=== PATIENT | male | born 1975 | race Caucasian/White ===

== ENCOUNTER 2020-08-31 02:57 | Emergency (ER) | payer MEDICARE, MEDICAID, SELFPAY ==
[2020-08-31 03:04] VITALS: BP 152/69; PULSE 91; RESP 20; TEMP 37.4; O2SAT 99; BMI 83.2
--- NOTE | 2020-08-31 03:20 | PC.NURSE ---
IV established, labs obtained. MD at bedside for primary eval. Plan to possibly transfer pt to [facility] or [facility] for a bariatric CT.
--- NOTE | 2020-08-31 03:31 | ED_ITS ---
HPI - Abdominal Pain General Chief Complaint: Abdominal Pain Stated Complaint: Abdominal Pain Time Seen by Provider: 08/31/20 03:09 Source: patient Mode of arrival: EMS Limitations: no limitations History of Present Illness HPI narrative: Patient comes to emergency room complaining of left lower quadrant pain. Started approximately 2 hours prior to arrival while watching TV. Patient states since then, the pain has gradually been becoming worse. In September of 2018, patient had a similar episode of left lower quadrant pain, patient was on Lovenox, he developed a hematoma in the left lower quadrant abdominal wall. Patient became anemic and needed 8 units of blood transfusion. Patient states the pain is complaining of acute pain in the same side as last time. Related Data Home Medications Medication Instructions Recorded Confirmed ibuprofen 800 mg tablet 800 mg PO Q8H 07/24/20 07/25/20 Previous Rx's Medication Instructions Recorded tramadol 50 mg tablet 50 mg PO DAILY #30 tab 07/25/20 miscellaneous medical supply #1 ea 08/22/20 Allergies Allergy/AdvReac Type Severity Reaction Status Date / Time No Known Allergies Allergy Verified 07/24/20 16:18 Review of Systems Review of Systems Constitutional : No Weight loss, No Fever, No Chills, No Night Sweats, No Fatigue, No Malaise ENT/Mouth : No Hearing loss, No Ear Pain, No Nasal Congestion, No Sinus Pain, No Hoarseness, No sore throat, No Rhinorrhea, No Swallowing Difficulty Eyes: No Eye Pain, No Swelling, No Redness, No Foreign Body, No Discharge, No Vision Changes Cardiovascular : No Chest Pain, No SOB, No Dyspnea on Exertion, No Orthopnea, No Edema, No Palpitations Respiratory : No Cough, No Sputum, No Wheezing, No Smoke Exposure, No Dyspnea Gastrointestinal : No Nausea, No Vomiting, No Diarrhea, No Constipation, complaining of left lower quadrant pannus pain, No Hematochezia, No Melena Genitourinary : no irregular bleeding, No Dysuria, No Urinary Frequency, No Hematuria, No Urinary Incontinence, No Urgency, No Flank Pain, No Urinary Flow Changes, No Hesitancy Musculoskeletal : No joint pain, No Myalgias, No Joint Swelling Skin : No Skin Lesions, No rash Neuro : No Weakness, No Numbness, No Paresthesias, No Loss of Consciousness, No Dizziness, No Headache Psych : No Anxiety/Panic, No Depression, No SI/HI/AH/VH, No Social Issues, Heme/Lymph: No Bruising, No Bleeding,No Lymphadenopathy Endocrine : No Polyuria, No Polydipsia, No Temperature Intolerance Physical Exam Vital Signs: Vital Signs: Last Vital Signs Temp 99.3 F 08/31/20 03:04 Pulse 79 08/31/20 04:11 Resp 24 H 08/31/20 04:11 BP 154/69 H 08/31/20 04:11 Pulse Ox 99 08/31/20 03:04 Body Mass Index 83.2 Appearance: Alert. Oriented X3. [id number] acute distress. Eyes: Pupils equal, round and reactive to light. ENT: Pharynx normal. Neck: Normal inspection. Neck supple. No lymph nodes noted. No crepitus CVS: Normal heart rate and rhythm. Pulses normal. Normal S1 and S2 Respiratory: No respiratory distress. Breath sounds normal. No Wheezing. No rales Abdomen: Soft , tender to palpation over the pannus in the left lower quadrant, has a moderate induration, no ecchymosis other discoloration. Skin: Skin warm and dry. Normal skin color. Normal skin turgor. Extremities: No lower extremity edema. No lower extremity edema. No Lacerations. No Rash Neuro: Oriented X 3. No motor deficit. No sensory deficit. Moving all extermities. No slurred speech. Course Course Course Narrative: Patient continues having left lower quadrant pain. Patient screaming in pain occasionally. Patient given morphine. At this time, patient's labs are stable, hemoglobin is 11.9, hematocrit 39.7. Due to patient's previous history of abdominal wall hematoma with rapid decompensation requiring blood transfusion (8 units). We discussed the patient with the transfer center and they state, however due to the patient's body habitus, and weight, their CT scanners cannot be used. Patient is being transferred to [place]. Pt was accepted ED to ED by Dr. Ford. Patient's current blood pressure 154/69, pulse 79 MDM - Abdominal Pain Lab Data Result diagrams: 08/31/20 03:28 08/31/20 03:28 Labs: Lab Results 08/31/20 08/31/20 08/31/20 Range/Units 03:28 03:28 03:28 WBC 14.1 H (4.8-10.8) X10*3/uL RBC 4.65 (4.60-5.80) X10*6/uL Hgb 11.9 L (14.0-18.0) g/dl Hct 39.7 L (42-52) % MCV 85.4 (80-98) fL MCH 25.6 L (27.0-33.0) pg MCHC 30.0 L (31.0-36.0) g/dl RDW 14.6 (11.0-16.0) % Plt Count 226 (160-400) X10*3/uL MPV 11.7 (9.4-12.4) fL Immature Gran % (Auto) 0.6 H (0.0-0.4) % Neut % (Auto) 82.5 H (45-73) % Lymph % (Auto) 8.7 L (20-40) % [place] % (Auto) 5.4 (2-11) % Eos % (Auto) 2.6 (0-4) % Baso % (Auto) 0.2 (0-2) % Lymph # (Auto) 1.2 (1.2-4.9) X10*3/uL [place] # (Auto) 0.8 (0.1-1.2) X10*3/uL Eos # (Auto) 0.4 (0.0-0.4) X10*3/uL Baso # (Auto) 0.0 (0.0-0.2) X10*3/uL Abs Immat Gran (auto) 0.09 H (0.00-0.03) X10*3/uL Absolute Neuts (auto) 11.7 H (2.0-8.3) X10*3/uL Absolute Nucleated RBC 0.000 (0.0-0.012) X10*3/uL Nucleated RBC % (auto) 0.0 (0.0-0.2) /100WBC PT 14.2 H (10.8-13.0) SEC INR 1.2 H (0.9-1.1) Sodium 140 (135-145) mmol/L Potassium 4.8 (3.3-5.1) mmol/l Chloride 101 (96-108) mmol/L Carbon Dioxide 28 (22-29) mmol/L Anion Gap 16 (12-20) BUN 14 (9-16) mg/dL Creatinine 0.84 (0.5-1.4) mg/dL Estim Creat Clear Calc 234.0 Estimated GFR > 60 Random Glucose 108 (60-115) mg/dL Calcium 8.6 (8.4-10.2) mg/dL Total Bilirubin 0.2 (0.0-1.0) mg/dL Direct Bilirubin < 0.2 (0.0-0.5) mg/dL AST 11 (5-37) U/L ALT 12 (0-40) U/L Alkaline Phosphatase 64 (39-117) U/L Total Protein 7.1 (6.5-8.0) g/dL Albumin 3.7 (3.5-5.0) g/dL Urine Color Urine Appearance Urine pH (5.0-8.0) Ur Specific [place] (1.005-1.025) Urine Protein (NEG-TRACE) MG/DL Urine Glucose (UA) (NEG) MG/DL Urine Ketones (NEG) MG/DL Urine Blood (NEG) Urine Nitrite (NEG) Ur Leukocyte Esterase (NEG) 08/31/20 Range/Units 03:28 WBC (4.8-10.8) X10*3/uL RBC (4.60-5.80) X10*6/uL Hgb (14.0-18.0) g/dl Hct (42-52) % MCV (80-98) fL MCH (27.0-33.0) pg MCHC (31.0-36.0) g/dl RDW (11.0-16.0) % Plt Count (160-400) X10*3/uL MPV (9.4-12.4) fL Immature Gran % (Auto) (0.0-0.4) % Neut % (Auto) (45-73) % Lymph % (Auto) (20-40) % [place] % (Auto) (2-11) % Eos % (Auto) (0-4) % Baso % (Auto) (0-2) % Lymph # (Auto) (1.2-4.9) X10*3/uL [place] # (Auto) (0.1-1.2) X10*3/uL Eos # (Auto) (0.0-0.4) X10*3/uL Baso # (Auto) (0.0-0.2) X10*3/uL Abs Immat Gran (auto) (0.00-0.03) X10*3/uL Absolute Neuts (auto) (2.0-8.3) X10*3/uL Absolute Nucleated RBC (0.0-0.012) X10*3/uL Nucleated RBC % (auto) (0.0-0.2) /100WBC PT (10.8-13.0) SEC INR (0.9-1.1) Sodium (135-145) mmol/L Potassium (3.3-5.1) mmol/l Chloride (96-108) mmol/L Carbon Dioxide (22-29) mmol/L Anion Gap (12-20) BUN (9-16) mg/dL Creatinine (0.5-1.4) mg/dL Estim Creat Clear Calc Estimated GFR Random Glucose (60-115) mg/dL Calcium (8.4-10.2) mg/dL Total Bilirubin (0.0-1.0) mg/dL Direct Bilirubin (0.0-0.5) mg/dL AST (5-37) U/L ALT (0-40) U/L Alkaline Phosphatase (39-117) U/L Total Protein (6.5-8.0) g/dL Albumin (3.5-5.0) g/dL Urine Color YELLOW Urine Appearance CLEAR Urine pH 7.5 (5.0-8.0) Ur Specific [place] 1.015 (1.005-1.025) Urine Protein NEG (NEG-TRACE) MG/DL Urine Glucose (UA) NEG (NEG) MG/DL Urine Ketones NEG (NEG) MG/DL Urine Blood NEG (NEG) Urine Nitrite NEG (NEG) Ur Leukocyte Esterase NEG (NEG) Discharge Plan Discharge Clinical Impression: Abdominal pain Qualifiers: Abdominal location: left lower quadrant Qualified Code(s): R10.32 - Left lower quadrant pain [facility]: No Action (DME) miscellaneous medical supply Misc See Rx Instructions .ROUTE .MEDSUPPLY Qty: 1 RF: 0 ibuprofen 800 mg tablet 800 mg PO Q8H RF: 0 tramadol 50 mg tablet 50 mg PO DAILY Qty: 30 RF: 1 PMFSH Past Medical History Medical History (Updated 08/31/20 @ 04:33 by Cathryn Bennett MD) Asthma Chronic back pain Obesity Obstructive sleep apnea Pericardial effusion Respiratory failure Surgical History History of tonsillectomy Family History Family History (Updated 07/18/20 @ 13:53 by Shweta Flores [facility]) Father Medical history unknown Mother Medical history unknown Social History Social History (Updated 07/24/20 @ 16:19 by Bill Biswas) Alcohol intake: never Smoking Status: Never smoker Advance Directives: No
[2020-08-31 03:34] LABS: MANUAL DIFF FLAG NO
--- NOTE | 2020-08-31 03:34 | PC.NURSE ---
Pt reports a relevant medical history involving a ruptured vessel within the left side of his abdomen on 09/2018 while he trying to tie his shoes. Pt was transfused with 8 units of blood. Pt explains that this pain is in the same area but states it feels different. Pt denies any heavy lifting or moving this evening prior to the pain beginning. Pt states he is not able to move much due to his weight and that his mother primary cares of him, assisting him with ADLs and frantz care. Discoloration noted to the left side of abdomen from previous hematoma. Pt assisted into POC, requesting pain medication. Awaiting lab results.
[2020-08-31 03:35] LABS: Basophils Percent Auto 0.2 % (0-2); Eosinophils Absolute Auto 0.4 X10*3/uL (0.0-0.4); Eosinophils Percent Auto 2.6 % (0-4); Hematocrit 39.7 % (42-52); Hemoglobin 11.9 g/dl (14.0-18.0); Imm Gran Abs Auto 0.09 X10*3/uL (0.00-0.03); Imm Gran Pct Auto 0.6 % (0.0-0.4); Lymphocytes Absolute Auto 1.2 X10*3/uL (1.2-4.9); Lymphocytes Percent Auto 8.7 % (20-40); Mean Corpuscular Hemoglobin 25.6 pg (27.0-33.0); Mean Corpuscular Volume 85.4 fL (80-98); Mean Platelet Volume 11.7 fL (9.4-12.4); Monocytes Absolute Auto 0.8 X10*3/uL (0.1-1.2); Monocytes Percent Auto 5.4 % (2-11); Neutrophils Absolute Auto 11.7 X10*3/uL (2.0-8.3); Neutrophils Percent Auto 82.5 % (45-73); Platelet Count 226 X10*3/uL (160-400); Red Blood Count 4.65 X10*6/uL (4.60-5.80); Red Cell Distribution Width 14.6 % (11.0-16.0); White Blood Count 14.1 X10*3/uL (4.8-10.8)
[2020-08-31 03:36] LABS: Glucose Urine UA NEG (NEG); Leukocyte Esterase Urine NEG (NEG); Nitrite Urine NEG (NEG); PH 7.5 (5.0-8.0); Specific Gravity - Urine 1.015 (1.005-1.025); Urine Blood NEG (NEG); Urine Ketones NEG (NEG); Urine Protein NEG (NEG-TRACE)
[2020-08-31 03:38] LABS: Appearance Urine CLEAR; Color Urine YELLOW; UACC Culture Trigger NO
[2020-08-31 03:40] LABS: INTERNATIONAL NORM RATIO 1.2 (0.9-1.1); Prothrombin Time 14.2 SEC (10.8-13.0)
[2020-08-31] MEDS: Morphine Sulfate 4 MG/ML CARTRIDGE IVPUSH (03:41)
--- NOTE | 2020-08-31 03:43 | PC.NURSE ---
Pt medicated with Morphine for 10/10 pain to left flank. Continue to monitor.
[2020-08-31 04:11] VITALS: BP 154/69; PULSE 79; RESP 24
--- NOTE | 2020-08-31 04:13 | PC.NURSE ---
[facility] unable to accept pt. [facility] pending acceptance due to pt measuring @ 83 inches around abdomen.
[2020-08-31 04:16] LABS: Alanine Aminotransferase 12 U/L (0-40); Albumin Level 3.7 g/dL (3.5-5.0); Alkaline Phosphatase 64 U/L (39-117); Anion Gap 16 (12-20); Aspartate Amino Transferase 11 U/L (5-37); Bilirubin Direct < 0.2 mg/dL (0.0-0.5); Bilirubin Total 0.2 mg/dL (0.0-1.0); Blood Urea Nitrogen 14 mg/dL (9-16); Calcium 8.6 mg/dL (8.4-10.2); Carbon Dioxide 28 mmol/L (22-29); Chloride 101 mmol/L (96-108); Estimated Glomerular Filt Rate > 60; Glucose Random 108 mg/dL (60-115); Potassium 4.8 mmol/l (3.3-5.1); Sodium 140 mmol/L (135-145); Total Protein 7.1 g/dL (6.5-8.0)
--- NOTE | 2020-08-31 04:52 | PC.NURSE ---
Report given to RN at [facility]. Awaiting EMS transport. Pt aware of plan to transfer via ambulance.
--- NOTE | 2020-08-31 06:04 | PC.NURSE ---
Per EMS, 30 minute ETA.
[2020-08-31 06:42] VITALS: BP 142/57; PULSE 77; RESP 16
--- NOTE | 2020-08-31 06:49 | PC.NURSE ---
EMS at bedside for transfer. Per EMS, dispatch only sending one crew. Per EMS, help required to transport pt into ambulance.
== END 2020-08-31 07:11 | disposition short-term general hospital (02) ==
PROVIDERS: Emergency Provider Emergency Medicine
DX: R10.32 Left lower quadrant pain (principal); Z79.899 Other long term (current) drug therapy
CPT/HCPCS: 36415; 80048; 80076; 81003; 85025; 85610; 96374; 99285; J2270

== ENCOUNTER → 2020-10-03 15:55 | Outpatient (BNVA) | payer MEDICARE, MEDICAID, SELFPAY | PROVIDERS: PCP Internal Medicine; Visit Provider Internal Medicine Pulmonary Disease | DX: G47.33 Obstructive sleep apnea (adult) (pediatric) (principal); G47.34 Idiopathic sleep related nonobstructive alveolar hypoventilation; Z99.89 Dependence on other enabling machines and devices | CPT/HCPCS: 99202 ==

== ENCOUNTER → 2020-10-25 11:22 | Outpatient (REF) | payer MEDICARE, MEDICAID, SELFPAY | LOC: HO.SL 11:22 | PROVIDERS: PCP Internal Medicine; Visit Provider Internal Medicine Pulmonary Disease | DX: G47.33 Obstructive sleep apnea (adult) (pediatric) (principal) | CPT/HCPCS: 95806 ==

== ENCOUNTER → 2020-12-27 15:25 | Outpatient (BNVA) | payer MEDICARE, MEDICAID, SELFPAY | PROVIDERS: PCP Internal Medicine; Visit Provider Internal Medicine Pulmonary Disease | DX: G47.33 Obstructive sleep apnea (adult) (pediatric) (principal); G47.34 Idiopathic sleep related nonobstructive alveolar hypoventilation | CPT/HCPCS: Q3014 ==

== ENCOUNTER 2021-07-20 19:13 | Emergency (ER) | payer MEDICARE, MEDICAID, SELFPAY ==
--- NOTE | ~2021-07-20 | XR_ITS ---
EXAMINATION: XR CHEST CLINICAL INFORMATION: Shortness of breath COMPARISON: Most recent chest radiograph is dated 09/15/2018 TECHNIQUE: Frontal view of the chest was obtained. Limited examination due to patient body habitus. FINDINGS: The cardiomediastinal silhouette appears unchanged. No significant cardiomegaly. The lungs are adequately expanded. There appears to be central interstitial prominence. No dense focal airspace consolidation. No definite pleural effusions are seen. The right costophrenic angle is incompletely imaged. No pneumothorax is visualized. Osseous detail is limited. Previously seen central line is no longer visualized. XR/XR chest 1V IMPRESSION: There is central interstitial prominence. Pulmonary vascular congestion is possible, versus airways changes. The lung parenchyma appears grossly clear.
[2021-07-20 19:43] VITALS: BP 160/70; PULSE 86; RESP 24; TEMP 37; O2SAT 100; BMI 71.7
[2021-07-20 20:57] LABS: MANUAL DIFF FLAG NO
[2021-07-20 21:00] LABS: Basophils Percent Auto 0.2 % (0-2); Eosinophils Absolute Auto 0.4 X10*3/uL (0.0-0.4); Hematocrit 37.1 % (42.0-52.0); Hemoglobin 11.3 g/dl (14.0-18.0); Imm Gran Abs Auto 0.05 X10*3/uL (0.00-0.03); Imm Gran Pct Auto 0.6 % (0.0-0.4); Lymphocytes Absolute Auto 0.5 X10*3/uL (1.2-4.9); Lymphocytes Percent Auto 5.9 % (20-40); Mean Corpuscular HGB Conc 30.5 g/dl (31.0-36.0); Mean Corpuscular Hemoglobin 25.7 pg (27.0-33.0); Mean Corpuscular Volume 84.5 fL (80.0-98.0); Mean Platelet Volume 11.5 fL (9.4-12.4); Monocytes Absolute Auto 0.6 X10*3/uL (0.1-1.2); Monocytes Percent Auto 7.2 % (2-11); Neutrophils Absolute Auto 7.2 x10*3/uL (2.0-8.3); Neutrophils Percent Auto 81.1 % (45-73); Platelet Count 201 X10*3/uL (160-400); Red Blood Count 4.39 X10*6/uL (4.60-5.80); Red Cell Distribution Width 15.1 % (11.0-16.0); White Blood Count 8.8 X10*3/uL (4.8-10.8)
[2021-07-20 21:16] LABS: Anion Gap 13 (12-20); Blood Urea Nitrogen 9 mg/dL (9-16); Calcium 8.1 mg/dL (8.4-10.2); Carbon Dioxide 26 mmol/L (22-29); Chloride 104 mmol/L (96-108); Creatinine Clr Calc Pharmacy 213.8; Estimated Glomerular Filt Rate > 60; Glucose Random 107 mg/dL (60-115); Potassium 4.1 mmol/L (3.3-5.1); Sodium 139 mmol/L (135-145)
[2021-07-20 21:17] VITALS: BP 181/88; PULSE 88; RESP 22; O2SAT 99
[2021-07-20 21:23] LABS: B Type Natriuretic Peptide 25 pg/mL (<100); Troponin-I High Sensitivity < 3.5 ng/L (<3.5-35.0)
[2021-07-20 21:39] LABS: Influenza A PCR NEGATIVE (Negative); Influenza B PCR NEGATIVE (Negative); Resp Syncy Virus RNA Qual PCR NEGATIVE (Negative); SARS COV2 PCR INHOUSE NEGATIVE (Negative)
[2021-07-20] MEDS: Albuterol Sulfate 90 MCG 8 GM INHALER 4 PUFF INHALE (21:51)
--- NOTE | 2021-07-20 22:03 | ED.SOB ---
HPI - SOB/Dyspnea General Chief Complaint: Dyspnea Stated Complaint: Difficulty breathing Time Seen by Provider: 07/20/21 21:40 Source: patient Mode of arrival: ambulatory History of Present Illness HPI Narrative: This is a 45-year-old male who presents with progressive shortness of breath since yesterday in endorses that he has a history of asthma but does not have any inhaler prescribed. He denies any fever, chills but has had a cough and states he has not been COVID-19 vaccinated and is otherwise eating and drinking well without GI or symptoms. Patient states he also has obstructive sleep apnea and uses a CPAP machine. Although triage note documents right lower abdominal pain patient has denied abdominal discomfort at this time. Related Data Previous Rx's Medication Instructions Recorded miscellaneous medical supply #1 ea 08/22/20 miscellaneous medical supply 1 ea MISCELLANEOUS ONCE 99 Days #1 10/09/20 ea miscellaneous medical supply 1 ea MISCELLANEOUS ONCE #1 ea 12/04/20 cyclobenzaprine 10 mg tablet 10 mg PO BEDTIME 30 Days #30 tab 12/31/20 ibuprofen 800 mg tablet 800 mg PO Q8H #90 tab 12/31/20 tramadol 50 mg tablet 50 mg PO DAILY 10 Days #10 tab 12/31/20 miscellaneous medical supply 1 ea MISCELLANEOUS ONCE #1 ea 03/29/21 Allergies Allergy/AdvReac Type Severity Reaction Status Date / Time No Known Allergies Allergy Verified 12/28/20 16:01 Review of Systems Review of Systems: Pertinent positives and negatives as stated in HPI 10 point review of systems is otherwise negative. [facility] Past Medical History Source: nursing notes reviewed Medical History Asthma Chronic back pain Obesity Obstructive sleep apnea Pericardial effusion Respiratory failure Surgical History History of tonsillectomy Family History Family History Father Medical history unknown Mother Medical history unknown Family/Other Asthma Brother No problems noted. Brother No problems noted. Sister No problems noted. Social History Social History Alcohol intake: never Advance Directives: No Physical Exam Vital Signs: Vital Signs: Last Vital Signs Temp 98.6 F 07/20/21 19:43 Pulse 113 H 07/20/21 23:28 Resp 20 07/20/21 23:28 BP 140/60 H 07/20/21 23:12 Pulse Ox 100 07/20/21 23:12 BMI result Body Mass Index 71.7 VITAL SIGNS: Reviewed. GENERAL: Morbidly obese,well nourished, in no acute distress. HEAD: Normocephalic/atraumatic EYES: PERRLA, EOMI OROPHARYNX: no oral lesions noted, posterior pharynx clear NECK: Supple, no adenopathy LUNGS: Good inspiratory effort with expiratory wheezing noted bilaterally, mild tachypnea with increased work of breathing. CARDIOVASCULAR: Regular rate and rhythm without noted murmurs, no JVD or lower extremity edema. ABDOMEN: Morbidly obese, exam limited by body habitus, soft, non-tender, non-distended with bowel sounds. MUSCULOSKELETAL: No tenderness, deformities, or effusions noted on gross inspection. EXTREMITIES: Bilateral lower extremities with chronic skin changes of lymphedema as well as skin thickening no noted erythema or induration. SKIN: Inspection of the skin reveals no rashes, NEUROLOGIC: Alert and oriented x 4. Strength and sensation to light touch were grossly intact x 4. Course Course Course Narrative: 45-year-old male with history and clinical presentation suggestive of asthma exacerbation and in the absence of fever, chills or GI symptoms limited concern for pneumonia or intra-abdominal pathologies. Review of investigations negative for evidence to support fluid overload, infectious etiology, and COVID-19 testing is negative. Patient presumptively treated for asthma with albuterol treatments, steroids and will be re-evaluated. Review of all investigations negative for acute findings and patient treated for acute asthma exacerbation with 2 hour long albuterol treatments as well as Ventolin and administration of steroids. On re-evaluation the patient he reports significant improvement of breathing and on clinical exam no wheezing noted. MDM - SOB/Dyspnea Lab Data Result diagrams: 07/20/21 20:52 07/20/21 20:52 Labs: Lab Results 07/20/21 07/20/21 07/20/21 Range/Units 20:52 20:52 20:52 WBC 8.8 (4.8-10.8) X10*3/uL RBC 4.39 L (4.60-5.80) X10*6/uL Hgb 11.3 L (14.0-18.0) g/dl Hct 37.1 L (42.0-52.0) % MCV 84.5 (80.0-98.0) fL MCH 25.7 L (27.0-33.0) pg MCHC 30.5 L (31.0-36.0) g/dl RDW 15.1 (11.0-16.0) % Plt Count 201 (160-400) X10*3/uL MPV 11.5 (9.4-12.4) fL Immature Gran % (Auto) 0.6 H (0.0-0.4) % Neut % (Auto) 81.1 H (45-73) % Lymph % (Auto) 5.9 L (20-40) % [place] % (Auto) 7.2 (2-11) % Eos % (Auto) 5.0 H (0-4) % Baso % (Auto) 0.2 (0-2) % Lymph # (Auto) 0.5 L (1.2-4.9) X10*3/uL [place] # (Auto) 0.6 (0.1-1.2) X10*3/uL Eos # (Auto) 0.4 (0.0-0.4) X10*3/uL Baso # (Auto) 0.0 (0.0-0.2) X10*3/uL Abs Immat Gran (auto) 0.05 H (0.00-0.03) X10*3/uL Absolute Neuts (auto) 7.2 (2.0-8.3) x10*3/uL Absolute Nucleated RBC 0.000 (0.0-0.012) X10*3/uL Nucleated RBC % (auto) 0.0 (0.0-0.2) /100WBC Sodium 139 (135-145) mmol/L Potassium 4.1 (3.3-5.1) mmol/L Chloride 104 (96-108) mmol/L Carbon Dioxide 26 (22-29) mmol/L Anion Gap 13 (12-20) BUN 9 (9-16) mg/dL Creatinine 0.83 (0.5-1.4) mg/dL Estim Creat Clear Calc 213.8 Estimated GFR > 60 Random Glucose 107 (60-115) mg/dL Calcium 8.1 L (8.4-10.2) mg/dL Troponin I High Sens < 3.5 (<3.5-35.0) ng/L B-Natriuretic Peptide 25 (<100) pg/mL Influenza Type A (PCR) (Negative) Influenza Type B (PCR) (Negative) RSV RNA Qual (PCR) (Negative) SARS-CoV-2 RNA (RT-PCR) (Negative) 07/20/21 Range/Units 20:52 WBC (4.8-10.8) X10*3/uL RBC (4.60-5.80) X10*6/uL Hgb (14.0-18.0) g/dl Hct (42.0-52.0) % MCV (80.0-98.0) fL MCH (27.0-33.0) pg MCHC (31.0-36.0) g/dl RDW (11.0-16.0) % Plt Count (160-400) X10*3/uL MPV (9.4-12.4) fL Immature Gran % (Auto) (0.0-0.4) % Neut % (Auto) (45-73) % Lymph % (Auto) (20-40) % [place] % (Auto) (2-11) % Eos % (Auto) (0-4) % Baso % (Auto) (0-2) % Lymph # (Auto) (1.2-4.9) X10*3/uL [place] # (Auto) (0.1-1.2) X10*3/uL Eos # (Auto) (0.0-0.4) X10*3/uL Baso # (Auto) (0.0-0.2) X10*3/uL Abs Immat Gran (auto) (0.00-0.03) X10*3/uL Absolute Neuts (auto) (2.0-8.3) x10*3/uL Absolute Nucleated RBC (0.0-0.012) X10*3/uL Nucleated RBC % (auto) (0.0-0.2) /100WBC Sodium (135-145) mmol/L Potassium (3.3-5.1) mmol/L Chloride (96-108) mmol/L Carbon Dioxide (22-29) mmol/L Anion Gap (12-20) BUN (9-16) mg/dL Creatinine (0.5-1.4) mg/dL Estim Creat Clear Calc Estimated GFR Random Glucose (60-115) mg/dL Calcium (8.4-10.2) mg/dL Troponin I High Sens (<3.5-35.0) ng/L B-Natriuretic Peptide (<100) pg/mL Influenza Type A (PCR) NEGATIVE (Negative) Influenza Type B (PCR) NEGATIVE (Negative) RSV RNA Qual (PCR) NEGATIVE (Negative) SARS-CoV-2 RNA (RT-PCR) NEGATIVE (Negative) Procedures EJ/Peripheral Line Arm R: Time Out Performed: No Skin Cleansed in Sterile Fashion: Yes Size (gauge): 18 IV Secured and Dressing Applied: Yes Patient Tolerated Procedure: well Additional Comments: Ultrasound-guided Discharge Plan Discharge Clinical Impression: Morbid obesity, Lab test negative for COVID-19 virus, Acute asthma exacerbation Patient Disposition: Home, Self-Care Instructions: Asthma (ED), Albuterol (By mouth) Additional Instructions: 1. Resume all home medications as prescribed. 2. Albuterol inhaler, 2 puffs, every 4-6 hours, as needed for shortness of breath. 3. Follow-up with your primary care provider on Friday morning to set up an appointment for re-evaluation further outpatient management. Return to the ER for acute worsening of symptoms. Prescriptions: No Action (DME) miscellaneous medical supply Misc See Rx Instructions .ROUTE .MEDSUPPLY Qty: 1 RF: 0 miscellaneous medical supply Misc 1 ea miscellaneous ONCE Qty: 1 RF: 0 cyclobenzaprine 10 mg tablet 10 mg PO BEDTIME 30 Days Qty: 30 RF: 1 tramadol 50 mg tablet 50 mg PO DAILY 10 Days Qty: 10 RF: 0 ibuprofen 800 mg tablet 800 mg PO Q8H Qty: 90 RF: 1 miscellaneous medical supply Misc 1 ea miscellaneous ONCE Qty: 1 RF: 0 miscellaneous medical supply Misc 1 ea miscellaneous ONCE 99 Days Qty: 1 RF: 0 Referrals: Pamela Tong MD [Primary Care Provider] - 2 days (Asthma exacerbation)
[2021-07-20] MEDS: Albuterol Sulfate (0.083%) 2.5 MG/3 ML VIAL.NEB 10 MG INHALE ×2 (22:27→23:27)
[2021-07-20 22:28] VITALS: PULSE 89; RESP 18; O2SAT 99
--- NOTE | 2021-07-20 22:41 | PC.NURSE ---
This RN made three attempts to obtain IV access with no success. Jahaira RN attempted to obtain access twice with no success. Provider notified.
[2021-07-20 23:12] VITALS: BP 140/60; PULSE 102; RESP 16; O2SAT 100
--- NOTE | 2021-07-20 23:12 | PC.NURSE ---
IV access obtain by provider with ultrasound.
[2021-07-20] MEDS: methylPREDNISolone Sod Succ 125 MG/2 ML VIAL IVPUSH (23:22)
[2021-07-20 23:28] VITALS: PULSE 113; RESP 20; O2SAT 98
== END 2021-07-21 00:26 | disposition home or self-care (01) ==
PROVIDERS: Emergency Provider Student in an Organized Health Care Education/Training Program; PCP Internal Medicine
DX: J45.901 Unspecified asthma with (acute) exacerbation (principal); R06.02 Shortness of breath; E66.01 Morbid (severe) obesity due to excess calories; R05.9 Cough, unspecified; R79.89 Other specified abnormal findings of blood chemistry; Z20.822 Contact with and (suspected) exposure to COVID-19; Z79.899 Other long term (current) drug therapy; Z71.3 Dietary counseling and surveillance
CPT/HCPCS: 0241U; 36415; 71045; 80048; 83880; 84484; 85025; 94640; 94644; 94645; 96374; 99284; 99285; J2930

== ENCOUNTER 2021-09-12 21:53 | Inpatient (IN) | payer MEDICARE, MEDICAID, SELFPAY ==
--- NOTE | ~2021-09-12 | US_ITS ---
EXAMINATION: US VENOUS ULTRASOUND WITH DOPPLER LOWER EXTREMITY, BILATERAL CLINICAL INFORMATION: Shortness of breath. Rule out DVT. COMPARISON: 09/17/2018 and 09/12/2016. TECHNIQUE: Ultrasound of the deep veins is performed from the hip to the calf with compression sonography and color and pulse Doppler assessment. Spectral analysis with color-flow imaging is performed. FINDINGS: The examination is very limited due to large body habitus. Bilaterally, the common femoral veins, greater saphenous vein, proximal superficial femoral veins, profunda femoral veins, and peroneal veins are not identified. RIGHT: The visualized veins demonstrate normal venous compression and respiratory variation and augmented flow. The visualized mid and distal superficial femoral veins, popliteal veins, and posterior tibial veins show no evidence of deep venous thrombosis. There is no significant popliteal fossa cyst. No popliteal artery aneurysm. LEFT: There is normal venous compression and respiratory variation and augmented flow within the visualized veins. The visualized mid and distal superficial femoral veins, popliteal veins, and posterior tibial veins show no evidence of deep venous thrombosis. There is no significant popliteal fossa cyst. No popliteal artery aneurysm. US/US venous duplex LE BI IMPRESSION: Limited evaluation with no acute DVT demonstrated in the bilateral lower extremities.
--- NOTE | ~2021-09-12 | XR_ITS ---
EXAMINATION: XR CHEST CLINICAL INFORMATION: Post Covid, weakness COMPARISON: Chest radiograph 07/20/2021 TECHNIQUE: Frontal view of the chest was obtained. FINDINGS: Commonly reported imaging features of Covid 19 or viral pneumonia are present. With multifocal ill-defined infiltrates with some relative sparing of the left upper lobe. Other processes such as influenza pneumonia or organizing pneumonia, as can be seen with drug toxicity and connective tissue disease, can cause a similar imaging pattern. The heart is probably upper limits of normal in size allowing for technique. No pleural effusion XR/XR chest 1V IMPRESSION: Multifocal new ill-defined new infiltrates.
--- NOTE | 2021-09-12 21:56 | ECG_ITS ---
Test Reason : ABDOMINAL PAIN Blood Pressure : / mmHG Vent. Rate : 076 BPM Atrial Rate : 076 BPM P-R Int : 168 ms QRS Dur : 090 ms QT Int : 406 ms P-R-T Axes : 003 -04 026 degrees QTc Int : 456 ms Normal sinus rhythm Normal ECG When compared with ECG of 03-JUL-2018 14:39, No significant change was found Referred By: Leonela Hood Electronically Signed By:CRYSTAL MORELOS
[2021-09-12 22:03] VITALS: BP 165/75; PULSE 77; RESP 18; TEMP 37.2; O2SAT 96; BMI 84.3
--- NOTE | 2021-09-12 22:34 | ED_ITS ---
HPI - URI/Sore Throat General Chief Complaint: Upper Respiratory Symptoms Stated Complaint: sob Time Seen by Provider: 09/12/21 21:55 Source: patient and EMS Mode of arrival: EMS History of Present Illness HPI Narrative: 46-year-old male with past medical history of asthma, chronic back pain, morbid obesity, JESSE on CPAP, COVID-19 positive on 08/30 per home test, presenting to the ED via EMS for worsening SOB, cough, increased generalized fatigue/weakness, anorexia, headache, and dry mouth x a few days. Also reports acute on chronic L E edema and nausea. Denies fever, chest pain, abdominal pain, vomiting, diarrhea Onset (ago): day(s) Related Data Previous Rx's Medication Instructions Recorded miscellaneous medical supply #1 ea 08/22/20 miscellaneous medical supply 1 ea MISCELLANEOUS ONCE 99 Days #1 10/09/20 ea miscellaneous medical supply 1 ea MISCELLANEOUS ONCE #1 ea 12/04/20 cyclobenzaprine 10 mg tablet 10 mg PO BEDTIME 30 Days #30 tab 12/31/20 ibuprofen 800 mg tablet 800 mg PO Q8H #90 tab 12/31/20 tramadol 50 mg tablet 50 mg PO DAILY 10 Days #10 tab 12/31/20 miscellaneous medical supply 1 ea MISCELLANEOUS ONCE #1 ea 03/29/21 nebulizers #1 ea 07/25/21 Allergies Allergy/AdvReac Type Severity Reaction Status Date / Time No Known Allergies Allergy Verified 12/28/20 16:01 Review of Systems Verdana 4l Review of Systems: Verdana 4d Verdana 4d Constitutional: No Fever, No Chills, + Fatigue, + Malaise ENT/Mouth: No Ear Pain, No Nasal Congestion, No sore throat, No Rhinorrhea, No Swallowing Difficulty Eyes: No Eye Pain, No Swelling, No Redness, No Foreign Body, No Discharge CardiovascularCardiovascular: No Chest Pain, + SOB, No Dyspnea on Exertion, No Orthopnea, + Edema, No Palpitations Respiratory: + Cough, No Sputum, No Wheezing, +Dyspnea Gastrointestinal: +Nausea, No Vomiting, No Diarrhea, No Constipation, No Abdominal pain Genitourinary: No Dysuria, No Urinary Frequency, No Hematuria, No Flank Pain Musculoskeletal: No joint pain, + Myalgias, No Joint Swelling Skin: No Skin Lesions, No rash Neuro: No Weakness, No Numbness, No Paresthesias, No Loss of Consciousness, No Dizziness, + Headache Yes all other systems are reviewed and are negative [facility] Past Medical History Attestation statement: The following information was validated with the patient. Medical History Asthma Chronic back pain Obesity Obstructive sleep apnea Pericardial effusion Respiratory failure Surgical History History of tonsillectomy Family History Family History Father Medical history unknown Mother Medical history unknown Family/Other Asthma Brother No problems noted. Brother No problems noted. Sister No problems noted. Social History Social History Alcohol intake: never Advance Directives: No Advance Directives Information Provided: No Physical Exam Verdana 4l Vital Signs: Verdana 4d Verdana 4d Vital Signs: Verdana 4d Verdana 4Bd Last Vital Signs Verdana 4d Apprentice Embalmer New 4d Apprentice Embalmer New 4d Temp 98.9 F 09/12/21 22:03 Apprentice Embalmer New 4d Pulse 77 09/12/21 22:03 Apprentice Embalmer New 4d Resp 18 09/12/21 22:03 BP 165/75 H 09/12/21 22:03 Pulse Ox 96 09/12/21 22:03 BMI result Body Mass Index 84.3 Const: General: cooperative Nutritional Appearance: obese morbidly obese Orientation/consciousness: patient oriented x3 Limitations: no limitations HENMT: Head: Yes normal to inspection and Yes atraumatic Ears: hearing grossly normal bilaterally General nose exam: Normal external nose present Face and sinus: Yes normal facial exam Eyes: General: appearance normal, both eyes and all related structures EOM: EOMs intact bilaterally Neck: Neck: Yes normal visual inspection and Yes no meningeal signs Resp: Effort & Inspection: tachypneic Auscultation: wheezes expiratory wheezes (end expiratory) and diminished lung sounds bilateral in the lower lung todd Cardio: Rate: regular rate Heart sounds: S1 normal heart sound present and S2 normal heart sound present GI: Inspection: Yes normal to inspection Palpation (GI): Soft to palpation, nontender, no guarding and not rigid : General: Yes no CVA tenderness Back/Spine/Pelvis: Back: no CVA tenderness Skin: Rashes: no rashes Wounds: no wounds Neuro: General: patient oriented x3 and no meningeal signs Gait exam (Neuro): Normal gait present Extrem: Other: Chronic nonpitting bilateral LE edema Course Course Course Narrative: -COVID-19 positive -0014--no leukocytosis. H&H at patient's baseline. Lactic acid negative. Troponin negative. BNP WNL -D-dimer 493 & CRP/ferritin elevated consistent with COVID-19 > still lower suspicion for PE -AST/ALT mildly elevated XR chest 1V IMPRESSION: Multifocal new ill-defined new infiltrates. -0115--patient is nonambulatory, O2 96% on RA at rest however patient still tachypneic/SOB. Patient is very high risk, CXR concerning, and cannot rule out PE secondary to patient's weight being over the scanned limit. Will talk to hospitalist about admission. -0158-- empirically covered with 150mg of Lovenox. Patient admitted to hospitalist service for further management MDM - URI/Sore Throat MDM Narrative Medical decision making narrative: 46-year-old male with past medical history of asthma, chronic back pain, morbid obesity, JESSE on CPAP, COVID-19 positive on 08/30 per home test, presenting to the ED via EMS for worsening SOB, cough, increased generalized fatigue/weakness, anorexia, headache, and dry mouth x a few days. On exam vital signs stable, NAD, end expiratory wheeze and decreased breath sounds bibasilarly, chronic LE edema. Concern for symptoms of COVID-19 vs viral pna vs superimposed asthma. Lower concern for ACS/CHF. Unlikely PE or DVT without tachycardia or hypoxia. Low concern for severe sepsis as known viral etiology Plan: EKG, labs, CXR, COVID-19 testing, IV Decadron, re-evaluate Differential Diagnosis Differential diagnosis: Likely upper respiratory infection, viral infection, bronchitis and influenza Medical Records Attestation: I reviewed the patient's medical records. Lab Data Attestation: I reviewed the patient's lab results. Result diagrams: 09/12/21 23:46 09/12/21 23:46 Labs: Lab Results 09/12/21 09/12/21 09/12/21 Range/Units 22:23 23:46 23:46 WBC 6.5 (4.8-10.8) X10*3/uL RBC 4.34 L (4.60-5.80) X10*6/uL Hgb 10.9 L (14.0-18.0) g/dl Hct 36.3 L (42.0-52.0) % MCV 83.6 (80.0-98.0) fL MCH 25.1 L (27.0-33.0) pg MCHC 30.0 L (31.0-36.0) g/dl RDW 14.8 (11.0-16.0) % Plt Count 195 (160-400) X10*3/uL MPV 11.1 (9.4-12.4) fL Immature Gran % (Auto) 0.3 (0.0-0.4) % Neut % (Auto) 78.7 H (45-73) % Lymph % (Auto) 11.1 L (20-40) % [place] % (Auto) 8.3 (2-11) % Eos % (Auto) 1.4 (0-4) % Baso % (Auto) 0.2 (0-2) % Lymph # (Auto) 0.7 L (1.2-4.9) X10*3/uL [place] # (Auto) 0.5 (0.1-1.2) X10*3/uL Eos # (Auto) 0.1 (0.0-0.4) X10*3/uL Baso # (Auto) 0.0 (0.0-0.2) X10*3/uL Abs Immat Gran (auto) 0.02 (0.00-0.03) X10*3/uL Absolute Neuts (auto) 5.1 (2.0-8.3) x10*3/uL Absolute Nucleated RBC 0.000 (0.0-0.012) X10*3/uL Nucleated RBC % (auto) 0.0 (0.0-0.2) /100WBC D-Dimer High Sensitivty NG/ML Sodium 141 (135-145) mmol/L Potassium 4.0 (3.3-5.1) mmol/L Chloride 106 (96-108) mmol/L Carbon Dioxide 28 (22-29) mmol/L Anion Gap 11 L (12-20) BUN 10 (9-16) mg/dL Creatinine 0.80 (0.5-1.4) mg/dL Estim Creat Clear Calc 463.1 Estimated GFR > 60 Random Glucose 99 (60-115) mg/dL Lactic Acid (0.5-2.0) mmol/L Calcium 8.2 L (8.4-10.2) mg/dL Magnesium 2.2 (1.6-2.6) mg/dL Ferritin 552 H (20-250) ng/mL Total Bilirubin 0.4 (0.0-1.0) mg/dL Direct Bilirubin 0.2 (0.0-0.5) mg/dL AST 57 H (5-37) U/L ALT 69 H (0-40) U/L Alkaline Phosphatase 62 (39-117) U/L Lactate Dehydrogenase 232 (118-273) U/L Troponin I High Sens (<3.5-35.0) ng/L C-Reactive Protein 7.88 H (< or = 0.50) mg/dL B-Natriuretic Peptide (<100) pg/mL Total Protein 6.5 (6.5-8.0) g/dL Albumin 3.4 L (3.5-5.0) g/dL Procalcitonin ng/mL COVID-19 ([facility]) Positive A (Negative) COVID-19 Clin Com See Note 09/12/21 09/12/21 09/12/21 Range/Units 23:46 23:46 23:46 WBC (4.8-10.8) X10*3/uL RBC (4.60-5.80) X10*6/uL Hgb (14.0-18.0) g/dl Hct (42.0-52.0) % MCV (80.0-98.0) fL MCH (27.0-33.0) pg MCHC (31.0-36.0) g/dl RDW (11.0-16.0) % Plt Count (160-400) X10*3/uL MPV (9.4-12.4) fL Immature Gran % (Auto) (0.0-0.4) % Neut % (Auto) (45-73) % Lymph % (Auto) (20-40) % [place] % (Auto) (2-11) % Eos % (Auto) (0-4) % Baso % (Auto) (0-2) % Lymph # (Auto) (1.2-4.9) X10*3/uL [place] # (Auto) (0.1-1.2) X10*3/uL Eos # (Auto) (0.0-0.4) X10*3/uL Baso # (Auto) (0.0-0.2) X10*3/uL Abs Immat Gran (auto) (0.00-0.03) X10*3/uL Absolute Neuts (auto) (2.0-8.3) x10*3/uL Absolute Nucleated RBC (0.0-0.012) X10*3/uL Nucleated RBC % (auto) (0.0-0.2) /100WBC D-Dimer High Sensitivty NG/ML Sodium (135-145) mmol/L Potassium (3.3-5.1) mmol/L Chloride (96-108) mmol/L Carbon Dioxide (22-29) mmol/L Anion Gap (12-20) BUN (9-16) mg/dL Creatinine (0.5-1.4) mg/dL Estim Creat Clear Calc Estimated GFR Random Glucose (60-115) mg/dL Lactic Acid 0.8 (0.5-2.0) mmol/L Calcium (8.4-10.2) mg/dL Magnesium (1.6-2.6) mg/dL Ferritin Cancelled (20-250) ng/mL Total Bilirubin (0.0-1.0) mg/dL Direct Bilirubin (0.0-0.5) mg/dL AST (5-37) U/L ALT (0-40) U/L Alkaline Phosphatase (39-117) U/L Lactate Dehydrogenase (118-273) U/L Troponin I High Sens < 3.5 (<3.5-35.0) ng/L C-Reactive Protein (< or = 0.50) mg/dL B-Natriuretic Peptide 16 (<100) pg/mL Total Protein (6.5-8.0) g/dL Albumin (3.5-5.0) g/dL Procalcitonin ng/mL COVID-19 ([facility]) (Negative) COVID-19 Clin Com 09/12/21 09/12/21 Range/Units 23:46 23:46 WBC (4.8-10.8) X10*3/uL RBC (4.60-5.80) X10*6/uL Hgb (14.0-18.0) g/dl Hct (42.0-52.0) % MCV (80.0-98.0) fL MCH (27.0-33.0) pg MCHC (31.0-36.0) g/dl RDW (11.0-16.0) % Plt Count (160-400) X10*3/uL MPV (9.4-12.4) fL Immature Gran % (Auto) (0.0-0.4) % Neut % (Auto) (45-73) % Lymph % (Auto) (20-40) % [place] % (Auto) (2-11) % Eos % (Auto) (0-4) % Baso % (Auto) (0-2) % Lymph # (Auto) (1.2-4.9) X10*3/uL [place] # (Auto) (0.1-1.2) X10*3/uL Eos # (Auto) (0.0-0.4) X10*3/uL Baso # (Auto) (0.0-0.2) X10*3/uL Abs Immat Gran (auto) (0.00-0.03) X10*3/uL Absolute Neuts (auto) (2.0-8.3) x10*3/uL Absolute Nucleated RBC (0.0-0.012) X10*3/uL Nucleated RBC % (auto) (0.0-0.2) /100WBC D-Dimer High Sensitivty 493 NG/ML Sodium (135-145) mmol/L Potassium (3.3-5.1) mmol/L Chloride (96-108) mmol/L Carbon Dioxide (22-29) mmol/L Anion Gap (12-20) BUN (9-16) mg/dL Creatinine (0.5-1.4) mg/dL Estim Creat Clear Calc Estimated GFR Random Glucose (60-115) mg/dL Lactic Acid (0.5-2.0) mmol/L Calcium (8.4-10.2) mg/dL Magnesium (1.6-2.6) mg/dL Ferritin (20-250) ng/mL Total Bilirubin (0.0-1.0) mg/dL Direct Bilirubin (0.0-0.5) mg/dL AST (5-37) U/L ALT (0-40) U/L Alkaline Phosphatase (39-117) U/L Lactate Dehydrogenase (118-273) U/L Troponin I High Sens (<3.5-35.0) ng/L C-Reactive Protein (< or = 0.50) mg/dL B-Natriuretic Peptide (<100) pg/mL Total Protein (6.5-8.0) g/dL Albumin (3.5-5.0) g/dL Procalcitonin 0.08 ng/mL COVID-19 ([facility]) (Negative) COVID-19 Clin Com ECG Data Attestation: I personally reviewed and interpreted this ECG as follows: ECG interpretation date: 09/12/21 ECG interpretation time: 22:16 Interpretation: EKG normal sinus rhythm at a rate of 76. QRS 90. QTC 456. no STEMI/nonischemic Critical Care Time Critical Care Time Critical Care Time: Yes Total Critical Care Time: 45 Attestation: I have personally provided critical care time exclusive of time spent on separately billable procedures. Time includes review of lab data, radiology results, discussion with consultants, and monitoring for potential decompensation. Intervention performed as documented. Discharge Plan Discharge Clinical Impression: COVID-19, Pneumonia due to COVID-19 virus Patient Disposition: Admitted As Inpatient Instructions: COVID-19 (Coronavirus Disease 2019) (ED) Prescriptions: No Action (DME) miscellaneous medical supply Misc See Rx Instructions .ROUTE .MEDSUPPLY Qty: 1 0RF Rx Instructions: As directed miscellaneous medical supply Misc 1 ea miscellaneous ONCE Qty: 1 0RF cyclobenzaprine 10 mg tablet 10 mg PO BEDTIME 30 Days Qty: 30 1RF tramadol 50 mg tablet 50 mg PO DAILY 10 Days Qty: 10 0RF ibuprofen 800 mg tablet 800 mg PO Q8H Qty: 90 1RF miscellaneous medical supply Misc 1 ea miscellaneous ONCE Qty: 1 0RF (DME) nebulizers Misc See Rx Instructions .Route Qty: 1 0RF Rx Instructions: Nebulizer Machine and accessories miscellaneous medical supply Misc 1 ea miscellaneous ONCE 99 Days Qty: 1 0RF Referrals: Eric Fernandez MD [Primary Care Provider] - 2 days Print Language: Bengali
[2021-09-12 22:46] LABS: COVID-19 Test Positive (Negative)
[2021-09-12] MEDS: dexAMETHasone sod phosphate 4 MG/ML VIAL 6 MG IVPUSH (23:20)
[2021-09-12] MEDS: 0.9 % Sodium Chloride 500 ML 999 ML IV (23:21)
[2021-09-12 23:52] LABS: MANUAL DIFF FLAG NO
[2021-09-12 23:54] LABS: Basophils Percent Auto 0.2 % (0-2); Eosinophils Absolute Auto 0.1 X10*3/uL (0.0-0.4); Eosinophils Percent Auto 1.4 % (0-4); Hematocrit 36.3 % (42.0-52.0); Hemoglobin 10.9 g/dl (14.0-18.0); Imm Gran Abs Auto 0.02 X10*3/uL (0.00-0.03); Imm Gran Pct Auto 0.3 % (0.0-0.4); Lymphocytes Absolute Auto 0.7 X10*3/uL (1.2-4.9); Lymphocytes Percent Auto 11.1 % (20-40); Mean Corpuscular Hemoglobin 25.1 pg (27.0-33.0); Mean Corpuscular Volume 83.6 fL (80.0-98.0); Mean Platelet Volume 11.1 fL (9.4-12.4); Monocytes Absolute Auto 0.5 X10*3/uL (0.1-1.2); Monocytes Percent Auto 8.3 % (2-11); Neutrophils Absolute Auto 5.1 x10*3/uL (2.0-8.3); Neutrophils Percent Auto 78.7 % (45-73); Platelet Count 195 X10*3/uL (160-400); Red Blood Count 4.34 X10*6/uL (4.60-5.80); Red Cell Distribution Width 14.8 % (11.0-16.0); White Blood Count 6.5 X10*3/uL (4.8-10.8)
[2021-09-13 00:02] LABS: D Dimer High Sensitivity 493 NG/ML
[2021-09-13 00:04] LABS: Lactic Acid 0.8 mmol/L (0.5-2.0)
[2021-09-13 00:14] LABS: B Type Natriuretic Peptide 16 pg/mL (<100); Troponin-I High Sensitivity < 3.5 ng/L (<3.5-35.0)
[2021-09-13 00:22] LABS: Alanine Aminotransferase 69 U/L (0-40); Albumin Level 3.4 g/dL (3.5-5.0); Alkaline Phosphatase 62 U/L (39-117); Anion Gap 11 (12-20); Aspartate Amino Transferase 57 U/L (5-37); Bilirubin Direct 0.2 mg/dL (0.0-0.5); Bilirubin Total 0.4 mg/dL (0.0-1.0); Blood Urea Nitrogen 10 mg/dL (9-16); C Reactive Protein 7.88 mg/dL (< or = 0.50); Calcium 8.2 mg/dL (8.4-10.2); Carbon Dioxide 28 mmol/L (22-29); Chloride 106 mmol/L (96-108); Creatinine Clr Calc Pharmacy 463.1; Estimated Glomerular Filt Rate > 60; Glucose Random 99 mg/dL (60-115); Magnesium 2.2 mg/dL (1.6-2.6); Sodium 141 mmol/L (135-145); Total Protein 6.5 g/dL (6.5-8.0)
[2021-09-13 00:31] LABS: Procalcitonin 0.08 ng/mL
[2021-09-13 00:32] LABS: Ferritin 552 ng/mL (20-250)
[2021-09-13 00:50] LABS: Lactate Dehydrogenase 232 U/L (118-273)
[2021-09-13] MEDS: Albuterol Sulfate 90 MCG 8 GM INHALER 4 PUFF INHALE (00:57)
--- NOTE | 2021-09-13 00:59 | PC.NURSE ---
pt medicated with inhaler, pt unable to ambulate. pt awaiting for dispo. pt denies any complaints. pt remains alert, respirations easy, n/l. skin w/d.
[2021-09-13 01:00] VITALS: BP 153/74; PULSE 80; RESP 18; O2SAT 95
[2021-09-13] MEDS: Albuterol/Iprat 2.5/0.5MG 3 ML AMPUL.NEB INHALE (01:34)
[2021-09-13 02:05] LABS: INTERNATIONAL NORM RATIO 1.2 (0.9-1.1); Prothrombin Time 14.2 SEC (9.9-13.0)
--- NOTE | 2021-09-13 02:06 | P.HPHOSP_ITS ---
History of Present Illness Date of Service: 09/13/21 Chief Complaint: SOB 46-year-old male with a past medical history of asthma, chronic back pain, morbid obesity, JESSE on CPAP, tested positive for COVID-19 on 08/30/2021; presented to the hospital today with a chief complaint of generalized weakness, cough, shortness of breath. Patient reported that initially when he was tested positive use having fevers. But gradually he became generally weak, nausea, for intake, and over the past couple is had shortness of breath and dyspnea on exertion. Also reported dry cough. Denies any chest pain or palpitations. reports nausea/vomiting /abdominal discomfort. Denies any numbness tingling or focal weakness. Review of all other systems is negative except mentioned above ER course: Per ER team patient had a chest x-ray which showed possible COVID-19 pneumonia. Patient was given Decadron, antibiotics. Patient was saturating 96% on room air. Given high risk patient wanted to admit to the hospital for further management[facility] Medical History Asthma Chronic back pain Obesity Obstructive sleep apnea Pericardial effusion Respiratory failure Family History Father Medical history unknown Mother Medical history unknown Family/Other Asthma Brother No problems noted. Brother No problems noted. Sister No problems noted. Pertinent family history: as above Surgical History History of tonsillectomy Social History Alcohol intake: never Advance Directives: No Advance Directives Information Provided: No Meds Allergies Allergy/AdvReac Type Severity Reaction Status Date / Time No Known Allergies Allergy Verified 12/28/20 16:01 Active Medications: Current Medications Acetaminophen (Acetaminophen 325 Mg Tablet) 650 mg PO Q6H PRN PRN Reason: Pain, Mild (Pain Scale 1-3) Azithromycin (Azithromycin 500 Mg Tablet) 500 mg PO DAILY [facility] Dexamethasone Sodium Phosphate (Dexamethasone Sod Phosphate 4 Mg/Ml Vial) 6 mg IVPUSH DAILY [facility] Enoxaparin Sodium (Enoxaparin Sodium 150 Mg/Ml Syringe) 150 mg SUBCUT Q12H YUVAL Doxycycline Hyclate 100 mg/ (Sodium Chloride) 250 mls @ 166.67 mls/hr IV ONCE ONE Stop: 09/13/21 03:08 Ceftriaxone Sodium 1 gm/ (Sodium Chloride) 50 mls @ 100 mls/hr IV Q24H YUVAL Melatonin (Melatonin 3 Mg Tablet) 6 mg PO BEDTIME PRN PRN Reason: Insomnia Pharmacy Consult (Consult Rx Perform Med Rec) 1 each MISCELLANE ONCE PRN PRN Reason: Consult order Senna (Sennosides 8.6 Mg Tablet) 17.2 mg PO BEDTIME PRN PRN Reason: Constipation Sodium Chloride (0.9 % Sodium Chloride Flush 3 Ml Syringe) 3 ml IVFLUSH QSHIFT YUVAL Physical Exam Verdana 4l Vital Signs and Narrative: Verdana 4d Verdana 4d Vital Signs: Verdana 4d Verdana 4Bd Last Vital Signs Verdana 4d Principal Mechanical Engineer New 4d Principal Mechanical Engineer New 4d Temp 98.9 F 09/12/21 22:03 Principal Mechanical Engineer New 4d Pulse 77 09/12/21 22:03 Principal Mechanical Engineer New 4d Resp 18 09/12/21 22:03 BP 165/75 H 09/12/21 22:03 Pulse Ox 96 09/12/21 22:03 BMI result Body Mass Index 84.3 Gen: Appears be in no acute distress . Morbidly obese. Breathing comfortably on room air. HEENT: NCAT, Moist mucosa. Pulmonary: Coarse breath sounds CVS: Normal S1-S2 Abdomen: BS+, Soft, Nontender Extremities: Warm well perfused Neuro: Alert and awake. Results Labs CBC and Chem 7: 09/12/21 23:46 09/12/21 23:46 Labs: Laboratory Results - last 24 hr 09/12/21 09/12/21 09/12/21 22:23 23:46 23:46 MCV 83.6 MCH 25.1 L MCHC 30.0 L RDW 14.8 Plt Count 195 MPV 11.1 Immature Gran % (Auto) 0.3 Neut % (Auto) 78.7 H Lymph % (Auto) 11.[address] [place] % (Auto) 8.3 Eos % (Auto) 1.4 Baso % (Auto) 0.2 Lymph # (Auto) 0.[address] [place] # (Auto) 0.5 Eos # (Auto) 0.1 Baso # (Auto) 0.0 Abs Immat Gran (auto) 0.02 Absolute Neuts (auto) 5.1 Absolute Nucleated RBC 0.000 Nucleated RBC % (auto) 0.0 D-Dimer High Sensitivty Anion Gap 11 L Estim Creat Clear Calc 463.1 Estimated GFR > 60 Random Glucose 99 Lactic Acid Calcium 8.2 L Magnesium 2.2 Ferritin 552 H Total Bilirubin 0.4 Direct Bilirubin 0.2 AST 57 H ALT 69 H Alkaline Phosphatase 62 Lactate Dehydrogenase 232 Troponin I High Sens C-Reactive Protein 7.88 H B-Natriuretic Peptide Total Protein 6.5 Albumin 3.4 L Procalcitonin COVID-19 ([facility]) Positive A COVID-19 Clin Com See Note 09/12/21 09/12/21 09/12/21 23:46 23:46 23:46 MCV MCH MCHC RDW Plt Count MPV Immature Gran % (Auto) Neut % (Auto) Lymph % (Auto) [place] % (Auto) Eos % (Auto) Baso % (Auto) Lymph # (Auto) [place] # (Auto) Eos # (Auto) Baso # (Auto) Abs Immat Gran (auto) Absolute Neuts (auto) Absolute Nucleated RBC Nucleated RBC % (auto) D-Dimer High Sensitivty Anion Gap Estim Creat Clear Calc Estimated GFR Random Glucose Lactic Acid 0.8 Calcium Magnesium Ferritin Cancelled Total Bilirubin Direct Bilirubin AST ALT Alkaline Phosphatase Lactate Dehydrogenase Troponin I High Sens < 3.5 C-Reactive Protein B-Natriuretic Peptide 16 Total Protein Albumin Procalcitonin COVID-19 ([facility]) COVID-19 Interact Public Safety Com 09/12/21 09/12/21 23:46 23:46 MCV MCH MCHC RDW Plt Count MPV Immature Gran % (Auto) Neut % (Auto) Lymph % (Auto) [place] % (Auto) Eos % (Auto) Baso % (Auto) Lymph # (Auto) [place] # (Auto) Eos # (Auto) Baso # (Auto) Abs Immat Gran (auto) Absolute Neuts (auto) Absolute Nucleated RBC Nucleated RBC % (auto) D-Dimer High Sensitivty 493 Anion Gap Estim Creat Clear Calc Estimated GFR Random Glucose Lactic Acid Calcium Magnesium Ferritin Total Bilirubin Direct Bilirubin AST ALT Alkaline Phosphatase Lactate Dehydrogenase Troponin I High Sens C-Reactive Protein B-Natriuretic Peptide Total Protein Albumin Procalcitonin 0.08 COVID-19 ([facility]MA) COVID-19 Clin Com Imaging Radiologist's Impressions: Impressions Chest X-Ray 09/13/21 00:45 IMPRESSION: Multifocal new ill-defined new infiltrates. Assessment and Plan (1) Pneumonia due to COVID-19 virus: Status: Acute (2) Obese: Qualifiers: Obesity classification: unspecified obesity classification Obesity type: due to excess calories Serious obesity comorbidity presence: with serious comorbidity Qualified Code(s): E66.09 - Other obesity due to excess calories Status: Acute (3) Obstructive sleep apnea: Status: Acute (4) Nocturnal hypoxemia: Status: Acute Plan 46-year-old male with a past medical history of asthma, chronic back pain, morbid obesity, JESSE on CPAP, tested positive for COVID-19 on 08/30/2021; presented to the hospital today with a chief complaint of generalized weakness, cough, shortness of breath. COVID PNA: pt Unvaccinated. pt Saturating 94-96% on RA. Not in resp distress currently. c/w Ceftriaxone/Azithromycin c/w Decadron. ID and Pulm consult for further recs. Elevated DDIMER: Unable to CT chest or v/Q scan given weight limit on scan table. Started on Lovenox Empirically at 150mgSQ BID. Consulted Heme/onc for Anticoagulation Guidance given morbid Obesity. Hx Asthma: Albuterol inhaler. pt on Decadron. Hx JESSE: pt on CPAP. pt unsure of his CPAP settings. To be confirmed in AM with pts' Gang Leader. DVT ppx: pt on Lovenox Code Status: Full code. Quality Stroke Does the patient have a stroke diagnosis?: No VTE Prior VTE?: No VTE Risk Level:: Medical - moderate - high VTE Device Contraindication: Treatment Not Indicated VTE Drug Contraindication: N/A - Med Ordered
[2021-09-13 02:07] LABS: Partial Thromboplastin Time 33.3 SEC (24.1-38.0)
[2021-09-13 02:21] VITALS: BP 155/79; PULSE 82; RESP 18; O2SAT 94
[2021-09-13] MEDS: cefTRIAXone sodium 1 GM in 0.9 % Sodium Chloride 50 ML IV (02:59)
[2021-09-13] MEDS: Azithromycin 500 MG TABLET PO (03:00)
[2021-09-13] MEDS: Enoxaparin Sodium 150 MG/ML SYRINGE SUBCUT (03:32)
--- NOTE | 2021-09-13 03:40 | PC.NURSE ---
updated family on phone. Pt medicated as per emar. pt sitting up and speaking on the phone to Mother. Pt alert, respirations n/l. pt remains on monitor, +cough w/o congestion. pt denies n/v/d. will continue to monitor pt.
[2021-09-13 07:47] VITALS: BP 137/65; PULSE 72; RESP 15; TEMP 37.1; O2SAT 94
--- NOTE | 2021-09-13 07:56 | PHA.MEDREC ---
Pharmacy Consult ? Medication Reconciliation Pharmacy has completed the medication reconciliation. There are no remarkable issues for provider's attention. Cyndi Simmons, [employer]
[2021-09-13 08:15] LABS: MANUAL DIFF FLAG NO
[2021-09-13 08:18] LABS: Basophils Percent Auto 0.2 % (0-2); Hematocrit 37.7 % (42.0-52.0); Hemoglobin 11.6 g/dl (14.0-18.0); Imm Gran Abs Auto 0.03 X10*3/uL (0.00-0.03); Imm Gran Pct Auto 0.6 % (0.0-0.4); Lymphocytes Absolute Auto 0.4 X10*3/uL (1.2-4.9); Lymphocytes Percent Auto 6.8 % (20-40); Mean Corpuscular HGB Conc 30.8 g/dl (31.0-36.0); Mean Corpuscular Hemoglobin 25.4 pg (27.0-33.0); Mean Corpuscular Volume 82.7 fL (80.0-98.0); Mean Platelet Volume 11.6 fL (9.4-12.4); Monocytes Absolute Auto 0.1 X10*3/uL (0.1-1.2); Monocytes Percent Auto 2.6 % (2-11); Neutrophils Absolute Auto 4.8 x10*3/uL (2.0-8.3); Neutrophils Percent Auto 89.8 % (45-73); Platelet Count 219 X10*3/uL (160-400); Red Blood Count 4.56 X10*6/uL (4.60-5.80); Red Cell Distribution Width 14.7 % (11.0-16.0); White Blood Count 5.3 X10*3/uL (4.8-10.8)
[2021-09-13 08:33] LABS: Anion Gap 14 (12-20); Blood Urea Nitrogen 10 mg/dL (9-16); Calcium 8.5 mg/dL (8.4-10.2); Carbon Dioxide 24 mmol/L (22-29); Chloride 106 mmol/L (96-108); Creatinine Clr Calc Pharmacy 261.8; Estimated Glomerular Filt Rate > 60; Glucose Random 141 mg/dL (60-115); Potassium 4.2 mmol/L (3.3-5.1); Sodium 140 mmol/L (135-145)
[2021-09-13] MEDS: dexAMETHasone sod phosphate 4 MG/ML VIAL 6 MG IVPUSH (09:14)
--- NOTE | 2021-09-13 10:13 | PM.HEMONCCN ---
Subjective - Subjective Chief complaint: Consult for possible PE. Patient: new to practice Consult date: 09/13/21 Requesting Physician: Katerine. Primary Care Provider: MD Dyana Arzola Medical Summary: Consult for: POSSIBLE PULMONARY EMBOLISM. HPI - Consult Narrative Reason for consult: Consult for: Possible PE. Narrative: Evens Castillo is a pleasant 46 year old gentleman, tested positive for COVID-19 on 08/30/2021; presented to the hospital yesterday, with a chief complaint of generalized weakness, cough, shortness of breath. Patient reported that initially when he was tested positive he was having fevers. But gradually he became generally weak, nausea, for intake, and over the past couple is had shortness of breath and dyspnea on exertion. He also had a dry cough. Denies any chest pain or palpitations. He has had some nausea/vomiting and abdominal discomfort. Denies any numbness tingling or focal weakness. Review of all other systems is negative except mentioned above. ER course: His chest x-ray which showed possible COVID-19 pneumonia. He was given Decadron, antibiotics. His O2 sat was 96% on room air. Given that he was deemed high risk he was admitted to the hospital for further management. Past medical history of: 1. Asthma, 2. Chronic back pain, 3. Morbid obesity, 4. JESSE on CPAP Review of Systems - Constitutional Reports system reviewed and no additional complaints, except as documented, Reports anorexia, Reports fever(s), Reports lack of energy, Reports malaise, Reports weight gain - Eyes Reports system reviewed and no additional complaints, except as documented - ENT Reports system reviewed and no additional complaints, except as documented - Cardiovascular Reports system reviewed and no additional complaints, except as documented, Reports shortness of breath - Respiratory Reports no additional respiratory complaints - Gastrointestinal Reports system reviewed and no additional complaints, except as documented, Reports abdominal pain, Reports bloating, Reports nausea - Genitourinary Genitourinary: Reports no additional male genitourinary complaints - Musculoskeletal Reports system reviewed and no additional complaints, except as documented - Integumentary/Breasts Skin/Breast: Reports no additional skin complaints - Neurologic Reports system reviewed and no additional complaints, except as documented - Psychiatric Reports system reviewed and no additional complaints, except as documented - Endocrine Reports no additional endocrine complaints - Hematologic/Lymphatic Reports system reviewed and no additional complaints, except as documented - Allergic/Immunologic Reports system reviewed and no additional complaints, except as documented Oncology Screenings - ECOG Performance Status ECOG Performance Status: [facility] Medical History: Medical History (Last Updated 09/13/21 @ 12:53 by Jeovany Maria MD) Asthma Chronic back pain Obesity Obstructive sleep apnea Pericardial effusion Respiratory failure Functional capacity: uses cane/walker Patient : No Family History: Family History (Last Reviewed 09/12/21 @ 22:39 by IQRA Go) Father Medical history unknown Mother Medical history unknown Family/Other Asthma Brother No problems noted. Brother No problems noted. Sister No problems noted. 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 Tobacco History: Patient Tobacco Use Status: Never used Tobacco Advance Directives: Advance Directives Date on File: 09/16/21 Occupation Assessmet: service: No Current occupational status: disabled Home Medications and Allergies Current Medications: Current Medications Acetaminophen (Acetaminophen 325 Mg Tablet) 650 mg PO Q6H PRN PRN Reason: Pain, Mild (Pain Scale 1-3) Dexamethasone Sodium Phosphate (Dexamethasone Sod Phosphate 4 Mg/Ml Vial) 6 mg IVPUSH DAILY [facility] Last Admin: 09/13/21 09:14 Dose: 6 mg Documented by: Enoxaparin Sodium (Enoxaparin Sodium 150 Mg/Ml Syringe) 150 mg SUBCUT Q12H YUVAL Melatonin (Melatonin 3 Mg Tablet) 6 mg PO BEDTIME PRN PRN Reason: Insomnia Pharmacy Consult (Consult Rx Perform Med Rec) 1 each MISCELLANE ONCE PRN PRN Reason: Consult order Senna (Sennosides 8.6 Mg Tablet) 17.2 mg PO BEDTIME PRN PRN Reason: Constipation Sodium Chloride (0.9 % Sodium Chloride Flush 3 Ml Syringe) 3 ml IVFLUSH QSHIFT [facility] Last Admin: 09/13/21 08:36 Dose: Not Given Documented by: Allergies Allergy/AdvReac Type Severity Reaction Status Date / Time No Known Allergies Allergy Verified 12/28/20 16:01 Physical Exam Vital signs: Vital Signs Temp 98.7 F 09/13/21 07:47 Pulse 72 09/13/21 07:47 Resp 15 09/13/21 07:47 BP 137/65 09/13/21 07:47 Pulse Ox 94 09/13/21 07:47 Intake & Output 09/12/21 09/13/21 09/13/21 18:59 06:59 18:59 Intake Total 550 / 550 Balance 550 / 550 Intake: Intake, IV Amount 550 / 550 0.9 % Sodium Chloride 500 ml @ 500 / 500 999 mls/hr IV .Q31M YUVAL Rx#: [id number] cefTRIAXone sodium 1 gm In 0.9 50 / 50 % Sodium Chloride 50 ml @ 100 mls/hr IV Q24H [facility] Rx#: [id number] Other: Weight 266.6 kg Weight 266.6 kg - Constitutional Present: moderate distress - Routine HEENT Exam Head: Present: normal inspection ENT: Present: mucous membranes moist - Routine Neck Exam Present: supple. Absent: lymphadenopathy - Routine Respiratory Exam Present: decreased breath sounds, CTAB - Routine Cardiovascular Exam Cardiovascular: Present: RRR, S1, S2 - Routine Abdominal Exam Present: tenderness - Routine Extremities Exam Present: nontender - Routine Skin Exam Present: intact - Routine Neurological Exam Present: alert, oriented X3 Hem/Onc Consult Result - Labs CBC & Chem 7: 09/15/21 06:45 09/15/21 06:45 Labs: Short CBC 09/12/21 09/13/21 Range/Units 23:46 07:58 WBC 6.5 5.3 (4.8-10.8) X10*3/uL Hgb 10.9 L 11.6 L (14.0-18.0) g/dl Hct 36.3 L 37.7 L (42.0-52.0) % Plt Count 195 219 (160-400) X10*3/uL BMP 09/12/21 09/13/21 23:46 07:58 Sodium 141 140 Potassium 4.0 4.2 Chloride 106 106 Carbon Dioxide 28 24 BUN 10 10 Creatinine 0.80 0.75 Calcium 8.2 L 8.5 Liver Function 09/12/21 Range/Units 23:46 Total Bilirubin 0.4 (0.0-1.0) mg/dL Direct Bilirubin 0.2 (0.0-0.5) mg/dL AST 57 H (5-37) U/L ALT 69 H (0-40) U/L Alkaline Phosphatase 62 (39-117) U/L Albumin 3.4 L (3.5-5.0) g/dL Assessment and Plan Patient Active problem list reviewed?: Yes (1) Pulmonary embolism Status: Deleted Assessment and plan: This is a 46-year-old gentleman who is rather obese. He has been admitted with COVID pneumonia. His D-dimer is noted to be elevated. Concern is for a pulmonary embolism. Doing a V/Q scan/CTA not feasible on account of his weight. He has been started on therapeutic Lovenox. PLAN: I would recommend proceeding with bilateral lower extremity ultrasounds, to indirectly check if he has thromboembolism. This revealed: Limited evaluation with no acute DVT demonstrated in the bilateral lower extremities. In the meantime, would continue him on the Lovenox since patients with COVID are hypercoagulable. Will continue to monitor labs including D-dimer. Thank you for this consult, I will follow along with you, Cc: Dr. Fiore. Dr. Turpin. Addendum: Discharge summary: patient was admitted for dyspnea in a high risk covid patient, complicated by acute exacerbation of mild intermitted asthma. there was initially concern for PE, however, negative lower extremity duplex and lack of hypoxia made this less likely and anticoagulation was disconitnued. There was no evidence of bactereial pneumonia so antibiotics were disconitnued. Patient was treated with iv decadron, remained on room air. CRP decreased from 4 to 1. He is feeling better and will be discharged home on prednisone taper. - Time Spent With Patient Time Spent with Patient (in minutes): 30
--- NOTE | 2021-09-13 11:05 | PC.NURSE ---
Pt received from film processing shift supervisor: Pt AOX4 and offers no complaints. NSR noted and lungs diminished. Pt abd rounded, soft and non-tender. Pt denies any SOB and remains on RA. MD Sr at bedside earlier this morning. relays pt to received U/S vasc of B/L LE and pending possible D/C as pt remains off necessary supplemental oxygen. RN will continue to monitor.
--- NOTE | 2021-09-13 12:49 | P.CONPL_ITS ---
History of Present Illness History of Present Illness Consult date: 09/13/21 Chief complaint: COVID PNA Narrative: This is an inpatient pulmonary consultation. The patient is a 46-year-old male with a past medical history of severe obesity, asthma, chronic back pain, morbid obesity, JESSE on CPAP,? tested positive for COVID-19 on 08/30/2021; presented to the hospital today with a chief complaint of generalized weakness, cough, shortness of breath.?Patient reported that initially when he was tested positive use having? fevers.? But gradually he became generally weak, nausea, for intake, and over the past couple is had shortness of breath and dyspnea on exertion.? Also reported dry cough.?In the ER team patient had a chest x-ray which showed possible COVID-19 pneumonia.? Patient was given Decadron, antibiotics.? Patient was saturating 96% on room air.? Given high risk patient wanted to admit to the hospital for further management. The patient had elevated D-dimer. Concerns f or thrombolic disease therefore he was started on empiric anti thrombotic therapy. The patient size keeps him from being able to get proper imaging studies to further evaluate for thromboembolic disease at this time. I did personally review the checks x-ray demonstrating reticulonodular opacities at the bases but also appears to have increased cardiac size with some perihilar congestion being up the possibility of volume overload status as well. Review of Systems Verdana 4l Review of Systems: Verdana 4d Verdana 4d Constitutional: No Fever, No Chills, + Fatigue, + Malaise ENT/Mouth: No Ear Pain, No Nasal Congestion, No sore throat, No Rhinorrhea, No Swallowing Difficulty Eyes: No Eye Pain, No Swelling, No Redness, No Foreign Body, No Discharge CardiovascularCardiovascular: No Chest Pain, + SOB, No Dyspnea on Exertion, No Orthopnea, + Edema, No Palpitations Respiratory: + Cough, No Sputum, No Wheezing, +Dyspnea Gastrointestinal: +Nausea, No Vomiting, No Diarrhea, No Constipation, No Abdominal pain Genitourinary: No Dysuria, No Urinary Frequency, No Hematuria, No Flank Pain Musculoskeletal: No joint pain, + Myalgias, No Joint Swelling Skin: No Skin Lesions, No rash Neuro: No Weakness, No Numbness, No Paresthesias, No Loss of Consciousness, No Dizziness, + Headache Yes all other systems are reviewed and are negative [facility] Past Medical History Medical History (Updated 09/13/21 @ 12:53 by Jeovany Maria MD) Asthma Chronic back pain Obesity Obstructive sleep apnea Pericardial effusion Respiratory failure Functional capacity: uses cane/walker Family History Family History Father Medical history unknown Mother Medical history unknown Family/Other Asthma Brother No problems noted. Brother No problems noted. Sister No problems noted. Surgical History Surgical History (Updated 09/13/21 @ 10:21 by Radha Michael MD) History of tonsillectomy Social History Social History Alcohol intake: never Advance Directives: No Advance Directives Information Provided: No Meds Allergies Allergy/AdvReac Type Severity Reaction Status Date / Time No Known Allergies Allergy Verified 12/28/20 16:01 Active Medications: Current Medications Acetaminophen (Acetaminophen 325 Mg Tablet) 650 mg PO Q6H PRN PRN Reason: Pain, Mild (Pain Scale 1-3) Dexamethasone Sodium Phosphate (Dexamethasone Sod Phosphate 4 Mg/Ml Vial) 6 mg IVPUSH DAILY [facility] Last Admin: 09/13/21 09:14 Dose: 6 mg Documented by: Enoxaparin Sodium (Enoxaparin Sodium 40 Mg/0.4 Ml Syringe) 40 mg SUBCUT DAILY [facility] Melatonin (Melatonin 3 Mg Tablet) 6 mg PO BEDTIME PRN PRN Reason: Insomnia Pharmacy Consult (Consult Rx Perform Med Rec) 1 each MISCELLANE ONCE PRN PRN Reason: Consult order Senna (Sennosides 8.6 Mg Tablet) 17.2 mg PO BEDTIME PRN PRN Reason: Constipation Sodium Chloride (0.9 % Sodium Chloride Flush 3 Ml Syringe) 3 ml IVFLUSH QSHIFT [facility] Last Admin: 09/13/21 08:36 Dose: Not Given Documented by: Physical Exam Verdana 4l Vital Signs: Verdana 4d Verdana 4d Vital Signs: Verdana 4d Verdana 4Bd Last Vital Signs Verdana 4d Bicycle Repairer New 4d Bicycle Repairer New 4d Temp 98.7 F 09/13/21 07:47 Bicycle Repairer New 4d Pulse 72 09/13/21 07:47 Bicycle Repairer New 4d Resp 15 09/13/21 07:47 BP 137/65 09/13/21 07:47 Pulse Ox 94 09/13/21 07:47 BMI result Body Mass Index 84.3 Const: General: alert Neck: Neck: Yes normal visual inspection, Yes full ROM and Yes no lymphadenopathy Chest: Chest palpation & inspection: normal inspection of the chest Resp: Auscultation: diminished lung sounds Cardio: Rate: regular rate Rhythm: regular rhythm Heart sounds: S1 normal heart sound present and S2 normal heart sound present GI: Palpation (GI): Soft to palpation and nontender Auscultation: normal bowel sounds Skin: General skin exam: rashes and/or lesions noted Results Laboratory Findings CBC and BMP: 09/13/21 07:58 09/13/21 07:58 ABG, PT/INR, D-dimer: PT/INR, D-dimer PT 14.2 SEC (9.9-13.0) H 09/12/21 23:46 INR 1.2 (0.9-1.1) H 09/12/21 23:46 Abnormal lab findings: Abnormal Labs 09/12/21 09/12/21 09/12/21 22:23 23:46 23:46 RBC 4.34 L Hgb 10.9 L Hct 36.3 L MCH 25.1 L MCHC 30.0 L Immature Gran % (Auto) Neut % (Auto) 78.7 H Lymph % (Auto) 11.1 L Lymph # (Auto) 0.7 L PT INR Anion Gap 11 L Random Glucose Calcium 8.2 L Ferritin 552 H AST 57 H ALT 69 H C-Reactive Protein 7.88 H Albumin 3.4 L COVID-19 (G[facility]) Positive A 09/12/21 09/13/21 09/13/21 23:46 07:58 07:58 RBC 4.56 L Hgb 11.6 L Hct 37.7 L MCH 25.4 L MCHC 30.8 L Immature Gran % (Auto) 0.6 H Neut % (Auto) 89.8 H Lymph % (Auto) 6.8 L Lymph # (Auto) 0.4 L PT 14.2 H INR 1.2 H Anion Gap Random Glucose 141 H D Calcium Ferritin AST ALT C-Reactive Protein Albumin COVID-19 ([facility]) Assessment and Plan (1) D-dimer, elevated: Status: Acute (2) Pneumonia due to COVID-19 virus: Status: Acute (3) Asthma: Status: Acute (4) Dyspnea: Status: Acute Plan The patient is presenting with worsening respiratory symptoms almost 2 weeks from his initial infection with COVID-19. Chest x-ray consistent with lower respiratory infection. D-dimer was elevated. Vital signs demonstrating a trend decrease in her pulse ox. Indeed thromboembolic disease is new differential, but, it is likely more related to a lower respiratory infection causing worsening V/Q mismatch. Volume overload status is also in differential. Recommendations: Continue prophylactic Lovenox Lower extremity Dopplers Echocardiogram Continue doxycycline Continue Decadron Needs to use CPAP at night Procedures Date of Service Date of Service: 09/13/21
[2021-09-13 14:30] VITALS: BP 145/71; PULSE 79; RESP 25; TEMP 36.8; O2SAT 94
[2021-09-13 20:31] VITALS: BP 140/64; PULSE 79; RESP 16; TEMP 36.6; O2SAT 95
[2021-09-14] MEDS: 0.9 % Sodium Chloride Flush 3 ML SYRINGE IVFLUSH ×3 (01:07→15:36)
--- NOTE | 2021-09-14 06:12 | PC.NURSE ---
This nurse took over patient's care at 1900, Patient alert and oriented x3, patient complaining of back pain due to still being in hospital stretcher and not in a hospital bed. This nurse called environmental to obtain a bed, patient able to stand pivot from stretcher into hospital bed. L/s diminished, dry cough noted, patient on room air with vss. Call medel within reach.
[2021-09-14 06:54] LABS: Hematocrit 39.6 % (42.0-52.0); Hemoglobin 12.1 g/dl (14.0-18.0); Mean Corpuscular HGB Conc 30.6 g/dl (31.0-36.0); Mean Corpuscular Hemoglobin 25.4 pg (27.0-33.0); Platelet Count 280 X10*3/uL (160-400); Red Blood Count 4.77 X10*6/uL (4.60-5.80); Red Cell Distribution Width 14.8 % (11.0-16.0); White Blood Count 7.8 X10*3/uL (4.8-10.8)
[2021-09-14 07:11] VITALS: BP 155/65; PULSE 65; RESP 21; TEMP 36.7; O2SAT 96
[2021-09-14] MEDS: dexAMETHasone sod phosphate 4 MG/ML VIAL 6 MG IVPUSH (07:51)
[2021-09-14] MEDS: Enoxaparin Sodium 40 MG/0.4 ML SYRINGE SUBCUT (07:53)
[2021-09-14 07:55] VITALS: PULSE 63; RESP 24; O2SAT 96
[2021-09-14 08:33] LABS: Anion Gap 14 (12-20); Blood Urea Nitrogen 16 mg/dL (9-16); Calcium 8.9 mg/dL (8.4-10.2); Carbon Dioxide 25 mmol/L (22-29); Chloride 108 mmol/L (96-108); Creatinine Clr Calc Pharmacy 228.3; Estimated Glomerular Filt Rate > 60; Glucose Fasting 126 mg/dL (60-99); Potassium 4.4 mmol/L (3.3-5.1); Sodium 143 mmol/L (135-145)
--- NOTE | 2021-09-14 08:33 | PC.NURSE ---
Pt is alert/oriented x 3. Denies pain or discomfort. Breathing is unlabored, but noted to be tachypenic at times up to 24, sat 96% on room air Per resp therapy, pt reports low pressure with cpap machine, RT to inquire about different machine. Medicated as charted, IV to left fa reinforced. NSR on tele. Using bed side urinal
--- NOTE | 2021-09-14 09:27 | MHC.CM.PN ---
Patient is Covid (+) and was not initially available at his cell # [phone]; CM phoned second cell # listed- [phone] and reached Patient's Mother. Patient lives in an apartment with his Mother and he uses a cane to assist with mobility. Home/no services is the goal for dc and CM has initiated and will follow for dc planning. PCP is Dr. Fernandez and Patient has been Covid vaccinated.
[2021-09-14 11:43] VITALS: BP 152/73; PULSE 52; RESP 20; O2SAT 97
--- NOTE | 2021-09-14 12:14 | P.PNIM_ITS ---
Subjective Subjective Date of Service: 09/14/21 Interval History: cc: sob interval history: improved, still sob Cardiovascular Cardiovascular: Reports no additional cardiovascular complaints Gastrointestinal Gastrointestinal: Reports no additional gastrointestinal complaints Physical Exam Verdana 4l Vital Signs: Verdana 4d Verdana 4d Vital Signs: Verdana 4d Verdana 4Bd Last Vital Signs Verdana 4d Motor Coach Tour Operator New 4d Motor Coach Tour Operator New 4d Temp 98.0 F 09/14/21 07:11 Motor Coach Tour Operator New 4d Pulse 52 09/14/21 11:43 Motor Coach Tour Operator New 4d Resp 20 09/14/21 11:43 BP 152/73 H 09/14/21 11:43 Pulse Ox 97 09/14/21 11:43 BMI result Body Mass Index 84.3 General: AO X 3, no acute distress Resp: diminished bilateral, mild accessory muscles used CVS: S1,S2,RRR GI: soft, non tender, non distended Neuro: motor grossly intact, alert Psych: appropriate affect, appropriate insight Objective Data Active Medications Acetaminophen (Acetaminophen 325 Mg Tablet) 650 mg PO Q6H PRN PRN Reason: Pain, Mild (Pain Scale 1-3) Dexamethasone Sodium Phosphate (Dexamethasone Sod Phosphate 4 Mg/Ml Vial) 6 mg IVPUSH DAILY [facility] Last Admin: 09/14/21 07:51 Dose: 6 mg Documented by: TRACY Enoxaparin Sodium (Enoxaparin Sodium 40 Mg/0.4 Ml Syringe) 40 mg SUBCUT DAILY [facility] Last Admin: 09/14/21 07:53 Dose: 40 mg Documented by: TRACY Melatonin (Melatonin 3 Mg Tablet) 6 mg PO BEDTIME PRN PRN Reason: Insomnia Pharmacy Consult (Consult Rx Perform Med Rec) 1 each MISCELLANE ONCE PRN PRN Reason: Consult order Senna (Sennosides 8.6 Mg Tablet) 17.2 mg PO BEDTIME PRN PRN Reason: Constipation Sodium Chloride (0.9 % Sodium Chloride Flush 3 Ml Syringe) 3 ml IVFLUSH QSHIFT [facility] Last Admin: 09/14/21 07:52 Dose: 3 ml Documented by: TRACY Labs CBC & Chem 7: 09/14/21 06:30 09/14/21 06:30 Labs: Laboratory Results - last 24 hr 09/14/21 09/14/21 06:30 06:30 MCV 83.0 MCH 25.4 L MCHC 30.6 L RDW 14.8 Plt Count 280 D MPV 11.0 Absolute Nucleated RBC 0.000 Nucleated RBC % (auto) 0.0 Anion Gap 14 Estim Creat Clear Calc 228.3 Estimated GFR > 60 Fasting Glucose 126 H Calcium 8.9 C-Reactive Protein 4.20 H Microbiology Microbiology Results: Microbiology 09/12/21 23:46 Blood Culture - Preliminary Blood - Venous No growth after 24 hours. 09/12/21 22:58 Blood Culture - Preliminary Blood - Venous No growth after 24 hours. Assessment and Plan (1) Asthma: Status: Acute Plan 46M presented with sob dyspnea due to covid and mild intermittent asthma with acute exacerbation decadron monitor inflammatory markers JESSE, morbid obesity weight loss doubt bacterial pna abx dced LE duplex negative doubt VTE lovenox decreased to prophylactic dose Quality Stroke Does the patient have a stroke diagnosis?: No VTE Prior VTE?: No VTE Risk Level:: Medical - moderate - high VTE Device Contraindication: Treatment Not Indicated VTE Drug Contraindication: N/A - Med Ordered
[2021-09-14 20:07] VITALS: BP 137/82; PULSE 72; RESP 16; TEMP 36.3; O2SAT 95
[2021-09-14 20:45] VITALS: BP 158/77; PULSE 66; RESP 18; TEMP 36.7; O2SAT 94
[2021-09-14 23:07] VITALS: BP 154/70; PULSE 56; RESP 20; TEMP 36.6; O2SAT 97
[2021-09-15] VITALS (10 sets, daily range): BP systolic 139–161; BP diastolic 60–88; PULSE 56–95; RESP 17–24; TEMP 36.2–36.7; O2SAT 82–99
[2021-09-15] MEDS: 0.9 % Sodium Chloride Flush 3 ML SYRINGE IVFLUSH ×3 (01:11→16:29)
[2021-09-15 07:17] LABS: Hematocrit 40.2 % (42.0-52.0); Mean Corpuscular HGB Conc 29.9 g/dl (31.0-36.0); Mean Corpuscular Hemoglobin 25.3 pg (27.0-33.0); Mean Corpuscular Volume 84.8 fL (80.0-98.0); Mean Platelet Volume 11.2 fL (9.4-12.4); Platelet Count 311 X10*3/uL (160-400); Red Blood Count 4.74 X10*6/uL (4.60-5.80); Red Cell Distribution Width 14.9 % (11.0-16.0); White Blood Count 10.4 X10*3/uL (4.8-10.8)
[2021-09-15 07:27] LABS: Anion Gap 11 (12-20); Blood Urea Nitrogen 21 mg/dL (9-16); C Reactive Protein 1.84 mg/dL (< or = 0.50); Calcium 8.7 mg/dL (8.4-10.2); Carbon Dioxide 29 mmol/L (22-29); Chloride 107 mmol/L (96-108); Creatinine Clr Calc Pharmacy 233.8; Estimated Glomerular Filt Rate > 60; Glucose Fasting 117 mg/dL (60-99); Potassium 4.3 mmol/L (3.3-5.1); Sodium 143 mmol/L (135-145)
--- NOTE | 2021-09-15 10:52 | P.PNIM_ITS ---
Subjective Subjective Date of Service: 09/15/21 Interval History: cc: sob interval history: about the same as yesterday, overall much improved from admission Cardiovascular Cardiovascular: Reports no additional cardiovascular complaints Gastrointestinal Gastrointestinal: Reports no additional gastrointestinal complaints Physical Exam Verdana 4l Vital Signs: Verdana 4d Verdana 4d Vital Signs: Verdana 4d Verdana 4Bd Last Vital Signs Verdana 4d Testing Director New 4d Testing Director New 4d Temp 97.2 F 09/15/21 07:42 Testing Director New 4d Pulse 56 09/15/21 07:42 Testing Director New 4d Resp 18 09/15/21 08:06 BP 139/70 09/15/21 07:42 Pulse Ox 99 09/15/21 07:42 BMI result Body Mass Index 84.3 General: AO X 3, no acute distress Resp:? diminished bilateral, no accessory muscles used CVS: S1,S2,RRR GI: soft, non tender, non distended Neuro:? motor grossly intact, alert Psych: appropriate affect, appropriate insight? Objective Data Active Medications Acetaminophen (Acetaminophen 325 Mg Tablet) 650 mg PO Q6H PRN PRN Reason: Pain, Mild (Pain Scale 1-3) Dexamethasone Sodium Phosphate (Dexamethasone Sod Phosphate 4 Mg/Ml Vial) 6 mg IVPUSH DAILY [facility] Last Admin: 09/14/21 07:51 Dose: 6 mg Documented by: TRACY Enoxaparin Sodium (Enoxaparin Sodium 40 Mg/0.4 Ml Syringe) 40 mg SUBCUT DAILY [facility] Last Admin: 09/14/21 07:53 Dose: 40 mg Documented by: TRACY Melatonin (Melatonin 3 Mg Tablet) 6 mg PO BEDTIME PRN PRN Reason: Insomnia Pharmacy Consult (Consult Rx Perform Med Rec) 1 each MISCELLANE ONCE PRN PRN Reason: Consult order Senna (Sennosides 8.6 Mg Tablet) 17.2 mg PO BEDTIME PRN PRN Reason: Constipation Sodium Chloride (0.9 % Sodium Chloride Flush 3 Ml Syringe) 3 ml IVFLUSH QSHIFT [facility] Last Admin: 09/15/21 01:11 Dose: 3 ml Documented by: DEIDRE Labs CBC & Chem 7: 09/15/21 06:45 09/15/21 06:45 Labs: Laboratory Results - last 24 hr 09/15/21 09/15/21 06:45 06:45 MCV 84.8 MCH 25.3 L MCHC 29.9 L RDW 14.9 Plt Count 311 MPV 11.2 Absolute Nucleated RBC 0.000 Nucleated RBC % (auto) 0.0 Anion Gap 11 L Estim Creat Clear Calc 233.8 Estimated GFR > 60 Fasting Glucose 117 H Calcium 8.7 C-Reactive Protein 1.84 H Microbiology Microbiology Results: Microbiology 09/12/21 23:46 Blood Culture - Preliminary Blood - Venous No growth after 48 hours. 09/12/21 22:58 Blood Culture - Preliminary Blood - Venous No growth after 48 hours. Assessment and Plan (1) Asthma: Status: Acute Plan 46M presented with sob dyspnea due to covid and mild intermittent asthma with acute exacerbation continue decadron improving inflammatory markers JESSE, morbid obesity weight loss doubt bacterial pna abx dced LE duplex negative doubt VTE lovenox decreased to prophylactic dose Quality Stroke Does the patient have a stroke diagnosis?: No VTE Prior VTE?: No VTE Risk Level:: Medical - moderate - high VTE Device Contraindication: Treatment Not Indicated VTE Drug Contraindication: N/A - Med Ordered
[2021-09-15] MEDS: Enoxaparin Sodium 40 MG/0.4 ML SYRINGE SUBCUT (11:11)
[2021-09-15] MEDS: dexAMETHasone sod phosphate 4 MG/ML VIAL 6 MG IVPUSH (11:11)
--- NOTE | 2021-09-15 12:55 | P.PNHO_ITS ---
Medical Summary - Medical Summary Date of Service: 09/15/21 Interval History Interval history: I am covering Dr. Michael today and tomorrow. The ultrasound of his legs shows no DVT. He seems comfortable. Review of Systems - Constitutional Reports lack of energy - Neurologic Reports system reviewed and no additional complaints, except as documented [facility] Medical History: Medical History (Last Updated 09/13/21 @ 12:53 by Jeovany Maria MD) Asthma Chronic back pain Obesity Obstructive sleep apnea Pericardial effusion Respiratory failure Functional capacity: uses cane/walker Family History: Family History (Last Reviewed 09/12/21 @ 22:39 by IQRA Go) Father Medical history unknown Mother Medical history unknown Family/Other Asthma Brother No problems noted. Brother No problems noted. Sister No problems noted. Surgical History: Surgical History (Last Reviewed 09/12/21 @ 22:39 by IQRA Go) History of tonsillectomy Social History: Social History (Last Reviewed 09/12/21 @ 22:39 by IQRA Go) Living Situation History: Household Members: Family Housing: Apartment Do you presently have visiting nurse or other home services: Yes Do you presently have visiting nurse or other home services comment: sister, mother [employer] Tobacco History: Patient Tobacco Use Status: Never used Tobacco Occupation Assessmet: service: No Current occupational status: disabled Home Medications and Allergies Current Medications: Current Medications Acetaminophen (Acetaminophen 325 Mg Tablet) 650 mg PO Q6H PRN PRN Reason: Pain, Mild (Pain Scale 1-3) Dexamethasone Sodium Phosphate (Dexamethasone Sod Phosphate 4 Mg/Ml Vial) 6 mg IVPUSH DAILY [facility] Last Admin: 09/15/21 11:11 Dose: 6 mg Documented by: Enoxaparin Sodium (Enoxaparin Sodium 40 Mg/0.4 Ml Syringe) 40 mg SUBCUT DAILY [facility] Last Admin: 09/15/21 11:11 Dose: 40 mg Documented by: Melatonin (Melatonin 3 Mg Tablet) 6 mg PO BEDTIME PRN PRN Reason: Insomnia Pharmacy Consult (Consult Rx Perform Med Rec) 1 each MISCELLANE ONCE PRN PRN Reason: Consult order Senna (Sennosides 8.6 Mg Tablet) 17.2 mg PO BEDTIME PRN PRN Reason: Constipation Sodium Chloride (0.9 % Sodium Chloride Flush 3 Ml Syringe) 3 ml IVFLUSH QSHIFT [facility] Last Admin: 09/15/21 11:11 Dose: 3 ml Documented by: Allergies Allergy/AdvReac Type Severity Reaction Status Date / Time No Known Allergies Allergy Verified 12/28/20 16:01 Exam Vital signs: Vital Signs Temp 98.1 F 09/15/21 11:26 Pulse 62 09/15/21 11:26 Resp 18 09/15/21 11:50 BP 148/72 H 09/15/21 11:26 Pulse Ox 97 09/15/21 11:26 Intake & Output 09/14/21 09/15/21 09/15/21 18:59 06:59 18:59 Intake Total 1500 / 3280 1780 / 3280 Output Total 700 / 700 Balance 1500 / 2580 1080 / 2580 Urine Output (Average ml/kg/hr) 0.22 Intake: Intake, Oral Amount 1500 / 3280 1780 / 3280 Output: Output, Urine Amount 700 / 700 Other: Breakfast % Eaten 100% Lunch % Eaten 100% Dinner % Eaten 100% Urine Urinal Urine Color Yellow Weight 266.6 kg BMI result Verdana 4d Body Mass Index 84.3 - Constitutional Present: moderate distress - Routine HEENT Exam Head: Present: normal inspection - Routine Respiratory Exam Present: decreased breath sounds, CTAB - Routine Cardiovascular Exam Cardiovascular: Present: RRR, S1, S2 - Routine Abdominal Exam Present: tenderness - Routine Extremities Exam Present: nontender - Routine Skin Exam Present: intact - Routine Neurological Exam Present: alert, oriented X3 Data - Labs CBC & Chem 7: 09/15/21 06:45 09/15/21 06:45 Labs: 09/12/21 21:56 ECG 12 lead EKG Stat EKG Documentation DIRECTED 09/12/21 22:19 dexAMETHasone sod phosphate [Decadron] 6 mg IVPUSH ONCE ONE 09/12/21 22:23 COVID-19 ID NOW ([place]) Stat 09/12/21 22:30 0.9 % Sodium Chloride [Ns] 500 ml IV 999 mls/hr 09/12/21 23:46 B Type Natriuretic Peptide Stat Basic Metabolic Panel Stat C Reactive Protein Stat Complete Blood Count Auto Diff Stat D Dimer High Sensitivity Stat Ferritin Stat Lactate Dehydrogenase Stat Lactic Acid Stat Liver Panel Stat Magnesium Stat Partial Thromboplastin Time Stat Procalcitonin Stat Prothrombin Time INR Stat Troponin-I High Sensitivity Stat 09/13/21 US venous duplex LE BI Urgent 09/13/21 00:30 XR chest 1V Stat 09/13/21 00:34 Albuterol Sulfate [Ventolin] 4 puff INHALE ONCE ONE 09/13/21 01:16 Doxycycline Hyclate [Vibramycin] 100 mg PO ONCE ONE 09/13/21 01:18 Albuterol/Iprat 2.5/0.5MG 3 ML [Duoneb] 3 ml INHALE ONCE ONE 09/13/21 01:39 Doxycycline Hyclate [Vibramycin] 100 mg 0.9 % Sodium Chloride [Ns] 250 ml IV ONCE 09/13/21 01:47 Enoxaparin Sodium [Lovenox] 150 mg SUBCUT ONCE ONE 09/13/21 01:50 Doxycycline Hyclate [Vibramycin] 100 mg IV .STK-MED ONE 09/13/21 02:00 Azithromycin [Zithromax] 500 mg PO BEDTIME cefTRIAXone sodium [Rocephin] 1 gm 0.9 % Sodium Chloride [Ns] 50 ml IV Q24H cefTRIAXone sodium [Rocephin] 1 gm 0.9 % Sodium Chloride [Ns] 50 ml IV Q24H 09/13/21 02:52 cefTRIAXone sodium [Rocephin] 1 gm .ROUTE .STK-MED ONE 09/13/21 03:18 Enoxaparin Sodium [Lovenox] 120 mg SUBCUT .STK-MED ONE Enoxaparin Sodium [Lovenox] 30 mg .ROUTE .STK-MED ONE 09/13/21 03:53 BiPAP Ventilatory Support Assessment Q4HR 09/13/21 07:58 Basic Metabolic Panel AM Complete Blood Count Auto Diff AM 09/13/21 14:00 Enoxaparin Sodium [Lovenox] 150 mg SUBCUT Q12H 09/14/21 06:30 BMP [Basic Metabolic Panel Fasting] Routine C Reactive Protein Routine Complete Blood Count no Diff AM 09/14/21 09:00 Azithromycin [Zithromax] 500 mg PO DAILY 09/15/21 06:45 BMP [Basic Metabolic Panel Fasting] Routine C Reactive Protein Routine Complete Blood Count no Diff AM Laboratory Last Values WBC 10.4 X10*3/uL (4.8-10.8) 09/15/21 06:45 RBC 4.74 X10*6/uL (4.60-5.80) 09/15/21 06:45 Hgb 12.0 g/dl (14.0-18.0) L 09/15/21 06:45 Hct 40.2 % (42.0-52.0) L 09/15/21 06:45 MCV 84.8 fL (80.0-98.0) 09/15/21 06:45 MCH 25.3 pg (27.0-33.0) L 09/15/21 06:45 MCHC 29.9 g/dl (31.0-36.0) L 09/15/21 06:45 RDW 14.9 % (11.0-16.0) 09/15/21 06:45 Plt Count 311 X10*3/uL (160-400) 09/15/21 06:45 MPV 11.2 fL (9.4-12.4) 09/15/21 06:45 Immature Gran % (Auto) 0.6 % (0.0-0.4) H 09/13/21 07:58 Neut % (Auto) 89.8 % (45-73) H 09/13/21 07:58 Lymph % (Auto) 6.8 % (20-40) L 09/13/21 07:58 Lucas % (Auto) 2.6 % (2-11) 09/13/21 07:58 Eos % (Auto) 0.0 % (0-4) 09/13/21 07:58 Baso % (Auto) 0.2 % (0-2) 09/13/21 07:58 Lymph # (Auto) 0.4 X10*3/uL (1.2-4.9) L 09/13/21 07:58 Lucas # (Auto) 0.1 X10*3/uL (0.1-1.2) 09/13/21 07:58 Eos # (Auto) 0.0 X10*3/uL (0.0-0.4) 09/13/21 07:58 Baso # (Auto) 0.0 X10*3/uL (0.0-0.2) 09/13/21 07:58 Abs Immat Gran (auto) 0.03 X10*3/uL (0.00-0.03) 09/13/21 07:58 Absolute Neuts (auto) 4.8 x10*3/uL (2.0-8.3) 09/13/21 07:58 Absolute Nucleated RBC 0.000 X10*3/uL (0.0-0.012) 09/15/21 06:45 Nucleated RBC % (auto) 0.0 /100WBC (0.0-0.2) 09/15/21 06:45 PT 14.2 SEC (9.9-13.0) H 09/12/21 23:46 INR 1.2 (0.9-1.1) H 09/12/21 23:46 APTT 33.3 SEC (24.1-38.0) 09/12/21 23:46 D-Dimer High Sensitivty 493 NG/ML 09/12/21 23:46 Sodium 143 mmol/L (135-145) 09/15/21 06:45 Potassium 4.3 mmol/L (3.3-5.1) 09/15/21 06:45 Chloride 107 mmol/L (96-108) 09/15/21 06:45 Carbon Dioxide 29 mmol/L (22-29) 09/15/21 06:45 Anion Gap 11 (12-20) L 09/15/21 06:45 BUN 21 mg/dL (9-16) H 09/15/21 06:45 Creatinine 0.84 mg/dL (0.5-1.4) 09/15/21 06:45 Estim Creat Clear Calc 233.8 09/15/21 06:45 Estimated GFR > 60 09/15/21 06:45 Random Glucose 141 mg/dL (60-115) H D 09/13/21 07:58 Fasting Glucose 117 mg/dL (60-99) H 09/15/21 06:45 Lactic Acid 0.8 mmol/L (0.5-2.0) 09/12/21 23:46 Calcium 8.7 mg/dL (8.4-10.2) 09/15/21 06:45 Magnesium 2.2 mg/dL (1.6-2.6) 09/12/21 23:46 Ferritin 552 ng/mL (20-250) H 09/12/21 23:46 Ferritin Cancelled 09/12/21 23:46 Total Bilirubin 0.4 mg/dL (0.0-1.0) 09/12/21 23:46 Direct Bilirubin 0.2 mg/dL (0.0-0.5) 09/12/21 23:46 AST 57 U/L (5-37) H 09/12/21 23:46 ALT 69 U/L (0-40) H 09/12/21 23:46 Alkaline Phosphatase 62 U/L (39-117) 09/12/21 23:46 Lactate Dehydrogenase 232 U/L (118-273) 09/12/21 23:46 Troponin I High Sens < 3.5 ng/L (<3.5-35.0) 09/12/21 23:46 C-Reactive Protein 1.84 mg/dL (< or = 0.50) H 09/15/21 06:45 B-Natriuretic Peptide 16 pg/mL (<100) 09/12/21 23:46 Total Protein 6.5 g/dL (6.5-8.0) 09/12/21 23:46 Albumin 3.4 g/dL (3.5-5.0) L 09/12/21 23:46 Procalcitonin 0.08 ng/mL 09/12/21 23:46 COVID-19 (GEMMA) Positive (Negative) A 09/12/21 22:23 COVID-19 Clin Com See Note 09/12/21 22:23 - Imaging Radiologist's impression: ITS Impressions Chest X-Ray 09/13/21 00:45 IMPRESSION: Multifocal new ill-defined new infiltrates. Venous Duplex 09/13/21 09:42 IMPRESSION: Limited evaluation with no acute DVT demonstrated in the bilateral lower extremities. Assessment and Plan Patient Active problem list reviewed?: Yes (1) D-dimer, elevated Status: Acute Assessment and plan: A DVT or PE has not been found. The cause of the elevated d-dime still is unclear. A low grade consumptive coagulopathy is possible. Recommend daily fibrinogen, D-dimer PT and PTT with BUN and creaginine. Will follow., - Time Spent With Patient Time Spent with Patient (in minutes): 10
[2021-09-16] VITALS (7 sets, daily range): BP systolic 145–162; BP diastolic 80–85; PULSE 50–78; RESP 18–26; TEMP 35.8–36.7; O2SAT 95–99
[2021-09-16 07:15] LABS: Fibrinogen 467 MG/DL (259-690)
[2021-09-16 07:18] LABS: D Dimer High Sensitivity 384 NG/ML
[2021-09-16] MEDS: dexAMETHasone sod phosphate 4 MG/ML VIAL 6 MG IVPUSH (07:48)
[2021-09-16] MEDS: Enoxaparin Sodium 40 MG/0.4 ML SYRINGE SUBCUT (07:48)
[2021-09-16] MEDS: 0.9 % Sodium Chloride Flush 3 ML SYRINGE IVFLUSH (07:49)
--- NOTE | 2021-09-16 09:48 | P.DS_ITS ---
DS: Providers Provider Date of Service: 09/16/21 Date of admission: 09/13/21 01:56 Primary care physician: Eric Fernandez MD Consults: 09/13/21 01:53 Consult to Hematology / Oncology Routine Consulting Provider: Radha Michael Reason for consultation: positive ddimer; morbid obesity; AC Rx guidance Consult to Infectious Diseases Routine Consulting Provider: Dior Whalen Reason for consultation: covid pna 09/13/21 03:53 Consult to Pulmonology Routine Consulting Provider: Sohail Arthur Reason for consultation: COVID PNA; DS: Diagnosis Discharge Diagnosis (1) D-dimer, elevated: Status: Acute DS: Summary Hospital Course Hospital Course: patient was admitted for dyspnea in a high risk covid patient, complicated by acute exacerbation of mild intermitted asthma. there was initially concern for PE, however, negative lower extremity duplex and lack of hypoxia made this less likely and anticoagulation was disconitnued. there was no evidence of bactereial pneumonia so antibiotics were disconitnued. patient was treated with iv decadron, remained on room air. CRP decreased from 4 to 1. he is feeling better and will be discharged home on prednisone taper. Time Spent with Patient Time attestation: Total time spent providing and/or coordinating discharge services: Discharge coordination time: Greater than 30 minutes Quality: Stroke Does the patient have a stroke diagnosis?: No Physical Exam Verdana 4l Vital Signs: Verdana 4d Verdana 4d Vital Signs: Verdana 4d Verdana 4Bd Last Vital Signs Verdana 4d Supervisor Varnish New 4d Supervisor Varnish New 4d Temp 96.5 F L 09/16/21 07:50 Supervisor Varnish New 4d Pulse 59 09/16/21 07:50 Supervisor Varnish New 4d Resp 18 09/16/21 08:34 BP 145/85 H 09/16/21 07:50 Pulse Ox 99 09/16/21 07:50 BMI result Body Mass Index 84.3 General: AO X 3, no acute distress Resp:? diminished bilateral, no accessory muscles used CVS: S1,S2,RRR GI: soft, non tender, non distended Neuro:? motor grossly intact, alert Psych: appropriate affect, appropriate insight? DS: Data Data Completed and Pending Labs on day of discharge: Laboratory Results - last 24 hr 09/16/21 06:46 Fibrinogen 467 D-Dimer High Sensitivty 384 Preliminary micro results at discharge 09/12/21 23:46 Blood Culture - Preliminary Blood - Venous No growth after 48 hours. 09/12/21 22:58 Blood Culture - Preliminary Blood - Venous No growth after 48 hours. Discharge Plan Discharge Patient Disposition: Home, Self-Care Discharge Diagnosis: asthma, covid pneumonia Referrals: Eric Fernandez MD [Primary Care Provider] - 2 days Discharge Medications: New prednisone 20 mg tablet 40 mg PO DAILY Qty: 15 0RF Rx Instructions: 40mg daily for 5 days, then 20mg daily for 5 days Continued (DME) miscellaneous medical supply Misc See Rx Instructions .ROUTE .MEDSUPPLY Qty: 1 0RF Rx Instructions: As directed ibuprofen 800 mg tablet 800 mg PO Q8H Qty: 90 1RF (DME) nebulizers Misc See Rx Instructions .Route Qty: 1 0RF Rx Instructions: Nebulizer Machine and accessories Discharge Orders: Discharge Order (Routine); Ordered 09/16/21 Ordered By: Jimmy Sr Diet: advance to usual diet Activity on Discharge: As tolerated Stand Alone Forms: Patient Portal Discharge page Print Language: Somali Care Plan Goals: recovery Health Concerns: covid Plan of Treatment: prednisone taper Assessment: see above Patient Instructions: COVID-19 (Coronavirus Disease 2019) (ED)
--- NOTE | 2021-09-16 10:35 | MHC.CM.PN ---
order home self care, CM acknowledge.
== END 2021-09-16 15:20 | disposition home or self-care (01) | DRG 177 ==
LOC: HO.ED 09-13 02:09 → HO.EDOVER 09-13 02:09 → HO.IMC 09-14 17:02
PROVIDERS: Internal Medicine Medical Oncology; Physician Assistant; Admitting Provider Hospitalist; Emergency Provider Emergency Medicine; PCP Internal Medicine; Visit Provider Internal Medicine
DX: U07.1 COVID-19 (principal); J12.82 Pneumonia due to coronavirus disease 2019; Z68.45 Body mass index [BMI] 70 or greater, adult; J45.21 Mild intermittent asthma with (acute) exacerbation; E66.01 Morbid (severe) obesity due to excess calories; G47.33 Obstructive sleep apnea (adult) (pediatric); Z79.1 Long term (current) use of non-steroidal anti-inflammatories (NSAID); Z79.52 Long term (current) use of systemic steroids; Z79.899 Other long term (current) drug therapy
CPT/HCPCS: 36415; 71045; 80048; 80076; 82728; 83605; 83615; 83735; 83880; 84145; 84484; 85025; 85027; 85379; 85384; 85610; 85730; 86140; 87040; 87635; 93005; 93970; 94660; 96365; 96372; 96375; 99285; 99291; J0696; J1100; J1650

== ENCOUNTER 2021-12-24 19:42 | Emergency (ER) | payer MEDICARE, MEDICAID, SELFPAY ==
--- NOTE | ~2021-12-24 | XR_ITS ---
EXAMINATION: XR CHEST CLINICAL INFORMATION: Dyspnea. COMPARISON: None TECHNIQUE: Frontal view of the chest was obtained. FINDINGS: There is mild cardiomegaly with prominent pulmonary vascularity. The lungs are expanded and clear. There is no pleural effusion. No gross bony abnormality seen. XR/XR chest 1V IMPRESSION: Cardiomegaly with increased pulmonary vascularity suggestive of mild CHF.
[2021-12-24 20:27] VITALS: BP 138/72; BP 143/68; PULSE 80; PULSE 82; RESP 20; TEMP 35.9; O2SAT 96; O2SAT 98; BMI 68.8
== END 2021-12-25 02:19 | disposition left against medical advice (07) ==
LOC: HO.ED 12-25 02:07
PROVIDERS: Emergency Provider Emergency Medicine
DX: R06.00 Dyspnea, unspecified (principal); R06.02 Shortness of breath; R13.10 Dysphagia, unspecified
CPT/HCPCS: 71045; 99283

== ENCOUNTER 2022-12-04 06:21 | Emergency (ER) | payer MEDICARE, MEDICAID, SELFPAY ==
--- NOTE | ~2022-12-04 | XR_ITS ---
EXAMINATION: XR CHEST CLINICAL INFORMATION: Shortness of breath COMPARISON: Previous chest x-ray December 2021 TECHNIQUE: Frontal view of the chest was obtained. FINDINGS: The cardiac and mediastinal contours are stable. The lungs are clear. No pleural effusion or pneumothorax. Degenerative changes of the spine. XR/XR chest 1V IMPRESSION: No evidence for acute disease in the chest.
--- NOTE | 2022-12-04 06:31 | ECG_ITS ---
Test Reason : CHEST PAIN Blood Pressure : / mmHG Vent. Rate : 081 BPM Atrial Rate : 081 BPM P-R Int : 164 ms QRS Dur : 090 ms QT Int : 398 ms P-R-T Axes : 065 001 078 degrees QTc Int : 462 ms Normal sinus rhythm Nonspecific T wave abnormality Prolonged QT Abnormal ECG When compared with ECG of 12-SEP-2021 22:16, Nonspecific T wave changes Referred By: Arabella Avalos Electronically Signed By:Joshua Ryder
[2022-12-04 06:34] VITALS: BP 150/79; PULSE 80; RESP 24; TEMP 37; O2SAT 98; BMI 55.7
--- NOTE | 2022-12-04 06:46 | ED_ITS ---
HPI - Chest Pain General Chief Complaint: Chest Pain Stated Complaint: cp & sob Time Seen by Provider: 12/04/22 06:30 Source: patient, EMS and old records reviewed Mode of arrival: EMS Limitations: no limitations History of Present Illness HPI narrative: 47 y/o male with history of morbid obesity (BMI 55), JESSE on CPAP, asthma, history of pericardial effusion s/p pericardial window, chronic back pain, hx respiratory failure due to COVID-19 in Oct 02 requiring hospitalization who presents to the ER from home via EMS for evaluation of nonradiating substernal chest pain that started last evening while watching TV. He states yesterday the pain was mild and improved on its own. Last night when he was trying to sleep the pain got worse and he was unable to sleep. He states the pain is described as a heaviness and tightness, sometimes worse when he takes a deep breath. He has some associated SOB but it is intermittent. He denies any diaphoresis or nausea, no vomiting or abdominal pain. He states the pain is 10/10 at this time. MD complaint: chest pain Pertinent past history: asthma and other (pericardial effusion) Onset (ago): hour(s) (12+) Timing of current episode: constant Prior episodes: No Onset: during rest Pain location: substernal Pain radiation: none Severity: severe Pain scale (0-10): 10 Quality: heaviness Relieving factors: nothing Exacerbating factors: inspiration, palpation and movement Associated symptoms: dyspnea Treatment prior to arrival: none Risk Factors Thoracic aortic dissection risk factors: none Pulmonary embolism risk factors: morbid obesity Related Data Previous Rx's Medication Instructions Recorded nebulizers #1 ea 07/25/21 clonazepam 0.5 mg tablet 0.5 mg PO BEDTIME #7 tabs 09/21/21 cyclobenzaprine 10 mg tablet 10 mg PO BEDTIME muscle spasm 60 10/22/21 days #60 tabs amoxicillin 500 mg capsule 500 mg PO TID 5 days #15 caps 12/22/21 tramadol 50 mg tablet 50 mg PO BID 4 days #8 tabs 12/22/21 furosemide 20 mg tablet 20 mg PO DAILY 7 days #7 tabs 01/09/22 miscellaneous medical supply #1 ea 01/23/22 ibuprofen 800 mg tablet 800 mg PO Q8H #90 tabs 04/16/22 cyclobenzaprine 10 mg tablet 10 mg PO TID PRN muscle spasm #10 12/04/22 tabs naproxen 500 mg tablet,delayed 500 mg PO BID PRN pain #10 tabs 12/04/22 release tramadol 50 mg tablet 50 mg PO BID PRN severe pain 12/04/22 (scale score 7-10) #6 tabs Allergies Allergy/AdvReac Type Severity Reaction Status Date / Time prednisolone AdvReac Mild decrease Verified 12/24/21 20:27 blood pressure. Review of Systems Review of Systems: Yes all other systems are reviewed and are negative [facility] Past Medical History Medical History (Updated 12/04/22 @ 11:04 by IQRA Camarena) Asthma Chronic back pain Obesity Obstructive sleep apnea Pericardial effusion Respiratory failure Surgical History History of tonsillectomy Family History Family History Father Medical history unknown Mother Medical history unknown Family/Other Asthma Brother No problems noted. Brother No problems noted. Sister No problems noted. Social History Social History Household Members: Family Housing: Apartment Do you presently have visiting nurse or other home services: Yes (sister, mother [employer]) Alcohol intake: never Patient Tobacco Use Status: Never used Tobacco Advance Directives: Yes Advance Directives on File: Yes Advance Directives Date on File: 09/16/21 service: No Current occupational status: disabled Physical Exam Vital Signs: Vital Signs: Last Vital Signs Temp 98.6 F 12/04/22 06:34 Pulse 77 12/04/22 10:28 Resp 16 12/04/22 10:28 BP 134/62 12/04/22 10:28 Pulse Ox 98 12/04/22 10:28 O2 Del Method Room Air 12/04/22 10:28 BMI result Body Mass Index 55.7 Appearance: Alert. Oriented X3. No acute distress. Head: normocephalic, atraumatic. Eyes: Pupils equal, round and reactive to light. ENT: Pharynx normal. No tonsillar swelling or exudate. Neck: Normal inspection. Neck supple. CVS: Normal heart rate and rhythm. Pulses normal. Chest wall with tenderness of the sternal area Respiratory: No respiratory distress. Breath sounds diminished throughout Abdomen: Morbidly obese, Soft and nontender. +BS x4 Skin: Skin warm and dry. Normal skin color. Normal skin turgor. No rashes. Extremities: 3+ lower extremity edema with chronic venous stasis changes. well healed surgical scars c/w vascular surgery. Neuro/psych: Oriented X 3. No motor deficit. No sensory deficit. Limited mobility due to body habitus. CN II-XII intact. Normal speech and cognition. Medications Administered Discontinued Medications Generic Name Dose Route Start Last Admin Trade Name Mj PRN Reason Stop Dose Admin Ketorolac Tromethamine 30 mg 12/04/22 08:57 12/04/22 09:41 Ketorolac Tromethamine 30 Mg/Ml Vial IVPUSH 12/04/22 08:58 30 mg ONCE ONE Administration Morphine Sulfate 4 mg 12/04/22 06:42 12/04/22 07:36 Morphine Sulfate 4 Mg/Ml Cartridge IVPUSH 12/04/22 06:43 4 mg ONCE ONE Administration Protocol Medical Decision Making Medical Decision Making MDM Narrative: 47 y/o male with history of morbid obesity (BMI 55), JESSE on CPAP, asthma, history of pericardial effusion s/p pericardial window, chronic back pain, hx respiratory failure due to COVID-19 in Oct 02 requiring hospitalization who presents to the ER from home via EMS for evaluation of non-radiating substernal chest pain that started last evening while watching TV. On arrival to the ER patient is hemodynamically stable. On exam chest pain is reproducible with tenderness of the parasternal area. Low clincial suspicion for ACS but will need to rule out. EKG without STEMI - has some new t-wave inversions in anterior leads compared to last year but no ST depressions. Patient was given morphine. He was sleeping comfortably but when woke up he said he still had severe pain. No objective signs of pain. He was then given toradol. He continued to have chest pain with movement and palpation. Both of his troponin levels are <5. At this time pain is most likely acute chest wall pain. No life threatening cardiac or pulmonary cause identified today. He remains stable and can be safely discharged home on NSAIDs and muscle relaxers. He was encouraged to f/u with his PCP. Differential Diagnosis Differential Diagnoses: The differential diagnosis associated with the presentation includes costochondritis, ACS, myocarditis, pericarditis, pericardial effusion, PNA, bronchitis, doubt PE Lab Data MDM Lab Attestation statement: I reviewed the patient's lab results. 12/04/22 06:51 12/04/22 06:51 Labs: Lab Results 12/04/22 12/04/22 12/04/22 Range/Units 06:51 06:51 06:51 WBC 12.9 H (4.8-10.8) X10*3/uL RBC 4.23 L (4.60-5.80) X10*6/uL Hgb 11.2 L (14.0-18.0) g/dl Hct 36.5 L (42.0-52.0) % MCV 86.3 (80.0-98.0) fL MCH 26.5 L (27.0-33.0) pg MCHC 30.7 L (31.0-36.0) g/dl RDW 14.5 (11.0-16.0) % Plt Count 219 D (160-400) X10*3/uL MPV 11.0 (9.4-12.4) fL Immature Gran % (Auto) 0.7 H (0.0-0.4) % Neut % (Auto) 80.8 H (45-73) % Lymph % (Auto) 10.9 L (20-40) % [place] % (Auto) 5.5 (2-11) % Eos % (Auto) 1.9 (0-4) % Baso % (Auto) 0.2 (0-2) % Lymph # (Auto) 1.4 (1.2-4.9) X10*3/uL [place] # (Auto) 0.7 (0.1-1.2) X10*3/uL Eos # (Auto) 0.2 (0.0-0.4) X10*3/uL Baso # (Auto) 0.0 (0.0-0.2) X10*3/uL Abs Immat Gran (auto) 0.09 H (0.00-0.03) X10*3/uL Absolute Neuts (auto) 10.4 H (2.0-8.3) x10*3/uL Absolute Nucleated RBC 0.000 (0.0-0.012) X10*3/uL Nucleated RBC % (auto) 0.0 (0.0-0.2) /100WBC PT 13.5 H (10.0-13.1) SEC INR 1.2 H (0.9-1.1) APTT 32.3 (26.0-36.4) SEC Sodium 143 (135-145) mmol/L Potassium 3.9 (3.3-5.1) mmol/L Chloride 103 (96-108) mmol/L Carbon Dioxide 29 (22-29) mmol/L Anion Gap 15 (12-20) BUN 9 (9-16) mg/dL Creatinine 0.85 (0.5-1.4) mg/dL Estim Creat Clear Calc 178.9 Estimated GFR > 60 Random Glucose 120 H (60-115) mg/dL Calcium 8.8 (8.4-10.2) mg/dL Magnesium 1.9 (1.6-2.6) mg/dL Total Bilirubin 0.6 (0.0-1.0) mg/dL Direct Bilirubin 0.2 (0.0-0.5) mg/dL AST 9 (5-37) U/L ALT 9 (0-40) U/L Alkaline Phosphatase 67 (39-117) U/L Troponin I High Sens (<3.5-35.0) ng/L B-Natriuretic Peptide (<100) pg/mL Total Protein 6.6 (6.5-8.0) g/dL Albumin 3.6 (3.5-5.0) g/dL Urine Color Urine Appearance Urine pH (5.0-9.0) Ur Specific [place] (1.005-1.025) Urine Protein (Neg-Trace) mg/dL Urine Glucose (UA) (Negative) mg/dL Urine Ketones (Negative) mg/dL Urine Blood (Negative) Urine Nitrite (Negative) Ur Leukocyte Esterase (Negative) COVID-19 (GEMMA) (Negative) COVID-19 Clin Com 12/04/22 12/04/22 12/04/22 Range/Units 06:51 06:51 06:58 WBC (4.8-10.8) X10*3/uL RBC (4.60-5.80) X10*6/uL Hgb (14.0-18.0) g/dl Hct (42.0-52.0) % MCV (80.0-98.0) fL MCH (27.0-33.0) pg MCHC (31.0-36.0) g/dl RDW (11.0-16.0) % Plt Count (160-400) X10*3/uL MPV (9.4-12.4) fL Immature Gran % (Auto) (0.0-0.4) % Neut % (Auto) (45-73) % Lymph % (Auto) (20-40) % [place] % (Auto) (2-11) % Eos % (Auto) (0-4) % Baso % (Auto) (0-2) % Lymph # (Auto) (1.2-4.9) X10*3/uL [place] # (Auto) (0.1-1.2) X10*3/uL Eos # (Auto) (0.0-0.4) X10*3/uL Baso # (Auto) (0.0-0.2) X10*3/uL Abs Immat Gran (auto) (0.00-0.03) X10*3/uL Absolute Neuts (auto) (2.0-8.3) x10*3/uL Absolute Nucleated RBC (0.0-0.012) X10*3/uL Nucleated RBC % (auto) (0.0-0.2) /100WBC PT (10.0-13.1) SEC INR (0.9-1.1) APTT (26.0-36.4) SEC Sodium (135-145) mmol/L Potassium (3.3-5.1) mmol/L Chloride (96-108) mmol/L Carbon Dioxide (22-29) mmol/L Anion Gap (12-20) BUN (9-16) mg/dL Creatinine (0.5-1.4) mg/dL Estim Creat Clear Calc Estimated GFR Random Glucose (60-115) mg/dL Calcium (8.4-10.2) mg/dL Magnesium (1.6-2.6) mg/dL Total Bilirubin (0.0-1.0) mg/dL Direct Bilirubin (0.0-0.5) mg/dL AST (5-37) U/L ALT (0-40) U/L Alkaline Phosphatase (39-117) U/L Troponin I High Sens < 2.7 (<3.5-35.0) ng/L B-Natriuretic Peptide 42 (<100) pg/mL Total Protein (6.5-8.0) g/dL Albumin (3.5-5.0) g/dL Urine Color Urine Appearance Urine pH (5.0-9.0) Ur Specific [place] (1.005-1.025) Urine Protein (Neg-Trace) mg/dL Urine Glucose (UA) (Negative) mg/dL Urine Ketones (Negative) mg/dL Urine Blood (Negative) Urine Nitrite (Negative) Ur Leukocyte Esterase (Negative) COVID-19 (GEMMA) Negative (Negative) COVID-19 Clin Com See Note 12/04/22 12/04/22 Range/Units 09:38 10:54 WBC (4.8-10.8) X10*3/uL RBC (4.60-5.80) X10*6/uL Hgb (14.0-18.0) g/dl Hct (42.0-52.0) % MCV (80.0-98.0) fL MCH (27.0-33.0) pg MCHC (31.0-36.0) g/dl RDW (11.0-16.0) % Plt Count (160-400) X10*3/uL MPV (9.4-12.4) fL Immature Gran % (Auto) (0.0-0.4) % Neut % (Auto) (45-73) % Lymph % (Auto) (20-40) % [place] % (Auto) (2-11) % Eos % (Auto) (0-4) % Baso % (Auto) (0-2) % Lymph # (Auto) (1.2-4.9) X10*3/uL [place] # (Auto) (0.1-1.2) X10*3/uL Eos # (Auto) (0.0-0.4) X10*3/uL Baso # (Auto) (0.0-0.2) X10*3/uL Abs Immat Gran (auto) (0.00-0.03) X10*3/uL Absolute Neuts (auto) (2.0-8.3) x10*3/uL Absolute Nucleated RBC (0.0-0.012) X10*3/uL Nucleated RBC % (auto) (0.0-0.2) /100WBC PT (10.0-13.1) SEC INR (0.9-1.1) APTT (26.0-36.4) SEC Sodium (135-145) mmol/L Potassium (3.3-5.1) mmol/L Chloride (96-108) mmol/L Carbon Dioxide (22-29) mmol/L Anion Gap (12-20) BUN (9-16) mg/dL Creatinine (0.5-1.4) mg/dL Estim Creat Clear Calc Estimated GFR Random Glucose (60-115) mg/dL Calcium (8.4-10.2) mg/dL Magnesium (1.6-2.6) mg/dL Total Bilirubin (0.0-1.0) mg/dL Direct Bilirubin (0.0-0.5) mg/dL AST (5-37) U/L ALT (0-40) U/L Alkaline Phosphatase (39-117) U/L Troponin I High Sens 3.0 (<3.5-35.0) ng/L B-Natriuretic Peptide (<100) pg/mL Total Protein (6.5-8.0) g/dL Albumin (3.5-5.0) g/dL Urine Color Yellow Urine Appearance Clear Urine pH 6.0 (5.0-9.0) Ur Specific [place] 1.020 (1.005-1.025) Urine Protein Negative (Neg-Trace) mg/dL Urine Glucose (UA) Negative (Negative) mg/dL Urine Ketones Negative (Negative) mg/dL Urine Blood Negative (Negative) Urine Nitrite Negative (Negative) Ur Leukocyte Esterase Negative (Negative) COVID-19 (GEMMA) (Negative) COVID-19 Clin Com Independent Interpretation I performed an independent interpretation of an: EKG and Plain X-Ray Interpretation: EKG with normal sinus rhythm, HR 81 bpm, slight t-wave inversions in V1-V2. no ST segment elevations or depressions. CXR with increased vascular congestion, question pleural effusion on the left, no significant change from prior Radiology Impression Discussion of test interpretation with radiology: I have reviewed the radiologist's reading. Radiologist Impression: EXAMINATION: XR CHEST CLINICAL INFORMATION: Shortness of breath COMPARISON: Previous chest x-ray December 2021 TECHNIQUE: Frontal view of the chest was obtained. FINDINGS: The cardiac and mediastinal contours are stable. The lungs are clear. No pleural effusion or pneumothorax. Degenerative changes of the spine. XR/XR chest 1V IMPRESSION: No evidence for acute disease in the chest. ? Independent Historian Clinical information obtained from an independent historian. History obtained from or confirmed by: EMS External Record Review External record reviewed: Inpatient record, Office record, Outpatient record, Prior outpatient labs and Prior outpatient radiology Tests considered The following testing was considered but not selected: CTA considered but no tachycardia, hypoxia or trop leak to suggest PE Prescription Management I considered prescription management with: Pain Medication Chronic Conditions Patient?s care impacted by: Other (morbid obesity) Critical Care Time Critical Care Time Critical Care Time: No Discharge Plan Discharge Clinical Impression: Acute chest wall pain Patient Disposition: Home, Self-Care Instructions: Costochondritis (ED), Chest Wall Pain (ED) Additional Instructions: Your labs today were unremarkable and reassuring against any cardiac cause of your chest pain. Your EKG did not show a heart attack. Your x-ray was normal. Your pain is most likely muscular. Take the prescribed medications as directed. Follow up with your doctor in 1 week. If you develop new or worsening symptoms call 911 or come back to the ER for further evaluation. Prescriptions: New cyclobenzaprine 10 mg tablet 10 mg PO TID PRN (Reason: muscle spasm) Qty: 10 0RF tramadol 50 mg tablet 50 mg PO BID PRN (Reason: severe pain (scale score 7-10)) Qty: 6 0RF naproxen 500 mg tablet,delayed release (DR/EC) 500 mg PO BID PRN (Reason: pain) Qty: 10 0RF No Action (DME) nebulizers Mis See Rx Instructions .Route Qty: 1 0RF Rx Instructions: Nebulizer Machine and accessories clonazepam 0.5 mg tablet 0.5 mg PO BEDTIME Qty: 7 0RF Rx Instructions: administer 30 minutes before bedtime amoxicillin 500 mg capsule 500 mg PO TID 5 Days Qty: 15 0RF tramadol 50 mg tablet 50 mg PO BID 4 Days Qty: 8 0RF furosemide 20 mg tablet 20 mg PO DAILY 7 Days Qty: 7 0RF (DME) miscellaneous medical supply Misc See Rx Instructions .ROUTE .MEDSUPPLY Qty: 1 0RF Rx Instructions: As directed ibuprofen 800 mg tablet 800 mg PO Q8H Qty: 90 1RF cyclobenzaprine 10 mg tablet 10 mg PO BEDTIME 60 Days Qty: 60 1RF Referrals: Physician,Unknown J [Primary Care Provider] -
[2022-12-04 06:59] LABS: MANUAL DIFF FLAG NO
[2022-12-04 07:04] LABS: Basophils Percent Auto 0.2 % (0-2); Eosinophils Absolute Auto 0.2 X10*3/uL (0.0-0.4); Eosinophils Percent Auto 1.9 % (0-4); Hematocrit 36.5 % (42.0-52.0); Hemoglobin 11.2 g/dl (14.0-18.0); Imm Gran Abs Auto 0.09 X10*3/uL (0.00-0.03); Imm Gran Pct Auto 0.7 % (0.0-0.4); Lymphocytes Absolute Auto 1.4 X10*3/uL (1.2-4.9); Lymphocytes Percent Auto 10.9 % (20-40); Mean Corpuscular HGB Conc 30.7 g/dl (31.0-36.0); Mean Corpuscular Hemoglobin 26.5 pg (27.0-33.0); Mean Corpuscular Volume 86.3 fL (80.0-98.0); Monocytes Absolute Auto 0.7 X10*3/uL (0.1-1.2); Monocytes Percent Auto 5.5 % (2-11); Neutrophils Absolute Auto 10.4 x10*3/uL (2.0-8.3); Neutrophils Percent Auto 80.8 % (45-73); Platelet Count 219 X10*3/uL (160-400); Red Blood Count 4.23 X10*6/uL (4.60-5.80); Red Cell Distribution Width 14.5 % (11.0-16.0); White Blood Count 12.9 X10*3/uL (4.8-10.8)
[2022-12-04 07:11] LABS: INTERNATIONAL NORM RATIO 1.2 (0.9-1.1); Prothrombin Time 13.5 SEC (10.0-13.1)
[2022-12-04 07:14] LABS: Partial Thromboplastin Time 32.3 SEC (26.0-36.4)
[2022-12-04 07:16] LABS: COVID-19 Test Negative (Negative); IDNOW Serial# 6674DD1D
[2022-12-04 07:18] LABS: Alanine Aminotransferase 9 U/L (0-40); Albumin Level 3.6 g/dL (3.5-5.0); Alkaline Phosphatase 67 U/L (39-117); Anion Gap 15 (12-20); Aspartate Amino Transferase 9 U/L (5-37); Bilirubin Direct 0.2 mg/dL (0.0-0.5); Bilirubin Total 0.6 mg/dL (0.0-1.0); Blood Urea Nitrogen 9 mg/dL (9-16); Calcium 8.8 mg/dL (8.4-10.2); Carbon Dioxide 29 mmol/L (22-29); Chloride 103 mmol/L (96-108); Creatinine Clr Calc Pharmacy 178.9; Estimated Glomerular Filt Rate > 60; Glucose Random 120 mg/dL (60-115); Magnesium 1.9 mg/dL (1.6-2.6); Potassium 3.9 mmol/L (3.3-5.1); Sodium 143 mmol/L (135-145); Total Protein 6.6 g/dL (6.5-8.0)
[2022-12-04 07:27] LABS: Troponin-I High Sensitivity < 2.7 ng/L (<3.5-35.0)
[2022-12-04] MEDS: Morphine Sulfate 4 MG/ML CARTRIDGE IVPUSH (07:36)
[2022-12-04 08:11] VITALS: BP 127/52; PULSE 82; RESP 15; O2SAT 97
[2022-12-04] MEDS: Ketorolac Tromethamine 30 MG/ML VIAL IVPUSH (09:41)
--- NOTE | 2022-12-04 09:52 | PC.NURSE ---
Alert and oriented, resp even and unlabored. Continues to complain of 10/10 chest pain stating the pain is the same now as it was when he presented.
[2022-12-04 10:28] VITALS: BP 134/62; PULSE 77; RESP 16; O2SAT 98
[2022-12-04 10:39] LABS: B Type Natriuretic Peptide 42 pg/mL (<100)
[2022-12-04 11:01] LABS: Appearance Urine Clear; Color Urine Yellow; Glucose Urine UA Negative (Negative); Leukocyte Esterase Urine Negative (Negative); Nitrite Urine Negative (Negative); Urine Blood Negative (Negative); Urine Ketones Negative (Negative); Urine Protein Negative (Neg-Trace)
[2022-12-04] MEDS: Cyclobenzaprine HCl 10 MG TABLET PO (11:11)
[2022-12-04] MEDS: traMADoL HCL 50 MG TABLET PO (11:11)
== END 2022-12-04 12:13 | disposition home or self-care (01) ==
PROVIDERS: Physician Assistant; Emergency Provider Emergency Medicine
DX: R07.89 Other chest pain (principal); R06.02 Shortness of breath; Z20.822 Contact with and (suspected) exposure to COVID-19; Z20.828 Contact with and (suspected) exposure to other viral communicable diseases; Z79.899 Other long term (current) drug therapy
CPT/HCPCS: 36415; 71045; 80048; 80076; 81003; 83735; 83880; 84484; 85025; 85610; 85730; 87635; 93005; 96374; 96375; 99284; 99285; J1885; J2270

== ENCOUNTER 2023-01-17 00:33 | Inpatient (IN) | payer MEDICARE, MEDICAID, SELFPAY ==
[2023-01-17] VITALS (16 sets, daily range): BP systolic 144–175; BP diastolic 63–89; PULSE 77–92; RESP 13–22; TEMP 36.1–37.3; O2SAT 94–100; BMI 84.3
--- NOTE | ~2023-01-17 | XR_ITS ---
EXAMINATION: XR CHEST CLINICAL INFORMATION: Cough and fever COMPARISON: 12/04/2022 TECHNIQUE: Frontal view of the chest was obtained. FINDINGS: Cardiac leads overlie the chest. The lungs are well expanded. There is no focal consolidation, edema, or effusion. No pneumothorax. The cardiomediastinal silhouette is within normal limits. No acute osseous abnormality. XR/XR chest 1V IMPRESSION: No acute pulmonary disease.
--- NOTE | 2023-01-17 01:06 | PC.NURSE ---
Patient was brought into the ER patient is AAOX4 patient is calm and cooperative at this time patient is a difficult stick patient will needing to have a ultrasound IV to be administered patient was brought into the ER for SOB for 3/4 days patient develop chest tightness yesterday and decided nothing was getting better patient skin has eczema in several areas patient will continue to be monitored for safety
--- NOTE | 2023-01-17 01:17 | ECG_ITS ---
Test Reason : SOB Blood Pressure : / mmHG Vent. Rate : 084 BPM Atrial Rate : 084 BPM P-R Int : 152 ms QRS Dur : 090 ms QT Int : 404 ms P-R-T Axes : 000 195 126 degrees QTc Int : 477 ms Limb lead reversal Normal sinus rhythm Right superior axis deviation Abnormal ECG When compared with ECG of 04-DEC-2022 06:29, QRS axis Shifted left Referred By: Cathryn Bennett Electronically Signed By:Joshua Ryder
[2023-01-17] MEDS: Albuterol Sulfate (0.083%) 2.5 MG/3 ML VIAL.NEB 10 MG INHALE ×2 (01:32→04:44)
--- NOTE | 2023-01-17 01:49 | ED.GENADULT ---
HPI - General Adult General Chief complaint: Dyspnea Stated complaint: sob with fatigue Time Seen by Provider: 01/17/23 01:14 Source: patient Mode of arrival: EMS Limitations: no limitations History of Present Illness HPI narrative: Patient comes to the emergency room complaining of productive cough for 4 days. Patient states he feels tight, wheezy, no chest pain. Related Data Previous Rx's Medication Instructions Recorded clonazepam 0.5 mg tablet 0.5 mg PO BEDTIME #7 tabs 09/21/21 cyclobenzaprine 10 mg tablet 10 mg PO BEDTIME muscle spasm 60 10/22/21 days #60 tabs amoxicillin 500 mg capsule 500 mg PO TID 5 days #15 caps 12/22/21 tramadol 50 mg tablet 50 mg PO BID 4 days #8 tabs 12/22/21 furosemide 20 mg tablet 20 mg PO DAILY 7 days #7 tabs 01/09/22 miscellaneous medical supply #1 ea 01/23/22 ibuprofen 800 mg tablet 800 mg PO Q8H #90 tabs 04/16/22 cyclobenzaprine 10 mg tablet 10 mg PO TID PRN muscle spasm #10 12/04/22 tabs naproxen 500 mg tablet,delayed 500 mg PO BID PRN pain #10 tabs 12/04/22 release tramadol 50 mg tablet 50 mg PO BID PRN severe pain 12/04/22 (scale score 7-10) #6 tabs nebulizers #1 ea 01/16/23 Allergies Allergy/AdvReac Type Severity Reaction Status Date / Time prednisolone AdvReac Mild decrease Verified 12/24/21 20:27 blood pressure. Review of Systems Review of Systems: Constitutional : No Weight loss, No Fever, No Chills, No Night Sweats, No Fatigue, No Malaise ENT/Mouth : No Hearing loss, No Ear Pain, No Nasal Congestion, No Sinus Pain, No Hoarseness, No sore throat, No Rhinorrhea, No Swallowing Difficulty Eyes: No Eye Pain, No Swelling, No Redness, No Foreign Body, No Discharge, No Vision Changes Cardiovascular : No Chest Pain, No SOB, No Dyspnea on Exertion, No Orthopnea, No Edema, No Palpitations Respiratory : Complaining of productive cough, complaining of wheezing and chest tightness Gastrointestinal : No Nausea, No Vomiting, No Diarrhea, No Constipation, No abdominal Pain, No Hematochezia, No Melena Genitourinary : no irregular bleeding, No Dysuria, No Urinary Frequency, No Hematuria, No Urinary Incontinence, No Urgency, No Flank Pain, No Urinary Flow Changes, No Hesitancy Musculoskeletal : No joint pain, No Myalgias, No Joint Swelling Skin : No Skin Lesions, No rash Neuro : No Weakness, No Numbness, No Paresthesias, No Loss of Consciousness, No Dizziness, No Headache Psych : No Anxiety/Panic, No Depression, No SI/HI/AH/VH, No Social Issues, Heme/Lymph: No Bruising, No Bleeding,No Lymphadenopathy Endocrine : No Polyuria, No Polydipsia, No Temperature Intolerance [facility] Past Medical History Medical History Asthma Chronic back pain Obesity Obstructive sleep apnea Pericardial effusion Respiratory failure Surgical History History of tonsillectomy Family History Family History Father Medical history unknown Mother Medical history unknown Family/Other Asthma Brother No problems noted. Brother No problems noted. Sister No problems noted. 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) Alcohol intake: never Patient Tobacco Use Status: Never used Tobacco Smoked in Last 30 Days: No Use of substances other than those prescribed or required for medical reasons: No Any prior treatment program specific to substance use: No Advance Directives: Yes Advance Directives on File: Yes Advance Directives Date on File: 09/16/21 service: No Current occupational status: disabled Physical Exam ED Vital Signs: Vital Signs - 24 hr 01/17/23 00:46 01/17/23 00:45 01/17/23 01:33 Temperature 98.8 F 98.5 F Pulse Rate 77 84 81 Respiratory Rate 16 13 22 H Blood Pressure 164/89 H 164/89 H Pulse Oximetry 97 100 Oxygen Delivery Method Nasal Cannula Nasal Cannula Oxygen Flow Rate 3 01/17/23 04:44 01/17/23 05:26 Temperature 98.7 F Pulse Rate 92 80 Respiratory Rate 22 H 16 Blood Pressure 145/84 H Pulse Oximetry 96 Oxygen Delivery Method Nasal Cannula Oxygen Flow Rate BMI result Body Mass Index 84.3 Const Other: Appearance: Alert. Oriented X3. No acute distress. Eyes: Pupils equal, round and reactive to light. ENT: Pharynx normal. Neck: Normal inspection. Neck supple. No lymph nodes noted. No crepitus CVS: Normal heart rate and rhythm. Pulses normal. Normal S1 and S2 Respiratory: No respiratory distress. Occasional rales, no crackles, mild bilateral wheezing, mild tightness Abdomen: Soft and nontender. No rigidity. No distention. Skin: Skin warm and dry. Normal skin color. Normal skin turgor. Extremities: No lower extremity edema. No Lacerations. No Rash Neuro: Oriented X 3. No motor deficit. No sensory deficit. Moving all extremities. No slurred speech. CN 2 through 12 grossly intact Psych: calm, cooperative, normal affect Course Course Course Narrative: Patient's labs pending. Patient getting p.o. prednisone and a neb treatment. Chest x-ray is pending Medications Administered Generic Name Dose Route Start Last Admin Trade Name Freq PRN Reason Stop Dose Admin Enoxaparin Sodium 40 mg 01/17/23 06:00 01/17/23 06:15 Enoxaparin Sodium 40 Mg/0.4 Ml Syringe SUBCUT 40 mg Q12H YUVAL Administration Magnesium Sulfate 2 gm in 50 mls @ 25 mls/hr 01/17/23 04:27 01/17/23 04:53 Magnesium Sulfate/H2o IV 01/17/23 06:26 25 mls/hr ONCE ONE Infusion Methylprednisolone Sodium Succinate 40 mg 01/17/23 06:00 01/17/23 06:00 Methylprednisolone Sod Succ 40 Mg/Ml Vial IVPUSH Not Given Q12H YUVAL Discontinued Medications Generic Name Dose Route Start Last Admin Trade Name Freq PRN Reason Stop Dose Admin Albuterol Sulfate 10 mg 01/17/23 01:17 01/17/23 01:32 Albuterol Sulfate (0.083%) 2.5 Mg/3 Ml Vial.Neb INHALE 01/17/23 01:18 10 mg ONCE ONE Administration Albuterol Sulfate 10 mg 01/17/23 04:27 01/17/23 04:44 Albuterol Sulfate (0.083%) 2.5 Mg/3 Ml Vial.Neb INHALE 01/17/23 04:28 10 mg ONCE ONE Administration Benzonatate 200 mg 01/17/23 01:19 01/17/23 01:57 Benzonatate 100 Mg Capsule PO 01/17/23 01:20 200 mg ONCE ONE Administration Methylprednisolone Sodium Succinate 125 mg 01/17/23 04:27 01/17/23 04:53 Methylprednisolone Sod Succ 125 Mg/2 Ml Vial IVPUSH 01/17/23 04:28 Not Given ONCE ONE Medical Decision Making Medical Decision Making [facility] Narrative: - Despite 2 nebulization treatments, patient is still significantly short of breath and wheezing -patient was given magnesium, patient declined steroids -patient still too short of breath to be discharged. I discussed the patient with Dr. Stein, patient being admitted Admission/Observation Consideration of admission/observation: Escalation of care including admission/observation considered Consult Healthcare Provider Management of the patient was discussed with: Hospitalist Lab Data MDM Lab Attestation statement: I reviewed the patient's lab results. 01/17/23 02:03 01/17/23 02:03 Labs: Lab Results 01/17/23 01/17/23 Range/Units 02:03 02:03 WBC 11.0 H (4.8-10.8) X10*3/uL RBC 4.11 L (4.60-5.80) X10*6/uL Hgb 10.7 L (14.0-18.0) g/dl Hct 35.0 L (42.0-52.0) % MCV 85.2 (80.0-98.0) fL MCH 26.0 L (27.0-33.0) pg MCHC 30.6 L (31.0-36.0) g/dl RDW 14.3 (11.0-16.0) % Plt Count 224 (160-400) X10*3/uL MPV 11.0 (9.4-12.4) fL Immature Gran % (Auto) 0.3 (0.0-0.4) % Neut % (Auto) 77.7 H (45-73) % Lymph % (Auto) 12.3 L (20-40) % [place] % (Auto) 6.2 (2-11) % Eos % (Auto) 3.3 (0-4) % Baso % (Auto) 0.2 (0-2) % Lymph # (Auto) 1.4 (1.2-4.9) X10*3/uL [place] # (Auto) 0.7 (0.1-1.2) X10*3/uL Eos # (Auto) 0.4 (0.0-0.4) X10*3/uL Baso # (Auto) 0.0 (0.0-0.2) X10*3/uL Abs Immat Gran (auto) 0.03 (0.00-0.03) X10*3/uL Absolute Neuts (auto) 8.5 H (2.0-8.3) x10*3/uL Absolute Nucleated RBC 0.000 (0.0-0.012) X10*3/uL Nucleated RBC % (auto) 0.0 (0.0-0.2) /100WBC Sodium 142 (135-145) mmol/L Potassium 3.9 (3.3-5.1) mmol/L Chloride 103 (96-108) mmol/L Carbon Dioxide 31 H (22-29) mmol/L Anion Gap 12 (12-20) BUN 8 L (9-16) mg/dL Creatinine 0.80 (0.5-1.4) mg/dL Estim Creat Clear Calc 242.8 Estimated GFR > 60 Random Glucose 100 (60-115) mg/dL Calcium 8.5 (8.4-10.2) mg/dL Radiology Impression Discussion of test interpretation with radiology: I have reviewed the radiologist's reading. Radiologist Impression: INDINGS: Cardiac leads overlie the chest. The lungs are well expanded. There is no focal consolidation, edema, or effusion. No pneumothorax. The cardiomediastinal silhouette is within normal limits. No acute osseous abnormality. XR/XR chest 1V IMPRESSION: No acute pulmonary disease. ? Critical Care Time Critical Care Time Critical Care Time: Yes Total Critical Care Time: 60 Attestation: I have personally provided critical care time. Time includes review of lab data, radiology results, discussion with consultants, and monitoring for potential decompensation. Intervention performed as documented. Discharge Plan Discharge Clinical Impression: Asthma Patient Disposition: Admitted As Inpatient Prescriptions: No Action clonazepam 0.5 mg tablet 0.5 mg PO BEDTIME Qty: 7 0RF Rx Instructions: administer 30 minutes before bedtime amoxicillin 500 mg capsule 500 mg PO TID 5 Days Qty: 15 0RF tramadol 50 mg tablet 50 mg PO BID 4 Days Qty: 8 0RF furosemide 20 mg tablet 20 mg PO DAILY 7 Days Qty: 7 0RF (DME) [place]ellaneous medical [place] [facility] [place] .MEDSUPPLY Qty: 1 0RF Rx Instructions: As directed ibuprofen 800 mg tablet 800 mg PO Q8H Qty: 90 1RF (DME) [place]izers [facility] [place] .Route Qty: 1 0RF Rx Instructions: Nebulizer Machine and accessories cyclobenzaprine 10 mg tablet 10 mg PO TID PRN (Reason: muscle spasm) Qty: 10 0RF tramadol 50 mg tablet 50 mg PO BID PRN (Reason: severe pain (scale score 7-10)) Qty: 6 0RF naproxen 500 mg tablet,delayed release (DR/EC) 500 mg PO BID PRN (Reason: pain) Qty: 10 0RF cyclobenzaprine 10 mg tablet 10 mg PO BEDTIME 60 Days Qty: 60 1RF
[2023-01-17] MEDS: Benzonatate 100 MG CAPSULE 200 MG PO (01:57)
--- NOTE | 2023-01-17 02:05 | PC.NURSE ---
Patient labs and medication was given and labs were sent to the lab patient was educated about the importance of everything patient will continue to be monitored for safety
[2023-01-17 02:07] LABS: Basophils Percent Auto 0.2 % (0-2); Eosinophils Absolute Auto 0.4 X10*3/uL (0.0-0.4); Eosinophils Percent Auto 3.3 % (0-4); Hemoglobin 10.7 g/dl (14.0-18.0); Imm Gran Abs Auto 0.03 X10*3/uL (0.00-0.03); Imm Gran Pct Auto 0.3 % (0.0-0.4); Lymphocytes Absolute Auto 1.4 X10*3/uL (1.2-4.9); Lymphocytes Percent Auto 12.3 % (20-40); MANUAL DIFF FLAG NO; Mean Corpuscular HGB Conc 30.6 g/dl (31.0-36.0); Mean Corpuscular Volume 85.2 fL (80.0-98.0); Monocytes Absolute Auto 0.7 X10*3/uL (0.1-1.2); Monocytes Percent Auto 6.2 % (2-11); Neutrophils Absolute Auto 8.5 x10*3/uL (2.0-8.3); Neutrophils Percent Auto 77.7 % (45-73); Platelet Count 224 X10*3/uL (160-400); Red Blood Count 4.11 X10*6/uL (4.60-5.80); Red Cell Distribution Width 14.3 % (11.0-16.0)
[2023-01-17 02:28] LABS: Anion Gap 12 (12-20); Blood Urea Nitrogen 8 mg/dL (9-16); Calcium 8.5 mg/dL (8.4-10.2); Carbon Dioxide 31 mmol/L (22-29); Chloride 103 mmol/L (96-108); Creatinine Clr Calc Pharmacy 242.8; Estimated Glomerular Filt Rate > 60; Glucose Random 100 mg/dL (60-115); Potassium 3.9 mmol/L (3.3-5.1); Sodium 142 mmol/L (135-145)
--- NOTE | 2023-01-17 03:20 | PC.NURSE ---
patient is being transferred to a medical bed for comfort due to patient is very obese safety will continue to be monitored for safety.
[2023-01-17] MEDS: Magnesium Sulfate/H2O 2 GM/50 ML PIGGYBACK IV (04:52)
--- NOTE | 2023-01-17 05:59 | PM.IMHP ---
History of Present Illness Date of Service: 01/17/23 Chief Complaint: Dyspnea This is a 47-year-old male with pertinent history of morbid obesity, JESSE on CPAP, chronic back pain on tramadol, mood disorder, congestive heart failure unspecified ejection fraction who presents to the emergency department for evaluation of dyspnea. Patient states he has been having dyspnea that has been associated with wheezing for the last 3-4 days. It has been progressive and associated with nonproductive cough. Patient uses CPAP at bedtime but does not use oxygen in the day. Denies smoking tobacco. He denies fever, chills, chest discomfort, palpitations, abdominal pain, changes in urinary or bowel habits. In the emergency department, patient was found to be hypoxemic and placed on 2 L supplemental oxygen Review of Systems Cardiovascular: Cardiovascular: Reports dyspnea Respiratory: Respiratory: Reports cough, Reports dyspnea and Reports wheezing Gastrointestinal: Gastrointestinal: Reports no additional gastrointestinal complaints Genitourinary: Genitourinary: Reports no additional male genitourinary complaints Musculoskeletal: Musculoskeletal: Reports no additional musculoskeletal complaints Allergic/Immunologic: Allergic/Immunologic: Reports wheezing [facility] Medical History Asthma Chronic back pain Obesity Obstructive sleep apnea Pericardial effusion Respiratory failure Family History Father Medical history unknown Mother Medical history unknown Family/Other Asthma Brother No problems noted. Brother No problems noted. Sister No problems noted. 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 Active Medications: Current Medications Magnesium Sulfate (Magnesium Sulfate/H2o) 2 gm in 50 mls @ 25 mls/hr IV ONCE ONE Stop: 01/17/23 06:26 Last Infusion: 01/17/23 04:53 Dose: 25 mls/hr Physical Exam Vital Signs and Narrative: Vital Signs: Last Vital Signs Temp 98.7 F 01/17/23 05:26 Pulse 80 01/17/23 05:26 Resp 16 01/17/23 05:26 BP 145/84 H 01/17/23 05:26 Pulse Ox 96 01/17/23 05:26 O2 Del Method Nasal Cannula 01/17/23 05:26 O2 Flow Rate 3 01/17/23 00:45 Oxygen Flow Rate 2 01/17/23 00:46 BMI result Body Mass Index 84.3 Morbidly obese male lying in bed in mild distress on supplemental oxygen Neck supple, no JVD Regular rate and rhythm, S1-S2 heard Bilateral wheezing Abdomen soft nontender, no guarding, no rigidity Patient is awake, alert and oriented to self, place, time and person ; no focal motor deficit Psych: Normal mood No pedal edema Results Labs 01/17/23 02:03 01/17/23 02:03 Labs: Laboratory Results - last 24 hr 01/17/23 01/17/23 02:03 02:03 MCV 85.2 MCH 26.0 L MCHC 30.6 L RDW 14.3 Plt Count 224 MPV 11.0 Immature Gran % (Auto) 0.3 Neut % (Auto) 77.7 H Lymph % (Auto) 12.3 L [place] % (Auto) 6.2 Eos % (Auto) 3.3 Baso % (Auto) 0.2 Lymph # (Auto) 1.4 [place] # (Auto) 0.7 Eos # (Auto) 0.4 Baso # (Auto) 0.0 Abs Immat Gran (auto) 0.03 Absolute Neuts (auto) 8.5 H Absolute Nucleated RBC 0.000 Nucleated RBC % (auto) 0.0 Anion Gap 12 Estim Creat Clear Calc 242.8 Estimated GFR > 60 Random Glucose 100 Calcium 8.5 Imaging Radiologist's Impressions: Impressions Chest X-Ray 01/17/23 02:20 IMPRESSION: No acute pulmonary disease. Assessment and Plan (1) Asthma: Status: Acute Plan This is a 47-year-old male with pertinent history of morbid obesity, JESSE on CPAP, chronic back pain on tramadol, mood disorder, congestive heart failure unspecified ejection fraction who presents to the emergency department for evaluation of dyspnea. #. Acute hypoxemic respiratory failure due to acute exacerbation of asthma. Will admit patient and initiate systemic steroids. Scheduled and p.r.n. DuoNebs. Not on no home inhaler #. JESSE. Continue CPAP at bedtime #. Morbid obesity. Counseled extensively regarding diet #. Chronic back pain on tramadol #. Congestive heart failure, unspecified ejection fraction. On Lasix #. Normocytic anemia Med rec pending DVT prophylaxis: Lovenox Full code Cardiac diet Admit as inpatient and will require two night minimum hospital stay for supplemental oxygen Time Spent With Patient Time: Total time managing care of this patient today ____ minutes. Quality Stroke Does the patient have a stroke diagnosis?: No VTE Prior VTE?: No VTE Risk Level:: Medical - moderate - high VTE Device Contraindication: Treatment Not Indicated VTE Drug Contraindication: N/A - Med Ordered
[2023-01-17] MEDS: Enoxaparin Sodium 40 MG/0.4 ML SYRINGE SUBCUT ×2 (06:15→17:37)
[2023-01-17] MEDS: Albuterol/Iprat 2.5/0.5MG 3 ML AMPUL.NEB INHALE ×4 (07:54→19:49)
--- NOTE | 2023-01-17 08:16 | PHA.MEDREC ---
Pharmacy Consult ? Medication Reconciliation Pharmacy has completed the medication reconciliation.
[2023-01-17] MEDS: 0.9 % Sodium Chloride Flush 3 ML SYRINGE IVFLUSH ×2 (10:24→17:38)
--- NOTE | 2023-01-17 16:09 | P.PNIM_ITS ---
Subjective Subjective Date of Service: 01/17/23 Interval History: seen and examined this morning follow up for asthma exacerbation reporting sob and cough productive of clear phlegm no fever, chills Review of Systems Review of Systems: Yes all other systems are reviewed and are negative Constitutional Constitutional: Denies chills and Denies fever(s) Cardiovascular Cardiovascular: Denies chest pain, Denies palpitations and Reports dyspnea Respiratory Respiratory: Reports cough and Reports dyspnea Gastrointestinal Gastrointestinal: Denies abdominal pain, Denies nausea and Denies vomiting Endocrine Endocrine: Denies palpitations Physical Exam Vital Signs: Vital Signs: Last Vital Signs Temp 97.4 F 01/17/23 15:51 Pulse 79 01/17/23 15:51 Resp 20 01/17/23 15:51 BP 149/69 H 01/17/23 15:51 Pulse Ox 97 01/17/23 15:51 O2 Del Method Room Air 01/17/23 15:51 O2 Flow Rate 2.5 01/17/23 12:52 Oxygen Flow Rate 2 01/17/23 00:46 BMI result Body Mass Index 84.3 Const: General: comfortable, no acute distress, alert and awake Nutritional Appearance: obese Orientation/consciousness: patient oriented x3 Resp: Other: diminished breath sounds Effort & Inspection: normal respiratory effort, no respiratory distress and no use of accessory muscles Cardio: Rate: regular rate Heart sounds: S1 normal heart sound present and S2 normal heart sound present GI: Inspection: No distended, Yes Abdominal panniculus present and Yes obesity Palpation (GI): Soft to palpation and nontender Neuro: General: patient oriented x3, moves all extremities and CN's II-XI intact bilaterally Extrem: General: Yes no pedal edema Objective Data Active Medications Acetaminophen (Acetaminophen 325 Mg Tablet) 650 mg PO Q6H PRN PRN Reason: Pain, Mild (Pain Scale 1-3) Albuterol/Ipratropium (Albuterol/Iprat 2.5/0.5mg 3 Ml Ampul.Neb) 3 ml INHALE RQ4H WHILE AWAKE YUVAL Last Admin: 01/17/23 15:24 Dose: 3 ml Documented By: JOSE ALBERTO Albuterol/Ipratropium (Albuterol/Iprat 2.5/0.5mg 3 Ml Ampul.Neb) 3 ml INHALE Q4H PRN PRN Reason: Wheezing Benzonatate (Benzonatate 100 Mg Capsule) 200 mg PO TID PRN PRN Reason: Cough Enoxaparin Sodium (Enoxaparin Sodium 40 Mg/0.4 Ml Syringe) 40 mg SUBCUT Q12H [facility] Last Admin: 01/17/23 06:15 Dose: 40 mg Documented By: GINETTE Melatonin (Melatonin 3 Mg Tablet) 6 mg PO BEDTIME PRN PRN Reason: Insomnia Methylprednisolone Sodium Succinate (Methylprednisolone Sod Succ 40 Mg/Ml Vial) 40 mg IVPUSH Q12H [facility] Last Admin: 01/17/23 06:00 Dose: Not Given Documented By: GINETTE Non-Admin Reason: Patient Refused Ondansetron HCl (Ondansetron Hcl 4 Mg/2 Ml Vial) 4 mg IVPUSH Q8H PRN PRN Reason: Nausea and Vomiting Pharmacy Consult (Consult Rx Perform Med Rec) 1 each MISCELLANE ONCE PRN PRN Reason: Consult order Sodium Chloride (0.9 % Sodium Chloride Flush 3 Ml Syringe) 3 ml IVFLUSH QSHIFT [facility] Last Admin: 01/17/23 10:24 Dose: 3 ml Documented By: ANDREAS Labs 01/17/23 02:03 01/17/23 02:03 Labs: Laboratory Results - last 24 hr 01/17/23 01/17/23 02:03 02:03 MCV 85.2 MCH 26.0 L MCHC 30.6 L RDW 14.3 Plt Count 224 MPV 11.0 Immature Gran % (Auto) 0.3 Neut % (Auto) 77.7 H Lymph % (Auto) 12.3 L [place] % (Auto) 6.2 Eos % (Auto) 3.3 Baso % (Auto) 0.2 Lymph # (Auto) 1.4 [place] # (Auto) 0.7 Eos # (Auto) 0.4 Baso # (Auto) 0.0 Abs Immat Gran (auto) 0.03 Absolute Neuts (auto) 8.5 H Absolute Nucleated RBC 0.000 Nucleated RBC % (auto) 0.0 Anion Gap 12 Estim Creat Clear Calc 242.8 Estimated GFR > 60 Random Glucose 100 Calcium 8.5 Assessment and Plan (1) Asthma: Status: Acute Plan This is a 47-year-old male with pertinent history of morbid obesity, JESSE on CPAP, chronic back pain on tramadol, mood disorder, congestive heart failure unspecified ejection fraction who presents to the emergency department for evaluation of dyspnea. Acute hypoxemic respiratory failure due to acute exacerbation of asthma likely component of restrictive lung dz continue systemic steroids. Scheduled and p.r.nCholo Ledezma wean oxygen as tolerated JESSE. respiratory reports that he uses AVAPS and rec cardiac/continuous o2 monitor overnight Morbid obesity. BMI 84 weight loss encouraged likely contributing to respiratory symptoms Chronic back pain on tramadol ?Congestive heart failure, unspecified ejection fraction. does not appear to be on diuretics Normocytic anemia H/H stable DVT prophylaxis: Lovenox Full code Cardiac diet attending - dr. blake requires ongoing inpatient hospitalization for management of acute asthma exacerbation Time Spent With Patient Time: Total time managing care of this patient today ____ minutes. Quality Stroke Does the patient have a stroke diagnosis?: No VTE Prior VTE?: No VTE Risk Level:: Medical - moderate - high VTE Device Contraindication: Treatment Not Indicated VTE Drug Contraindication: N/A - Med Ordered
[2023-01-17] MEDS: dexAMETHasone 6 MG TABLET PO (17:55)
[2023-01-18] VITALS (9 sets, daily range): BP systolic 150–169; BP diastolic 64–74; PULSE 76–85; RESP 16–17; TEMP 36–36.3; O2SAT 92–97
[2023-01-18] MEDS: 0.9 % Sodium Chloride Flush 3 ML SYRINGE IVFLUSH ×4 (00:30→21:04)
[2023-01-18] MEDS: Benzonatate 100 MG CAPSULE 200 MG PO (01:14)
--- NOTE | 2023-01-18 05:27 | PC.RT ---
Pt refusing Bipap/AVAPS this shift; pt to call when ready
[2023-01-18] MEDS: Enoxaparin Sodium 40 MG/0.4 ML SYRINGE SUBCUT ×2 (06:06→17:00)
[2023-01-18 06:38] LABS: Basophils Percent Auto 0.1 % (0-2); Eosinophils Percent Auto 0.1 % (0-4); Hematocrit 35.5 % (42.0-52.0); Hemoglobin 10.8 g/dl (14.0-18.0); Lymphocytes Absolute Auto 0.5 X10*3/uL (1.2-4.9); Lymphocytes Percent Auto 4.7 % (20-40); MANUAL DIFF FLAG SCAN; Mean Corpuscular HGB Conc 30.4 g/dl (31.0-36.0); Mean Corpuscular Hemoglobin 25.8 pg (27.0-33.0); Mean Corpuscular Volume 84.7 fL (80.0-98.0); Mean Platelet Volume 11.4 fL (9.4-12.4); Monocytes Absolute Auto 0.2 X10*3/uL (0.1-1.2); Monocytes Percent Auto 1.8 % (2-11); Neutrophils Absolute Auto 9.7 x10*3/uL (2.0-8.3); Neutrophils Percent Auto 92.3 % (45-73); Platelet Count 258 X10*3/uL (160-400); Red Blood Count 4.19 X10*6/uL (4.60-5.80); Red Cell Distribution Width 14.1 % (11.0-16.0); SCAN SMEAR FLAG 1; White Blood Count 10.5 X10*3/uL (4.8-10.8)
[2023-01-18 07:09] LABS: SLIDE REVIEW VERIFIED
[2023-01-18 07:18] LABS: Anion Gap 14 (12-20); Blood Urea Nitrogen 7 mg/dL (9-16); Calcium 8.5 mg/dL (8.4-10.2); Carbon Dioxide 26 mmol/L (22-29); Chloride 105 mmol/L (96-108); Creatinine Clr Calc Pharmacy 262.5; Estimated Glomerular Filt Rate > 60; Glucose Random 128 mg/dL (60-115); Potassium 4.4 mmol/L (3.3-5.1); Sodium 141 mmol/L (135-145)
[2023-01-18] MEDS: dexAMETHasone 6 MG TABLET PO (07:28)
[2023-01-18] MEDS: Albuterol/Iprat 2.5/0.5MG 3 ML AMPUL.NEB INHALE ×5 (08:22→23:43)
--- NOTE | 2023-01-18 09:43 | HO.PM.IMPN ---
Subjective Subjective Date of Service: 01/18/23 Interval History: seen and examined this morning follow up for asthma exacerbation reporting sob and cough productive of clear phlegm no fever, chills Review of Systems Review of Systems: Yes all other systems are reviewed and are negative Constitutional Constitutional: Denies chills and Denies fever(s) Cardiovascular Cardiovascular: Denies chest pain, Denies palpitations and Reports dyspnea Respiratory Respiratory: Reports cough and Reports dyspnea Gastrointestinal Gastrointestinal: Denies abdominal pain, Denies nausea and Denies vomiting Endocrine Endocrine: Denies palpitations Physical Exam Vital Signs: Vital Signs: Last Vital Signs Temp 97.4 F 01/18/23 08:00 Pulse 79 01/18/23 08:22 Resp 16 01/18/23 08:22 BP 169/74 H 01/18/23 08:00 Pulse Ox 94 01/18/23 08:00 O2 Del Method Nasal Cannula 01/18/23 08:00 O2 Flow Rate 2 01/18/23 08:00 Oxygen Flow Rate 2 01/17/23 00:46 BMI result Body Mass Index 84.3 Objective Data Active Medications Acetaminophen (Acetaminophen 325 Mg Tablet) 650 mg PO Q6H PRN PRN Reason: Pain, Mild (Pain Scale 1-3) Albuterol/Ipratropium (Albuterol/Iprat 2.5/0.5mg 3 Ml Ampul.Neb) 3 ml INHALE RQ4H WHILE AWAKE [facility] Last Admin: 01/18/23 08:22 Dose: 3 ml Documented By: KAYLA Albuterol/Ipratropium (Albuterol/Iprat 2.5/0.5mg 3 Ml Ampul.Neb) 3 ml INHALE Q4H PRN PRN Reason: Wheezing Benzonatate (Benzonatate 100 Mg Capsule) 200 mg PO TID PRN PRN Reason: Cough Last Admin: 01/18/23 01:14 Dose: 200 mg Documented By: LANDON Dexamethasone (Dexamethasone 6 Mg Tablet) 6 mg PO DAILY [facility] Last Admin: 01/18/23 07:28 Dose: 6 mg Documented By: LY Enoxaparin Sodium (Enoxaparin Sodium 40 Mg/0.4 Ml Syringe) 40 mg SUBCUT Q12H [facility] Last Admin: 01/18/23 06:06 Dose: 40 mg Documented By: LANDON Melatonin (Melatonin 3 Mg Tablet) 6 mg PO BEDTIME PRN PRN Reason: Insomnia Ondansetron HCl (Ondansetron Hcl 4 Mg/2 Ml Vial) 4 mg IVPUSH Q8H PRN PRN Reason: Nausea and Vomiting Pharmacy Consult (Consult Rx Perform Med Rec) 1 each MISCELLANE ONCE PRN PRN Reason: Consult order Sodium Chloride (0.9 % Sodium Chloride Flush 3 Ml Syringe) 3 ml IVFLUSH QSHIFT YUVAL Last Admin: 01/18/23 07:30 Dose: 3 ml Documented By: LY Tramadol HCl (Tramadol Hcl 50 Mg Tablet) 50 mg PO BID PRN PRN Reason: severe pain Labs 01/18/23 05:45 01/18/23 05:45 Labs: Laboratory Results - last 24 hr 01/18/23 01/18/23 05:45 05:45 MCV 84.7 MCH 25.8 L MCHC 30.4 L RDW 14.1 Plt Count 258 MPV 11.4 Immature Gran % (Auto) 1.0 H Neut % (Auto) 92.3 H Lymph % (Auto) 4.7 L [place] % (Auto) 1.8 L Eos % (Auto) 0.1 Baso % (Auto) 0.1 Lymph # (Auto) 0.5 L [place] # (Auto) 0.2 Eos # (Auto) 0.0 Baso # (Auto) 0.0 Abs Immat Gran (auto) 0.10 H Absolute Neuts (auto) 9.7 H Absolute Nucleated RBC 0.000 Nucleated RBC % (auto) 0.0 Smear Tech's Comments VERIFIED Anion Gap 14 Estim Creat Clear Calc 262.5 Estimated GFR > 60 Random Glucose 128 H Calcium 8.5 Assessment and Plan (1) Asthma: Status: Acute Plan This is a 47-year-old male with pertinent history of morbid obesity, JESSE on CPAP, chronic back pain on tramadol, mood disorder, congestive heart failure unspecified ejection fraction who presents to the emergency department for evaluation of dyspnea. Acute hypoxemic respiratory failure due to acute exacerbation of asthma with also component of restrictive lung dz continue systemic steroids. Scheduled and p.r.n. DuoNebs wean oxygen as tolerated JESSE. respiratory reports that he uses AVAPS and rec cardiac/continuous o2 monitor overnight Chronic back pain on tramadol ?Congestive heart failure, unspecified ejection fraction. does not appear to be on diuretics no noted overload Normocytic anemia H/H stable Super morbid obesity BMI 84.3 Discussed importance of weight management as this may be contributing to worsening of other comorbidities DVT prophylaxis: Lovenox Full code Cardiac diet attending - dr. Wallace requires ongoing inpatient hospitalization for management of acute asthma/rest lung disease exacerbation Time Spent With Patient Time: Total time managing care of this patient today ____ minutes. Quality Stroke Does the patient have a stroke diagnosis?: No VTE Prior VTE?: No VTE Risk Level:: Medical - moderate - high VTE Device Contraindication: Treatment Not Indicated VTE Drug Contraindication: N/A - Med Ordered
--- NOTE | 2023-01-18 11:58 | MHC.CM.PN ---
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
--- NOTE | 2023-01-18 15:46 | PC.NURSE ---
Doing well, tolerating on room air. 95%
--- NOTE | 2023-01-19 00:14 | PC.RT ---
PT complains of nasal/oral dryness and refusing AVAPS/NIV at this time. Pt will call when ready to be placed on NIV.
[2023-01-19] MEDS: Benzonatate 100 MG CAPSULE 200 MG PO (01:28)
[2023-01-19 03:20] VITALS: BP 144/69; PULSE 75; RESP 17; TEMP 36.6; O2SAT 95
[2023-01-19] MEDS: Enoxaparin Sodium 40 MG/0.4 ML SYRINGE SUBCUT (05:24)
[2023-01-19] MEDS: 0.9 % Sodium Chloride Flush 3 ML SYRINGE IVFLUSH (07:23)
[2023-01-19] MEDS: dexAMETHasone 6 MG TABLET PO (07:23)
[2023-01-19 08:00] VITALS: BP 146/79; PULSE 62; RESP 18; TEMP 36.3; O2SAT 96
[2023-01-19] MEDS: Albuterol/Iprat 2.5/0.5MG 3 ML AMPUL.NEB INHALE ×2 (08:06→11:39)
[2023-01-19 08:08] VITALS: PULSE 75; RESP 17; O2SAT 95
--- NOTE | 2023-01-19 09:38 | P.DS_ITS ---
DS: Providers Provider Date of Service: 01/19/23 Date of admission: 01/17/23 05:57 Primary care physician: Diony Lino PA-C DS: Diagnosis Discharge Diagnosis (1) Asthma: Status: Acute DS: Summary Hospital Course Hospital Course: HP as per admitting provider This is a 47-year-old male with pertinent history of morbid obesity, JESSE on CPAP, chronic back pain on tramadol, mood disorder, congestive heart failure unspecified ejection fraction who presents to the em ergency department for evaluation of dyspnea.? Patient states he has been having dyspnea that has been associated with wheezing for the last 3-4 days.? It has been progressive and associated with nonproductive cough.? Patient uses CPAP at bedtime but does not use oxygen in the day.? Denies smoking tobacco.? He denies fever, chills, chest discomfort, palpitations, abdominal pain, changes in urinary or bowel habits . Acute hypoxemic respiratory failure due to acute exacerbation of asthma with also component of restrictive lung dz. Resolved treated with systemic steroids.? Scheduled and p.r.n. DuoNebs oxygen weaned 3 more days of steroid at home JESSE. respiratory reports that he uses AVAPS and rec cardiac/continuous o2 monitor overnight Chronic back pain on tramadol Normocytic anemia H/H stable Super morbid obesity BMI 84.3 Discussed importance of weight management as this may be contributing to worsening of other comorbidities Time Spent with Patient Time attestation: Total time managing care of this patient today ____ minutes. Discharge coordination time: Greater than 30 minutes Quality: Safe Use of Opioids Does Pt have an Active Cancer Diagnosis on the Problem List?: No Quality: Stroke Does the patient have a stroke diagnosis?: No Physical Exam Vital Signs: Vital Signs: Last Vital Signs Temp 97.3 F 01/19/23 08:00 Pulse 75 01/19/23 08:08 Resp 17 01/19/23 08:08 BP 146/79 H 01/19/23 08:00 Pulse Ox 96 01/19/23 08:00 O2 Del Method Room Air 01/19/23 08:00 O2 Flow Rate 2 01/18/23 19:47 Oxygen Flow Rate 2 01/17/23 00:46 BMI result Body Mass Index 84.3 Appearing in no acute distress head is normocephalic atraumatic eyes pupils are PERRLA sclera is anicteric mouth throat mucous membranes are intact and moist neck is supple no lymphadenopathy, no JVD noted lung sounds are clear to auscultation heart regular rate rhythm, clear S1, S2 positive bowel sounds, abdomen is soft, nontender. obese neuro patient is alert x3, no focal deficits Discharge Plan Discharge Anticipated Discharge Date/Time: 01/19/23 09:33 Patient Disposition: Home, Self-Care Discharge Diagnosis: Asthma exacerbation JESSE Referrals: Diony Lino PA-C [Primary Care Provider] - 1 Week Discharge Medications: New dexamethasone 6 mg Tablet 6 mg PO DAILY Qty: 3 0RF Continued cyclobenzaprine 10 mg tablet 10 mg PO TID PRN (Reason: muscle spasm) ibuprofen 800 mg tablet 800 mg PO Q8H PRN (Reason: Pain) tramadol 50 mg tablet 50 mg PO BID PRN (Reason: severe pain) naproxen [EC-Naproxen] 500 mg tablet,delayed release (DR/EC) 500 mg PO BID PRN (Reason: pain) Discharge Orders: Discharge Order (Routine); Ordered 01/19/23 Ordered By: Hoda Maria Diet: Advance to usual diet Activity on Discharge: As tolerated Stand Alone Forms: Patient Portal Discharge page Care Plan Goals: Complete resolution of symptoms Health Concerns: Asthma exacerbation Obstructive sleep apnea Plan of Treatment: Follow-up with primary care provider as needed Take all medications as prescribed Assessment: See discharge summary
--- NOTE | 2023-01-19 09:38 | MHC.CM.PN ---
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
--- NOTE | 2023-01-19 10:54 | MHC.CM.PN ---
bariatric amb set up for pt transport to home
[2023-01-19 11:42] VITALS: PULSE 75; RESP 19; O2SAT 95
--- NOTE | 2023-01-19 12:12 | PC.RT ---
Home nebulizers prescribed for ptTobias paperwork complete and faxed for nebulizer machine. [facility] [place] [email or web address] provided to call when home.
== END 2023-01-19 13:34 | disposition home or self-care (01) | DRG 202 ==
LOC: HO.ED 06:20 → HO.EDOVER 06:41 → HO.S3 11:58
PROVIDERS: Admitting Provider Student in an Organized Health Care Education/Training Program; Emergency Provider Emergency Medicine; PCP Physician Assistant; Visit Provider Nurse Practitioner Acute Care
DX: J45.901 Unspecified asthma with (acute) exacerbation (principal); J96.01 Acute respiratory failure with hypoxia; Z68.45 Body mass index [BMI] 70 or greater, adult; G47.33 Obstructive sleep apnea (adult) (pediatric); I50.9 Heart failure, unspecified; E66.01 Morbid (severe) obesity due to excess calories; Z71.3 Dietary counseling and surveillance; D64.9 Anemia, unspecified; G89.29 Other chronic pain; M54.9 Dorsalgia, unspecified; Z79.899 Other long term (current) drug therapy
CPT/HCPCS: 36415; 71045; 80048; 85025; 93005; 94640; 99285; J1650; J3475; J8540

== ENCOUNTER 2023-01-31 10:49 | Inpatient (IN) | payer MEDICARE, MEDICAID, SELFPAY ==
--- NOTE | 2023-01-31 10:58 | ED_ITS ---
HPI - General Adult General Chief complaint: Wound/Laceration Stated complaint: pain on RT buttock Time Seen by Provider: 01/31/23 10:52 Source: patient and EMS Mode of arrival: EMS Limitations: no limitations History of Present Illness HPI narrative: 47-year-old male presents with severe buttock pain. Symptoms started several days ago. It has been getting progressively worse. The pain is sharp, achy and burning. The pain does not radiate. Is worse with movement and palpation. There has been associated drainage of blood and purulent material. Apparently patient also has a chronic sacral ulceration as well. He has had no fevers or chills. Patient was brought in by EMS. Reports hemodynamically stable. A son apparently attempted to open up the possible abscess on the buttock area. Related Data Home Medications Medication Instructions Recorded Confirmed cyclobenzaprine 10 mg tablet 10 mg PO TID PRN muscle spasm 01/17/23 01/23/23 ibuprofen 800 mg tablet 800 mg PO Q8H PRN Pain 01/17/23 01/23/23 naproxen 500 mg tablet,delayed 500 mg PO BID PRN pain 01/17/23 01/23/23 release (EC-Naproxen) tramadol 50 mg tablet 50 mg PO BID PRN severe pain 01/17/23 01/23/23 Previous Rx's Medication Instructions Recorded albuterol sulfate 2.5 mg/3 mL 2.5 mg (3 mL) inhalation Q4H PRN 01/23/23 (0.083 %) solution for nebulization shortness of breath or wheezing 30 days #180 mL albuterol sulfate 90 mcg/actuation 1 inh inhalation QID PRN shortness 01/23/23 aerosol inhaler of breath or wheezing 30 days #8.5 grams dexamethasone 6 mg tablet 6 mg PO DAILY 4 days #4 tabs 01/23/23 Allergies Allergy/AdvReac Type Severity Reaction Status Date / Time prednisolone AdvReac Mild decrease Verified 01/23/23 10:05 blood pressure. Review of Systems Review of Systems: CONSTITUTIONAL: Denies weight loss, fever and chills. HEENT: Denies changes in vision and hearing. RESPIRATORY: Denies SOB and cough. CV: Denies palpitations no CP. GI: Denies abdominal pain, nausea, vomiting and diarrhea. : Denies dysuria and urinary frequency. MSK: Denies myalgia and joint pain. SKIN: Denies rash and pruritus. NEUROLOGICAL: Denies headache and syncope. PSYCHIATRIC: Denies recent changes in mood. Denies anxiety and depression. All other ROS are negative unless in HPI PMFSH Past Medical History Medical History Asthma Chronic back pain Obesity Obstructive sleep apnea Pericardial effusion Respiratory failure Surgical History History of tonsillectomy Family History Family History Father Medical history unknown Mother Medical history unknown Family/Other Asthma Brother No problems noted. Brother No problems noted. Sister No problems noted. 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) Alcohol intake: never Patient Tobacco Use Status: Never used Tobacco e-Cigarette/Vaping Use: Never Used Second Hand Smoke Exposure: No Advance Directives: Yes Advance Directives on File: Yes Advance Directives Date on File: 09/16/21 service: No Current occupational status: disabled Cognitive needs: No Hearing needs: No Vision needs: No Physical Exam ED Vital Signs: Vital Signs - 24 hr 01/31/23 11:13 Respiratory Rate 26 H BMI result Body Mass Index 98.8 GEN: Morbidly obese, acute distress, alert, oriented HEENT: Normocephalic, atraumatic, normal external ears, nose appears normal, no oropharyngeal edema or exudates Eyes: Normal to appearance Neck: Supple, no lymphadenopathy Respiratory: Talks in complete sentences, no respiratory distress, clear to auscultation bilaterally Cardiovascular: Regular rate and rhythm, no murmurs rubs or gallops Abdomen: Soft, nontender, nondistended, no guarding, no rebound Back: No CVA tenderness Extremities: No clubbing cyanosis or edema Neurologic: No focal neurologic deficits, cranial nerves 2-12 intact, strength is 5/5 bilaterally Skin: No rash, stage II/3 sacral decubitus ulcer bilaterally, left buttock 10- 12 cm large abscess tender to palpation with surrounding erythema Course Course Course Narrative: 47-year-old male morbidly obese presents with large buttock abscess to the left buttock. He is now status post incision and drainage. Packing was placed. Patient has been provided with intravenous antibiotics. Patient will be admitted to the hospital. Medications Administered Discontinued Medications Generic Name Dose Route Start Last Admin Trade Name Mj PRN Reason Stop Dose Admin Hydromorphone HCl 2 mg 01/31/23 11:07 01/31/23 11:13 Hydromorphone Hcl 2 Mg/Ml Vial IM 01/31/23 11:08 2 mg ONCE ONE Administration Protocol Piperacillin Sod/Tazobactam 50 mls @ 100 mls/hr 01/31/23 12:26 01/31/23 13:28 Sod 3.375 gm/ Sodium Chloride IV 01/31/23 12:55 100 mls/hr ONCE ONE Administration Lidocaine/Epinephrine 20 ml 01/31/23 12:00 01/31/23 12:22 Lidocaine Hcl 1%/Epi 1:100,000 10 Ml Vial INFILTRATI 01/31/23 12:01 20 ml ONCE ONE Administration Procedures Abscess I/D Site: other (Buttock left) Side (if applicable): left Local Anesthetic: lidocaine 1% and with epi Amount of anesthesia used (mL): 8 Technique: incised with blade Amount of fluid expressed (mL): 20 Sent for culture/gram staining?: No Irrigation: Yes Packing used?: [email or web address] Complications: pain Medical Decision Making Medical Decision Making [facility] Narrative: 47-year-old male presents with a large left buttock abscess. He does not appear to be septic. He is very uncomfortable. Patient will receive analgesia at this time, will perform an I&D. Patient is too large to go on [address] scans safely. We he is not a candidate for MRI. Possible diagnosis could include for knee Joseph gangrene, pelvic abscess. After I and D, make a decision about possible admission. Differential Diagnosis Differential Diagnoses: The differential diagnosis associated with the presentation includes (Abscess, cellulitis, Henry's gangrene, pelvic infection) Admission/Observation Consideration of admission/observation: Escalation of care including admission/observation considered Lab Data [facility] Lab Attestation statement: I reviewed the patient's lab results. 01/31/23 11:26 01/31/23 11:26 Labs: Lab Results 01/31/23 01/31/23 01/31/23 Range/Units 11:26 11:26 11:26 WBC 16.8 H (4.8-10.8) X10*3/uL RBC 4.49 L (4.60-5.80) X10*6/uL Hgb 11.5 L (14.0-18.0) g/dl Hct 39.0 L (42.0-52.0) % MCV 86.9 (80.0-98.0) fL MCH 25.6 L (27.0-33.0) pg MCHC 29.5 L (31.0-36.0) g/dl RDW 15.5 (11.0-16.0) % Plt Count 239 (160-400) X10*3/uL MPV 11.4 (9.4-12.4) fL Immature Gran % (Auto) 0.5 H (0.0-0.4) % Neut % (Auto) 84.0 H (45-73) % Lymph % (Auto) 7.3 L (20-40) % Cotton % (Auto) 5.4 (2-11) % Eos % (Auto) 2.6 (0-4) % Baso % (Auto) 0.2 (0-2) % Lymph # (Auto) 1.2 (1.2-4.9) X10*3/uL [place] # (Auto) 0.9 (0.1-1.2) X10*3/uL Eos # (Auto) 0.4 (0.0-0.4) X10*3/uL Baso # (Auto) 0.0 (0.0-0.2) X10*3/uL Abs Immat Gran (auto) 0.08 H (0.00-0.03) X10*3/uL Absolute Neuts (auto) 14.1 H (2.0-8.3) x10*3/uL Absolute Nucleated RBC 0.000 (0.0-0.012) X10*3/uL Nucleated RBC % (auto) 0.0 (0.0-0.2) /100WBC ESR 53 H (0-15) MM/HR Sodium 140 (135-145) mmol/L Potassium 3.5 D (3.3-5.1) mmol/L Chloride 101 (96-108) mmol/L Carbon Dioxide 32 H (22-29) mmol/L Anion Gap 11 L (12-20) BUN 10 (9-16) mg/dL Creatinine 0.71 (0.5-1.4) mg/dL Estim Creat Clear Calc 289.2 Estimated GFR > 60 Random Glucose 136 H (60-115) mg/dL Lactic Acid (0.5-2.0) mmol/L Calcium 9.1 D (8.4-10.2) mg/dL C-Reactive Protein 15.79 H (< or = 0.50) mg/dL 01/31/ Range/Units 11:26 WBC (4.8-10.8) X10*3/uL RBC (4.60-5.80) X10*6/uL Hgb (14.0-18.0) g/dl Hct (42.0-52.0) % MCV (80.0-98.0) fL MCH (27.0-33.0) pg MCHC (31.0-36.0) g/dl RDW (11.0-16.0) % Plt Count (160-400) X10*3/uL MPV (9.4-12.4) fL Immature Gran % (Auto) (0.0-0.4) % Neut % (Auto) (45-73) % Lymph % (Auto) (20-40) % Cotton % (Auto) (2-11) % Eos % (Auto) (0-4) % Baso % (Auto) (0-2) % Lymph # (Auto) (1.2-4.9) X10*3/uL [place] # (Auto) (0.1-1.2) X10*3/uL Eos # (Auto) (0.0-0.4) X10*3/uL Baso # (Auto) (0.0-0.2) X10*3/uL Abs Immat Gran (auto) (0.00-0.03) X10*3/uL Absolute Neuts (auto) (2.0-8.3) x10*3/uL Absolute Nucleated RBC (0.0-0.012) X10*3/uL Nucleated RBC % (auto) (0.0-0.2) /100WBC ESR (0-15) MM/HR Sodium (135-145) mmol/L Potassium (3.3-5.1) mmol/L Chloride (96-108) mmol/L Carbon Dioxide (22-29) mmol/L Anion Gap (12-20) BUN (9-16) mg/dL Creatinine (0.5-1.4) mg/dL Estim Creat Clear Calc Estimated GFR Random Glucose (60-115) mg/dL Lactic Acid 1.7 (0.5-2.0) mmol/L Calcium (8.4-10.2) mg/dL C-Reactive Protein (< or = 0.50) mg/dL Prescription Management I considered prescription management with: Pain Medication and Antibiotic Discharge Plan Discharge Clinical Impression: Abscess of buttock, Sacral decubitus ulcer, stage III Patient Disposition: Admitted As Inpatient Prescriptions: No Action cyclobenzaprine 10 mg tablet 10 mg PO TID PRN (Reason: muscle spasm) ibuprofen 800 mg tablet 800 mg PO Q8H PRN (Reason: Pain) tramadol 50 mg tablet 50 mg PO BID PRN (Reason: severe pain) naproxen [EC-Naproxen] 500 mg tablet,delayed release (DR/EC) 500 mg PO BID PRN (Reason: pain) albuterol sulfate 2.5 mg /3 mL (0.083 %) solution for nebulization 2.5 mg inhalation Q4H PRN (Reason: shortness of breath or wheezing) 30 Days Qty: 180 3RF albuterol sulfate 90 mcg/actuation HFA aerosol inhaler 1 inh inhalation QID PRN (Reason: shortness of breath or wheezing) 30 Days Qty: 8.5 3RF dexamethasone 6 mg tablet 6 mg PO DAILY 4 Days Qty: 4 0RF
[2023-01-31 11:00] VITALS: BP 136/82; PULSE 96; O2SAT 96; BMI 98.8
[2023-01-31 11:13] VITALS: RESP 26
[2023-01-31] MEDS: HYDROmorphone HCl 2 MG/ML VIAL IM (11:13)
[2023-01-31 11:32] LABS: MANUAL DIFF FLAG NO
[2023-01-31 11:39] LABS: Basophils Percent Auto 0.2 % (0-2); Eosinophils Absolute Auto 0.4 X10*3/uL (0.0-0.4); Eosinophils Percent Auto 2.6 % (0-4); Hemoglobin 11.5 g/dl (14.0-18.0); Imm Gran Abs Auto 0.08 X10*3/uL (0.00-0.03); Imm Gran Pct Auto 0.5 % (0.0-0.4); Lymphocytes Absolute Auto 1.2 X10*3/uL (1.2-4.9); Lymphocytes Percent Auto 7.3 % (20-40); Mean Corpuscular HGB Conc 29.5 g/dl (31.0-36.0); Mean Corpuscular Hemoglobin 25.6 pg (27.0-33.0); Mean Corpuscular Volume 86.9 fL (80.0-98.0); Mean Platelet Volume 11.4 fL (9.4-12.4); Monocytes Absolute Auto 0.9 X10*3/uL (0.1-1.2); Monocytes Percent Auto 5.4 % (2-11); Neutrophils Absolute Auto 14.1 x10*3/uL (2.0-8.3); Platelet Count 239 X10*3/uL (160-400); Red Blood Count 4.49 X10*6/uL (4.60-5.80); Red Cell Distribution Width 15.5 % (11.0-16.0); White Blood Count 16.8 X10*3/uL (4.8-10.8)
[2023-01-31 11:51] LABS: Lactic Acid 1.7 mmol/L (0.5-2.0)
[2023-01-31 11:53] LABS: Anion Gap 11 (12-20); Blood Urea Nitrogen 10 mg/dL (9-16); C Reactive Protein 15.79 mg/dL (< or = 0.50); Calcium 9.1 mg/dL (8.4-10.2); Carbon Dioxide 32 mmol/L (22-29); Chloride 101 mmol/L (96-108); Creatinine Clr Calc Pharmacy 289.2; Estimated Glomerular Filt Rate > 60; Glucose Random 136 mg/dL (60-115); Potassium 3.5 mmol/L (3.3-5.1); Sodium 140 mmol/L (135-145)
[2023-01-31 12:14] LABS: Erythrocyte Sedimentation Rate 53 MM/HR (0-15)
--- NOTE | 2023-01-31 12:19 | PC.NURSE ---
At bedside with provider, I&D of L gluteal abscess. Suction utilized, small amount of puss noted with blood. Pt very uncomfortable at this time, currently on his side, gauze applied to wound, and covered with ABD pad to allow continued draining. Awaiting further orders at this time
[2023-01-31] MEDS: Lidocaine HCl 1%/Epi 1:100,000 10 ML VIAL 20 ML INFILTRATI (12:22)
--- NOTE | 2023-01-31 12:42 | P.HPHOSP_ITS ---
patient seen and examined at bedside. I agree with the findings below. Patient will be admitted for evaluation of his decubitus ulcer by surgery. At this time will cover with broad-spectrum antibiotics pending evaluation by surgery. For full H&P please see below History of Present Illness Date of Service: 01/31/23 Attending physician on admission: Beckie Melchor Chief Complaint: Left buttock pain Pt is a 47-year-old male with a PMH significant for?obesity class 3, JESSE on CPAP, chronic back pain on tramadol, and moderate persistent asthma who presents to the ED with left buttock pain for the past two days. Pain described as burning and sharp. Pain was so severe late last night patient was unable to sleep. Patient says that the area has been draining a small amount of blood, no pus. Patient denies systemic symptoms: No fever, chills. Patient also has a history of chronic decubitus ulcers secondary to body habitus and relative immobility. Patient denies nausea, vomiting, diarrhea, abdominal pain. No chest pain/pressure, palpitations. Denies shortness of breath. In the ED patient was noted to have a 10-12 cm diameter abscess on the left buttock. Abscess was drained, mostly serous sanguinous fluid, no pus noted. Found to be around 3 cm deep. No evidence of surrounding cellulitis was found. Abscess was packed and clean bandage applied. In the ED patient tachypneic at 26 labs were significant for leukocytosis of 16.8, ESR 53, C-reactive protein 15.79. Electrolytes WNL. Renal function baseline Lactic acid negative at 1.7. Pt was treated with hydromorphone and Zosyn. Pt will be admitted to the hospital for treatment and further evaluation of sepsis secondary to left buttock abscess. Review of Systems Review of Systems: Left buttock pain x2 days Left buttock wound draining blood Chronic lower back pain Denies fever, chills No Nausea, vomiting, diarrhea, abdominal pain Denies chest pain/pressure, palpitations No shortness of breath Yes all other systems are reviewed and are negative [facility] Medical History Asthma Chronic back pain Obesity Obstructive sleep apnea Pericardial effusion Respiratory failure Family History Father Medical history unknown Mother Medical history unknown Family/Other Asthma Brother No problems noted. Brother No problems noted. Sister No problems noted. Surgical History History of tonsillectomy Social History Household Members: None Housing: Apartment Do you presently have visiting nurse or other home services: No ([employer] 80hrs a month) Alcohol intake: never Patient Tobacco Use Status: Never used Tobacco e-Cigarette/Vaping Use: Never Used Second Hand Smoke Exposure: No Advance Directives: Yes Advance Directives on File: Yes Advance Directives Date on File: 09/16/21 service: No Current occupational status: disabled Cognitive needs: No Hearing needs: No Vision needs: No Meds Allergies Allergy/AdvReac Type Severity Reaction Status Date / Time prednisolone AdvReac Mild decrease Verified 01/23/23 10:05 blood pressure. Active Medications: Current Medications Piperacillin Sod/Tazobactam (Sod 3.375 gm/ Sodium Chloride) 50 mls @ 100 mls/hr IV ONCE ONE Stop: 01/31/23 12:55 Home Medications Medication Instructions Recorded Confirmed Last Taken Type cyclobenzaprine 10 mg tablet 10 mg PO TID PRN muscle spasm 01/17/23 01/23/23 Unknown History ibuprofen 800 mg tablet 800 mg PO Q8H PRN Pain 01/17/23 01/23/23 Unknown History naproxen 500 mg tablet,delayed 500 mg PO BID PRN pain 01/17/23 01/23/23 Unknown History release (EC-Naproxen) tramadol 50 mg tablet 50 mg PO BID PRN severe pain 01/17/23 01/23/23 Unknown History Physical Exam Vital Signs and Narrative: Vital Signs: Last Vital Signs Resp 26 H 01/31/23 11:13 BMI result Body Mass Index 98.8 General: AOx3, no acute distress Resp: CTA bilaterally CVS: S1, S2, RRR GI: +BS, NT, no distention Neuro: Cranial nerves II-XII grossly intact bilaterally. Motor grossly intact bilaterally Skin: Buttock and sacral examination deferred for now d/t pt's body habitus and immobility Extremities: Chronic leg edema bilaterally Psych: Appropriate affect Results Labs 01/31/23 11:26 06/23/23 11:26 Labs: Laboratory Results - last 24 hr 01/31/23 01/31/23 01/31/23 11:26 11:26 11:26 MCV 86.9 MCH 25.6 L MCHC 29.5 L RDW 15.5 Plt Count 239 MPV 11.4 Immature Gran % (Auto) 0.5 H Neut % (Auto) 84.0 H Lymph % (Auto) 7.3 L [place] % (Auto) 5.4 Eos % (Auto) 2.6 Baso % (Auto) 0.2 Lymph # (Auto) 1.2 [place] # (Auto) 0.9 Eos # (Auto) 0.4 Baso # (Auto) 0.0 Abs Immat Gran (auto) 0.08 H Absolute Neuts (auto) 14.1 H Absolute Nucleated RBC 0.000 Nucleated RBC % (auto) 0.0 ESR 53 H Anion Gap 11 L Estim Creat Clear Calc 289.2 Estimated GFR > 60 Random Glucose 136 H Lactic Acid Calcium 9.1 D C-Reactive Protein 15.79 H 01/31/23 11:26 MCV MCH MCHC RDW Plt Count MPV Immature Gran % (Auto) Neut % (Auto) Lymph % (Auto) [place] % (Auto) Eos % (Auto) Baso % (Auto) Lymph # (Auto) [place] # (Auto) Eos # (Auto) Baso # (Auto) Abs Immat Gran (auto) Absolute Neuts (auto) Absolute Nucleated RBC Nucleated RBC % (auto) ESR Anion Gap Estim Creat Clear Calc Estimated GFR Random Glucose Lactic Acid 1.7 Calcium C-Reactive Protein Assessment and Plan (1) Abscess of buttock: Status: Acute (2) Nocturnal hypoxemia: Status: Acute Plan Pt is a 47-year-old male with a PMH significant for?obesity class 3, JESSE on CPAP, chronic back pain on tramadol, and moderate persistent asthma who presents to the ED with left buttock pain for the past two days. Patient had 10-12 cm diameter x 3 cm deep abscess drained in ED. Pt will be admitted to the hospital for treatment and further evaluation of sepsis secondary to left buttock abscess. Sepsis secondary to left buttock abscess 10-12 cm diameter x 3 cm deep abscess drained in ED of serosanguineous fluid Patient with morbid obesity and very limited mobility, concern for wound deterioration and worsening infection Pt meets sepsis criteria: WBC, tachypnea, no lactic acid Elevated ESR, CRP Patient being covered by broad-spectrum antibiotics: Given Zosyn in ED Will cover with vancomycin and cefepime General surgery consult for wound care and evaluation of possible surgical debridement Pt positioning q2hrs Follow cultures Follow CBC Moderate persistent asthma Not in acute exacerbation Continue home inhalers Chronic back pain Continue tramadol, Flexeril Obesity class III Weight loss encouraged Full Code Attending:? DVT Prophylaxis: Lovenox Pt will require a hospitalization of at least two nights for treatment with IV antibiotics of sepsis secondary to left buttock abscess. Time Spent With Patient Time: Total time managing care of this patient today ____ minutes. Quality Stroke Does the patient have a stroke diagnosis?: No VTE Prior VTE?: No VTE Risk Level:: Medical - moderate - high VTE Device Contraindication: Treatment Not Indicated VTE Drug Contraindication: N/A - Med Ordered
[2023-01-31] MEDS: Piperacillin Sodium/Tazobactam 3.375 GM in 0.9 % Sodium Chloride 50 ML IV (13:28)
[2023-01-31] MEDS: Enoxaparin Sodium 40 MG/0.4 ML SYRINGE SUBCUT (15:07)
[2023-01-31] MEDS: vancomycin/NS 2,000 MG/500 ML PLAST..BAG 250 MG IV (15:07)
[2023-01-31] MEDS: Morphine Sulfate 4 MG/ML CARTRIDGE IVPUSH ×2 (15:07→20:39)
--- NOTE | 2023-01-31 15:10 | PHA.MEDREC ---
Pharmacy Consult ? Medication Reconciliation Pharmacy has completed the medication reconciliation. Spoke to patient to confirm meds. Patient states that they still use cyclobenzaprine for MSK pain PRN, but doesn't have any at the moment. Patient also reports taking ibuprofen PRN
--- NOTE | 2023-01-31 15:15 | PHA.PROG ---
Admission Date/Time: Indication: Skin - ulcer Weight in k.835 kg Adjusted body weight in K kg [place] body weight in K.4 kg Obesity Dosing Indication % IBW: 429% Serum Creatinine - Last 168 Hours 01/31/23 11:26 Creatinine 0.71 Estimated CrCl and GFR - Last 168 Hours 01/31/23 11:26 Estim Creat Clear Calc 289.2 Estimated GFR > 60 Vancomycin Loading Dose: 2000 mg Current Vancomycin Dosing Regimen: 1250 mg Q24H Date and Time for next Vancomycin Level to be drawn: 02/01 @ 1300 Pharmacist Comments on Vancomycin Plan: patient is morbidly obese therefore needs careful monitoring required due to vancomycin high volume of distribution Patient receive vanco 2000 mg load dose in the ER 01/31 @ 1507 Maintenance dose is scheduled to start 02/01 @ 0300. Expected AUC is 555 with a trough of 15.5 Level will be drawn prior to 3rd dose to access for safety due to patient's risk factors for toxicity Pharmacy will monitor renal function daily. Cyndi Simmons, GenaroD Vancomycin dosing will take advantage of [employer] as a clinical decision support tool that uses Bayesian modeling to calculate individual patient's pharmacokinetic parameters and forecast the patient's drug concentration time course with the target goal AUC 24 range of 400 - 600 mg/L/hr.
[2023-01-31 18:25] VITALS: BP 135/67; PULSE 93; RESP 20; TEMP 36.5; O2SAT 95
[2023-01-31 19:13] VITALS: BP 146/65; PULSE 88; RESP 17; TEMP 36.6; O2SAT 96
[2023-01-31] MEDS: cefEPime HCl 2 GM in 0.9 % Sodium Chloride 50 ML IV (19:35)
[2023-01-31] MEDS: 0.9 % Sodium Chloride Flush 3 ML SYRINGE IVFLUSH (19:36)
[2023-01-31 21:09] VITALS: PULSE 98; RESP 22; O2SAT 94
[2023-01-31] MEDS: Albuterol Sulfate (0.083%) 2.5 MG/3 ML VIAL.NEB INHALE (21:09)
[2023-02-01] MEDS: Morphine Sulfate 4 MG/ML CARTRIDGE IVPUSH ×5 (01:16→18:04)
[2023-02-01] MEDS: Enoxaparin Sodium 40 MG/0.4 ML SYRINGE SUBCUT ×2 (01:17→13:53)
[2023-02-01 01:30] VITALS: PULSE 88; RESP 28; O2SAT 98
[2023-02-01] MEDS: vancomycin HCL 1,250 MG in 0.9 % Sodium Chloride 250 ML 166.67 MG IV (03:01)
--- NOTE | 2023-02-01 03:11 | PC.NURSE ---
Patient with multiple, extensive wounds to coccyx/ buttocks (stage IIs, unstageble with packing s/p I+D in ED). Wound photos taken with patient consent and placed in chart. Superficial dressings changed over unstageable packing site due to moderate drainage on previous. Patient placed on bariatric bed. Wound care consult placed. Patient frequently requesting and only agreeing to drink orange juice, refuses water or watered down fruit juice alternatives. RN discussed decreasing sugar intake or alternating juice with water for optimal healing of multiple wounds with patient. Patient requires reinforcement of education. Nutrition consult placed. Covering Dr. Stein notified, orders for a1c to be placed to ensure optimal diet/nutrition goals.
[2023-02-01 03:28] VITALS: BP 135/60; PULSE 71; RESP 20; TEMP 36.3; O2SAT 98
[2023-02-01 06:22] LABS: Hematocrit 34.7 % (42.0-52.0); Hemoglobin 10.5 g/dl (14.0-18.0); Mean Corpuscular HGB Conc 30.3 g/dl (31.0-36.0); Mean Corpuscular Hemoglobin 26.1 pg (27.0-33.0); Mean Corpuscular Volume 86.1 fL (80.0-98.0); Mean Platelet Volume 11.3 fL (9.4-12.4); Platelet Count 226 X10*3/uL (160-400); Red Blood Count 4.03 X10*6/uL (4.60-5.80); Red Cell Distribution Width 15.6 % (11.0-16.0); White Blood Count 14.2 X10*3/uL (4.8-10.8)
[2023-02-01 06:38] LABS: Anion Gap 13 (12-20); Blood Urea Nitrogen 10 mg/dL (9-16); Calcium 8.6 mg/dL (8.4-10.2); Carbon Dioxide 26 mmol/L (22-29); Chloride 103 mmol/L (96-108); Creatinine Clr Calc Pharmacy 315.9; Estimated Glomerular Filt Rate > 60; Glucose Random 102 mg/dL (60-115); Potassium 3.7 mmol/L (3.3-5.1); Sodium 138 mmol/L (135-145)
[2023-02-01 06:40] LABS: Estimated Average Glucose 103 mg/dL; Hemoglobin A1c % 5.2 %
[2023-02-01] MEDS: cefEPime HCl 2 GM in 0.9 % Sodium Chloride 50 ML IV ×2 (07:22→18:28)
[2023-02-01] MEDS: 0.9 % Sodium Chloride Flush 3 ML SYRINGE IVFLUSH ×3 (07:22→19:17)
[2023-02-01 07:27] VITALS: BP 133/65; PULSE 84; RESP 18; O2SAT 94
--- NOTE | 2023-02-01 09:52 | HO.PM.IMPN ---
Subjective Subjective Date of Service: 02/01/23 Interval History: pt seen and examined at bedside. no overnight events . complaining of persistent pain at site of ulcer. no fever, no chills, no abdominal pain. normal BMs Physical Exam Vital Signs: Vital Signs: Last Vital Signs Temp 97.4 F 02/01/23 03:28 Pulse 84 02/01/23 07:27 Resp 18 02/01/23 07:27 BP 133/65 02/01/23 07:27 Pulse Ox 94 02/01/23 07:27 O2 Del Method Room Air 02/01/23 07:27 BMI result Body Mass Index 98.8 Const: Other: morbidly obese awake, alert, oriented x3 Resp: Other: norml resp rate and effort Cardio: Other: normal rate and rhythm GI: Other: obese abdomen Extrem: Other: no edema Objective Data Active Medications Acetaminophen (Acetaminophen 325 Mg Tablet) 650 mg PO Q6H PRN PRN Reason: Pain, Mild (Pain Scale 1-3) Albuterol Sulfate (Albuterol Sulfate 90 Mcg 8 Gm Inhaler) 2 puff INHALE RQ6H PRN PRN Reason: Wheezing Albuterol Sulfate (Albuterol Sulfate (0.083%) 2.5 Mg/3 Ml Vial.Neb) 2.5 mg INHALE Q4H PRN PRN Reason: Wheezing Last Admin: 01/31/23 21:09 Dose: 2.5 mg Documented By: IVAN Docusate Sodium (Docusate Sodium 100 Mg Capsule) 100 mg PO DAILY PRN PRN Reason: Constipation Enoxaparin Sodium (Enoxaparin Sodium 40 Mg/0.4 Ml Syringe) 40 mg SUBCUT Q12H [facility] Last Admin: 02/01/23 01:17 Dose: 40 mg Documented By: LANDON Cefepime HCl 2 gm/ Sodium (Chloride) 50 mls @ 100 mls/hr IV Q12H [facility] Last Infusion: 02/01/23 07:53 Dose: 0 mls/hr Documented By: MATT Vancomycin HCl 1,250 mg/ (Sodium Chloride) 250 mls @ 166.667 mls/hr IV Q12H [facility] Last Infusion: 02/01/23 04:31 Dose: 0 mls/hr Documented By: HALI Morphine Sulfate (Morphine Sulfate 4 Mg/Ml Cartridge) 4 mg IVPUSH Q4H PRN; Protocol PRN Reason: Pain, Severe (Pain Scale 7-10) Last Admin: 02/01/23 05:21 Dose: 4 mg Documented By: HALI Ondansetron HCl (Ondansetron Hcl 4 Mg/2 Ml Vial) 4 mg IVPUSH Q8H PRN PRN Reason: Nausea and Vomiting Pharmacy Consult (Consult Rx Perform Med Rec) 1 each MISCELLANE ONCE PRN PRN Reason: Consult order Pharmacy Consult (Consult Rx Vancomycin Dosing) 1 each MISCELLANE DAILY PRN PRN Reason: Consult order Sodium Chloride (0.9 % Sodium Chloride Flush 3 Ml Syringe) 3 ml IVFLUSH QSHIFT [facility] Last Admin: 02/01/23 07:22 Dose: 3 ml Documented By: MATT Labs 02/01/23 05:52 02/01/23 05:52 Labs: Laboratory Results - last 24 hr 01/31/23 01/31/23 01/31/23 11:26 11:26 11:26 MCV 86.9 MCH 25.6 L MCHC 29.5 L RDW 15.5 Plt Count 239 MPV 11.4 Immature Gran % (Auto) 0.5 H Neut % (Auto) 84.0 H Lymph % (Auto) 7.3 L [place] % (Auto) 5.4 Eos % (Auto) 2.6 Baso % (Auto) 0.2 Lymph # (Auto) 1.2 [place] # (Auto) 0.9 Eos # (Auto) 0.4 Baso # (Auto) 0.0 Abs Immat Gran (auto) 0.08 H Absolute Neuts (auto) 14.1 H Absolute Nucleated RBC 0.000 Nucleated RBC % (auto) 0.0 ESR 53 H Anion Gap 11 L Estim Creat Clear Calc 289.2 Estimated GFR > 60 Random Glucose 136 H Estimat Average Glucose Hemoglobin A1c % Lactic Acid Calcium 9.1 D C-Reactive Protein 15.79 H 01/31/23 02/01/23 02/01/23 11:26 05:52 05:52 MCV 86.1 MCH 26.1 L MCHC 30.3 L RDW 15.6 Plt Count 226 MPV 11.3 Immature Gran % (Auto) Neut % (Auto) Lymph % (Auto) [place] % (Auto) Eos % (Auto) Baso % (Auto) Lymph # (Auto) [place] # (Auto) Eos # (Auto) Baso # (Auto) Abs Immat Gran (auto) Absolute Neuts (auto) Absolute Nucleated RBC 0.000 Nucleated RBC % (auto) 0.0 ESR Anion Gap 13 Estim Creat Clear Calc 315.9 Estimated GFR > 60 Random Glucose 102 Estimat Average Glucose Hemoglobin A1c % Lactic Acid 1.7 Calcium 8.6 C-Reactive Protein 02/01/23 05:52 MCV MCH MCHC RDW Plt Count MPV Immature Gran % (Auto) Neut % (Auto) Lymph % (Auto) [place] % (Auto) Eos % (Auto) Baso % (Auto) Lymph # (Auto) [place] # (Auto) Eos # (Auto) Baso # (Auto) Abs Immat Gran (auto) Absolute Neuts (auto) Absolute Nucleated RBC Nucleated RBC % (auto) ESR Anion Gap Estim Creat Clear Calc Estimated GFR Random Glucose Estimat Average Glucose 103 Hemoglobin A1c % 5.2 Lactic Acid Calcium C-Reactive Protein Assessment and Plan (1) Abscess of buttock: Status: Acute (2) Sacral decubitus ulcer, stage III: Status: Acute Plan Pt is a 47-year-old male with a PMH significant for?obesity class 3, JESSE on CPAP, chronic back pain on tramadol, and moderate persistent asthma who presents to the ED with left buttock pain for the past two days. Patient had 10-12 cm diameter x 3 cm deep abscess drained in ED. Pt will be admitted to the hospital for treatment and further evaluation of sepsis secondary to left buttock abscess. # Sepsis secondary to left buttock abscess - 10-12 cm diameter x 3 cm deep abscess drained in ED of serosanguineous fluid - Patient with morbid obesity and very limited mobility, concern for wound deterioration and worsening infection - today stable vitals, leukocytosis improved - Elevated ESR, CRP - Continue IV abx - General surgery consult for wound care and evaluation of possible surgical debridement - Pt positioning q2hrs - Follow cultures # Moderate persistent asthma Not in acute exacerbation Continue home inhalers # Chronic back pain Continue tramadol, Flexeril #Obesity class III Weight loss encouraged Full Code DVT Prophylaxis: Lovenox Pt will require a hospitalization of at least two nights for treatment with IV antibiotics of sepsis secondary to left buttock abscess. Time Spent With Patient Time: Total time managing care of this patient today ____ minutes. Quality Stroke Does the patient have a stroke diagnosis?: No VTE Prior VTE?: No VTE Risk Level:: Medical - moderate - high VTE Device Contraindication: Treatment Not Indicated VTE Drug Contraindication: N/A - Med Ordered
--- NOTE | 2023-02-01 11:08 | P.CONGS_ITS ---
History of Present Illness Consult details Consult date: 02/01/23 Narrative: Patient is a 47-year-old male who has significant morbid obesity who underwent incision and drainage of a buttock abscess in the emergency department yesterday. He is admitted for local wound care and IV antibiotics. Chart was reviewed and patient evaluated. Patient states that his symptoms are much improved status post incision and drainage procedure PMFSH Past Medical History Medical History Asthma Chronic back pain Obesity Obstructive sleep apnea Pericardial effusion Respiratory failure Family History Family History Father Medical history unknown Mother Medical history unknown Family/Other Asthma Brother No problems noted. Brother No problems noted. Sister No problems noted. Surgical History Surgical History History of tonsillectomy Social History Social History Household Members: None Housing: Apartment Do you presently have visiting nurse or other home services: Yes (nephew is [employer]OTIONS DIRECTOR) Alcohol intake: never Patient Tobacco Use Status: Never used Tobacco e-Cigarette/Vaping Use: Never Used Second Hand Smoke Exposure: No Use of substances other than those prescribed or required for medical reasons: No Currently Displaying Signs/Symptoms of Drug Intoxication Withdrawal: No Have you been hit, kicked, punched, or otherwise hurt by someone within the past year? If so, by whom?: No Do you feel safe in your current relationship?: No Current Relationship Is there a partner from a previous relationship who is making you feel unsafe now?: No Are you made to feel afraid or neglected: No Spiritual Healthcare Practices: Temple Advance Directives: Yes Advance Directives on File: Yes Advance Directives Date on File: 09/16/21 Do you have thoughts of harming others: None Do you have a plan to hurt others: No Plan Recently lost weight without trying: No Nutrition Risks: No Nutritional Risk service: No Current occupational status: disabled Cognitive needs: No Hearing needs: No Vision needs: No Meds Allergies Allergy/AdvReac Type Severity Reaction Status Date / Time prednisolone AdvReac Mild decrease Verified 01/23/23 10:05 blood pressure. Active Medications: Current Medications Acetaminophen (Acetaminophen 325 Mg Tablet) 650 mg PO Q6H PRN PRN Reason: Pain, Mild (Pain Scale 1-3) Albuterol Sulfate (Albuterol Sulfate 90 Mcg 8 Gm Inhaler) 2 puff INHALE RQ6H PRN PRN Reason: Wheezing Albuterol Sulfate (Albuterol Sulfate (0.083%) 2.5 Mg/3 Ml Vial.Neb) 2.5 mg INHALE Q4H PRN PRN Reason: Wheezing Last Admin: 01/31/23 21:09 Dose: 2.5 mg Docusate Sodium (Docusate Sodium 100 Mg Capsule) 100 mg PO DAILY PRN PRN Reason: Constipation Enoxaparin Sodium (Enoxaparin Sodium 40 Mg/0.4 Ml Syringe) 40 mg SUBCUT Q12H [facility] Last Admin: 02/01/23 01:17 Dose: 40 mg Cefepime HCl 2 gm/ Sodium (Chloride) 50 mls @ 100 mls/hr IV Q12H [facility] Last Infusion: 02/01/23 07:53 Dose: Infused Vancomycin HCl 1,250 mg/ (Sodium Chloride) 250 mls @ 166.667 mls/hr IV Q12H [facility] Last Infusion: 02/01/23 04:31 Dose: Infused Morphine Sulfate (Morphine Sulfate 4 Mg/Ml Cartridge) 4 mg IVPUSH Q4H PRN; Protocol PRN Reason: Pain, Severe (Pain Scale 7-10) Last Admin: 02/01/23 10:00 Dose: 4 mg Ondansetron HCl (Ondansetron Hcl 4 Mg/2 Ml Vial) 4 mg IVPUSH Q8H PRN PRN Reason: Nausea and Vomiting Pharmacy Consult (Consult Rx Perform Med Rec) 1 each MISCELLANE ONCE PRN PRN Reason: Consult order Pharmacy Consult (Consult Rx Vancomycin Dosing) 1 each MISCELLANE DAILY PRN PRN Reason: Consult order Sodium Chloride (0.9 % Sodium Chloride Flush 3 Ml Syringe) 3 ml IVFLUSH QSHIFT [facility] Last Admin: 02/01/23 07:22 Dose: 3 ml Home Medications Medication Instructions Recorded Confirmed Last Taken Type cyclobenzaprine 10 mg tablet 10 mg PO TID PRN muscle spasm 01/17/23 01/31/23 Unknown History ibuprofen 800 mg tablet 800 mg PO Q8H PRN Pain 01/17/23 01/31/23 Unknown History albuterol sulfate 2.5 mg/3 mL 2.5 mg inhalation Q4H PRN Wheezing 01/31/23 01/31/23 Unknown History (0.083 %) solution for nebulization Physical Exam Vital Signs: Vital Signs: Last Vital Signs Temp 97.4 F 02/01/23 03:28 Pulse 84 02/01/23 07:27 Resp 18 02/01/23 07:27 BP 133/65 02/01/23 07:27 Pulse Ox 94 02/01/23 07:27 O2 Del Method Room Air 02/01/23 07:27 BMI result Body Mass Index 98.8 Const: Other: Quite morbidly obese male. Back/Spine/Pelvis: Other: Difficult exam secondary to patient's enormous size but patient is status post I and D of buttock wound were he has packing. Moderately tender to palpation. Results Labs 02/01/23 05:52 02/01/23 05:52 Labs: Abnormal lab results 01/31/23 01/31/23 01/31/23 Range/Units 11:26 11:26 11:26 WBC 16.8 H (4.8-10.8) X10*3/uL RBC 4.49 L (4.60-5.80) X10*6/uL Hgb 11.5 L (14.0-18.0) g/dl Hct 39.0 L (42.0-52.0) % MCH 25.6 L (27.0-33.0) pg MCHC 29.5 L (31.0-36.0) g/dl Immature Gran % (Auto) 0.5 H (0.0-0.4) % Neut % (Auto) 84.0 H (45-73) % Lymph % (Auto) 7.3 L (20-40) % Abs Immat Gran (auto) 0.08 H (0.00-0.03) X10*3/uL Absolute Neuts (auto) 14.1 H (2.0-8.3) x10*3/uL ESR 53 H (0-15) MM/HR Carbon Dioxide 32 H (22-29) mmol/L Anion Gap 11 L (12-20) Random Glucose 136 H (60-115) mg/dL C-Reactive Protein 15.79 H (< or = 0.50) mg/dL 02/01/23 Range/Units 05:52 WBC 14.2 H (4.8-10.8) X10*3/uL RBC 4.03 L (4.60-5.80) X10*6/uL Hgb 10.5 L (14.0-18.0) g/dl Hct 34.7 L (42.0-52.0) % MCH 26.1 L (27.0-33.0) pg MCHC 30.3 L (31.0-36.0) g/dl Immature Gran % (Auto) (0.0-0.4) % Neut % (Auto) (45-73) % Lymph % (Auto) (20-40) % Abs Immat Gran (auto) (0.00-0.03) X10*3/uL Absolute Neuts (auto) (2.0-8.3) x10*3/uL ESR (0-15) MM/HR Carbon Dioxide (22-29) mmol/L Anion Gap (12-20) Random Glucose (60-115) mg/dL C-Reactive Protein (< or = 0.50) mg/dL Short CBC 01/31/23 02/01/23 Range/Units 11:26 05:52 WBC 16.8 H 14.2 H (4.8-10.8) X10*3/uL Hgb 11.5 L 10.5 L (14.0-18.0) g/dl Hct 39.0 L 34.7 L (42.0-52.0) % Plt Count 239 226 (160-400) X10*3/uL BMP 01/31/23 02/01/23 11:26 05:52 Sodium 140 138 Potassium 3.5 D 3.7 Chloride 101 103 Carbon Dioxide 32 H 26 BUN 10 10 Creatinine 0.71 0.65 Calcium 9.1 D 8.6 All other labs normal. Assessment and Plan (1) Abscess of buttock: Status: Acute Plan Current recommendation is continue current therapy in the form of packing changes q.day, IV antibiotics and direct further therapy based on the patient's clinical course. Time Spent With Patient Time: Total time managing care of this patient today ____ minutes. Procedures Date of Service Date of Service: 02/01/23
[2023-02-01 13:27] LABS: Vancomycin Random 7.7 mcg/mL (15-20)
--- NOTE | 2023-02-01 13:43 | HE.PHANOTE ---
RE: vanco Trough on 02/01 came back low at 7.7mg/L. Increased dose to 1000mg Q8H with predicted trough of 9mg/L, but AUC of 438mg/L. Next level to be drawn 02/02 @1300. Will continue to monitor renal function and be mindful of possible dose dumping due to patient's size.
[2023-02-01] MEDS: vancomycin HCL 1,000 MG in 0.9 % Sodium Chloride 250 ML 270 MG IV ×2 (15:00→23:58)
[2023-02-01 15:34] VITALS: BP 128/59; PULSE 84; RESP 20; TEMP 36.4; O2SAT 94
--- NOTE | 2023-02-01 16:01 | MHC.CM.PN ---
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
[2023-02-01 19:58] VITALS: BP 128/59; PULSE 84; RESP 20; TEMP 36.4; O2SAT 94
[2023-02-02] VITALS: BP 146/67; PULSE 85; RESP 16
[2023-02-02] MEDS: Morphine Sulfate 4 MG/ML CARTRIDGE IVPUSH ×4 (00:07→20:45)
[2023-02-02] MEDS: Enoxaparin Sodium 40 MG/0.4 ML SYRINGE SUBCUT ×2 (01:17→13:47)
--- NOTE | 2023-02-02 02:05 | PC.NURSE ---
Patient would not let me assess dressings at 2330, stated due to pain. AT 0130 patient agreed to roll and change position, but still refused to fully turn on side or allow assistance to turn on side fully. Could not fully assess dressings. Patient wanted fur clipper pad removed stating it irritated skin. Removed pad, which was dry and clean. Patient has only slightly changed position with aid of the trapeze above bed. Encouraged to change position and offload pressure from buttocks every two hours or more frequently. Lotion applied to low legs and feet by PRISON KEEPER for very dry skin/itchy.
--- NOTE | 2023-02-02 02:29 | PC.RT ---
PT refusing AVAPS at this time due to pain; AVAPS 14 550 min 10 max 25 Epap 8
[2023-02-02 02:45] VITALS: BP 140/62; PULSE 85; RESP 20; TEMP 36.3; O2SAT 93
[2023-02-02] MEDS: cefEPime HCl 2 GM in 0.9 % Sodium Chloride 50 ML IV ×2 (06:19→18:33)
[2023-02-02 06:42] LABS: Creatinine Clr Calc Pharmacy 293.3; Estimated Glomerular Filt Rate > 60
[2023-02-02] MEDS: vancomycin HCL 1,000 MG in 0.9 % Sodium Chloride 250 ML 270 MG IV (07:03)
[2023-02-02 07:05] VITALS: BP 158/70; PULSE 82; RESP 24; TEMP 36.4; O2SAT 93
[2023-02-02] MEDS: 0.9 % Sodium Chloride Flush 3 ML SYRINGE IVFLUSH ×3 (07:32→20:45)
--- NOTE | 2023-02-02 11:50 | HO.PM.IMPN ---
Subjective Subjective Date of Service: 02/02/23 Interval History: Seen and evaluated this morning Denies any fever or chills Having pain at site of abscess Able to stand and ambulate with walker no other overnight events Review of Systems Review of Systems: Yes all other systems are reviewed and are negative Physical Exam Vital Signs: Vital Signs: Last Vital Signs Temp 97.6 F 02/02/23 07:05 Pulse 82 02/02/23 07:05 Resp 24 H 02/02/23 07:05 BP 158/70 H 02/02/23 07:05 Pulse Ox 93 02/02/23 07:05 O2 Del Method Room Air 02/02/23 07:05 BMI result Body Mass Index 98.8 Const: Other: Constitutional : Awake, interactive, not in distress, morbidly obese Neck : Normal inspection, Supple Cardiovascular : RRR, no JVP, no lower extremity edema Respiratory : good bilateral air entry, no crackles, wheezes or rhonchi Gastrointestinal: soft, lax, Normal bowel sounds, Non tender Skin : Warm, Dry, gluteal abscess area covered with dressing , stage III sacral ulcer Neurological : Alert & oriented x3, No focal deficit Objective Data Active Medications Acetaminophen (Acetaminophen 325 Mg Tablet) 650 mg PO Q6H PRN PRN Reason: Pain, Mild (Pain Scale 1-3) Albuterol Sulfate (Albuterol Sulfate 90 Mcg 8 Gm Inhaler) 2 puff INHALE RQ6H PRN PRN Reason: Wheezing Albuterol Sulfate (Albuterol Sulfate (0.083%) 2.5 Mg/3 Ml Vial.Neb) 2.5 mg INHALE Q4H PRN PRN Reason: Wheezing Last Admin: 01/31/23 21:09 Dose: 2.5 mg Documented By: IVAN Cyclobenzaprine HCl (Cyclobenzaprine Hcl 10 Mg Tablet) 10 mg PO TID PRN PRN Reason: muscle spasm Docusate Sodium (Docusate Sodium 100 Mg Capsule) 100 mg PO DAILY PRN PRN Reason: Constipation Enoxaparin Sodium (Enoxaparin Sodium 40 Mg/0.4 Ml Syringe) 40 mg SUBCUT Q12H [facility] Last Admin: 02/02/23 01:17 Dose: 40 mg Documented By: CHRISTINE Cefepime HCl 2 gm/ Sodium (Chloride) 50 mls @ 100 mls/hr IV Q12H [facility] Last Infusion: 02/02/23 06:59 Dose: 0 mls/hr Documented By: MATT Vancomycin HCl 1,000 mg/ (Sodium Chloride) 270 mls @ 270 mls/hr IV Q8H [facility] Last Infusion: 02/02/23 08:10 Dose: 0 mls/hr Documented By: MATT Morphine Sulfate (Morphine Sulfate 4 Mg/Ml Cartridge) 4 mg IVPUSH Q4H PRN; Protocol PRN Reason: Pain, Severe (Pain Scale 7-10) Last Admin: 02/02/23 11:41 Dose: 4 mg Documented By: LY Ondansetron HCl (Ondansetron Hcl 4 Mg/2 Ml Vial) 4 mg IVPUSH Q8H PRN PRN Reason: Nausea and Vomiting Pharmacy Consult (Consult Rx Perform Med Rec) 1 each MISCELLANE ONCE PRN PRN Reason: Consult order Pharmacy Consult (Consult Rx Vancomycin Dosing) 1 each MISCELLANE DAILY PRN PRN Reason: Consult order Sodium Chloride (0.9 % Sodium Chloride Flush 3 Ml Syringe) 3 ml IVFLUSH QSHIFT [facility] Last Admin: 02/02/23 07:32 Dose: 3 ml Documented By: MATT Labs 02/01/23 05:52 02/02/23 06:13 Labs: Laboratory Results - last 24 hr 02/01/23 02/02/23 12:59 06:13 Estim Creat Clear Calc 293.3 Estimated GFR > 60 Random Vancomycin 7.7 L Microbiology Microbiology Results: Microbiology 01/31/23 13:02 Blood Culture - Preliminary Blood - Venous No growth after 24 hours. 01/31/23 13:02 Blood Culture - Preliminary Blood - Venous No growth after 24 hours. Assessment and Plan (1) Sacral decubitus ulcer, stage III: Status: Acute (2) Abscess of buttock: Status: Acute (3) Sepsis: Status: Acute Plan Pt is a 47-year-old male with a PMH significant for?obesity class 3, JESSE on CPAP, chronic back pain on tramadol, and moderate persistent asthma who presents to the ED with left buttock pain for the past two days. Patient had 10-12 cm diameter x 3 cm deep abscess drained in ED. Pt will be admitted to the hospital for treatment and further evaluation of sepsis secondary to left buttock abscess. # Sepsis secondary to left buttock abscess on stage III ulcer 2/2 morbid obesity deep abscess drained in ED of serosanguineous fluid Patient with morbid obesity and very limited mobility, concern for wound deterioration and worsening infection Continue IV Vancomycin and Cefepime General surgery following repositioning q2hrs Follow cultures Vancomycin trough # Moderate persistent asthma Not in acute exacerbation Continue home inhalers # Chronic back pain Continue tramadol, Flexeril #Obesity class III Weight loss encouraged Full Code DVT Prophylaxis: Lovenox Pt will require a hospitalization of overnight for treatment with IV antibiotics of sepsis secondary to left buttock abscess. Time Spent With Patient Time: Total time managing care of this patient today ____ minutes. Quality Stroke Does the patient have a stroke diagnosis?: No VTE Prior VTE?: No VTE Risk Level:: Medical - moderate - high VTE Device Contraindication: Treatment Not Indicated VTE Drug Contraindication: N/A - Med Ordered
[2023-02-02 14:04] LABS: Vancomycin Trough 10.2 mcg/mL (10.0-20.0)
--- NOTE | 2023-02-02 14:10 | HE.PHANOTE ---
RE: vanco Trough on 02/02 came back at 10.2mg/L; increased dose to 1250mg Q8H with predicted AUC of 426mg/L and trough of 11. Next level to be drawn after 3 doses on 02/03 @1300
--- NOTE | 2023-02-02 14:33 | P.PNGS_ITS ---
Subjective Subjective Date of Service: 02/02/23 Interval history: Patient feeling better -[id number]-l-[id number]-l-r-i-n-g- -I- -a-n-d- -D- -o-f- -p-t-y-t-o-c-k- -w-o-u-n-d-.- Physical Exam Vital Signs: Vital Signs: Last Vital Signs Temp 97.6 F 02/02/23 07:05 Pulse 82 02/02/23 07:05 Resp 24 H 02/02/23 07:05 BP 158/70 H 02/02/23 07:05 Pulse Ox 93 02/02/23 07:05 O2 Del Method Room Air 02/02/23 07:05 BMI result Body Mass Index 98.8 Back/Spine/Pelvis: Other: Patient wound was evaluated during packing change. No evidence of purulence or fluctuance. Serous output. Cellulitis resolving. Objective Data Active Medications Acetaminophen (Acetaminophen 325 Mg Tablet) 650 mg PO Q6H PRN PRN Reason: Pain, Mild (Pain Scale 1-3) Albuterol Sulfate (Albuterol Sulfate 90 Mcg 8 Gm Inhaler) 2 puff INHALE RQ6H PRN PRN Reason: Wheezing Albuterol Sulfate (Albuterol Sulfate (0.083%) 2.5 Mg/3 Ml Vial.Neb) 2.5 mg INHALE Q4H PRN PRN Reason: Wheezing Last Admin: 01/31/23 21:09 Dose: 2.5 mg Documented By: IVAN Cyclobenzaprine HCl (Cyclobenzaprine Hcl 10 Mg Tablet) 10 mg PO TID PRN PRN Reason: muscle spasm Docusate Sodium (Docusate Sodium 100 Mg Capsule) 100 mg PO DAILY PRN PRN Reason: Constipation Enoxaparin Sodium (Enoxaparin Sodium 40 Mg/0.4 Ml Syringe) 40 mg SUBCUT Q12H [facility] Last Admin: 02/02/23 13:47 Dose: 40 mg Documented By: MATT Cefepime HCl 2 gm/ Sodium (Chloride) 50 mls @ 100 mls/hr IV Q12H [facility] Last Infusion: 02/02/23 06:59 Dose: 0 mls/hr Documented By: MATT Vancomycin HCl 1,250 mg/ (Sodium Chloride) 250 mls @ 166.667 mls/hr IV Q8H [facility] Morphine Sulfate (Morphine Sulfate 4 Mg/Ml Cartridge) 4 mg IVPUSH Q4H PRN; Protocol PRN Reason: Pain, Severe (Pain Scale 7-10) Last Admin: 02/02/23 11:41 Dose: 4 mg Documented By: LY Ondansetron HCl (Ondansetron Hcl 4 Mg/2 Ml Vial) 4 mg IVPUSH Q8H PRN PRN Reason: Nausea and Vomiting Pharmacy Consult (Consult Rx Perform Med Rec) 1 each MISCELLANE ONCE PRN PRN Reason: Consult order Pharmacy Consult (Consult Rx Vancomycin Dosing) 1 each MISCELLANE DAILY PRN PRN Reason: Consult order Sodium Chloride (0.9 % Sodium Chloride Flush 3 Ml Syringe) 3 ml IVFLUSH QSHIFT [facility] Last Admin: 02/02/23 07:32 Dose: 3 ml Documented By: MATT Labs 02/01/23 05:52 02/02/23 06:13 Labs: Laboratory Results - last 24 hr 02/02/23 02/02/23 06:13 13:18 Estim Creat Clear Calc 293.3 Estimated GFR > 60 Vancomycin Trough 10.2 Microbiology Microbiology Results: Microbiology 01/31/23 13:02 Blood Culture - Preliminary Blood - Venous No growth after 24 hours. 01/31/23 13:02 Blood Culture - Preliminary Blood - Venous No growth after 24 hours. Procedures Date of Service Date of Service: 02/02/23 Progress Note: A&P Assessment and plan (1) Abscess of buttock: Status: Acute Plan Continue current plan; local wound care with packing changes, IV antibiotics. Time Spent With Patient Time: Total time managing care of this patient today ____ minutes. Quality Stroke Does the patient have a stroke diagnosis?: No VTE Prior VTE?: No VTE Risk Level:: Medical - moderate - high VTE Device Contraindication: Treatment Not Indicated VTE Drug Contraindication: N/A - Med Ordered
[2023-02-02] MEDS: vancomycin HCL 1,250 MG in 0.9 % Sodium Chloride 250 ML 166.67 MG IV ×2 (14:51→23:52)
[2023-02-02 16:00] VITALS: BP 149/64; PULSE 84; RESP 20; TEMP 36.4; O2SAT 93
[2023-02-02 20:00] VITALS: BP 151/75; PULSE 84; RESP 20; TEMP 36.5; O2SAT 95
--- NOTE | 2023-02-02 23:59 | PC.RT ---
Pt refuses BIPAP at this time. RN aware, patient educated on risk/benefits of BIPAP. Patient states he will call when he feels like wearing the mask. Will visit patient later to reeducate and see if patient will wear the mask. RN also involved.
[2023-02-03] MEDS: Enoxaparin Sodium 40 MG/0.4 ML SYRINGE SUBCUT ×2 (01:13→13:59)
[2023-02-03] MEDS: Morphine Sulfate 4 MG/ML CARTRIDGE IVPUSH ×2 (01:13→08:23)
[2023-02-03 03:44] VITALS: BP 147/72; PULSE 71; RESP 18; TEMP 36.2; O2SAT 97
[2023-02-03] MEDS: cefEPime HCl 2 GM in 0.9 % Sodium Chloride 50 ML IV ×2 (05:50→18:34)
[2023-02-03] MEDS: vancomycin HCL 1,250 MG in 0.9 % Sodium Chloride 250 ML 166.67 MG IV ×2 (06:16→15:12)
[2023-02-03 07:01] LABS: Hematocrit 35.8 % (42.0-52.0); Hemoglobin 10.8 g/dl (14.0-18.0); Mean Corpuscular HGB Conc 30.2 g/dl (31.0-36.0); Mean Corpuscular Hemoglobin 25.8 pg (27.0-33.0); Mean Corpuscular Volume 85.6 fL (80.0-98.0); Mean Platelet Volume 10.8 fL (9.4-12.4); Platelet Count 214 X10*3/uL (160-400); Red Blood Count 4.18 X10*6/uL (4.60-5.80); Red Cell Distribution Width 15.1 % (11.0-16.0); White Blood Count 10.6 X10*3/uL (4.8-10.8)
[2023-02-03 07:08] VITALS: BP 127/61; PULSE 79; RESP 20; TEMP 36.9; O2SAT 91
[2023-02-03 07:17] LABS: Anion Gap 11 (12-20); Blood Urea Nitrogen 7 mg/dL (9-16); Carbon Dioxide 31 mmol/L (22-29); Chloride 101 mmol/L (96-108); Creatinine Clr Calc Pharmacy 301.9; Estimated Glomerular Filt Rate > 60; Glucose Random 127 mg/dL (60-115); Sodium 139 mmol/L (135-145)
[2023-02-03] MEDS: 0.9 % Sodium Chloride Flush 3 ML SYRINGE IVFLUSH ×3 (08:20→23:38)
--- NOTE | 2023-02-03 10:54 | PM.EVENT ---
Event Note Date of Service: 02/03/23 Event Note: The patient was admitted to the hospital for Sepsis secondary to left buttock abscess on stage III decubetus ulcer 2/2 morbid obesity. He will benefit from having a Bariatric hospital bed as a medical necessity to prevent more pressure ulcers and recurrent admissions to the hospital. Time Spent With Patient Time: Total time managing care of this patient today ____ minutes.
--- NOTE | 2023-02-03 10:56 | MHC.CM.PN ---
Addendum entered by Sariah Wells 02/03/23 11:01: [facility] preferences obtained and referrals have been sent. Original Note: Per MD the patient needs a Bariatric bed. [facility] was contacted. They have requested clinical info, Med nec letter and script. Script and letter of necessity are pending. Plan to send to [place] @ fax [phone] .
--- NOTE | 2023-02-03 11:31 | P.PNGS_ITS ---
Subjective Subjective Date of Service: 02/03/23 <Kaitlin Piña PA-C - Last Filed: 02/03/23 11:35> 02/03/23 <Mihir Crane MD - Last Filed: 02/03/23 11:39> Interval history: Still requiring IV dilaudid for pain control. <Kaitlin Piña PA-C - Last Filed: 02/03/23 11:35> Physical Exam Vital Signs: Vital Signs: Last Vital Signs Temp 98.4 F 02/03/23 07:08 Pulse 79 02/03/23 07:08 Resp 20 02/03/23 07:08 BP 127/61 02/03/23 07:08 Pulse Ox 91 L 02/03/23 07:08 O2 Del Method Room Air 02/03/23 07:08 BMI result Body Mass Index 98.8 <Kaitlin Piña PA-C - Last Filed: 02/03/23 11:35> Const: General: comfortable and alert <Kaitlin Piña PA-C - Last Filed: 02/03/23 11:35> Nutritional Appearance: obese <Kaitlin Piña PA-C - Last Filed: 02/03/23 11:35> Orientation/consciousness: patient oriented x3 <Kaitlin Piña PA-C - Last Filed: 02/03/23 11:35> Skin: Other: buttock I&D site- packing removed, some serosanguineous drainage, no purulence some edema but this is likely dependent <Kaitlin Piña PA-C - Last Filed: 02/03/23 11:35> Neuro: General: patient oriented x3 and moves all extremities <DONTA Talamantes Last Filed: 02/03/23 11:35> Objective Data Active Medications Acetaminophen (Acetaminophen 325 Mg Tablet) 650 mg PO Q6H PRN PRN Reason: Pain, Mild (Pain Scale 1-3) Albuterol Sulfate (Albuterol Sulfate 90 Mcg 8 Gm Inhaler) 2 puff INHALE RQ6H PRN PRN Reason: Wheezing Albuterol Sulfate (Albuterol Sulfate (0.083%) 2.5 Mg/3 Ml Vial.Neb) 2.5 mg INHALE Q4H PRN PRN Reason: Wheezing Last Admin: 01/31/23 21:09 Dose: 2.5 mg Documented By: IVAN Cyclobenzaprine HCl (Cyclobenzaprine Hcl 10 Mg Tablet) 10 mg PO TID PRN PRN Reason: muscle spasm Docusate Sodium (Docusate Sodium 100 Mg Capsule) 100 mg PO DAILY PRN PRN Reason: Constipation Enoxaparin Sodium (Enoxaparin Sodium 40 Mg/0.4 Ml Syringe) 40 mg SUBCUT Q12H [facility] Last Admin: 02/03/23 01:13 Dose: 40 mg Documented By: RASHEL Cefepime HCl 2 gm/ Sodium (Chloride) 50 mls @ 100 mls/hr IV Q12H [facility] Last Infusion: 02/03/23 06:20 Dose: 0 mls/hr Documented By: RASHEL Vancomycin HCl 1,250 mg/ (Sodium Chloride) 250 mls @ 166.667 mls/hr IV Q8H [facility] Last Infusion: 02/03/23 07:51 Dose: 0 mls/hr Documented By: MATT Morphine Sulfate (Morphine Sulfate 4 Mg/Ml Cartridge) 4 mg IVPUSH Q4H PRN; Protocol PRN Reason: Pain, Severe (Pain Scale 7-10) Last Admin: 02/03/23 08:23 Dose: 4 mg Documented By: MATT Ondansetron HCl (Ondansetron Hcl 4 Mg/2 Ml Vial) 4 mg IVPUSH Q8H PRN PRN Reason: Nausea and Vomiting Pharmacy Consult (Consult Rx Perform Med Rec) 1 each MISCELLANE ONCE PRN PRN Reason: Consult order Pharmacy Consult (Consult Rx Vancomycin Dosing) 1 each MISCELLANE DAILY PRN PRN Reason: Consult order Sodium Chloride (0.9 % Sodium Chloride Flush 3 Ml Syringe) 3 ml IVFLUSH QSHIFT [facility] Last Admin: 02/03/23 08:20 Dose: 3 ml Documented By: MATT <Kaitlin Piña PA-C - Last Filed: 02/03/23 11:35> Labs CBC & Chem 7: 02/03/23 06:37 02/03/23 06:37 <Kaitlin Piña PA-C - Last Filed: 02/03/23 11:35> Labs: Laboratory Results - last 24 hr 02/02/23 02/03/23 02/03/23 13:18 06:37 06:37 MCV 85.6 MCH 25.8 L MCHC 30.2 L RDW 15.1 Plt Count 214 MPV 10.8 Absolute Nucleated RBC 0.000 Nucleated RBC % (auto) 0.0 Anion Gap 11 L Estim Creat Clear Calc 301.9 Estimated GFR > 60 Random Glucose 127 H Calcium 9.0 Vancomycin Trough 10.2 <Kaitlin Piña PA-C - Last Filed: 02/03/23 11:35> Microbiology Microbiology Results: Microbiology 01/31/23 13:02 Blood Culture - Preliminary Blood - Venous No growth after 48 hours. 01/31/23 13:02 Blood Culture - Preliminary Blood - Venous No growth after 48 hours. <Kaitlin Piña PA-C - Last Filed: 02/03/23 11:35> Procedures Date of Service Date of Service: 02/03/23 <Kaitlin Piña PA-C - Last Filed: 02/03/23 11:35> 02/03/23 <Mihir Crane MD - Last Filed: 02/03/23 11:39> Progress Note: A&P Assessment and plan (1) Abscess of buttock: Status: Acute <Kaitlin Piña PA-C - Last Filed: 02/03/23 11:35> Assessment and Plan: 47 year old male admitted with sepsis, buttock abscess drained in the ED. Admitted to medicine for further treatment of the cellulitis. Surrounding cellulitic changes improved. Packing removed. Can continue daily wound care with dry dressings. Needs good hygiene. Can be discharged if comfortable on PO analgesics with course of PO abx. Can f/u in office in 1-2 weeks. <Kaitlin Piña PA-C - Last Filed: 02/03/23 11:35> Time Spent With Patient Time: Total time managing care of this patient today ____ minutes. <Kaitlin Piña PA-C - Last Filed: 02/03/23 11:35> Quality Stroke Does the patient have a stroke diagnosis?: No <Kaitlin Piña PA-C - Last Filed: 02/03/23 11:35> VTE Prior VTE?: No <Kaitlin Piña PA-C - Last Filed: 02/03/23 11:35> VTE Risk Level:: Medical - moderate - high <Kaitlin Piña PA-C - Last Filed: 02/03/23 11:35> VTE Device Contraindication: Treatment Not Indicated <Kaitlin Piña PA-C - Last Filed: 02/03/23 11:35> VTE Drug Contraindication: N/A - Med Ordered <Kaitlin Piña PA-C - Last Filed: 02/03/23 11:35>
--- NOTE | 2023-02-03 12:00 | P.PNIM_ITS ---
Subjective Subjective Date of Service: 02/03/23 Interval History: Seen and evaluated this morning Denies any fever or chills Improved pain at site of abscess Able to stand and ambulate with walker no other overnight events Physical Exam Vital Signs: Vital Signs: Last Vital Signs Temp 98.4 F 02/03/23 07:08 Pulse 79 02/03/23 07:08 Resp 20 02/03/23 07:08 BP 127/61 02/03/23 07:08 Pulse Ox 91 L 02/03/23 07:08 O2 Del Method Room Air 02/03/23 07:08 BMI result Body Mass Index 98.8 Const: Other: Constitutional : Awake, interactive, not in distress, morbidly obese Neck : Normal inspection, Supple Cardiovascular : RRR, no JVP, no lower extremity edema Respiratory : good bilateral air entry, no crackles, wheezes or rhonchi Gastrointestinal: soft, lax, Normal bowel sounds, Non tender Skin : Warm, Dry, gluteal abscess area covered with dressing , stage III sacral ulcer Neurological : Alert & oriented x3, No focal deficit Objective Data Active Medications Acetaminophen (Acetaminophen 325 Mg Tablet) 650 mg PO Q6H PRN PRN Reason: Pain, Mild (Pain Scale 1-3) Albuterol Sulfate (Albuterol Sulfate 90 Mcg 8 Gm Inhaler) 2 puff INHALE RQ6H PRN PRN Reason: Wheezing Albuterol Sulfate (Albuterol Sulfate (0.083%) 2.5 Mg/3 Ml Vial.Neb) 2.5 mg INHALE Q4H PRN PRN Reason: Wheezing Last Admin: 01/31/23 21:09 Dose: 2.5 mg Documented By: IVAN Cyclobenzaprine HCl (Cyclobenzaprine Hcl 10 Mg Tablet) 10 mg PO TID PRN PRN Reason: muscle spasm Docusate Sodium (Docusate Sodium 100 Mg Capsule) 100 mg PO DAILY PRN PRN Reason: Constipation Enoxaparin Sodium (Enoxaparin Sodium 40 Mg/0.4 Ml Syringe) 40 mg SUBCUT Q12H [facility] Last Admin: 02/03/23 01:13 Dose: 40 mg Documented By: RASHEL Cefepime HCl 2 gm/ Sodium (Chloride) 50 mls @ 100 mls/hr IV Q12H [facility] Last Infusion: 02/03/23 06:20 Dose: 0 mls/hr Documented By: RASHEL Vancomycin HCl 1,250 mg/ (Sodium Chloride) 250 mls @ 166.667 mls/hr IV Q8H [facility] Last Infusion: 02/03/23 07:51 Dose: 0 mls/hr Documented By: MATT Morphine Sulfate (Morphine Sulfate 4 Mg/Ml Cartridge) 4 mg IVPUSH Q4H PRN; Protocol PRN Reason: Pain, Severe (Pain Scale 7-10) Last Admin: 02/03/23 08:23 Dose: 4 mg Documented By: MATT Ondansetron HCl (Ondansetron Hcl 4 Mg/2 Ml Vial) 4 mg IVPUSH Q8H PRN PRN Reason: Nausea and Vomiting Oxycodone HCl (Oxycodone Hcl Immed Release 5 Mg Tablet) 10 mg PO Q4H PRN PRN Reason: Pain, Severe (Pain Scale 7-10) Pharmacy Consult (Consult Rx Perform Med Rec) 1 each MISCELLANE ONCE PRN PRN Reason: Consult order Pharmacy Consult (Consult Rx Vancomycin Dosing) 1 each MISCELLANE DAILY PRN PRN Reason: Consult order Sodium Chloride (0.9 % Sodium Chloride Flush 3 Ml Syringe) 3 ml IVFLUSH QSHIFT [facility] Last Admin: 02/03/23 08:20 Dose: 3 ml Documented By: MATT Labs 02/03/23 06:37 02/03/23 06:37 Labs: Laboratory Results - last 24 hr 02/02/23 02/03/23 02/03/23 13:18 06:37 06:37 MCV 85.6 MCH 25.8 L MCHC 30.2 L RDW 15.1 Plt Count 214 MPV 10.8 Absolute Nucleated RBC 0.000 Nucleated RBC % (auto) 0.0 Anion Gap 11 L Estim Creat Clear Calc 301.9 Estimated GFR > 60 Random Glucose 127 H Calcium 9.0 Vancomycin Trough 10.2 Microbiology Microbiology Results: Microbiology 01/31/23 13:02 Blood Culture - Preliminary Blood - Venous No growth after 48 hours. 01/31/23 13:02 Blood Culture - Preliminary Blood - Venous No growth after 48 hours. Assessment and Plan (1) Sepsis: Status: Acute (2) Abscess of buttock: Status: Acute (3) Sacral decubitus ulcer, stage III: Status: Acute Plan Pt is a 47-year-old male with a PMH significant for?obesity class 3, JESSE on CPAP, chronic back pain on tramadol, and moderate persistent asthma who presents to the ED with left buttock pain for the past two days. Patient had 10-12 cm diameter x 3 cm deep abscess drained in ED. Pt will be admitted to the hospital for treatment and further evaluation of sepsis secondary to left buttock abscess. # Sepsis secondary to left buttock abscess on stage III ulcer 2/2 morbid obesity deep abscess drained in ED of serosanguineous fluid Patient with morbid obesity and very limited mobility, concern for wound deterioration and worsening infection Continue IV Vancomycin and Cefepime General surgery following repositioning q2hrs Follow cultures Vancomycin trough Will need Bariatric hospital bed on DC to decrease the chance of more pressure ulcers # Moderate persistent asthma Not in acute exacerbation Continue home inhalers # Chronic back pain Continue tramadol, Flexeril #Obesity class III Weight loss encouraged Full Code DVT Prophylaxis: Lovenox Pt will require a hospitalization of overnight for treatment with IV antibiotics of sepsis secondary to left buttock abscess pending safe discahrge plan and Bariatric hospital bed. Time Spent With Patient Time: Total time managing care of this patient today ____ minutes. Quality Stroke Does the patient have a stroke diagnosis?: No VTE Prior VTE?: No VTE Risk Level:: Medical - moderate - high VTE Device Contraindication: Treatment Not Indicated VTE Drug Contraindication: N/A - Med Ordered
[2023-02-03 13:33] LABS: Vancomycin Trough 15.4 mcg/mL (10.0-20.0)
--- NOTE | 2023-02-03 13:51 | MHC.CLN ---
NUTRITION CONSULT FOR NON HEALING WOUND AND DRINKS JUICE. PATIENT STATED THAT DRINKS ABOUT 3 CUPS OF ORANGE JUICE PER DAY FOR VITAMIN C. WILL DRINK 2% MILK. AGREES TO ENSURE MAX PROTEIN BID. PROVIDES 300 KCALS, 60 G PROTEIN. PATIENT WITH STAGE III WOUND TO BUTTOCK. SUPPLEMENT MAY PROMOTE WOUND HEALING. DIET=REGULAR, LOW FAT. QUALIFIES SUPER OBESE WITH BMI=98.8. ENCOURAGE HEALTHFUL DIET. FOLLOW FOR INTAKE AND WOUND HEALING.
[2023-02-03 13:57] VITALS: BMI 98.8
[2023-02-03 15:12] VITALS: BP 150/68; PULSE 81; RESP 20; TEMP 36.3; O2SAT 94
--- NOTE | 2023-02-03 15:44 | HO.WOUNDCONS ---
History of Present Illness Data of Consult Service Date: 02/03/23 Requesting physician: Beckie Melchor Primary Care Provider: Diony Lino PA-C [facility] Reason for consult: buttock abscess [id number]: Asked to provide opinion regarding left buttock abscess which underwent I&D in the emergency department. Measurements are reviewed. Imaging not possible due to patient's large body habitus. He is on Zosyn and Dilaudid. Surgery has seen the patient. Wet-to-dry dressings were ordered. He is not independent with bed mobility such that the buttocks can be fully visualized without 2 person assist. The patient tells me that the surgeon just changed the dressing less than 1 hour ago. Review of Systems Review of Systems: He is having some shooting pains in his 4th and 5th digit on his right hand after lying flat. [facility] Medical History Asthma Chronic back pain Obesity Obstructive sleep apnea Pericardial effusion Respiratory failure Family History Father Medical history unknown Mother Medical history unknown Family/Other Asthma Brother No problems noted. Brother No problems noted. Sister No problems noted. Surgical History History of tonsillectomy Social History Household Members: None Housing: Apartment Do you presently have visiting nurse or other home services: Yes (nephew is MARINE EQUIPMENT PRESERVATION INSPECTOR) Alcohol intake: never Patient Tobacco Use Status: Never used Tobacco e-Cigarette/Vaping Use: Never Used Second Hand Smoke Exposure: No Use of substances other than those prescribed or required for medical reasons: No Currently Displaying Signs/Symptoms of Drug Intoxication Withdrawal: No Have you been hit, kicked, punched, or otherwise hurt by someone within the past year? If so, by whom?: No Do you feel safe in your current relationship?: No Current Relationship Is there a partner from a previous relationship who is making you feel unsafe now?: No Are you made to feel afraid or neglected: No Spiritual Healthcare Practices: Baptism Advance Directives: Yes Advance Directives on File: Yes Advance Directives Date on File: 09/16/21 Do you have thoughts of harming others: None Do you have a plan to hurt others: No Plan Recently lost weight without trying: No Nutrition Risks: No Nutritional Risk service: No Current occupational status: disabled Cognitive needs: No Hearing needs: No Vision needs: No Meds Allergies Allergy/AdvReac Type Severity Reaction Status Date / Time prednisolone AdvReac Mild decrease Verified 01/23/23 10:05 blood pressure. Active Medications: Current Medications Acetaminophen (Acetaminophen 325 Mg Tablet) 650 mg PO Q6H PRN PRN Reason: Pain, Mild (Pain Scale 1-3) Albuterol Sulfate (Albuterol Sulfate 90 Mcg 8 Gm Inhaler) 2 puff INHALE RQ6H PRN PRN Reason: Wheezing Albuterol Sulfate (Albuterol Sulfate (0.083%) 2.5 Mg/3 Ml Vial.Neb) 2.5 mg INHALE Q4H PRN PRN Reason: Wheezing Last Admin: 01/31/23 21:09 Dose: 2.5 mg Cyclobenzaprine HCl (Cyclobenzaprine Hcl 10 Mg Tablet) 10 mg PO TID PRN PRN Reason: muscle spasm Docusate Sodium (Docusate Sodium 100 Mg Capsule) 100 mg PO DAILY PRN PRN Reason: Constipation Enoxaparin Sodium (Enoxaparin Sodium 40 Mg/0.4 Ml Syringe) 40 mg SUBCUT Q12H [facility] Last Admin: 02/03/23 13:59 Dose: 40 mg Cefepime HCl 2 gm/ Sodium (Chloride) 50 mls @ 100 mls/hr IV Q12H [facility] Last Infusion: 02/03/23 06:20 Dose: Infused Vancomycin HCl 1,250 mg/ (Sodium Chloride) 250 mls @ 166.667 mls/hr IV Q8H [facility] Last Admin: 02/03/23 15:12 Dose: 166.67 mls/hr Morphine Sulfate (Morphine Sulfate 4 Mg/Ml Cartridge) 4 mg IVPUSH Q4H PRN; Protocol PRN Reason: Pain, Severe (Pain Scale 7-10) Last Admin: 02/03/23 08:23 Dose: 4 mg Ondansetron HCl (Ondansetron Hcl 4 Mg/2 Ml Vial) 4 mg IVPUSH Q8H PRN PRN Reason: Nausea and Vomiting Oxycodone HCl (Oxycodone Hcl Immed Release 5 Mg Tablet) 10 mg PO Q4H PRN PRN Reason: Pain, Severe (Pain Scale 7-10) Pharmacy Consult (Consult Rx Perform Med Rec) 1 each MISCELLANE ONCE PRN PRN Reason: Consult order Pharmacy Consult (Consult Rx Vancomycin Dosing) 1 each MISCELLANE DAILY PRN PRN Reason: Consult order Sodium Chloride (0.9 % Sodium Chloride Flush 3 Ml Syringe) 3 ml IVFLUSH QSHIFT [facility] Last Admin: 02/03/23 15:22 Dose: 3 ml Home Medications Medication Instructions Recorded Confirmed Last Taken Type cyclobenzaprine 10 mg tablet 10 mg PO TID PRN muscle spasm 01/17/23 01/31/23 Unknown History ibuprofen 800 mg tablet 800 mg PO Q8H PRN Pain 01/17/23 01/31/23 Unknown History albuterol sulfate 2.5 mg/3 mL 2.5 mg inhalation Q4H PRN Wheezing 01/31/23 01/31/23 Unknown History (0.083 %) solution for nebulization Physical Exam Vital Signs and Narrative: Vital Signs: Last Vital Signs Temp 97.4 F 02/03/23 15:12 Pulse 81 02/03/23 15:12 Resp 20 02/03/23 15:12 BP 150/68 H 02/03/23 15:12 Pulse Ox 94 02/03/23 15:12 O2 Del Method Room Air 02/03/23 15:12 BMI result Body Mass Index 98.8 Has evidence of a fasciotomy on the right calf. He has skin breakdown on the proximal right thigh wound when he rolls on to his right side, I am not able to see his sacrum, ischial tuberosities or most of the buttocks. When he rolls onto his left side there is a bandage which he is apprehensive about me removing and it is difficult to assess. Results Labs 02/03/23 06:37 02/03/23 06:37 Labs: Laboratory Results - last 24 hr 02/03/23 02/03/23 02/03/23 06:37 06:37 13:00 MCV 85.6 MCH 25.8 L MCHC 30.2 L RDW 15.1 Plt Count 214 MPV 10.8 Absolute Nucleated RBC 0.000 Nucleated RBC % (auto) 0.0 Anion Gap 11 L Estim Creat Clear Calc 301.9 Estimated GFR > 60 Random Glucose 127 H Calcium 9.0 Vancomycin Trough 15.4 Assessment and Plan (1) Abscess of buttock: Status: Acute Plan Morbidly obese 47-year-old male with impaired mobility due to obesity and recent purulent abscess of the left buttock, surgery involved. I will not be able to make an assessment on whether there is a pressure component. Would recommend to follow surgical recommendations of wet to dry dressing. If the patient chooses to follow up in the wound clinic and we can accommodate him without a Ly left, this could be considered. Antibiotics upon discharge per hospitalist recommendation. Encourage physical therapy for bed mobility if not already done. Time Spent With Patient Time: Total time managing care of this patient today ____ minutes.
[2023-02-03 19:05] VITALS: BP 159/76; PULSE 82; RESP 18; TEMP 36.5; O2SAT 94
[2023-02-03] MEDS: vancomycin HCL 1,250 MG in 0.9 % Sodium Chloride 250 ML 166.66 MG IV (23:37)
[2023-02-04] MEDS: oxyCODONE HCl Immed Release 5 MG TABLET 10 MG PO (01:47)
[2023-02-04] MEDS: Enoxaparin Sodium 40 MG/0.4 ML SYRINGE SUBCUT ×2 (01:48→14:41)
[2023-02-04 02:02] VITALS: PULSE 83; RESP 24; O2SAT 98
[2023-02-04 04:00] VITALS: BP 137/65; PULSE 78; RESP 20; TEMP 36; O2SAT 97
[2023-02-04] MEDS: Morphine Sulfate 4 MG/ML CARTRIDGE IVPUSH ×3 (04:01→21:52)
[2023-02-04] MEDS: cefEPime HCl 2 GM in 0.9 % Sodium Chloride 50 ML IV ×2 (06:20→18:04)
[2023-02-04 07:01] LABS: Creatinine Clr Calc Pharmacy 297.5; Estimated Glomerular Filt Rate > 60
[2023-02-04] MEDS: vancomycin HCL 1,250 MG in 0.9 % Sodium Chloride 250 ML 166.66 MG IV (07:18)
[2023-02-04] MEDS: 0.9 % Sodium Chloride Flush 3 ML SYRINGE IVFLUSH ×3 (07:19→21:53)
[2023-02-04 07:50] VITALS: BP 124/59; PULSE 88; RESP 18; TEMP 36.2; O2SAT 91
[2023-02-04 13:23] LABS: Vancomycin Random 19.8 mcg/mL (15-20)
--- NOTE | 2023-02-04 13:25 | P.PNIM_ITS ---
Subjective Subjective Date of Service: 02/05/23 Interval History: Sepsis secondary to left buttock abscess on stage III ulcer 2/2 morbid obesity Review of Systems denies any pain or fevers Denies any nausea vomiting or diarrhea. Physical Exam Vital Signs: Vital Signs: Last Vital Signs Temp 97.1 F 02/04/23 07:50 Pulse 88 02/04/23 07:50 Resp 18 02/04/23 07:50 BP 124/59 L 02/04/23 07:50 Pulse Ox 91 L 02/04/23 07:50 O2 Del Method Room Air 02/04/23 07:50 BMI result Body Mass Index 98.8 Awake, interactive, not in distress, morbidly obese Cardiovascular : RRR, no JVP, no lower extremity edema Respiratory : good bilateral air entry,? no crackles, wheezes or rhonchi Gastrointestinal:? soft, lax, Normal bowel sounds, Non tender Skin : Warm, Dry, gluteal abscess area covered with dressing , stage III sacral ulcer Neurological : Alert & oriented x3, No focal deficit Objective Data Active Medications Acetaminophen (Acetaminophen 325 Mg Tablet) 650 mg PO Q6H PRN PRN Reason: Pain, Mild (Pain Scale 1-3) Albuterol Sulfate (Albuterol Sulfate 90 Mcg 8 Gm Inhaler) 2 puff INHALE RQ6H PRN PRN Reason: Wheezing Albuterol Sulfate (Albuterol Sulfate (0.083%) 2.5 Mg/3 Ml Vial.Neb) 2.5 mg INHALE Q4H PRN PRN Reason: Wheezing Last Admin: 01/31/23 21:09 Dose: 2.5 mg Documented By: IVAN Cyclobenzaprine HCl (Cyclobenzaprine Hcl 10 Mg Tablet) 10 mg PO TID PRN PRN Reason: muscle spasm Docusate Sodium (Docusate Sodium 100 Mg Capsule) 100 mg PO DAILY PRN PRN Reason: Constipation Enoxaparin Sodium (Enoxaparin Sodium 40 Mg/0.4 Ml Syringe) 40 mg SUBCUT Q12H [facility] Last Admin: 02/04/23 01:48 Dose: 40 mg Documented By: TROY Cefepime HCl 2 gm/ Sodium (Chloride) 50 mls @ 100 mls/hr IV Q12H [facility] Last Infusion: 02/04/23 07:00 Dose: 0 mls/hr Documented By: JEMMA Vancomycin HCl 1,250 mg/ (Sodium Chloride) 250 mls @ 166.667 mls/hr IV Q8H [facility] Last Infusion: 02/04/23 08:53 Dose: 0 mls/hr Documented By: JEMMA Morphine Sulfate (Morphine Sulfate 4 Mg/Ml Cartridge) 4 mg IVPUSH Q4H PRN; Protocol PRN Reason: Pain, Severe (Pain Scale 7-10) Last Admin: 02/04/23 10:25 Dose: 4 mg Documented By: JEMMA Ondansetron HCl (Ondansetron Hcl 4 Mg/2 Ml Vial) 4 mg IVPUSH Q8H PRN PRN Reason: Nausea and Vomiting Oxycodone HCl (Oxycodone Hcl Immed Release 5 Mg Tablet) 10 mg PO Q4H PRN PRN Reason: Pain, Severe (Pain Scale 7-10) Last Admin: 02/04/23 01:47 Dose: 10 mg Documented By: TROY Pharmacy Consult (Consult Rx Perform Med Rec) 1 each MISCELLANE ONCE PRN PRN Reason: Consult order Pharmacy Consult (Consult Rx Vancomycin Dosing) 1 each MISCELLANE DAILY PRN PRN Reason: Consult order Sodium Chloride (0.9 % Sodium Chloride Flush 3 Ml Syringe) [facility] Last Admin: 02/04/23 07:19 Dose: 3 ml Documented By: JEMMA Labs 02/03/23 06:37 02/04/23 05:44 Labs: Laboratory Results - last 24 hr 02/03/23 02/04/23 02/04/23 13:00 05:44 12:58 Estim Creat Clear Calc 297.5 Estimated GFR > 60 Vancomycin Trough 15.4 Random Vancomycin 19.8 Assessment and Plan (1) Sepsis: Status: Acute (2) Abscess of buttock: Status: Acute (3) Sacral decubitus ulcer, stage III: Status: Acute Plan Pt is a 47-year-old male with a PMH significant for?obesity class 3, JESSE on CPAP, chronic back pain on tramadol, and moderate persistent asthma who presents to the ED with left buttock pain for the past two days. Patient had 10-12 cm diameter x 3 cm deep abscess drained in ED. Pt will be admitted to the hospital for treatment and further evaluation of sepsis secondary to left buttock abscess. Sepsis secondary to left buttock abscess on stage III ulcer 2/2 morbid obesity deep abscess drained in ED of serosanguineous fluid Patient with morbid obesity and very limited mobility, concern for wound deterioration and worsening infection Continue IV Vancomycin and Cefepime General surgery following repositioning q2hrs Follow cultures Vancomycin trough Will need Bariatric hospital bed on DC to decrease the chance of more pressure ulcers Moderate persistent asthma Not in acute exacerbation Continue home inhalers Chronic back pain Continue tramadol, Flexeril Obesity class III Weight loss encouraged Full Code DVT Prophylaxis: Lovenox ongoing hospitalization need for treatment with IV antibiotics of sepsis secondary to left buttock abscess pending safe discahrge plan and Bariatric hospital bed. Time Spent With Patient Time: Total time managing care of this patient today ____ minutes. Quality Stroke Does the patient have a stroke diagnosis?: No VTE Prior VTE?: No VTE Risk Level:: Medical - moderate - high VTE Device Contraindication: Treatment Not Indicated VTE Drug Contraindication: N/A - Med Ordered
[2023-02-04 15:20] VITALS: BP 144/68; PULSE 90; RESP 20; TEMP 36.1; O2SAT 93
--- NOTE | 2023-02-04 16:26 | MHC.CM.PN ---
UPDATES SENT TO [facility]. POSSIBLE DC HOME FRIDAY AND PATIENT CAN WAIT FOR BED TO ARRIVE.
[2023-02-04 18:59] VITALS: BP 145/67; PULSE 87; RESP 20; TEMP 36.6; O2SAT 94
[2023-02-04 21:35] LABS: Vancomycin Random 12.3 mcg/mL (15-20)
[2023-02-04] MEDS: vancomycin HCL 1,000 MG in 0.9 % Sodium Chloride 250 ML 270 MG IV (21:53)
[2023-02-05] MEDS: Enoxaparin Sodium 40 MG/0.4 ML SYRINGE SUBCUT ×2 (00:58→13:38)
[2023-02-05] MEDS: diphenhydrAMINE HCL 25 MG CAPSULE 50 MG PO (00:58)
[2023-02-05 01:22] VITALS: PULSE 79; RESP 26; O2SAT 97
[2023-02-05 03:47] VITALS: BP 135/60; PULSE 70; RESP 20; TEMP 36.1; O2SAT 96
[2023-02-05] MEDS: Morphine Sulfate 4 MG/ML CARTRIDGE IVPUSH ×2 (03:52→11:04)
[2023-02-05] MEDS: cefEPime HCl 2 GM in 0.9 % Sodium Chloride 50 ML IV (06:05)
[2023-02-05 06:19] LABS: Creatinine Clr Calc Pharmacy 297.5; Estimated Glomerular Filt Rate > 60
[2023-02-05] MEDS: vancomycin HCL 1,000 MG in 0.9 % Sodium Chloride 250 ML 270 MG IV (06:35)
[2023-02-05 07:52] VITALS: BP 135/63; PULSE 73; RESP 20; TEMP 36; O2SAT 97
[2023-02-05] MEDS: 0.9 % Sodium Chloride Flush 3 ML SYRINGE IVFLUSH (08:01)
--- NOTE | 2023-02-05 11:06 | MHC.CLN ---
F/U DIET=REGULAR, LOW FAT. ENSURE MAX PROTEIN BID TO PROMOTE WOUND HEALING. PROVIDES 300 KCALS, 60 G PROTEIN. PATIENT WITH UNSTAGEABLE AREA TO RIGHT COCCYX AND STAGE II TO LEFT BUTTOCK. INTAKE AT MEALS 100%. FOLLOW FOR INTAKE AND WOUND HEALING.
--- NOTE | 2023-02-05 11:45 | MHC.CM.PN ---
[facility] NO LONGER ABLE TO OFFER SERVICES. [facility] STILL FOLLOWING
[2023-02-05] MEDS: oxyCODONE HCl Immed Release 5 MG TABLET 10 MG PO (12:22)
--- NOTE | 2023-02-05 14:05 | P.CNID_ITS ---
History of Present Illness Data of Consult Service Date: 02/05/23 Requesting physician: Melonie Chavez Primary Care Provider: Diony Lino PA-C H[facility] Reason for consult: left buttock ulcer He presents with left buttock pain after large boil formed and caused discomfort. He came in on 01/31. He has no fever or chills. He has high BMI so wasnt imaged but was seen by surgery. He has no culture positive at this time. Review of Systems Review of Systems: Yes all other systems are reviewed and are negative [facility] Past Medical History Medical History Asthma Chronic back pain Obesity Obstructive sleep apnea Pericardial effusion Respiratory failure Family History Family History Father Medical history unknown Mother Medical history unknown Family/Other Asthma Brother No problems noted. Brother No problems noted. Sister No problems noted. Family history: reviewed and not pertinent Surgical History Surgical History History of tonsillectomy Social History Social History Household Members: None Housing: Apartment Do you presently have visiting nurse or other home services: Yes (nephew is PRISONER CLASSIFICATION INTERVIEWER) Alcohol intake: never Patient Tobacco Use Status: Never used Tobacco e-Cigarette/Vaping Use: Never Used Second Hand Smoke Exposure: No Use of substances other than those prescribed or required for medical reasons: No Currently Displaying Signs/Symptoms of Drug Intoxication Withdrawal: No Have you been hit, kicked, punched, or otherwise hurt by someone within the past year? If so, by whom?: No Do you feel safe in your current relationship?: No Current Relationship Is there a partner from a previous relationship who is making you feel unsafe now?: No Are you made to feel afraid or neglected: No Spiritual Healthcare Practices: Scientology Advance Directives: Yes Advance Directives on File: Yes Advance Directives Date on File: 09/16/21 Do you have thoughts of harming others: None Do you have a plan to hurt others: No Plan Recently lost weight without trying: No Nutrition Risks: No Nutritional Risk service: No Current occupational status: disabled Cognitive needs: No Hearing needs: No Vision needs: No Meds Allergies Allergy/AdvReac Type Severity Reaction Status Date / Time prednisolone AdvReac Mild decrease Verified 01/23/23 10:05 blood pressure. Active Medications: Current Medications Acetaminophen (Acetaminophen 325 Mg Tablet) 650 mg PO Q6H PRN PRN Reason: Pain, Mild (Pain Scale 1-3) Albuterol Sulfate (Albuterol Sulfate 90 Mcg 8 Gm Inhaler) 2 puff INHALE RQ6H PRN PRN Reason: Wheezing Albuterol Sulfate (Albuterol Sulfate (0.083%) 2.5 Mg/3 Ml Vial.Neb) 2.5 mg INHALE Q4H PRN PRN Reason: Wheezing Last Admin: 01/31/23 21:09 Dose: 2.5 mg Amoxicillin/Clavulanate Potassium (Amoxicillin/Potassium Clav 875 Mg Tablet) 875 mg PO Q12H [facility] Cyclobenzaprine HCl (Cyclobenzaprine Hcl 10 Mg Tablet) 10 mg PO TID PRN PRN Reason: muscle spasm Docusate Sodium (Docusate Sodium 100 Mg Capsule) 100 mg PO DAILY PRN PRN Reason: Constipation Doxycycline Monohydrate (Doxycycline Monohydrate 100 Mg Capsule) 100 mg PO Q12H [facility] Enoxaparin Sodium (Enoxaparin Sodium 40 Mg/0.4 Ml Syringe) 40 mg SUBCUT Q12H [facility] Last Admin: 02/05/23 13:38 Dose: 40 mg Ondansetron HCl (Ondansetron Hcl 4 Mg/2 Ml Vial) 4 mg IVPUSH Q8H PRN PRN Reason: Nausea and Vomiting Oxycodone HCl (Oxycodone Hcl Immed Release 5 Mg Tablet) 10 mg PO Q4H PRN PRN Reason: Pain, Severe (Pain Scale 7-10) Last Admin: 02/05/23 12:22 Dose: 10 mg Pharmacy Consult (Consult Rx Perform Med Rec) 1 each MISCELLANE ONCE PRN PRN Reason: Consult order Sodium Chloride (0.9 % Sodium Chloride Flush 3 Ml Syringe) 3 ml IVFLUSH QSHIFT [facility] Last Admin: 02/05/23 13:37 Dose: Not Given Home Medications Medication Instructions Recorded Confirmed Last Taken Type cyclobenzaprine 10 mg tablet 10 mg PO TID PRN muscle spasm 01/17/23 01/31/23 Unknown History ibuprofen 800 mg tablet 800 mg PO Q8H PRN Pain 01/17/23 01/31/23 Unknown History albuterol sulfate 2.5 mg/3 mL 2.5 mg inhalation Q4H PRN Wheezing 01/31/2301/10 Unknown History (0.083 %) solution for nebulization Physical Exam Vital Signs: Vital Signs: Last Vital Signs Temp 96.8 F 02/05/23 07:52 Pulse 73 02/05/23 07:52 Resp 20 02/05/23 07:52 BP 135/63 02/05/23 07:52 Pulse Ox 97 02/05/23 07:52 O2 Del Method Room Air 02/05/23 07:52 BMI result Body Mass Index 98.8 : Other: buttock left decubitus,clean granulation tissue Results Labs 02/03/23 06:37 02/05/23 05:35 Labs: BMP 02/05/23 05:35 Creatinine 0.69 Microbiology Microbiology Results: Microbiology 01/31/23 13:02 Blood - Venous Blood Culture - Preliminary No growth after 48 hours. 01/31/23 13:02 Blood - Venous Blood Culture - Preliminary No growth after 48 hours. Assessment and Plan (1) Sepsis: Status: Acute (2) Abscess of buttock: Status: Acute He has large decubitus but seen by Surgery and no signs of osteomyelitis. He may have anerobes and gram negative or gram positives. He has area successfully drained Plan Would agree with Cefepime and Vancomycin. Would finish with po Augmentin and Doxycycline for a week. Time Spent With Patient Time: Total time managing care of this patient today ____ minutes.
--- NOTE | 2023-02-05 14:16 | P.CNID_ITS ---
History of Present Illness Data of Consult Service Date: 02/05/23 Primary Care Provider: Diony Lino PA-C [facility] Past Medical History Medical History Asthma Chronic back pain Obesity Obstructive sleep apnea Pericardial effusion Respiratory failure Family History Family History Father Medical history unknown Mother Medical history unknown Family/Other Asthma Brother No problems noted. Brother No problems noted. Sister No problems noted. Family history: reviewed and not pertinent Surgical History Surgical History History of tonsillectomy Social History Social History Household Members: None Housing: Apartment Do you presently have visiting nurse or other home services: Yes (nephew is BAKERY HELPER) Alcohol intake: never Patient Tobacco Use Status: Never used Tobacco e-Cigarette/Vaping Use: Never Used Second Hand Smoke Exposure: No Use of substances other than those prescribed or required for medical reasons: No Currently Displaying Signs/Symptoms of Drug Intoxication Withdrawal: No Have you been hit, kicked, punched, or otherwise hurt by someone within the past year? If so, by whom?: No Do you feel safe in your current relationship?: No Current Relationship Is there a partner from a previous relationship who is making you feel unsafe now?: No Are you made to feel afraid or neglected: No Spiritual Healthcare Practices: Scientologist Advance Directives: Yes Advance Directives on File: Yes Advance Directives Date on File: 09/16/21 Do you have thoughts of harming others: None Do you have a plan to hurt others: No Plan Recently lost weight without trying: No Nutrition Risks: No Nutritional Risk service: No Current occupational status: disabled Cognitive needs: No Hearing needs: No Vision needs: No Meds Allergies Allergy/AdvReac Type Severity Reaction Status Date / Time prednisolone AdvReac Mild decrease Verified 01/23/23 10:05 blood pressure. Active Medications: Current Medications Acetaminophen (Acetaminophen 325 Mg Tablet) 650 mg PO Q6H PRN PRN Reason: Pain, Mild (Pain Scale 1-3) Albuterol Sulfate (Albuterol Sulfate 90 Mcg 8 Gm Inhaler) 2 puff INHALE RQ6H PRN PRN Reason: Wheezing Albuterol Sulfate (Albuterol Sulfate (0.083%) 2.5 Mg/3 Ml Vial.Neb) 2.5 mg INHALE Q4H PRN PRN Reason: Wheezing Last Admin: 01/31/23 21:09 Dose: 2.5 mg Amoxicillin/Clavulanate Potassium (Amoxicillin/Potassium Clav 875 Mg Tablet) 875 mg PO Q12H [facility] Cyclobenzaprine HCl (Cyclobenzaprine Hcl 10 Mg Tablet) 10 mg PO TID PRN PRN Reason: muscle spasm Docusate Sodium (Docusate Sodium 100 Mg Capsule) 100 mg PO DAILY PRN PRN Reason: Constipation Doxycycline Monohydrate (Doxycycline Monohydrate 100 Mg Capsule) 100 mg PO Q12H [facility] Enoxaparin Sodium (Enoxaparin Sodium 40 Mg/0.4 Ml Syringe) 40 mg SUBCUT Q12H [facility] Last Admin: 02/05/23 13:38 Dose: 40 mg Ondansetron HCl (Ondansetron Hcl 4 Mg/2 Ml Vial) 4 mg IVPUSH Q8H PRN PRN Reason: Nausea and Vomiting Oxycodone HCl (Oxycodone Hcl Immed Release 5 Mg Tablet) 10 mg PO Q4H PRN PRN Reason: Pain, Severe (Pain Scale 7-10) Last Admin: 02/05/23 12:22 Dose: 10 mg Pharmacy Consult (Consult Rx Perform Med Rec) 1 each MISCELLANE ONCE PRN PRN Reason: Consult order Sodium Chloride (0.9 % Sodium Chloride Flush 3 Ml Sy[facility]) [facility] Last Admin: 02/05/23 13:37 Dose: Not Given Home Medications Medication Instructions Recorded Confirmed Last Taken Type cyclobenzaprine 10 mg tablet 10 mg PO TID PRN muscle spasm 01/17/23 01/31/23 Unknown History ibuprofen 800 mg tablet 800 mg PO Q8H PRN Pain 01/17/23 01/31/23 Unknown History albuterol sulfate 2.5 mg/3 mL 2.5 mg inhalation Q4H PRN Wheezing 01/31/23 01/31/23 Unknown History (0.083 %) solution for nebulization Physical Exam Vital Signs: Vital Signs: Last Vital Signs Temp 96.8 F 02/05/23 07:52 Pulse 73 02/05/23 07:52 Resp 20 02/05/23 07:52 BP 135/63 02/05/23 07:52 Pulse Ox 97 02/05/23 07:52 O2 Del Method Room Air 02/05/23 07:52 BMI result Body Mass Index 98.8 Const: General: cooperative HEENT: Head: Yes normal to inspection Face and sinus: Yes normal facial exam Mouth: Normal oral and palatal mucosa present Teeth and gingiva: dentition normal Eyes: General: appearance normal, both eyes and all related structures Pupils: Equal, round and reactive pupils present Resp: Effort & Inspection: normal respiratory effort Cardio: Rate: regular rate Rhythm: regular rhythm GI: Palpation (GI): Soft to palpation and nontender : Other: large left buttock area abscess General: Yes no CVA tenderness Back/Spine/Pelvis: Back: no CVA tenderness Skin: General skin exam: no rashes or lesions noted Neuro: General: moves all extremities Cranial nerves: Yes Equal, round and reactive pupils present Extrem: General: Yes normal to inspection Psych: Appearance: grossly normal Results Labs 02/03/23 06:37 02/05/23 05:35 Labs: BMP 02/05/23 05:35 Creatinine 0.69 Microbiology Microbiology Results: Microbiology 01/31/23 13:02 Blood - Venous Blood Culture - Preliminary No growth after 48 hours. 01/31/23 13:02 Blood - Venous Blood Culture - Preliminary No growth after 48 hours. Assessment and Plan Time Spent With Patient Time: Total time managing care of this patient today ____ minutes.
--- NOTE | 2023-02-05 14:26 | PC.NURSE ---
unable to obtain IV access , made aware , all meds switched to PO
--- NOTE | 2023-02-05 14:31 | HO.PM.IMPN ---
Subjective Subjective Date of Service: 02/05/23 Interval History: Sepsis secondary to left buttock abscess on stage III ulcer 2/2 morbid obesity Review of Systems denies any pain or fevers Denies any nausea vomiting or diarrhea. Physical Exam Vital Signs: Vital Signs: Last Vital Signs Temp 96.8 F 02/05/23 07:52 Pulse 73 02/05/23 07:52 Resp 20 02/05/23 07:52 BP 135/63 02/05/23 07:52 Pulse Ox 97 02/05/23 07:52 O2 Del Method Room Air 02/05/23 07:52 BMI result Body Mass Index 98.8 Awake, interactive, not in distress, morbidly obese Cardiovascular : RRR, no JVP, no lower extremity edema Respiratory : good bilateral air entry,? no crackles, wheezes or rhonchi Gastrointestinal:? soft, lax, Normal bowel sounds, Non tender Skin : Warm, Dry, gluteal abscess area covered with dressing , stage III sacral ulcer Neurological : Alert & oriented x3, No focal deficit Objective Data Active Medications Acetaminophen (Acetaminophen 325 Mg Tablet) 650 mg PO Q6H PRN PRN Reason: Pain, Mild (Pain Scale 1-3) Albuterol Sulfate (Albuterol Sulfate 90 Mcg 8 Gm Inhaler) 2 puff INHALE RQ6H PRN PRN Reason: Wheezing Albuterol Sulfate (Albuterol Sulfate (0.083%) 2.5 Mg/3 Ml Vial.Neb) 2.5 mg INHALE Q4H PRN PRN Reason: Wheezing Last Admin: 01/31/23 21:09 Dose: 2.5 mg Documented By: IVAN Amoxicillin/Clavulanate Potassium (Amoxicillin/Potassium Clav 875 Mg Tablet) 875 mg PO Q12H [facility] Cyclobenzaprine HCl (Cyclobenzaprine Hcl 10 Mg Tablet) 10 mg PO TID PRN PRN Reason: muscle spasm Docusate Sodium (Docusate Sodium 100 Mg Capsule) 100 mg PO DAILY PRN PRN Reason: Constipation Doxycycline Monohydrate (Doxycycline Monohydrate 100 Mg Capsule) 100 mg PO Q12H [facility] Enoxaparin Sodium (Enoxaparin Sodium 40 Mg/0.4 Ml Syringe) 40 mg SUBCUT Q12H [facility] Last Admin: 02/05/23 13:38 Dose: 40 mg Documented By: HO.DABA Ondansetron HCl (Ondansetron Hcl 4 Mg/2 Ml Vial) 4 mg IVPUSH Q8H PRN PRN Reason: Nausea and Vomiting Oxycodone HCl (Oxycodone Hcl Immed Release 5 Mg Tablet) 10 mg PO Q4H PRN PRN Reason: Pain, Severe (Pain Scale 7-10) Last Admin: 02/05/23 12:22 Dose: 10 mg Documented By: JUDIE Pharmacy Consult (Consult Rx Perform Med Rec) 1 each MISCELLANE ONCE PRN PRN Reason: Consult order Sodium Chloride (0.9 % Sodium Chloride Flush 3 Ml Syringe) 3 ml IVFLUSH QSHIFT [facility] Last Admin: 02/05/23 13:37 Dose: Not Given Documented By: JEMMA Non-Admin Reason: No Access Labs 02/03/23 06:37 02/05/23 05:35 Labs: Laboratory Results - last 24 hr 02/04/23 02/05/23 21:03 05:35 Estim Creat Clear Calc 297.5 Estimated GFR > 60 Random Vancomycin 12.3 L Assessment and Plan (1) Sepsis: Status: Acute (2) Abscess of buttock: Status: Acute (3) Sacral decubitus ulcer, stage III: Status: Acute Plan Pt is a 47-year-old male with a PMH significant for?obesity class 3, JESSE on CPAP, chronic back pain on tramadol, and moderate persistent asthma who presents to the ED with left buttock pain for the past two days. Patient had 10-12 cm diameter x 3 cm deep abscess drained in ED. Pt will be admitted to the hospital for treatment and further evaluation of sepsis secondary to left buttock abscess. Sepsis secondary to left buttock abscess on stage III ulcer 2/2 morbid obesity deep abscess drained in ED of serosanguineous fluid Patient with morbid obesity and very limited mobility, concern for wound deterioration and worsening infection esr slightly up (53-65),crp improving from 15 to 8.7,blood cultures neg @5days repositioning q2hrs Will need Bariatric hospital bed on DC to decrease the chance of more pressure ulcers d/w surgery and iD -recomended to swiitch to po antibiotics. Moderate persistent asthma Not in acute exacerbation Continue home inhalers Chronic back pain Continue tramadol, Flexeril Obesity class III Weight loss encouraged Full Code DVT Prophylaxis: Lovenox inpatient need: left buttock abscess pending safe discahrge plan and Bariatric hospital bed. Time Spent With Patient Time: Total time managing care of this patient today ____ minutes. Quality Stroke Does the patient have a stroke diagnosis?: No VTE Prior VTE?: No VTE Risk Level:: Medical - moderate - high VTE Device Contraindication: Treatment Not Indicated VTE Drug Contraindication: N/A - Med Ordered
[2023-02-05 15:00] LABS: C Reactive Protein 8.27 mg/dL (< or = 0.50)
[2023-02-05 15:23] VITALS: PULSE 85; RESP 19; TEMP 36.2; O2SAT 96
[2023-02-05 15:59] LABS: Erythrocyte Sedimentation Rate 65 MM/HR (0-15)
--- NOTE | 2023-02-05 15:59 | HO.WOUND ---
Wound Care Consult Reason for consult: 2 wounds on left and right buttock Patient was in bed at the time of consult. Patient did stand with a walker for assessment. He had 3 wounds. The abscess that was I+D'd is being followed by surgery. There is 2 wound areas, one being located on his left upper buttock and the other on the right upper buttock. Patient stated that the skin back there is very itchy. No rashes or redness seen. The skin in these areas are very dry, flaky, course and hardened. These areas seemed more of an abrasion from the presentation of them. Foam borders removed from wounds. Wound beds very friable when dressing removed. Wound bed appearances were all red granulation tissue with some epithelization throughout. Small serosanguineous drainage on dressings. No undermining or tunneling. No odor. Left upper buttock had a cluster of 2 areas, measuring 2.5cm x 5cm x 0.1cm. Right buttock wound measured 1.4cm x 1.4cm x 0.1cm. Wounds cleansed with sea clense wound cleanser. Double layer xeroform layed on wound beds and covered with foam borders. Recommendation: Would cleanse both right upper and left upper buttocks with normal saline or sea clense wound cleanser. Apply a double layer of xeroform to wound bed. Hopefully this will keep from the foam sticking to the wound beds and provide some moisture to help with the itch feeling he is experiencing. Cover with foam borders. Change dressing daily. For the generalized skin in that area, maybe apply lotion to help with the dry flaky skin. This may relieve some of the itching the patient is complaining off. If there are any changes or questions, please feel free and reconsult wound care.
--- NOTE | 2023-02-05 16:03 | MHC.CM.PN ---
CALL TO [employer] [employer][phone]) FAX WAS CONFIRMED RECEIVED (BY LEILANI) LEILANI WILL FAX A NECESSARY [place] FORM AND A CMN (SPECIAL PRESCRIPTION FORM) TO CASE MANAGEMENT OFFICE AT [phone]. ONCE COMPLETED, CM CAN FAX BACK FOR [employer] TO ATTEMPT PRIOR AUTH.
[2023-02-05] MEDS: Amoxicillin/Potassium Clav 875 MG TABLET PO (17:13)
[2023-02-05] MEDS: Doxycycline Monohydrate 100 MG CAPSULE PO (17:13)
[2023-02-05 19:28] VITALS: BP 148/67; PULSE 86; RESP 16; TEMP 36.2; O2SAT 94
[2023-02-06] MEDS: oxyCODONE HCl Immed Release 5 MG TABLET 10 MG PO (02:22)
[2023-02-06] MEDS: Enoxaparin Sodium 40 MG/0.4 ML SYRINGE SUBCUT ×2 (02:27→13:52)
[2023-02-06 02:31] VITALS: RESP 24
[2023-02-06 03:28] VITALS: BP 136/65; PULSE 82; RESP 17; TEMP 36.5; O2SAT 97
[2023-02-06 06:39] LABS: Creatinine Clr Calc Pharmacy 301.9; Estimated Glomerular Filt Rate > 60
[2023-02-06 08:00] VITALS: BP 133/62; PULSE 85; RESP 20; TEMP 36.4; O2SAT 95
--- NOTE | 2023-02-06 10:44 | HO.PM.IMPN ---
Subjective Subjective Date of Service: 02/06/23 Interval History: Sepsis secondary to left buttock abscess on stage III ulcer 2/2 morbid obesity Review of Systems denies any pain or fevers Denies any nausea vomiting or diarrhea. Physical Exam Vital Signs: Vital Signs: Last Vital Signs Temp 97.5 F 02/06/23 08:00 Pulse 85 02/06/23 08:00 Resp 20 02/06/23 08:00 BP 133/62 02/06/23 08:00 Pulse Ox 95 02/06/23 08:00 O2 Del Method Room Air 02/06/23 08:00 BMI result Body Mass Index 98.8 Awake, interactive, not in distress, morbidly obese Cardiovascular : RRR, no JVP, no lower extremity edema Respiratory : good bilateral air entry,? no crackles, wheezes or rhonchi Gastrointestinal:? soft, lax, Normal bowel sounds, Non tender Skin : Warm, Dry, gluteal abscess area covered with dressing , stage III sacral ulcer Neurological : Alert & oriented x3, No focal deficit Objective Data Active Medications Acetaminophen (Acetaminophen 325 Mg Tablet) 650 mg PO Q6H PRN PRN Reason: Pain, Mild (Pain Scale 1-3) Albuterol Sulfate (Albuterol Sulfate 90 Mcg 8 Gm Inhaler) 2 puff INHALE RQ6H PRN PRN Reason: Wheezing Albuterol Sulfate (Albuterol Sulfate (0.083%) 2.5 Mg/3 Ml Vial.Neb) 2.5 mg INHALE Q4H PRN PRN Reason: Wheezing Last Admin: 01/31/23 21:09 Dose: 2.5 mg Documented By: IVAN Amoxicillin/Clavulanate Potassium (Amoxicillin/Potassium Clav 875 Mg Tablet) 875 mg PO Q12H [facility] Last Admin: 02/06/23 08:01 Dose: Not Given Documented By: JEMMA Non-Admin Reason: given at 0635 by Night rn SHAILA Cyclobenzaprine HCl (Cyclobenzaprine Hcl 10 Mg Tablet) 10 mg PO TID PRN PRN Reason: muscle spasm Docusate Sodium (Docusate Sodium 100 Mg Capsule) 100 mg PO DAILY PRN PRN Reason: Constipation Doxycycline Monohydrate (Doxycycline Monohydrate 100 Mg Capsule) 100 mg PO Q12H [facility] Last Admin: 02/06/23 08:01 Dose: Not Given Documented By: JEMMA Non-Admin Reason: given by night pam LINTON at 0635 - downtime Enoxaparin Sodium (Enoxaparin Sodium 40 Mg/0.4 Ml Syringe) 40 mg SUBCUT Q12H [facility] Last Admin: 02/06/23 02:27 Dose: 40 mg Documented By: CINDY Ondansetron HCl (Ondansetron Hcl 4 Mg/2 Ml Vial) 4 mg IVPUSH Q8H PRN PRN Reason: Nausea and Vomiting Oxycodone HCl (Oxycodone Hcl Immed Release 5 Mg Tablet) 10 mg PO Q4H PRN PRN Reason: Pain, Severe (Pain Scale 7-10) Last Admin: 02/06/23 02:22 Dose: 10 mg Documented By: CINDY Pharmacy Consult (Consult Rx Perform Med Rec) 1 each MISCELLANE ONCE PRN PRN Reason: Consult order Sodium Chloride (0.9 % Sodium Chloride Flush 3 Ml Syringe) 3 ml IVFLUSH QSHIFT [facility] Last Admin: 02/06/23 08:02 Dose: 3 ml Documented By: JEMMA Labs 02/03/23 06:37 02/06/23 05:50 Labs: Laboratory Results - last 24 hr 02/05/23 02/05/23 02/06/23 13:56 13:56 05:50 ESR 65 H Estim Creat Clear Calc 301.9 Estimated GFR > 60 C-Reactive Protein 8.27 H Microbiology Microbiology Results: Microbiology 01/31/23 13:02 Blood Culture - Final Blood - Venous No growth after 5 days. 01/31/23 13:02 Blood Culture - Final Blood - Venous No growth after 5 days. Assessment and Plan (1) Sepsis: Status: Acute (2) Abscess of buttock: Status: Acute (3) Sacral decubitus ulcer, stage III: Status: Acute Plan Pt is a 47-year-old male with a PMH significant for?obesity class 3, JESSE on CPAP, chronic back pain on tramadol, and moderate persistent asthma who presents to the ED with left buttock pain for the past two days. Patient had 10-12 cm diameter x 3 cm deep abscess drained in ED. Pt will be admitted to the hospital for treatment and further evaluation of sepsis secondary to left buttock abscess. Sepsis secondary to left buttock abscess on stage III ulcer 2/2 morbid obesity deep abscess drained in ED of serosanguineous fluid Patient with morbid obesity and very limited mobility, concern for wound deterioration and worsening infection esr slightly up (53-65),crp improving from 15 to 8.7,blood cultures neg @5days repositioning q2hrs Will need Bariatric hospital bed on DC to decrease the chance of more pressure ulcers d/w surgery and iD -recomended to swiitch to po antibiotics. Moderate persistent asthma Not in acute exacerbation Continue home inhalers Chronic back pain Continue tramadol, Flexeril Obesity class III Weight loss encouraged Full Code inpatient need: left buttock abscess pending safe discahrge plan and Bariatric hospital bed. Time Spent With Patient Time: Total time managing care of this patient today ____ minutes. Quality Stroke Does the patient have a stroke diagnosis?: No VTE Prior VTE?: No VTE Risk Level:: Medical - moderate - high VTE Device Contraindication: Treatment Not Indicated VTE Drug Contraindication: N/A - Med Ordered
--- NOTE | 2023-02-06 13:17 | MHC.CM.PN ---
Addendum entered by Carlee Concepcion 02/06/23 14:37: IMM DELIVERED Original Note: CALL BACK FROM [employer]. PER LEILANI, PT'S WEIGHT EXCEEDS ALL BEDS COVERED BY HIS INSURANCE, ACROSS THE BOARD, NOT JUST THIS SUPPLIER. MD AWARE/ PT AWARE AND IS ASKING TO BE DC HOME. PT ADAMANTLY REFUSING REHAB EVEN WITH DISCUSSION WITH CM AND MD. [facility] UPDATED AND REFERRAL OUT TO [facility]. PLAN TO DC 02/07 WITH SERVICES AND RESUMPTION OF THORACIC MEDICINE PHYSICIAN. CM WILL CONTINUE TO FOLLOW FOR ANY CHANGE IN PLAN
--- NOTE | 2023-02-06 13:34 | P.PNIM_ITS ---
Subjective Subjective Date of Service: 02/07/23 Interval History: Sepsis secondary to left buttock abscess on stage III ulcer 2/2 morbid obesity Review of Systems denies any pain or fevers Denies any nausea vomiting or diarrhea. buttock area seems improving Physical Exam Vital Signs: Vital Signs: Last Vital Signs Temp 97.5 F 02/06/23 08:00 Pulse 85 02/06/23 08:00 Resp 20 02/06/23 08:00 BP 133/62 02/06/23 08:00 Pulse Ox 95 02/06/23 08:00 O2 Del Method Room Air 02/06/23 08:00 BMI result Body Mass Index 98.8 Awake, interactive, not in distress, morbidly obese Cardiovascular : RRR, no JVP, no lower extremity edema Respiratory : good bilateral air entry,? no crackles, wheezes or rhonchi Gastrointestinal:? soft, lax, Normal bowel sounds, Non tender Skin : Warm, Dry, gluteal abscess area covered with dressing , stage III sacral ulcer Neurological : Alert & oriented x3, No focal deficit Skin: Other: Objective Data Active Medications Acetaminophen (Acetaminophen 325 Mg Tablet) 650 mg PO Q6H PRN PRN Reason: Pain, Mild (Pain Scale 1-3) Albuterol Sulfate (Albuterol Sulfate 90 Mcg 8 Gm Inhaler) 2 puff INHALE RQ6H PRN PRN Reason: Wheezing Albuterol Sulfate (Albuterol Sulfate (0.083%) 2.5 Mg/3 Ml Vial.Neb) 2.5 mg INHALE Q4H PRN PRN Reason: Wheezing Last Admin: 01/31/23 21:09 Dose: 2.5 mg Documented By: IVAN Amoxicillin/Clavulanate Potassium (Amoxicillin/Potassium Clav 875 Mg Tablet) 875 mg PO Q12H [facility] Last Admin: 02/06/23 08:01 Dose: Not Given Documented By: JEMMA Non-Admin Reason: given at 0635 by Night rn SHAILA Cyclobenzaprine HCl (Cyclobenzaprine Hcl 10 Mg Tablet) 10 mg PO TID PRN PRN Reason: muscle spasm Docusate Sodium (Docusate Sodium 100 Mg Capsule) 100 mg PO DAILY PRN PRN Reason: Constipation Doxycycline Monohydrate (Doxycycline Monohydrate 100 Mg Capsule) 100 mg PO Q12H [facility]CLUDES [facility] Last Admin: 02/06/23 08:01 Dose: Not Given Documented By: JEMMA Non-Admin Reason: given by night rn CB at 0635 - downtime Enoxaparin Sodium (Enoxaparin Sodium 40 Mg/0.4 Ml Syringe) 40 mg SUBCUT Q12H [facility]CLUDES [facility] Last Admin: 02/06/23 02:27 Dose: 40 mg Documented By: CINDY Ondansetron HCl (Ondansetron Hcl 4 Mg/2 Ml Vial) 4 mg IVPUSH Q8H PRN PRN Reason: Nausea and Vomiting Oxycodone HCl (Oxycodone Hcl Immed Release 5 Mg Tablet) 10 mg PO Q4H PRN PRN Reason: Pain, Severe (Pain Scale 7-10) Last Admin: 02/06/23 02:22 Dose: 10 mg Documented By: CINDY Pharmacy Consult (Consult Rx Perform Med Rec) 1 each MISCELLANE ONCE PRN PRN Reason: Consult order Sodium Chloride (0.9 % Sodium Chloride Flush 3 Ml Syringe) 3 ml IVFLUSH QSHIFT [facility]CLUDES [facility] Last Admin: 02/06/23 08:02 Dose: 3 ml Documented By: JEMMA Labs 02/03/23 06:37 02/06/23 05:50 Labs: Laboratory Results - last 24 hr 02/05/23 02/05/23 02/06/23 13:56 13:56 05:50 ESR 65 H Estim Creat Clear Calc 301.9 Estimated GFR > 60 C-Reactive Protein 8.27 H Microbiology Microbiology Results: Microbiology 01/31/23 13:02 Blood Culture - Final Blood - Venous No growth after 5 days. 01/31/23 13:02 Blood Culture - Final Blood - Venous No growth after 5 days. Assessment and Plan (1) Sepsis: Status: Acute (2) Abscess of buttock: Status: Acute (3) Sacral decubitus ulcer, stage III: Status: Acute Plan Pt is a 47-year-old male with a PMH significant for?obesity class 3, JESSE on CPAP, chronic back pain on tramadol, and moderate persistent asthma who presents to the ED with left buttock pain for the past two days. Patient had 10-12 cm diameter x 3 cm deep abscess drained in ED. Pt will be admitted to the hospital for treatment and further evaluation of sepsis secondary to left buttock abscess. Sepsis secondary to left buttock abscess on stage III ulcer 2/2 morbid obesity deep abscess drained in ED of serosanguineous fluid-seems improvin ,please look at ki pic section Patient with morbid obesity and very limited mobility, concern for wound deterioration and worsening infection esr slightly up (53-65),crp improving from 15 to 8.7,blood cultures neg @5days repositioning q2hrs Will need Bariatric hospital bed on DC to decrease the chance of more pressure ulcers d/w surgery and iD -recomended to swiitch to po antibiotics. Moderate persistent asthma Not in acute exacerbation Continue home inhalers Chronic back pain Continue tramadol, Flexeril Obesity class III Weight loss encouraged Full Code inpatient need: left buttock abscess pending safe discahrge plan and Bariatric hospital bed vs rehab .. Time Spent With Patient Time: Total time managing care of this patient today ____ minutes. Quality Stroke Does the patient have a stroke diagnosis?: No VTE Prior VTE?: No VTE Risk Level:: Medical - moderate - high VTE Device Contraindication: Treatment Not Indicated VTE Drug Contraindication: N/A - Med Ordered
[2023-02-06 15:07] VITALS: BP 148/72; PULSE 89; RESP 20; TEMP 36.3; O2SAT 94
[2023-02-06] MEDS: Amoxicillin/Potassium Clav 875 MG TABLET PO (17:13)
[2023-02-06] MEDS: Doxycycline Monohydrate 100 MG CAPSULE PO (17:13)
[2023-02-06 19:25] VITALS: BP 150/72; PULSE 82; RESP 18; TEMP 36.1; O2SAT 94
[2023-02-07 02:07] VITALS: RESP 18
[2023-02-07] MEDS: Enoxaparin Sodium 40 MG/0.4 ML SYRINGE SUBCUT (02:15)
[2023-02-07 03:07] VITALS: BP 135/68; PULSE 70; RESP 17; TEMP 36.1; O2SAT 97
[2023-02-07] MEDS: Amoxicillin/Potassium Clav 875 MG TABLET PO (06:06)
[2023-02-07] MEDS: Doxycycline Monohydrate 100 MG CAPSULE PO (06:06)
[2023-02-07 06:36] LABS: Creatinine Clr Calc Pharmacy 277.4; Estimated Glomerular Filt Rate > 60
[2023-02-07 07:33] VITALS: BP 142/65; PULSE 78; RESP 18; TEMP 36.1; O2SAT 96
--- NOTE | 2023-02-07 09:45 | P.F2F_ITS ---
Service Date Service Date: 02/07/23 Encounter Date of encounter: 02/07/23 Encounter: Sepsis with left buttock abscess Reasons for Services Signs and symptoms assessed: Monitor for any drainage from the wound or erythema or pain Reason for assisted: wound care, medication management, medication treatment and teach disease management MD Overseeing Care: Diony Lino Homebound: Leaving the home is medically contraindicated at this time without the asist of a device and/or another person due th the listed conditions above and below. Reason homebound: weakness related to hospital stay Homebound supporting statement: Patient is morbidly obese with buttock wound- need help to go to appointments, blood draw, and wound care. Certification: Based on the above findings, I certify that this patient is confined to the home and needs intermittent assisted care, physical therapy and/or speech therapy, or continues to need occupational therapy. The patient is under my care, and I have initiated the establishment of the plan of care. The patient will be followed by a physician who will periodically review the plan of care. Time Spent With Patient Time: Total time managing care of this patient today ____ minutes.
--- NOTE | 2023-02-07 09:50 | PM.DS ---
DS: Providers Provider Date of Service: 02/07/23 Date of admission: 01/31/23 13:41 Date of discharge: 02/07/23 Primary care physician: Diony Lino PA-C Consults: 01/31/23 13:39 Consult to General Surgery [place]ine Consulting [place] [facility] Reason for consultation: 10-12cm left buttock abscess, ?need for debridement 02/05/23 07:52 Consult to Infectious Diseases Routine Consulting Provider[place] [facility] [place] Reason for consultation: morbid obesity/buttock abcess Has provider been notified: No Attending physician on discharge: Melonie Chavez Discharging clinician: Melonie Chavez DS: Diagnosis Discharge Diagnosis (1) Sepsis: Status: Acute (2) Abscess of buttock: Status: Acute (3) Sacral decubitus ulcer, stage III: Status: Acute DS: Summary Hospital Course Hospital Course: Hospital course: Patient came to the hospital and admitted for left buttock abscess and sepsis,Patient had significant morbid obesity in addition-left buttock abscess was drained in ED, started on IV antibiotics and blood cultures sent, With the with above antibiotic therapy-patient's cellulitis improved, no drainage , buttock area seems clean. Blood culture negative. Patient was also seen by surgery-abscess is already drained by ED, patient seems to be improved-recommended to switch to p.o. antibiotics. Currently discussed with the patient that patient probably will benefit for going to the rehab since could not get hospital bed due to high weight range, explained to him in detail that for buttock wounds -for further healing it would be better for rehab placement rather than going home -patient understands but refused to go to rehab and decided to go home with p.o. antibiotics. Patient was strongly advised to get out of the bed, appropriate dressing changes(VNA will be arranged as well as patient says that his family member will also learn to do dressing), test case developer arrange home services for patient. Patient was also advised strongly to follow up with surgery outpatient in 1-2 weeks. Please complete the course of antibiotics 9 more days, consider checking CBC BMP, ESR, CRP, LFTs in 1 week. Follow-up outpatient with surgery and PCP. plan: complete the course of antibiotics(augmentin and doxycycline) 9 more days, consider checking CBC BMP, ESR, CRP, LFTs in 1 week. Strongly advised for adequate ambulation, wound care. Follow-up outpatient with surgery and PCP and wound care. In addition patient was strongly advised to lose weight ,consider outpatient bariatric evaluation. Above management discussed with patient detail length he understand and in agreement with the above plan, time spent 50 minute. Time Spent with Patient Time attestation: Total time managing care of this patient today ____ minutes. Discharge coordination time: Greater than 30 minutes Quality: Safe Use of Opioids Does Pt have an Active Cancer Diagnosis on the Problem List?: No Quality: Stroke Does the patient have a stroke diagnosis?: No Physical Exam Vital Signs: Vital Signs: Last Vital Signs Temp 96.9 F 02/07/23 07:33 Pulse 78 02/07/23 07:33 Resp 18 02/07/23 07:33 BP 142/65 H 02/07/23 07:33 Pulse Ox 96 02/07/23 07:33 O2 Del Method Room Air 02/07/23 07:33 BMI result Body Mass Index 98.8 Awake, interactive, not in distress, morbidly obese Cardiovascular : RRR, no JVP, no lower extremity edema Respiratory : good bilateral air entry,? no crackles, wheezes or rhonchi Gastrointestinal:? soft, lax, Normal bowel sounds, Non tender Skin : Warm, Dry, gluteal abscess area covered with dressing , sacral ulcer-seems to be improving Neurological : Alert & oriented x3, No focal deficit Skin: Other: General skin exam: no rashes or lesions noted DS: Data Data Completed and Pending Completed studies during hospitalization [Text1]: Procedures Assistance with Respiratory Ventilation, Less than 24 Consecutive Hours, Continuous Positive Airway Pressure (01/17/23) Labs on day of discharge: Laboratory Results - last 24 hr 02/07/23 06:00 Creatinine 0.74 Estim Creat Clear Calc 277.4 Estimated GFR > 60 Discharge Plan Discharge Anticipated Discharge Date/Time: 02/07/23 09:19 Patient Disposition: Home Health Service Discharge Diagnosis: sepsis with buttock abcess . Referrals: [facility] [Outside] - 1 Week Diony Lino PA-C [Primary Care Provider] - 1 Week Mihir Crane MD [Physician] - 1 Week Discharge Medications: New doxycycline monohydrate 100 mg Capsule 100 mg PO Q12H Qty: 18 0RF amoxicillin-pot clavulanate 875-125 mg Tablet 875 mg PO Q12H Qty: 18 0RF Continued cyclobenzaprine 10 mg tablet 10 mg PO TID PRN (Reason: muscle spasm) ibuprofen 800 mg tablet 800 mg PO Q8H PRN (Reason: Pain) albuterol sulfate 2.5 mg /3 mL (0.083 %) solution for nebulization 2.5 mg inhalation Q4H PRN (Reason: Wheezing) albuterol sulfate 90 mcg/actuation HFA aerosol inhaler 1 inh inhalation QID PRN (Reason: shortness of breath or wheezing) 30 Days Qty: 8.5 3RF Discharge Orders: Discharge Order (Routine); Ordered 02/07/23 Ordered By: Melonie Chavez Diet: Advance to usual diet Activity on Discharge: As tolerated Stand Alone Forms: Patient Portal Discharge page Activity Restrictions/Additional Instructions: Dry sterile dressing to I&D site daily. Care Plan Goals: Patient came to the hospital and admitted for left buttock abscess and sepsis,Patient had significant morbid obesity in addition-left buttock abscess was drained in ED, started on IV antibiotics and blood cultures sent, With the with above antibiotic therapy-patient's cellulitis improved, no drainage , buttock area seems clean. Blood culture negative. Patient was also seen by surgery-abscess is already drained by ED, patient seems to be improved-recommended to switch to p.o. antibiotics. Currently discussed with the patient that patient probably will benefit for going to the rehab since could not get hospital bed due to high weight range, explained to him in detail that for buttock wounds -for further healing it would be better for rehab placement rather than going home -patient understands but refused to go to rehab and decided to go home with p.o. antibiotics. Patient was strongly advised to get out of the bed, appropriate dressing changes(VNA will be arranged as well as patient says that his family member will also learn to do dressing), test case developer arrange home services for patient. Patient was also advised strongly to follow up with surgery outpatient in 1-2 weeks. Please complete the course of antibiotics 9 more days, consider checking CBC BMP, ESR, CRP, LFTs in 1 week. Follow-up outpatient with surgery and PCP,wound care.. Health Concerns: As above. Plan of Treatment: As above. Assessment: As above.
--- NOTE | 2023-02-07 10:43 | MHC.CM.PN ---
IMM 02/07/23 Patient is discharged to home with [facility]. His BOX FINISHER services will resume. S transport is booked. cloth shrinking supervisor is scheduled for 11am. All discharge info has been sent to the agency.
== END 2023-02-07 11:21 | disposition home health service (06) | DRG 871 ==
LOC: HO.ED 14:57 → HO.EDOVER 16:13 → HO.S3 17:33
PROVIDERS: Student in an Organized Health Care Education/Training Program; Admitting Provider Student in an Organized Health Care Education/Training Program; Emergency Provider Emergency Medicine; PCP Physician Assistant; Visit Provider Internal Medicine
DX: A41.9 Sepsis, unspecified organism (principal); L89.153 Pressure ulcer of sacral region, stage 3; L02.31 Cutaneous abscess of buttock; Z68.45 Body mass index [BMI] 70 or greater, adult; G89.29 Other chronic pain; J45.40 Moderate persistent asthma, uncomplicated; E66.01 Morbid (severe) obesity due to excess calories; G47.33 Obstructive sleep apnea (adult) (pediatric); Z79.899 Other long term (current) drug therapy
CPT/HCPCS: 36415; 80048; 80202; 82565; 83036; 83605; 85025; 85027; 85652; 86140; 87040; 94640; 94660; 97162; 99285; J0692; J1170; J1650; J2270; J2543; J3370; J3371

== ENCOUNTER 2023-05-20 14:25 | Outpatient (AMB) | payer OTHER, SELFPAY ==
--- NOTE | 2023-05-20 14:13 | MHC.PC.OV ---
Vital Signs 05/20/23 14:13 Height 5 ft 10 in BMI Reason not done Patient refused/unable Intake Visit Reasons: f/u asthma/ IPHONE [phone] Intake Note: Telehealth call with pt for ongoing cough x 2 days, Pt denies any fever or runny nose or exposure to COVID. -[facility] meeting/ requesting VNA nurse for wound care due to the bad scraps of the back of right leg ? is retaining fluid. Mold Sheet Cleaner Required: Yes Mold Sheet Cleaner Language: Maori Accompanied by: Self / Same As Patient Allergies prednisolone Adverse Reaction (Mild, Verified 05/20/23 14:28) decrease blood pressure. Medication List - Last Reconciled 05/20/23 by Diony Lino PA-C albuterol sulfate 2.5 mg inhalation Q4H PRN albuterol sulfate 90 mcg/actuation 1 inh inhalation QID PRN 30 days cyclobenzaprine 10 mg PO BEDTIME PRN ibuprofen 800 mg PO Q8H PRN Tobacco use date assessed: 05/20/23 Dental Screening Dental Screen Date: 05/20/23 Did you have a dental visit in the last 12 months?: No Did you have a dental problem in the last 6 months where you did not have access to dental care?: No Was dental information given to patient?: Yes (mailed to pt) HPI f/u asthma/ IPHONE [phone] HPI Details Patient is a 47-year-old male being evaluated today via video conference. Patient has a past medical history significant for severe morbid obesity, Congestive heart failure. REport having a cough over the last few days , he has taken albuterol updraft and felt better. Also has noted some wound over his right lower extremity and he would like a nurse to come check out his wound make sure there is no infection. He is severely obese in has trouble with his mobility and is unable to leave his home to go to outpatient medical visits. Also reports he has been having a lot of trouble sleeping to which he attributes this to his anxiety and depression. He is willing to try medication to help him sleep [facility] Medical History Asthma Chronic back pain Obesity Obstructive sleep apnea Pericardial effusion Respiratory failure Surgical History History of tonsillectomy Family History Father Medical history unknown Mother Medical history unknown Family/Other Asthma Brother No problems noted. Brother No problems noted. Sister No problems noted. Social History Household Members: None Housing: Apartment Do you presently have visiting nurse or other home services: Yes (nephew is CORD MAKER) Alcohol intake: never Patient Tobacco Use Status: Never used Tobacco e-Cigarette/Vaping Use: Never Used Second Hand Smoke Exposure: No Advance Directives Date on File: 09/16/21 service: No Current occupational status: disabled Cognitive needs: No Hearing needs: No Vision needs: No Questionnaire Thrive Questionnaire Date Thrive assessed: 02/01/23 REAL-7 AMB Questionnaire REAL-7 Date REAL - 7 assessed: 01/23/23 Source: Developed by Drs. Caden Gillespie, Danielle Wadsworth, Saqib Ching and colleagues, with an educational amol from [employer]. Review of Systems Const Denies headache(s) Eyes Denies loss of vision ENT Denies vertigo, Denies dizziness, Denies headache(s) and Denies sore throat Card Denies chest pain, Denies leg edema and Denies lightheadedness Resp Reports cough, Denies hemoptysis and Denies wheezing GI Denies abdominal pain, Denies melena, Denies constipation, Denies diarrhea and Denies vomiting Denies dysuria, Denies urinary frequency and Denies urinary urgency Musc Denies arthralgias, Denies joint swelling, Denies numbness and Denies tingling Neuro Denies behavioral changes, Denies vertigo, Denies dizziness, Denies headache(s), Denies loss of vision, Denies memory loss, Denies numbness and Denies tingling Psych Reports anxiety, Denies behavioral changes, Reports depression, Denies memory loss and Denies panic attacks Jason/Lymph Denies easy bleeding and Denies easy bruising Aller/Immun Denies wheezing Physical exam (Primary Care) Tobacco/Smoking Status: Tobacco use Status Tobacco use date assessed 05/20/23 05/20/23 14:22 Patient Tobacco Use Status Never used Tobacco 05/20/23 14:14 e-Cigarette/Vaping Use Never Used 05/20/23 14:14 Thrive Assessment: Date of Thrive Assessment Date Thrive assessed 02/01/23 05/20/23 14:14 Telehealth Telehealth Location of provider rendering services: practice address Location of patient: address on file Patient Identification confirmed using: Name, : Yes Telehealth method: video Patient verbally consented to treatment: Yes Patient verbally consented to billing insurance company: Yes Patient informed of any privacy concerns related to visit: Yes Minutes spent on Phone/Video with Pt.: 11 Assessment and Plan Assessment & Plan (1) Leg wound, right: Code(s): S81.801A - Unspecified open wound, right lower leg, initial encounter Qualifiers: Encounter type: initial encounter Qualified Code(s): S81.801A - Unspecified open wound, right lower leg, initial encounter Plan: As per HPI would like visiting nurse to come evaluate wound. Will place VNA referral. (2) Insomnia: Code(s): G47.00 - Insomnia, unspecified Qualifiers: Insomnia type: unspecified Qualified Code(s): G47.00 - Insomnia, unspecified Plan: Having issues with sleep to which he relates this to his mental health (anxiety and depression). He is interested in trying medication to help him sleep. Orders: Orders Comprehensive Fowler. Panel Fast Today Z13.1 - Encounter for screening for diabetes mellitus Referrals [facility] Referral S81.801A - Unspecified open wound, right lower leg, initial encounter Medications: New cyclobenzaprine 10 mg PO BEDTIME 15 days 15 tabs 0RF muscle spasm G89.29 - Other chronic pain, M54.9 - Dorsalgia, unspecified tramadol 50 mg PO DAILY 5 days 5 tabs 0RF G89.29 - Other chronic pain, M54.5 - Low back pain hydroxyzine HCl 25 mg PO BEDTIME 15 days 15 tabs 0RF G47.00 - Insomnia, unspecified Refilled albuterol sulfate 90 mcg/actuation 1 inh inhalation QID 30 days PRN 8.5 grams 3RF shortness of breath or wheezing J45.909 - Unspecified asthma, uncomplicated Coding Level of Care Code Tele Est Pt Level 4 (92731) Diagnoses Wound of right lower extremity, initial encounter S81.801A Encounter type: initial encounter Insomnia, unspecified type G47.00 Insomnia type: unspecified
== END 2023-05-20 14:49 | disposition home or self-care (01) ==
LOC: HO.HMGH 14:25
PROVIDERS: PCP Physician Assistant; Visit Provider Physician Assistant
DX: S81.801A Unspecified open wound, right lower leg, initial encounter (principal); G47.00 Insomnia, unspecified
CPT/HCPCS: 99212

== ENCOUNTER 2023-08-17 22:31 | Inpatient (IN) | payer OTHER, SELFPAY ==
[2023-08-17 22:51] VITALS: BP 149/78; BP 150/98; PULSE 105; PULSE 93; RESP 20; TEMP 36.8; O2SAT 100; O2SAT 97; BMI 81.3
--- NOTE | 2023-08-17 23:08 | ED.WOUNDLAC ---
HPI - Wound/Laceration General Chief Complaint: Wound/Laceration Stated Complaint: Infected wound back of r thigh x2 weeks History of Present Illness HPI narrative: patient is a 47-year-old male with a history of morbid obesity. Patient had a history of left gluteal abscesses in the past. Was drained in 2022. Presented today with having a similar wound to the right gluteal area. Positive redness. Positive drainage naturally. Patient from home. There is no fever no chills no systemic complaints. Patient weighs approximately 565 lb. And is 5 ft 10 in tall. He has a history of congestive heart failure. No history of diabetes. Positive history of insomnia history COVID history of back pain and obstructive sleep apnea. Related Data Home Medications Medication Instructions Recorded Confirmed ibuprofen 800 mg tablet 800 mg PO Q8H PRN Pain 01/17/23 05/20/23 albuterol sulfate 2.5 mg/3 mL 2.5 mg inhalation Q4H PRN Wheezing 01/31/23 05/20/23 (0.083 %) solution for nebulization Previous Rx's Medication Instructions Recorded albuterol sulfate 90 mcg/actuation 1 inh inhalation QID PRN shortness 05/20/23 aerosol inhaler of breath or wheezing 30 days #8.5 grams cyclobenzaprine 10 mg tablet 10 mg PO BEDTIME muscle spasm 15 05/20/23 days #15 tabs hydroxyzine HCl 25 mg tablet 25 mg PO BEDTIME 15 days #15 tabs 05/20/23 tramadol 50 mg tablet 50 mg PO DAILY 5 days #5 tabs 05/20/23 hospital bed #1 ea 06/11/23 Allergies Allergy/AdvReac Type Severity Reaction Status Date / Time prednisolone AdvReac Mild decrease Verified 08/17/23 22:50 blood pressure. Review of Systems Review of Systems: Positive redness and drainage from the right gluteal PMFSH Past Medical History Attestation statement: The following information was validated with the patient. Onset Date is defined in the Problem List Problems that require an onset date and time if occurred within 24 hrs of arrival to the ED Aortic Dissection and Rupture; Neurologic impairment; Cardiopulmonary Arrest; Endotracheal Intubation; Insertion or Replacement of Mechanical Circulatory Assist Device Medical History Respiratory failure Asthma Pericardial effusion Obesity Chronic back pain Obstructive sleep apnea Surgical History History of tonsillectomy Family History Family History Father Medical history unknown Mother Medical history unknown Family/Other Asthma Brother No problems noted. Brother No problems noted. Sister No problems noted. Social History Social History Household Members: None Housing: Apartment Do you presently have visiting nurse or other home services: Yes (nephew is BULK MAIL CLERK) Alcohol intake: never Patient Tobacco Use Status: Never used Tobacco Smoked in Last 30 Days: No e-Cigarette/Vaping Use: Never Used Second Hand Smoke Exposure: No Use of substances other than those prescribed or required for medical reasons: No Any prior treatment program specific to substance use: No Advance Directives: Yes Advance Directives on File: Yes Advance Directives Date on File: 09/16/21 service: No Current occupational status: disabled Cognitive needs: No Hearing needs: No Vision needs: No Physical Exam Vital Signs: Vital Signs: Last Vital Signs Temp 98.0 F 08/18/23 00:21 Pulse 74 08/18/23 00:21 Resp 18 08/18/23 00:21 BP 118/52 L 08/18/23 00:21 Pulse Ox 93 08/18/23 00:21 O2 Del Method Room Air 08/18/23 00:21 BMI result Body Mass Index 81.3 obese male looks stated age Appearance: Alert. Oriented X3. No acute distress. Eyes: Pupils equal, round and reactive to light. ENT: Pharynx normal. Neck: Normal inspection. Neck supple. No lymph nodes noted. No crepitus CVS: Normal heart rate and rhythm. Pulses normal. Normal S1 and S2 Respiratory: No respiratory distress. Breath sounds normal. No Wheezing. No rales Abdomen: Soft and nontender. No rigidity. No distention. good BS x4 Skin: Skin warm and dry. Normal skin color. Normal skin turgor. Extremities: there is an area of redness over the right gluteal area approximately 10 cm x 10 cm in size. Within area of induration. Positive drainage from the area of induration. More distally patient has good sensation. Pulses are intact. Able to ambulate. Neuro: Oriented X 3. No motor deficit. No sensory deficit. Moving all extermities. No slurred speech Medications Administered Discontinued Medications Generic Name Dose Route Start Last Admin Trade Name Mj PRN Reason Stop Dose Admin Ampicillin Sodium/Sulbactam 100 mls @ 200 mls/hr 08/17/23 23:11 08/17/23 23:47 Sodium 3 gm/ Sodium Chloride IV 08/17/23 23:40 200 mls/hr ONCE ONE Administration Medical Decision Making Medical Decision Making [facility] Narrative: Extremely large male presents today with having wound to the right gluteal area. Labs ordered. Will start patient on empiric antibiotic for cellulitis. Given patient's size will require admission for further evaluation. patient's white count was elevated. Lactate less than 2 no evidence for severe sepsis. Cultures are obtained of the LEs. Antibiotic was started. Given patient's large size over 560 lb. Decreased immune system will admit for the cellulitis as it is fairly extensive. Had a history of the same. Now is on the opposite side. Unable to obtain CT scan as patient is too heavy for the CT scanner in addition patient's girth may be too large for the CT scanner as well. Case discussed with the hospitalist team for admission. In stable condition Differential Diagnosis Differential Diagnoses: The differential diagnosis associated with the presentation includes cellulitis abscess. [place] less likely necrotizing fasciitis as patient does not have pain out of proportion. Admission/Observation Consideration of admission/observation: Escalation of care including admission/observation considered Will need admission for infection Consult Healthcare Provider Management of the patient was discussed with: Hospitalist Lab Data [facility] Lab Attestation statement: I reviewed the patient's lab results. 08/17/23 23:25 08/17/23 23:25 Labs: Lab Results 08/17/23 Range/Units 23:25 WBC 13.9 H (4.8-10.8) X10*3/uL RBC 4.71 (4.60-5.80) X10*6/uL Hgb 11.4 L (14.0-18.0) g/dl Hct 38.4 L (42.0-52.0) % MCV 81.5 (80.0-98.0) fL MCH 24.2 L (27.0-33.0) pg MCHC 29.7 L (31.0-36.0) g/dl RDW 15.8 (11.0-16.0) % Plt Count 254 (160-400) X10*3/uL MPV 11.7 (9.4-12.4) fL Immature Gran % (Auto) 0.5 H (0.0-0.4) % Neut % (Auto) 84.2 H (45-73) % Lymph % (Auto) 7.6 L (20-40) % [place] % (Auto) 5.8 (2-11) % Eos % (Auto) 1.7 (0-4) % Baso % (Auto) 0.2 (0-2) % Lymph # (Auto) 1.1 L (1.2-4.9) X10*3/uL [place] # (Auto) 0.8 (0.1-1.2) X10*3/uL Eos # (Auto) 0.2 (0.0-0.4) X10*3/uL Baso # (Auto) 0.0 (0.0-0.2) X10*3/uL Abs Immat Gran (auto) 0.07 H (0.00-0.03) X10*3/uL Absolute Neuts (auto) 11.7 H (2.0-8.3) x10*3/uL Absolute Nucleated RBC 0.000 (0.0-0.012) X10*3/uL Nucleated RBC % (auto) 0.0 (0.0-0.2) /100WBC ESR 69 H (0-15) MM/HR Sodium 137 (135-145) mmol/L Potassium 4.1 (3.3-5.1) mmol/L Chloride 102 (96-108) mmol/L Carbon Dioxide 26 (22-29) mmol/L Anion Gap 13 (12-20) BUN 12 (9-16) mg/dL Creatinine 0.78 (0.5-1.4) mg/dL Estim Creat Clear Calc 242.8 Estimated GFR > 60 Random Glucose 151 H (60-115) mg/dL Lactic Acid 1.8 (0.5-2.0) mmol/L Calcium 8.7 (8.4-10.2) mg/dL Total Bilirubin 0.3 (0.0-1.0) mg/dL Direct Bilirubin 0.1 (0.0-0.5) mg/dL AST 13 (5-37) U/L ALT 16 (0-40) U/L Alkaline Phosphatase 71 (39-117) U/L C-Reactive Protein 12.70 H (< or = 0.50) mg/dL Total Protein 7.3 (6.5-8.0) g/dL Albumin 3.3 L (3.5-5.0) g/dL External Record Review External record reviewed: Inpatient record previous hospital record previous ID record reviewed Chronic Conditions Patient?s care impacted by: Hypertension Discharge Plan Discharge Clinical Impression: Cellulitis, Obese Patient Disposition: Admitted As Inpatient Prescriptions: No Action (DME) hospital bed Kit See Rx Instructions .Route Qty: 1 0RF Rx Instructions: As directed ibuprofen 800 mg tablet 800 mg PO Q8H PRN (Reason: Pain) albuterol sulfate 2.5 mg /3 mL (0.083 %) solution for nebulization 2.5 mg inhalation Q4H PRN (Reason: Wheezing) albuterol sulfate 90 mcg/actuation HFA aerosol inhaler 1 inh inhalation QID PRN (Reason: shortness of breath or wheezing) 30 Days Qty: 8.5 3RF cyclobenzaprine 10 mg tablet 10 mg PO BEDTIME 15 Days Qty: 15 0RF tramadol 50 mg tablet 50 mg PO DAILY 5 Days Qty: 5 0RF hydroxyzine HCl 25 mg tablet 25 mg PO BEDTIME 15 Days Qty: 15 0RF
[2023-08-17 23:34] LABS: Basophils Percent Auto 0.2 % (0-2); Eosinophils Absolute Auto 0.2 X10*3/uL (0.0-0.4); Eosinophils Percent Auto 1.7 % (0-4); Hematocrit 38.4 % (42.0-52.0); Hemoglobin 11.4 g/dl (14.0-18.0); Imm Gran Abs Auto 0.07 X10*3/uL (0.00-0.03); Imm Gran Pct Auto 0.5 % (0.0-0.4); Lymphocytes Absolute Auto 1.1 X10*3/uL (1.2-4.9); Lymphocytes Percent Auto 7.6 % (20-40); MANUAL DIFF FLAG NO; Mean Corpuscular HGB Conc 29.7 g/dl (31.0-36.0); Mean Corpuscular Hemoglobin 24.2 pg (27.0-33.0); Mean Corpuscular Volume 81.5 fL (80.0-98.0); Mean Platelet Volume 11.7 fL (9.4-12.4); Monocytes Absolute Auto 0.8 X10*3/uL (0.1-1.2); Monocytes Percent Auto 5.8 % (2-11); Neutrophils Absolute Auto 11.7 x10*3/uL (2.0-8.3); Neutrophils Percent Auto 84.2 % (45-73); Platelet Count 254 X10*3/uL (160-400); Red Blood Count 4.71 X10*6/uL (4.60-5.80); Red Cell Distribution Width 15.8 % (11.0-16.0); White Blood Count 13.9 X10*3/uL (4.8-10.8)
[2023-08-17 23:52] LABS: Alanine Aminotransferase 16 U/L (0-40); Albumin Level 3.3 g/dL (3.5-5.0); Alkaline Phosphatase 71 U/L (39-117); Anion Gap 13 (12-20); Aspartate Amino Transferase 13 U/L (5-37); Bilirubin Direct 0.1 mg/dL (0.0-0.5); Bilirubin Total 0.3 mg/dL (0.0-1.0); Blood Urea Nitrogen 12 mg/dL (9-16); Calcium 8.7 mg/dL (8.4-10.2); Carbon Dioxide 26 mmol/L (22-29); Chloride 102 mmol/L (96-108); Creatinine Clr Calc Pharmacy 242.8; Estimated Glomerular Filt Rate > 60; Glucose Random 151 mg/dL (60-115); Potassium 4.1 mmol/L (3.3-5.1); Sodium 137 mmol/L (135-145); Total Protein 7.3 g/dL (6.5-8.0)
[2023-08-17 23:54] VITALS: BP 146/95; PULSE 80; RESP 18; TEMP 36.7; O2SAT 98
[2023-08-18] VITALS (7 sets, daily range): BP systolic 112–168; BP diastolic 47–77; PULSE 74–88; RESP 18–22; TEMP 36.2–37.2; O2SAT 93–99
--- NOTE | 2023-08-18 00:23 | MHC.EDTECH ---
This tech took over care of patient at 2300,hourly rounds and vitals completed, patient is in hospital bed for comfort. Call medel within reach
--- NOTE | 2023-08-18 01:13 | PM.IMHP ---
History of Present Illness Date of Service: 08/18/23 Chief Complaint: Gluteal abscess This is a 47-year-old male with pertinent history of JESSE on CPAP, chronic back pain on tramadol, asthma not on home oxygen who presents to the emergency department for evaluation of swelling over right buttock. Patient states he 1st noticed it 3 days prior to presentation. He noticed a bump which has been enlarging. It is associated with purulent foul-smelling drainage. Had a left buttock abscess in January 2023 which was drained by General surgery. No fever, chills. Patient denies chest discomfort, palpitations, shortness of breath, nausea, vomiting, abdominal pain, changes in urinary or bowel habits. In the emergency department, white count found to be elevated. Review of Systems Constitutional: Constitutional: Reports no additional constitutional complaints Cardiovascular: Cardiovascular: Reports no additional cardiovascular complaints Respiratory: Respiratory: Reports no additional respiratory complaints Gastrointestinal: Gastrointestinal: Reports no additional gastrointestinal complaints Genitourinary: Genitourinary: Reports no additional male genitourinary complaints [facility] Medical History Respiratory failure Asthma Pericardial effusion Obesity Chronic back pain Obstructive sleep apnea Family History Father Medical history unknown Mother Medical history unknown Family/Other Asthma Brother No problems noted. Brother No problems noted. Sister No problems noted. Surgical History History of tonsillectomy Social History Household Members: None Housing: Apartment Do you presently have visiting nurse or other home services: Yes (nephew is FOREST NURSERY SUPERVISOR) Alcohol intake: never Patient Tobacco Use Status: Never used Tobacco Smoked in Last 30 Days: No e-Cigarette/Vaping Use: Never Used Second Hand Smoke Exposure: No Use of substances other than those prescribed or required for medical reasons: No Any prior treatment program specific to substance use: No Advance Directives: Yes Advance Directives on File: Yes Advance Directives Date on File: 09/16/21 service: No Current occupational status: disabled Cognitive needs: No Hearing needs: No Vision needs: No Meds Allergies Allergy/AdvReac Type Severity Reaction Status Date / Time prednisolone AdvReac Mild decrease Verified 08/17/23 22:50 blood pressure. Active Medications: Current Medications Vancomycin HCl (Vancomycin/Ns) 2,000 mg in 520 mls @ 250 mls/hr IV ONCE ONE Stop: 08/18/23 03:15 Piperacillin Sod/Tazobactam (Sod 4.5 gm/ Sodium Chloride) 100 mls @ 200 mls/hr IV Q6H [facility] Pharmacy Consult (Consult Rx Vancomycin Dosing) 1 each MISCELLANE DAILY PRN PRN Reason: Consult order Home Medications Medication Instructions Recorded Confirmed Last Taken Type ibuprofen 800 mg tablet 800 mg PO Q8H PRN Pain 01/17/23 05/20/23 Unknown History albuterol sulfate 2.5 mg/3 mL 2.5 mg inhalation Q4H PRN Wheezing 01/31/23 05/20/23 Unknown History (0.083 %) solution for nebulization Physical Exam Vital Signs and Narrative: Vital Signs: Last Vital Signs Temp 98.0 F 08/18/23 00:21 Pulse 74 08/18/23 00:21 Resp 18 08/18/23 00:21 BP 118/52 L 08/18/23 00:21 Pulse Ox 93 08/18/23 00:21 O2 Del Method Room Air 08/18/23 00:21 BMI result Body Mass Index 81.3 Middle-aged obese male lying in bed in no distress Neck supple, no JVD Regular rate and rhythm, S1-S2 heard Decreased breath sounds due to body habitus Abdomen soft nontender, no guarding, no rigidity Patient is awake, alert and oriented to self, place, time and person ; no focal motor deficit Skin: Right gluteal fold as pictured below ; fluctuance present with serosanguineous drainage Psych: Normal mood Skin: Other: Results Labs 08/17/23 23:25 08/17/23 23:25 Labs: Laboratory Results - last 24 hr 08/17/23 23:25 MCV 81.5 MCH 24.2 L MCHC 29.7 L RDW 15.8 Plt Count 254 MPV 11.7 Immature Gran % (Auto) 0.5 H Neut % (Auto) 84.2 H Lymph % (Auto) 7.6 L Barton % (Auto) 5.8 Eos % (Auto) 1.7 Baso % (Auto) 0.2 Lymph # (Auto) 1.1 L Barton # (Auto) 0.8 Eos # (Auto) 0.2 Baso # (Auto) 0.0 Abs Immat Gran (auto) 0.07 H Absolute Neuts (auto) 11.7 H Absolute Nucleated RBC 0.000 Nucleated RBC % (auto) 0.0 ESR 69 H Anion Gap 13 Estim Creat Clear Calc 242.8 Estimated GFR > 60 Random Glucose 151 H Lactic Acid 1.8 Calcium 8.7 Total Bilirubin 0.3 Direct Bilirubin 0.1 AST 13 ALT 16 Alkaline Phosphatase 71 C-Reactive Protein 12.70 H Total Protein 7.3 Albumin 3.3 L Assessment and Plan (1) Abscess of buttock: Status: Acute Plan This is a 47-year-old male with pertinent history of JESSE on CPAP, chronic back pain on tramadol, asthma not on home oxygen who presents to the emergency department for evaluation of swelling over right buttock. #. Sepsis due to Right buttock abscess with purulent cellulitis: Initiated empiric IV antibiotics. Consulted General surgery, appreciate assistance. Follow cultures. Resuscitated with IV crystalloids. Lactic acid obtained #. Obesity: Counseled regarding diet and weight loss #. Asthma: No exacerbation during admission. Continue home inhalers #. Chronic back pain: On tramadol #. JESSE: Continue CPAP at bedtime Med rec pending DVT prophylaxis: Mechanical. Hold Lovenox until surgical evaluation Full code Admit as inpatient and will require two night minimum hospital stay for IV antibiotics (as above), which is not possible in a lesser acute setting. Specialist consult pending Quality Stroke Does the patient have a stroke diagnosis?: No VTE Prior VTE?: No VTE Risk Level:: Medical - moderate - high VTE Device Contraindication: N/A - Device Ordered VTE Drug Contraindication: Treatment Not Indicated
--- NOTE | 2023-08-18 02:18 | MHC.EDTECH ---
Hourly rounds and vitals completed, belonging list completed and copy placed in chart. Call medel within reach
--- NOTE | 2023-08-18 02:21 | MHC.EDTECH ---
Patient made this tech aware of the redness to left middle finger its swollen, RN was made aware
--- NOTE | 2023-08-18 04:42 | MHC.EDTECH ---
Addendum entered by Bobbi Zarco 08/18/23 04:45: Patient drank 240CC of apple juice. Original Note: Hourly rounds and vitasl [id number],patient urinated 350MLS in urinal,patient is watching TV and call medel within reach
[2023-08-18 06:45] LABS: MANUAL DIFF FLAG NO
[2023-08-18 06:52] LABS: Basophils Percent Auto 0.2 % (0-2); Eosinophils Absolute Auto 0.2 X10*3/uL (0.0-0.4); Eosinophils Percent Auto 1.7 % (0-4); Hemoglobin 10.4 g/dl (14.0-18.0); Imm Gran Abs Auto 0.06 X10*3/uL (0.00-0.03); Imm Gran Pct Auto 0.5 % (0.0-0.4); Lymphocytes Absolute Auto 1.2 X10*3/uL (1.2-4.9); Lymphocytes Percent Auto 9.8 % (20-40); Mean Corpuscular HGB Conc 29.7 g/dl (31.0-36.0); Mean Corpuscular Hemoglobin 24.4 pg (27.0-33.0); Mean Corpuscular Volume 82.2 fL (80.0-98.0); Mean Platelet Volume 11.7 fL (9.4-12.4); Monocytes Absolute Auto 0.8 X10*3/uL (0.1-1.2); Monocytes Percent Auto 6.4 % (2-11); Neutrophils Absolute Auto 10.3 x10*3/uL (2.0-8.3); Neutrophils Percent Auto 81.4 % (45-73); Platelet Count 231 X10*3/uL (160-400); Red Blood Count 4.26 X10*6/uL (4.60-5.80); Red Cell Distribution Width 15.9 % (11.0-16.0); White Blood Count 12.6 X10*3/uL (4.8-10.8)
[2023-08-18 07:35] LABS: Anion Gap 12 (12-20); Blood Urea Nitrogen 12 mg/dL (9-16); Calcium 8.1 mg/dL (8.4-10.2); Carbon Dioxide 28 mmol/L (22-29); Chloride 103 mmol/L (96-108); Creatinine Clr Calc Pharmacy 222.8; Estimated Glomerular Filt Rate > 60; Glucose Random 118 mg/dL (60-115); Sodium 139 mmol/L (135-145)
--- NOTE | 2023-08-18 08:21 | PHA.MEDREC ---
Pharmacy Consult ? Medication Reconciliation Pharmacy has completed the medication reconciliation. spoke with patient to confirm medications.
--- NOTE | 2023-08-18 09:01 | PHA.PROG ---
Admission Date/Time: August 18, 2023 01:24 Indication: Weight in k.096 kg Adjusted body weight in K.638 kg Ulysses body weight in K kg Obesity Dosing Indication % IBW:Obese Serum Creatinine - Last 168 Hours 08/17/23 08/18/23 23:25 05:39 Creatinine 0.78 0.85 Estimated CrCl and GFR - Last 168 Hours 08/17/23 08/18/23 23:25 05:39 Estim Creat Clear Calc 242.8 222.8 Estimated GFR > 60 > 60 Vancomycin Loading Dose: 2,000 mg Current Vancomycin Dosing Regimen: 1,500 mg Q12H Vancomycin Monitoring using AUC goal of 400 - 600 range with trough as surrogate marker: 416 Date and Time for next Vancomycin Level to be drawn: 08/19/2023 @1300 Pharmacist Comments on Vancomycin Plan: obese model used. Vancomycin dosing will take advantage of [employer] as a clinical decision support tool that uses Bayesian modeling to calculate individual patient's pharmacokinetic parameters and forecast the patient's drug concentration time course with the target goal AUC 24 range of 400 - 600 mg/L/hr.
--- NOTE | 2023-08-18 12:06 | PM.CNGS ---
History of Present Illness Consult details Consult date: 08/18/23 Requesting physician: Reece Stein Narrative: 47-year-old male patient presenting to the emergency department with an enlarging and bleeding lesion in the posterior right buttock. He has a prior history of a left buttock abscess which required incision and drainage. The current lesion began several weeks ago but increased in size over the past several days. The lesion began to bleed persistently yesterday and he subsequently presented to the emergency department for further evaluation. He is admitted to the hospitalist service for IV antibiotics. Surgical consultation was requested for possible incision and drainage. Review of Systems Review of Systems: Yes all other systems are reviewed and are negative PMFSH Past Medical History Medical History Respiratory failure Asthma Pericardial effusion Obesity Chronic back pain Obstructive sleep apnea Family History Family History Father Medical history unknown Mother Medical history unknown Family/Other Asthma Brother No problems noted. Brother No problems noted. Sister No problems noted. Surgical History Surgical History History of tonsillectomy Social History Social History Household Members: None Housing: Apartment Do you presently have visiting nurse or other home services: Yes (nephew is PLATE DEVELOPER) Alcohol intake: never Patient Tobacco Use Status: Never used Tobacco Smoked in Last 30 Days: No e-Cigarette/Vaping Use: Never Used Second Hand Smoke Exposure: No Use of substances other than those prescribed or required for medical reasons: No Any prior treatment program specific to substance use: No Advance Directives: Yes Advance Directives on File: Yes Advance Directives Date on File: 09/16/21 Nutrition Risks: No Nutritional Risk service: No Current occupational status: disabled Cognitive needs: No Hearing needs: No Vision needs: No Meds Allergies Allergy/AdvReac Type Severity Reaction Status Date / Time prednisolone AdvReac Mild decrease Verified 08/17/23 22:50 blood pressure. Active Medications: Current Medications Acetaminophen (Acetaminophen 325 Mg Tablet) 650 mg PO Q6H PRN PRN Reason: Pain, Mild (Pain Scale 1-3) Albuterol Sulfate (Albuterol Sulfate (0.083%) 2.5 Mg/3 Ml Vial.Neb) 2.5 mg INHALE Q4H PRN PRN Reason: Wheezing Albuterol Sulfate (Albuterol Sulfate 90 Mcg 8 Gm Inhaler) 1 puff INHALE QID PRN PRN Reason: shortness of breath or wheezing Cyclobenzaprine HCl (Cyclobenzaprine Hcl 10 Mg Tablet) 10 mg PO BEDTIME PRN PRN Reason: muscle spasm Piperacillin Sod/Tazobactam (Sod 4.5 gm/ Sodium Chloride) 100 mls @ 200 mls/hr IV Q6H [facility] Last Infusion: 08/18/23 09:39 Dose: Infused Vancomycin HCl 1,500 mg/ (Sodium Chloride) 500 mls @ 333.333 mls/hr IV Q12H [facility] Melatonin (Melatonin 3 Mg Tablet) 6 mg PO BEDTIME PRN PRN Reason: Insomnia Ondansetron HCl (Ondansetron Hcl 4 Mg/2 Ml Vial) 4 mg IVPUSH Q8H PRN PRN Reason: Nausea and Vomiting Pharmacy Consult (Consult Rx Vancomycin Dosing) 1 each MISCELLANE DAILY PRN PRN Reason: Consult order Sodium Chloride (0.9 % Sodium Chloride Flush 3 Ml Syringe) 3 ml IVFLUSH QSHIFT [facility] Last Admin: 08/18/23 08:33 Dose: 3 ml Home Medications Medication Instructions Recorded Confirmed Last Taken Type ibuprofen 800 mg tablet 800 mg PO Q8H PRN Pain 01/17/23 08/18/23 Unknown History albuterol sulfate 2.5 mg/3 mL 2.5 mg inhalation Q4H PRN Wheezing 01/31/23 08/18/23 Unknown History (0.083 %) solution for nebulization cyclobenzaprine 10 mg tablet 10 mg PO BEDTIME PRN muscle spasm 08/18/23 08/18/23 Unknown History tramadol 50 mg tablet 50 mg PO DAILY PRN Pain 08/18/23 08/18/23 Unknown History Physical Exam Vital Signs: Vital Signs: Last Vital Signs Temp 98.5 F 08/18/23 04:40 Pulse 86 08/18/23 04:40 Resp 18 08/18/23 05:16 BP 112/54 L 08/18/23 04:40 Pulse Ox 98 08/18/23 04:40 O2 Del Method Room Air 08/18/23 04:40 BMI result Body Mass Index 81.3 Const: Other: Morbidly obese in no acute distress sitting at the edge of the bed. He was able to stand with the assistance of a walker. HEENT: Head: Yes normocephalic and Yes atraumatic Resp: Other: Short of breath with minimal activity GI: Other: Large pannus, otherwise normal examination Back/Spine/Pelvis: Other: Right buttock with an area of ulceration measuring approximately 2-3 cm in diameter. Wound is open and draining purulent discharge with no active bleeding and no residual abscess noted. Surrounding cellulitis is identified. Back/spine/pelvis image: 1. Site of abscess cavity Skin: Other: See above Results Labs 08/18/23 05:39 08/18/23 05:39 Labs: Abnormal lab results 08/17/23 08/18/23 Range/Units 23:25 05:39 WBC 13.9 H 12.6 H (4.8-10.8) X10*3/uL RBC 4.26 L (4.60-5.80) X10*6/uL Hgb 11.4 L 10.4 L (14.0-18.0) g/dl Hct 38.4 L 35.0 L (42.0-52.0) % MCH 24.2 L 24.4 L (27.0-33.0) pg MCHC 29.7 L 29.7 L (31.0-36.0) g/dl Immature Gran % (Auto) 0.5 H 0.5 H (0.0-0.4) % Neut % (Auto) 84.2 H 81.4 H (45-73) % Lymph % (Auto) 7.6 L 9.8 L (20-40) % Lymph # (Auto) 1.1 L (1.2-4.9) X10*3/uL Abs Immat Gran (auto) 0.07 H 0.06 H (0.00-0.03) X10*3/uL Absolute Neuts (auto) 11.7 H 10.3 H (2.0-8.3) x10*3/uL ESR 69 H (0-15) MM/HR Random Glucose 151 H 118 H (60-115) mg/dL Calcium 8.1 L D (8.4-10.2) mg/dL C-Reactive Protein 12.70 H (< or = 0.50) mg/dL Albumin 3.3 L (3.5-5.0) g/dL Short CBC 08/17/23 08/18/23 Range/Units 23:25 05:39 WBC 13.9 H 12.6 H (4.8-10.8) X10*3/uL Hgb 11.4 L 10.4 L (14.0-18.0) g/dl Hct 38.4 L 35.0 L (42.0-52.0) % Plt Count 254 231 (160-400) X10*3/uL BMP 08/17/23 08/18/23 23:25 05:39 Sodium 137 139 Potassium 4.1 4.0 Chloride 102 103 Carbon Dioxide 26 28 BUN 12 12 Creatinine 0.78 0.85 Calcium 8.7 8.1 L D Liver Function 08/17/23 Range/Units 23:25 Total Bilirubin 0.3 (0.0-1.0) mg/dL Direct Bilirubin 0.1 (0.0-0.5) mg/dL AST 13 (5-37) U/L ALT 16 (0-40) U/L Alkaline Phosphatase 71 (39-117) U/L Albumin 3.3 L (3.5-5.0) g/dL All other labs normal. Assessment and Plan (1) Cellulitis: Qualifiers: Site of cellulitis: buttock Qualified Code(s): L03.317 - Cellulitis of buttock Status: Acute (2) Abscess of buttock: Status: Acute Plan 47-year-old morbidly obese male presenting with a recent abscess of the right buttock. He developed persistent bleeding from the site as the lesion open spontaneously. Currently there is no active bleeding but an open wound is identified which appears to have drain the abscess. No fluctuance is noted at this time. Recommend continuing the antibiotics. I will monitor the patient's progress during his hospitalization. Procedures Date of Service Date of Service: 08/18/23
--- NOTE | 2023-08-18 13:18 | PC.NURSE ---
telephone order for 15mg IV push ketroalac OKed by Dr. Wallace
--- NOTE | 2023-08-18 13:33 | PM.EVENT ---
Event Note Date of Service: 08/18/23 Event Note: Pt seen and examined, admitted hours earlier. A/P per H and P and Surgical eval. Med rec reviewd and completed Time Spent With Patient Time: Total time managing care of this patient today ____ minutes.
[2023-08-18] MEDS: oxyCODONE HCl Immed Release 5 MG TABLET 10 MG PO (22:44)
[2023-08-18] MEDS: Acetaminophen 325 MG TABLET 650 MG PO (22:44)
[2023-08-18] MEDS: Melatonin 3 MG TABLET 6 MG PO (22:45)
[2023-08-19 00:15] VITALS: PULSE 88; RESP 16; O2SAT 98
[2023-08-19 04:00] VITALS: BP 129/60; PULSE 72; RESP 19; TEMP 36.1; O2SAT 99
--- NOTE | 2023-08-19 06:28 | PC.NURSE ---
patient stated to have soreness to ring finger of left hand, noted tender, light red, and green at botton of nail bed. pt asking if staff could squeeze it for him . explained better to let md look at it first. area cleansed with NS soak, put NS in a med cup so he could soak finger tip, dried and bandaid and small gauze wrap applied. pt did press on it while this bond writer went for bandaid and noted scant blood to warm towel. he stated it felt better. Will pass along information in day report so hospitalist can look at it, noted pt already on 2 abx's for abscess at right posterior thigh, no active drng noted from that area, see photo.
[2023-08-19 06:44] VITALS: BMI 78.7
[2023-08-19 07:48] VITALS: BP 127/60; PULSE 70; RESP 18; TEMP 36; O2SAT 96
[2023-08-19] MEDS: oxyCODONE HCl Immed Release 5 MG TABLET 10 MG PO (08:00)
[2023-08-19 10:13] LABS: Creatinine Clr Calc Pharmacy 228.6; Estimated Glomerular Filt Rate > 60
--- NOTE | 2023-08-19 13:59 | MHC.CM.PN ---
IMM DELIVERED. PATIENT IS FROM HOME ALONE W/ DAILY SITE SURVEYOR FOR ADL'S AND HOME MAKING. AMBULATES WITH A WHEELED WALKER AT HOME, BUT USES W/C WHEN IN COMMUNITY. HAS CPAP THROUGH [facility]. PCP: IQRA BUITRAGO HCP: INGRID GARCIA , SISTER, ON FILE AND VERIFIED DP: GOAL IS HOME, RESUME SITE SURVEYOR SERVICES VIA BLS. HAS USED [facility] IN THE PAST FOR HOME PT, BUT IS NOT OPEN TO HOME SERVICES OR SNF AT THIS TIME. CM WILL CONTINUE TO FOLLOW FOR DC NEEDS.
[2023-08-19 14:02] LABS: Vancomycin Random 13.6 mcg/mL (15-20)
--- NOTE | 2023-08-19 14:27 | P.PNIM_ITS ---
Subjective Subjective Date of Service: 08/19/23 Interval History: right upper thigh abcess Review of Systems seems similar (as per pic showed by patient) no fever Physical Exam 2 Vital Signs: Vital Signs: Last Vital Signs Temp 96.8 F 08/19/23 07:48 Pulse 70 08/19/23 07:48 Resp 18 08/19/23 07:48 BP 127/60 08/19/23 07:48 Pulse Ox 96 08/19/23 07:48 O2 Del Method Room Air 08/19/23 07:48 BMI result Body Mass Index 78.7 obese male lying in bed in no distress cvs:Regular rate and rhythm, S1-S2 heard chest:air entry fair , no rales or wheezing Abdomen: soft nontender, no guarding, no rigidity neuro: axo3 ,nonfocal Skin: Right gluteal fold as pictured below ; fluctuance present with serosanguineous drainage Objective Data Active Medications Acetaminophen (Acetaminophen 325 Mg Tablet) 650 mg PO Q6H PRN PRN Reason: Pain, Mild (Pain Scale 1-3) Last Admin: 08/18/23 22:44 Dose: 650 mg Documented By: JUDIE Albuterol Sulfate (Albuterol Sulfate (0.083%) 2.5 Mg/3 Ml Vial.Neb) 2.5 mg INHALE Q4H PRN PRN Reason: Wheezing Albuterol Sulfate (Albuterol Sulfate 90 Mcg 8 Gm Inhaler) 1 puff INHALE QID PRN PRN Reason: shortness of breath or wheezing Cyclobenzaprine HCl (Cyclobenzaprine Hcl 10 Mg Tablet) 10 mg PO BEDTIME PRN PRN Reason: muscle spasm Vancomycin HCl 1,500 mg/ (Sodium Chloride) 500 mls @ 333.333 mls/hr IV Q12H [facility] Last Infusion: 08/19/23 04:33 Dose: Infused Documented By: GRACIE Piperacillin Sod/Tazobactam (Sod 4.5 gm/ Sodium Chloride) 100 mls @ 200 mls/hr IV Q6H [facility] Last Admin: 08/19/23 10:20 Dose: Not Given Documented By: RAVINDRA Non-Admin Reason: see d/c'd med. no IV access. Given at 1000. Melatonin (Melatonin 3 Mg Tablet) 6 mg PO BEDTIME PRN PRN Reason: Insomnia Last Admin: 08/18/23 22:45 Dose: 6 mg Documented By: JUDIE Ondansetron HCl (Ondansetron Hcl 4 Mg/2 Ml Vial) 4 mg IVPUSH Q8H PRN PRN Reason: Nausea and Vomiting Oxycodone HCl (Oxycodone Hcl Immed Release 5 Mg Tablet) 10 mg PO Q6H PRN PRN Reason: Pain, Severe (Pain Scale 7-10) Last Admin: 08/19/23 08:00 Dose: 10 mg Documented By: RAVINDRA Pharmacy Consult (Consult Rx Vancomycin Dosing) 1 each MISCELLANE DAILY PRN PRN Reason: Consult order Sodium Chloride (0.9 % Sodium Chloride Flush 3 Ml Syringe) 3 ml IVFLUSH QSHIFT [facility] Last Admin: 08/19/23 09:45 Dose: Not Given Documented By: RAVINDRA Non-Admin Reason: No Access Labs 08/18/23 05:39 08/19/23 09:29 Labs: Laboratory Results - last 24 hr 08/19/23 08/19/23 09:29 13:17 Estim Creat Clear Calc 228.6 Estimated GFR > 60 Random Vancomycin 13.6 L Microbiology Microbiology Results: Microbiology 08/17/23 23:25 Blood Culture - Preliminary Blood - Venous No growth after 24 hours. 08/17/23 23:25 Blood Culture - Preliminary Blood - Venous No growth after 24 hours. Assessment and Plan (1) Cellulitis: Status: Acute (2) Abscess of buttock: Status: Acute Plan 47-year-old male with pertinent history of JESSE on CPAP, chronic back pain on tramadol, asthma not on home oxygen who presents to the emergency department for evaluation of swelling over right buttock. Sepsis due to Right buttock abscess with purulent cellulitis: Initiated empiric IV antibiotics. Consulted General surgery, appreciate assistance. Follow cultures. Resuscitated with IV crystalloids. Lactic acid obtained surgery eval Obesity: Counseled regarding diet and weight loss Asthma(mild intermitent): No exacerbation during admission. Continue home inhalers Chronic back pain: On tramadol JESSE: Continue CPAP at bedtime. DVT prophylaxis: Mechanical. Hold Lovenox until surgical evaluation ongoing hospitalisation stay: right upper thigh abcess -need for IV antibiotics (as above)considering body habitus and slow improvement -need iv antibiotics and cellulitis/abcess are monitering which is not possible in a lesser acute setting. piercing machine operator consult pending Quality Stroke Does the patient have a stroke diagnosis?: No VTE Prior VTE?: No VTE Risk Level:: Medical - moderate - high VTE Device Contraindication: N/A - Device Ordered VTE Drug Contraindication: Treatment Not Indicated
[2023-08-19 15:00] VITALS: BP 136/61; PULSE 75; RESP 18; TEMP 36; O2SAT 92
[2023-08-19] MEDS: Piperacillin Sodium/Tazobactam 4.5 GM in 0.9 % Sodium Chloride 100 ML IV ×2 (16:05→21:03)
--- NOTE | 2023-08-19 16:28 | HO.WOUND ---
Attempted wound consultation - direct care team not available at the time of my arrival for repositioning. Will attempt at future date and or time.
--- NOTE | 2023-08-19 16:31 | PC.NURSE ---
Patient refuses sequentials stockings,risks explained to patient,Dr. Chavez notified,activity encouraged,patient also refuses alarms,encouraged patient to ask and wait for assistance.
[2023-08-19 20:00] VITALS: BP 144/66; PULSE 73; RESP 18; TEMP 36; O2SAT 98
[2023-08-20] MEDS: oxyCODONE HCl Immed Release 5 MG TABLET 10 MG PO ×2 (00:47→13:38)
[2023-08-20 01:24] VITALS: PULSE 73; RESP 18; O2SAT 98
[2023-08-20 03:36] VITALS: BP 137/64; PULSE 80; RESP 18; TEMP 36.1; O2SAT 97
[2023-08-20] MEDS: Piperacillin Sodium/Tazobactam 4.5 GM in 0.9 % Sodium Chloride 100 ML IV ×4 (04:40→21:34)
[2023-08-20 06:42] VITALS: BP 130/60; PULSE 69; RESP 18; TEMP 36.6; O2SAT 96
[2023-08-20 09:02] LABS: Creatinine Clr Calc Pharmacy 228.6; Estimated Glomerular Filt Rate > 60
--- NOTE | 2023-08-20 11:07 | MHC.CM.PN ---
EMR REVIEWED. PER MD ROUNDS PATIENT NOT MEDICALLY CLEARED FOR DC, REQUIRING CONTINUED TX OF ABSCESS. CM WILL CONTINUE TO FOLLOW.
[2023-08-20 13:43] LABS: Vancomycin Random 15.6 mcg/mL (15-20)
--- NOTE | 2023-08-20 15:25 | P.PNIM_ITS ---
Subjective Subjective Date of Service: 08/20/23 Interval History: right upper thigh abcess Review of Systems seems similar (as per pic showed by patient) no fever Physical Exam 2 Vital Signs: Vital Signs: Last Vital Signs Temp 98 F 08/20/23 06:42 Pulse 69 08/20/23 06:42 Resp 18 08/20/23 06:42 BP 130/60 08/20/23 06:42 Pulse Ox 96 08/20/23 06:42 O2 Del Method CPAP 08/20/23 06:42 BMI result Body Mass Index 78.7 obese male lying in bed in no distress cvs:Regular rate and rhythm, S1-S2 heard chest:air entry fair , no rales or wheezing Abdomen: soft nontender, no guarding, no rigidity neuro: axo3 ,nonfocal Skin: Right gluteal fold as pictured below ; fluctuance present with serosanguineous drainag Objective Data Active Medications Acetaminophen (Acetaminophen 325 Mg Tablet) 650 mg PO Q6H PRN PRN Reason: Pain, Mild (Pain Scale 1-3) Last Admin: 08/18/23 22:44 Dose: 650 mg Documented By: JUDIE Albuterol Sulfate (Albuterol Sulfate (0.083%) 2.5 Mg/3 Ml Vial.Neb) 2.5 mg INHALE Q4H PRN PRN Reason: Wheezing Albuterol Sulfate (Albuterol Sulfate 90 Mcg 8 Gm Inhaler) 1 puff INHALE QID PRN PRN Reason: shortness of breath or wheezing Cyclobenzaprine HCl (Cyclobenzaprine Hcl 10 Mg Tablet) 10 mg PO BEDTIME PRN PRN Reason: muscle spasm Vancomycin HCl 1,500 mg/ (Sodium Chloride) 500 mls @ 333.333 mls/hr IV Q12H [facility] Last Admin: 08/20/23 14:56 Dose: 333.33 mls/hr Documented By: SHANNAN Piperacillin Sod/Tazobactam (Sod 4.5 gm/ Sodium Chloride) 100 mls @ 200 mls/hr IV Q6H [facility] Last Infusion: 08/20/23 11:29 Dose: Infused Documented By: SHANNAN Melatonin (Melatonin 3 Mg Tablet) 6 mg PO BEDTIME PRN PRN Reason: Insomnia Last Admin: 08/18/23 22:45 Dose: 6 mg Documented By: HO.VENLA Ondansetron HCl (Ondansetron Hcl 4 Mg/2 Ml Vial) 4 mg IVPUSH Q8H PRN PRN Reason: Nausea and Vomiting Oxycodone HCl (Oxycodone Hcl Immed Release 5 Mg Tablet) 10 mg PO Q6H PRN PRN Reason: Pain, Severe (Pain Scale 7-10) Last Admin: 08/20/23 13:38 Dose: 10 mg Documented By: SHANNAN Pharmacy Consult (Consult Rx Vancomycin Dosing) 1 each MISCELLANE DAILY PRN PRN Reason: Consult order Sodium Chloride (0.9 % Sodium Chloride Flush 3 Ml Syringe) 3 ml IVFLUSH QSHIFT [facility] Last Admin: 08/20/23 09:55 Dose: 3 ml Documented By: SHANNAN Labs 08/18/23 05:39 08/20/23 08:09 Labs: Laboratory Results - last 24 hr 08/20/23 08/20/23 08:09 12:50 Estim Creat Clear Calc 228.6 Estimated GFR > 60 Random Vancomycin 15.6 Microbiology Microbiology Results: Microbiology 08/17/23 23:25 Blood Culture - Preliminary Blood - Venous No growth after 48 hours. 08/17/23 23:25 Blood Culture - Preliminary Blood - Venous No growth after 48 hours. Assessment and Plan (1) Cellulitis: Status: Acute (2) Abscess of buttock: Status: Acute Plan 47-year-old male with pertinent history of JESSE on CPAP, chronic back pain on tramadol, asthma not on home oxygen who presents to the emergency department for evaluation of swelling over right buttock. Sepsis due to Right buttock abscess with purulent cellulitis: Initiated empiric IV antibiotics. Consulted General surgery, appreciate assistance. Follow cultures. Resuscitated with IV crystalloids. Lactic acid obtained surgery eval Obesity: Counseled regarding diet and weight loss Asthma(mild intermitent): No exacerbation during admission. Continue home inhalers Chronic back pain: On tramadol JESSE: Continue CPAP at bedtime. DVT prophylaxis: Mechanical. Hold Lovenox until surgical evaluation ongoing hospitalisation stay: right upper thigh abcess -need for IV antibiotics (as above)considering body habitus and slow improvement -need iv antibiotics and cellulitis/abcess are monitering which is not possible in a lesser acute setting. spring coiler consult pending Quality Stroke Does the patient have a stroke diagnosis?: No VTE Prior VTE?: No VTE Risk Level:: Medical - moderate - high VTE Device Contraindication: N/A - Device Ordered VTE Drug Contraindication: Treatment Not Indicated
[2023-08-20 15:27] VITALS: BP 133/65; PULSE 76; RESP 18; TEMP 36.3; O2SAT 95
[2023-08-20] MEDS: Enoxaparin Sodium 40 MG/0.4 ML SYRINGE 60 MG SUBCUT (16:49)
[2023-08-20 19:49] VITALS: BP 124/58; PULSE 68; RESP 17; TEMP 36.4; O2SAT 96
[2023-08-20 23:35] VITALS: PULSE 66; RESP 17; O2SAT 98
[2023-08-21 03:37] VITALS: BP 114/55; PULSE 65; RESP 17; TEMP 36.4; O2SAT 96
[2023-08-21] MEDS: Piperacillin Sodium/Tazobactam 4.5 GM in 0.9 % Sodium Chloride 100 ML IV ×4 (04:08→23:38)
[2023-08-21] MEDS: oxyCODONE HCl Immed Release 5 MG TABLET 10 MG PO ×2 (05:41→23:37)
[2023-08-21] MEDS: Enoxaparin Sodium 40 MG/0.4 ML SYRINGE 60 MG SUBCUT (05:44)
[2023-08-21 07:59] VITALS: BP 141/66; PULSE 68; RESP 18; TEMP 36.1; O2SAT 96
[2023-08-21 13:38] LABS: Creatinine Clr Calc Pharmacy 215.3; Estimated Glomerular Filt Rate > 60
[2023-08-21 13:48] LABS: Vancomycin Random 15.8 mcg/mL (15-20)
--- NOTE | 2023-08-21 14:26 | HO.WOUND ---
Wound Consult: Initial 47yr old M?[place] [facility] [place] See progress notes and H&P for detailed history.? Wound consult placed for Right Buttock wound POA. Arrival to bedside patient is agreeable to assessment and photo documentation. Per discussion with patient and direct care nurse the wound is located on the posterior right thigh. The wound was assessed and is detailed below. Right Posterior Thigh Etiology: ?Friction and Abrasion - resolving abscess per provider note Measurements: see charting for details Wound Bed: scattered areas of partial and full thickness tissue loss - no induration no fluctance . Wound bed at this time is consistent with sheering and friction - patient reports he sits in his recliner throughout the day and his right lig often sticks and does not glide across the chair surface. Drainage / Odor: Scant serosang noted at time of assessment - no dressing in place at this time Edges: ?Irregular Marika wound: Hyperpigmentation - loose crepy skin - ? No Induration, Fluctuance or Warmth noted Pain: denies Goals of Treatment: ? Moist wound healing and to protect from friction Recommendations: 1. Turn and Reposition every 2 hours and as needed for patient comfort.? Use pillows or wedges to support off loading positions. Pt uses Trapeze in bariatric bed to off load. 2. Off Load all bony prominences with use of pillows and heel boots if needed.? Apply Preventative foams where needed. ? 3. Monitor for incontinence and moisture control, use barrier creams when needed for prevention and treatment. 4. Provide adequate and supplemental nutrition. Place Nutrition consult if appropriate. 5. Maintain blood glucose levels per Providers orders if applicable. 6. Right Posterior Thigh - Cleanse with routine cleansing, cover with thin layer of Triad cover with large sacral foam dressing to protect from friction. Change Daily. Re-consult wound care Nurse for wound deterioration or wound changes.
--- NOTE | 2023-08-21 14:40 | P.PNIM_ITS ---
Subjective Subjective Date of Service: 08/21/23 Interval History: right upper thigh abcess Review of Systems seems similar (as per pic showed by patient) no fever Physical Exam 2 Vital Signs: Vital Signs: Last Vital Signs Temp 97 F 08/21/23 07:59 Pulse 68 08/21/23 07:59 Resp 18 08/21/23 07:59 BP 141/66 H 08/21/23 07:59 Pulse Ox 96 08/21/23 07:59 O2 Del Method Room Air 08/21/23 07:59 BMI result Body Mass Index 78.7 obese male lying in bed in no distress cvs:Regular rate and rhythm, S1-S2 heard chest:air entry fair , no rales or wheezing Abdomen: soft nontender, no guarding, no rigidity neuro: axo3 ,nonfocal Skin: Right gluteal fold as pictured below ; fluctuance present with serosanguineous drainage. Objective Data Active Medications Acetaminophen (Acetaminophen 325 Mg Tablet) 650 mg PO Q6H PRN PRN Reason: Pain, Mild (Pain Scale 1-3) Last Admin: 08/18/23 22:44 Dose: 650 mg Documented By: JUDIE Albuterol Sulfate (Albuterol Sulfate (0.083%) 2.5 Mg/3 Ml Vial.Neb) 2.5 mg INHALE Q4H PRN PRN Reason: Wheezing Albuterol Sulfate (Albuterol Sulfate 90 Mcg 8 Gm Inhaler) 1 puff INHALE QID PRN PRN Reason: shortness of breath or wheezing Cyclobenzaprine HCl (Cyclobenzaprine Hcl 10 Mg Tablet) 10 mg PO BEDTIME PRN PRN Reason: muscle spasm Enoxaparin Sodium (Enoxaparin Sodium 40 Mg/0.4 Ml Syringe) 60 mg SUBCUT Q12H COUNTS INCLUDE 234 BEDS AT THE [facility] Last Admin: 08/21/23 05:44 Dose: 60 mg Documented By: SCOTTIE Vancomycin HCl 1,500 mg/ (Sodium Chloride) 500 mls @ 333.333 mls/hr IV Q12H COUNTS INCLUDE 234 BEDS AT THE [facility] Last Infusion: 08/21/23 04:12 Dose: Infused Documented By: SCOTTIE Piperacillin Sod/Tazobactam (Sod 4.5 gm/ Sodium Chloride) 100 mls @ 200 mls/hr IV Q6H COUNTS INCLUDE 234 BEDS AT THE [facility] Last Infusion: 08/21/23 10:20 Dose: Infused Documented By: ALEXIA Melatonin (Melatonin 3 Mg Tablet) 6 mg PO BEDTIME PRN PRN Reason: Insomnia Last Admin: 08/18/23 22:45 Dose: 6 mg Documented By: JUDIE Ondansetron HCl (Ondansetron Hcl 4 Mg/2 Ml Vial) 4 mg IVPUSH Q8H PRN PRN Reason: Nausea and Vomiting Oxycodone HCl (Oxycodone Hcl Immed Release 5 Mg Tablet) 10 mg PO Q6H PRN PRN Reason: Pain, Severe (Pain Scale 7-10) Last Admin: 08/21/23 05:41 Dose: 10 mg Documented By: SCOTTIE Pharmacy Consult (Consult Rx Vancomycin Dosing) 1 each MISCELLANE DAILY PRN PRN Reason: Consult order Sodium Chloride (0.9 % Sodium Chloride Flush 3 Ml Syringe) 3 ml IVFLUSH QSHIFT COUNTS INCLUDE 234 BEDS AT THE [facility] Last Admin: 08/21/23 07:40 Dose: 3 ml Documented By: ALEXIA Labs 08/18/23 05:39 08/21/23 13:16 Labs: Laboratory Results - last 24 hr 08/21/23 13:16 Estim Creat Clear Calc 215.3 Estimated GFR > 60 Random Vancomycin 15.8 Assessment and Plan (1) Cellulitis: Status: Acute Plan 47-year-old male with pertinent history of JESSE on CPAP, chronic back pain on tramadol, asthma not on home oxygen who presents to the emergency department for evaluation of swelling over right buttock. Sepsis due to Right buttock abscess with purulent cellulitis: Initiated empiric IV antibiotics. blood cultures neg @48 hrs. Lactic acid normal cellulitis area seems similar surgery eval-continue iv antibiotics ,wound care eval pending Obesity: Counseled regarding diet and weight loss Asthma(mild intermitent): No exacerbation during admission. Continue home inhalers Chronic back pain: On tramadol JESSE: Continue CPAP at bedtime. DVT prophylaxis: Mechanical. Hold Lovenox until surgical evaluation ongoing hospitalisation stay: right upper thigh abcess -need for IV antibiotics (as above)considering body habitus and slow improvement -need iv antibiotics and cellulitis/abcess are monitering which is not possible in a lesser acute setting.wound care eval. Quality Stroke Does the patient have a stroke diagnosis?: No VTE Prior VTE?: No VTE Risk Level:: Medical - moderate - high VTE Device Contraindication: N/A - Device Ordered VTE Drug Contraindication: Treatment Not Indicated
[2023-08-21 15:34] VITALS: BP 159/73; PULSE 75; RESP 18; TEMP 36.1; O2SAT 96
--- NOTE | 2023-08-21 16:10 | P.CDIM_ITS ---
PROVIDER RESPONSE TEXT: To clarify, the appropriate diagnosis supported by the clinical indicators: Other QUERY TEXT: PHYSICIAN'S DOCUMENTATION REQUEST Date of Query: 08/19/2023 10:13 AM EST Patient Name: Evens Castillo Admit Date: 08/18/2023 Dear Melonie Chavez, A review of the medical record indicates additional documentation may be needed. Please review below and update the documentation accordingly. Clinical Indicators: Nursing notes for Height and Weight: BMI 78.7 248.9kg Extreme obesity class III If possible, please provide an associated diagnosis related to the abnormal BMI, such as: Severe or Morbid Obesity With alveolar hypoventilation Severe or Morbid Obesity Without alveolar hypoventilation Other Other (explain) Clinically unable to determine (explain) Thank you, Mackenzie Harrell, CCS, CDIS Use of terms such as suspected, likely, concern for, or probable (associated with a specific diagnosi s that is being evaluated, monitored, or treated as if it exists) are acceptable and can be coded in the inpatient se tting, when documented at the time of discharge. Please use your independent medical judgment in providing your response. THIS QUERY IS PART OF THE PERMANENT MEDICAL RECORD
[2023-08-21 19:47] VITALS: BP 146/67; PULSE 76; RESP 17; TEMP 36.2; O2SAT 94
[2023-08-22 03:42] VITALS: BP 143/66; PULSE 75; RESP 17; TEMP 36.3; O2SAT 95
[2023-08-22] MEDS: Piperacillin Sodium/Tazobactam 4.5 GM in 0.9 % Sodium Chloride 100 ML IV (05:50)
[2023-08-22 06:55] LABS: Creatinine Clr Calc Pharmacy 240.4; Estimated Glomerular Filt Rate > 60
[2023-08-22 07:29] VITALS: BP 143/69; PULSE 82; RESP 20; TEMP 36.1; O2SAT 97
--- NOTE | 2023-08-22 09:43 | PM.PNGS ---
Subjective Subjective Date of Service: 08/22/23 Interval history: Asked to reeval for possible abscess and I&D of right posterior thigh wounds. Patient feels improved. Physical Exam Vital Signs: Vital Signs: Last Vital Signs Temp 97.0 F 08/22/23 07:29 Pulse 82 08/22/23 07:29 Resp 20 08/22/23 07:29 BP 143/69 H 08/22/23 07:29 Pulse Ox 97 08/22/23 07:29 O2 Del Method Room Air 08/22/23 07:29 BMI result Body Mass Index 78.7 Const: General: comfortable, no acute distress and alert Nutritional Appearance: obese Orientation/consciousness: patient oriented x3 Resp: Effort & Inspection: normal respiratory effort Skin: Other: right posterior thigh with scattered areas of partial and full thickness tissue loss, open areas clean appearing and granulating, surrounding skin thickened but with no fluctance or induration and very littly erythema, no drainage noted but scant sanguineous drainage noted on sheets Neuro: General: patient oriented x3 and moves all extremities Objective Data Active Medications Acetaminophen (Acetaminophen 325 Mg Tablet) 650 mg PO Q6H PRN PRN Reason: Pain, Mild (Pain Scale 1-3) Last Admin: 08/18/23 22:44 Dose: 650 mg Documented By: JUDIE Albuterol Sulfate (Albuterol Sulfate (0.083%) 2.5 Mg/3 Ml Vial.Neb) 2.5 mg INHALE Q4H PRN PRN Reason: Wheezing Albuterol Sulfate (Albuterol Sulfate 90 Mcg 8 Gm Inhaler) 1 puff INHALE QID PRN PRN Reason: shortness of breath or wheezing Cyclobenzaprine HCl (Cyclobenzaprine Hcl 10 Mg Tablet) 10 mg PO BEDTIME PRN PRN Reason: muscle spasm Enoxaparin Sodium (Enoxaparin Sodium 80 Mg/0.8 Ml Syringe) 60 mg SUBCUT Q12H [facility] Vancomycin HCl 1,500 mg/ (Sodium Chloride) 500 mls @ 333.333 mls/hr IV Q12H [facility] Last Infusion: 08/22/23 04:27 Dose: Infused Documented By: SCOTTIE Piperacillin Sod/Tazobactam (Sod 4.5 gm/ Sodium Chloride) 100 mls @ 200 mls/hr IV Q6H [facility] Last Infusion: 08/22/23 06:21 Dose: Infused Documented By: SCOTTIE Melatonin (Melatonin 3 Mg Tablet) 6 mg PO BEDTIME PRN PRN Reason: Insomnia Last Admin: 08/18/23 22:45 Dose: 6 mg Documented By: JUDIE Ondansetron HCl (Ondansetron Hcl 4 Mg/2 Ml Vial) 4 mg IVPUSH Q8H PRN PRN Reason: Nausea and Vomiting Oxycodone HCl (Oxycodone Hcl Immed Release 5 Mg Tablet) 10 mg PO Q6H PRN PRN Reason: Pain, Severe (Pain Scale 7-10) Last Admin: 08/21/23 23:37 Dose: 10 mg Documented By: SCOTTIE Pharmacy Consult (Consult Rx Vancomycin Dosing) 1 each MISCELLANE DAILY PRN PRN Reason: Consult order Sodium Chloride (0.9 % Sodium Chloride Flush 3 Ml Syringe) 3 ml IVFLUSH QSHIFT [facility] Last Admin: 08/22/23 07:41 Dose: 3 ml Documented By: BENITOA Labs 08/18/23 05:39 08/22/23 06:22 Labs: Laboratory Results - last 24 hr 08/21/23 08/22/23 13:16 06:22 Hold Purple Top SEE NOTE Estim Creat Clear Calc 215.3 240.4 Estimated GFR > 60 > 60 Random Vancomycin 15.8 Procedures Date of Service Date of Service: 08/22/23 Progress Note: A&P Assessment and plan (1) Cellulitis: Status: Acute Plan Cellulitis of right posterior thigh appears to have significantly improved and right posterior thigh wounds are clean without any evidence of abscess. Can transition to PO abx. Continue daily wound care and agree with professor of sport management recommendations - cleanse with routine cleansing, cover with thin layer of Triad cover with large sacral foam dressing to protect from friction daily. Can have home VNA to assist with care if needed. Time Spent With Patient Time: Total time managing care of this patient today ____ minutes. Quality Stroke Does the patient have a stroke diagnosis?: No VTE Prior VTE?: No VTE Risk Level:: Medical - moderate - high VTE Device Contraindication: N/A - Device Ordered VTE Drug Contraindication: Treatment Not Indicated
[2023-08-22] MEDS: Doxycycline Monohydrate 100 MG CAPSULE PO (10:33)
[2023-08-22] MEDS: Amoxicillin/Potassium Clav 875 MG TABLET PO (10:33)
--- NOTE | 2023-08-22 11:32 | PM.DS ---
DS: Providers Provider Date of Service: 08/22/23 Date of admission: 08/18/23 01:24 Date of discharge: 08/22/23 Primary care physician: Diony Lino PA-C Consults: 08/18/23 01:26 Consult to General Surgery [place]ine [place]ing [place] [facility] [place] [facility] Reason for consultation: Right buttock abscess 08/19/23 13:49 Consult to Wound Care Routine Reason for consultation: wound to right buttock DS: Diagnosis Discharge Diagnosis (1) Cellulitis: Status: Acute DS: Summary Hospital Course Hospital Course: 47-year-old male with pertinent history of JESSE on CPAP, chronic back pain on tramadol, asthma not on home oxygen who presents to the emergency department for evaluation of swelling over right buttock. Patient states he 1st noticed it 3 days prior to presentation. He noticed a bump which has been enlarging. It is associated with purulent foul-smelling drainage. Had a left buttock abscess in January 2023 which was drained by General surgery. No fever, chills. Patient denies chest discomfort, palpitations, shortness of breath, nausea, vomiting, abdominal pain, changes in urinary or bowel habits. Hospital course: Sepsis due to Right buttock /upper thigh possible purulent cellulitis: started on vancomycin and zosyn ,lactic acid normal,blood cultures sent ,also seen by surgery: with above antibiotic therapy-patient seems to be improved,leucocytosis improving , fever subsided , blood culture negative@48hrs , sepsis improved. Seen by surgery-recommended cleanse with routine cleansing, cover with thin layer of Triad cover with large sacral foam dressing to protect from friction daily. Patient was offered VNA which is declined. plan: please complete po augmentin 875 mg po bid and doxycycline 100 mg po bid for 7 more days. follow up with pcp outpatient. Above management discussed with the patient they understand and in agreement with above plan, Assessment and plan coordination time spent 50 minute Time Attestation Discharge coordination time: Greater than 30 minutes Quality: Safe Use of Opioids Does Pt have an Active Cancer Diagnosis on the Problem List?: No Quality: Stroke Does the patient have a stroke diagnosis?: No Physical Exam Vital Signs: Vital Signs: Last Vital Signs Temp 97.0 F 08/22/23 07:29 Pulse 82 08/22/23 07:29 Resp 20 08/22/23 07:29 BP 143/69 H 08/22/23 07:29 Pulse Ox 97 08/22/23 07:29 O2 Del Method Room Air 08/22/23 07:29 BMI result Body Mass Index 78.7 obese male lying in bed in no distress cvs:Regular rate and rhythm, S1-S2 heard chest:air entry fair , no rales or wheezing Abdomen: soft nontender, no guarding, no rigidity neuro: axo3 ,nonfocal Skin: Right upper thigh-area is healing , no dicharge or fluctuance . DS: Data Data Completed and Pending Completed studies during hospitalization [Text1]: Procedures Assistance with Respiratory Ventilation, Less than 24 Consecutive Hours, Continuous Positive Airway Pressure (01/31/23) Drainage of Buttock Skin, External Approach (01/31/23) Labs on day of discharge: Laboratory Results - last 24 hr 08/21/23 08/22/23 13:16 06:22 Hold Purple Top SEE NOTE Creatinine 0.86 0.77 Estim Creat Clear Calc 215.3 240.4 Estimated GFR > 60 > 60 Random Vancomycin 15.8 Preliminary micro results at discharge 08/17/23 23:25 Blood Culture - Preliminary Blood - Venous No growth after 48 hours. 08/17/23 23:25 Blood Culture - Preliminary Blood - Venous No growth after 48 hours. Discharge Plan Discharge Anticipated Discharge Date/Time: 08/22/23 11:25 Patient Disposition: Home, Self-Care Discharge Diagnosis: upper thigh cellulitis Referrals: Diony Lino PA-C [Primary Care Provider] - 1 Week Discharge Medications: New amoxicillin-pot clavulanate 875-125 mg Tablet 1 tab PO Q12H Qty: 14 0RF doxycycline monohydrate 100 mg Capsule 100 mg PO Q12H Qty: 14 0RF Continued (DME) hospital bed Kit See Rx Instructions .Route Qty: 1 0RF Rx Instructions: As directed cyclobenzaprine 10 mg tablet 10 mg PO BEDTIME PRN (Reason: muscle spasm) tramadol 50 mg tablet 50 mg PO DAILY PRN (Reason: Pain) ibuprofen 800 mg tablet 800 mg PO Q8H PRN (Reason: Pain) albuterol sulfate 2.5 mg /3 mL (0.083 %) solution for nebulization 2.5 mg inhalation Q4H PRN (Reason: Wheezing) albuterol sulfate 90 mcg/actuation HFA aerosol inhaler 1 inh inhalation QID PRN (Reason: shortness of breath or wheezing) 30 Days Qty: 8.5 3RF Discharge Orders: Discharge Order (Routine); Ordered 08/22/23 Ordered By: Melonie Chavez Diet: Advance to usual diet Activity on Discharge: As tolerated Stand Alone Forms: Patient Portal Discharge page Care Plan Goals: Sepsis due to Right buttock /upper thigh possible purulent cellulitis: started on vancomycin and zosyn ,lactic acid normal,blood cultures sent ,also seen by surgery: with above antibiotic therapy-patient seems to be improved, blood culture negative,. Seen by surgery-recommended cleanse with routine cleansing, cover with thin layer of Triad cover with large sacral foam dressing to protect from friction daily. Patient was offered VNA which is declined. please complete po augmentin 875 mg po bid and doxycycline 100 mg po bid for 7 more days. Health Concerns: as above. Plan of Treatment: as above . Assessment: as above. Patient Instructions: Cellulitis (DC)
--- NOTE | 2023-08-22 11:48 | MHC.CM.PN ---
EMR reviewed. Per MD rounds patient is medically cleared for dc home. CM/MD recommending VNA for wound care. Patient is declining and states his ARTIST AGENT will handle dressing changes. Attempted to arrange time for RN to teach ARTIST AGENT wound care, but patient refused and states ARTIST AGENT will read the instructions on dc summary. RN aware and will send patient home with wound care supplies. S transportation booked for 2:30pm. Auth obtained from [facility] - booking ID [id number]. IMM delivered.
[2023-08-22 13:46] LABS: Vancomycin Trough 16.3 mcg/mL (10.0-20.0)
== END 2023-08-22 14:55 | disposition home or self-care (01) | DRG 872 ==
LOC: HO.ED 08-18 01:21 → HO.EDOVER 08-18 01:37 → HO.S3 08-18 15:19
PROVIDERS: Admitting Provider Student in an Organized Health Care Education/Training Program; Emergency Provider Emergency Medicine Emergency Medical Services; PCP Physician Assistant; Visit Provider Internal Medicine
DX: A41.9 Sepsis, unspecified organism (principal); L02.31 Cutaneous abscess of buttock; Z68.45 Body mass index [BMI] 70 or greater, adult; L03.317 Cellulitis of buttock; M54.9 Dorsalgia, unspecified; G89.29 Other chronic pain; J45.20 Mild intermittent asthma, uncomplicated; E66.01 Morbid (severe) obesity due to excess calories; Z71.3 Dietary counseling and surveillance; G47.33 Obstructive sleep apnea (adult) (pediatric); Z23 Encounter for immunization; Z79.899 Other long term (current) drug therapy
CPT/HCPCS: 36415; 80048; 80076; 80202; 82565; 83605; 85025; 85652; 86140; 87040; 90686; 94660; 99024; 99285; J0295; J1650; J1885; J2543; J3370; J3371

== ENCOUNTER → 2023-08-17 23:11 | Outpatient (BNV) | payer OTHER, SELFPAY | PROVIDERS: Emergency Provider Emergency Medicine Emergency Medical Services; PCP Physician Assistant; Visit Provider Student in an Organized Health Care Education/Training Program | DX: L03.317 Cellulitis of buttock (principal) | CPT/HCPCS: 99222; 99232; 99239; 99499 ==

== ENCOUNTER → 2023-08-18 01:24 | Outpatient (BNV) | payer OTHER, SELFPAY | PROVIDERS: Admitting Provider Student in an Organized Health Care Education/Training Program; Emergency Provider Emergency Medicine Emergency Medical Services; PCP Physician Assistant; Visit Provider Surgery | DX: L03.317 Cellulitis of buttock (principal); L02.31 Cutaneous abscess of buttock | CPT/HCPCS: 99222 ==

== ENCOUNTER 2023-09-01 13:34 | Outpatient (AMB) | payer OTHER, SELFPAY ==
--- NOTE | 2023-09-01 13:27 | A.OFFPC_ITS ---
Intake Visit Reasons: [facility] 08/18/2023-08/22/2023 abscess on buttocks,sepsis Compounding And Finishing Supervisor Required: Yes Compounding And Finishing Supervisor Language: Rw[place] Accompanied by: Self / Same As Patient Allergies prednisolone Adverse Reaction (Mild, Verified 09/01/23 13:45) decrease blood pressure. Medication List - Last Reconciled 09/01/23 by Diony Lino PA-C albuterol sulfate 2.5 mg inhalation Q4H PRN albuterol sulfate 90 mcg/actuation 1 inh inhalation QID PRN 30 days amoxicillin-pot clavulanate 875-125 mg 1 tab PO Q12H cyclobenzaprine 10 mg PO BEDTIME PRN hospital bed As directed ibuprofen 800 mg PO Q8H PRN oxycodone 5 mg (1/2 x 10 mg) PO BID PRN tramadol 50 mg PO DAILY PRN Tobacco use date assessed: 09/01/23 HPI [facility] 08/18/2023-08/22/2023 abscess on buttocks,sepsis HPI Details Patient is a 48-year-old male being evaluated today via video teleconference . Was admitted to [facility] in early August 2023 due to a recurrent abscess on his buttocks. Did not need surgical I and D as bone was already open and draining. Patient was treated with antibiotics. Now has nurses coming to the home to do wound management. Unfortunately continues to spend most of his days in a recliner and sleeps in the recliner. He does try to get up often. He denies a pain to the area though does have itchiness due to which he attributes to dry skin He continues to ask for a electric hospital bed though has been difficult to obtain through insurance [facility] Medical History Respiratory failure Asthma Pericardial effusion Obesity Chronic back pain Obstructive sleep apnea Surgical History History of tonsillectomy Family History Father Medical history unknown Mother Medical history unknown Family/Other Asthma Brother No problems noted. Brother No problems noted. Sister No problems noted. 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 1. Little interest or pleasure in doing things: not at all 2. Feeling down, depressed, or hopeless: not at all 3. Trouble falling or staying asleep, or sleeping too much: not at all 4. Feeling tired or having little energy: not at all 5. Poor appetite or overeating: not at all 6. Feeling bad about yourself - or that you are a failure or have let yourself or your family down: not at all 7. Trouble concentrating on things, such as reading the newspaper or watching television: not at all 8. Moving or speaking so slowly that other people could have noticed. Or the opposite - being so fidgety or restless that you have been moving around a lot more than usual: not at all 9. Thoughts that you would be better off or of hurting yourself in some way: not at all Total score: 0 Depression Screening Interpretation: Negative Depression Screening Done: Yes 36148 - PHQ-9 Billing: Yes Source: Developed by Drs. Caden Gillespie, Danielle Wadsworth, Saqib Ching and colleagues, with an educational amol from [employer]. Thrive Questionnaire Date Thrive assessed: 09/01/23 I am a: Patient What is your living situation today?: I have a steady place to live Within the past 12 months, did the food you bought not last and you didn't have the money to get more?: Never true Within the past 12 months, did you worry whether your food would run out before you got money to buy more?: Never true Do you have trouble paying for medicines?: No Do you have trouble getting transportation to medical appointments?: No Do you have trouble paying your heating and electricity bill?: No Do you have trouble taking care of your child, family member or friend?: No Do you have trouble with day-to-day activities such as bathing, preparing meals, shopping, managing finances, etc.?: No Are you currently unemployed and looking for a job?: No Are you interested in more education?: No Please select the resources that you would like help with: Education Currently or been in a relationship where the following occur: no concerns reported THRIVE Score: 0 AUDIT C Alcohol Use Questionnaire (AUDIT-C) 1. How often do you have a drink containing alcohol?: Never 3. How often do you have six or more drinks on one occasion?: Never Total Score: 0 REAL-7 AMB Questionnaire REAL-7 Date REAL - 7 assessed: 09/01/23 Feeling nervous, anxious, or on edge: 0 = Not at all Not being able to stop or control worryin = Not at all Worrying too much about different things: 0 = Not at all Trouble relaxin = Not at all Being so restless that it is hard to sit still: 0 = Not at all Becoming easily annoyed or irritable: 0 = Not at all Feeling afraid as if something awful might happen: 0 = Not at all Total REAL-7 score (0-4 normal; 5-9 mild; 10-14 moderate; 15-21 severe): 0 Source: Developed by Drs. Caden Gillespie, Danielle Wadsworth, Saqib Ching and colleagues, with an educational amol from [employer]. REAL-7 Assessment Billing REAL-7 Assessment Tool: REAL-7 Assessment 42389 Review of Systems Const Denies headache(s) Eyes Denies loss of vision ENT Denies vertigo, Denies dizziness, Denies headache(s) and Denies sore throat Card Denies chest pain, Denies leg edema and Denies lightheadedness Resp Denies cough, Denies hemoptysis and Denies wheezing GI Denies abdominal pain, Denies melena, Denies constipation, Denies diarrhea and Denies vomiting Denies dysuria, Denies urinary frequency and Denies urinary urgency Musc Denies arthralgias, Denies joint swelling, Denies numbness and Denies tingling Neuro Denies behavioral changes, Denies vertigo, Denies dizziness, Denies headache(s), Denies loss of vision, Denies memory loss, Denies numbness and Denies tingling Psych Denies anxiety, Denies behavioral changes, Denies depression, Denies memory loss and Denies panic attacks Jason/Lymph Denies easy bleeding and Denies easy bruising Aller/Immun Denies wheezing Physical exam (Primary Care) Tobacco/Smoking Status: Tobacco use Status Tobacco use date assessed 09/01/23 09/01/23 13:33 Patient Tobacco Use Status Never used Tobacco 09/01/23 13:33 e-Cigarette/Vaping Use Never Used 09/01/23 13:33 PHQ-9: PHQ-9 Score PHQ-9: Total score 0 09/01/23 13:48 Depression Screening Interpretation: Negative Thrive Assessment: Date of Thrive Assessment Date Thrive assessed 09/01/23 09/01/23 13:33 Currently or been in a relationship where the following occur: no concerns reported Telehealth Telehealth Location of provider rendering services: practice address Location of patient: address on file Patient Identification confirmed using: Name, : Yes Telehealth method: video Patient verbally consented to treatment: Yes Patient verbally consented to billing insurance company: Yes Patient informed of any privacy concerns related to visit: Yes Minutes spent on Phone/Video with Pt.: 11 Assessment and Plan Assessment & Plan (1) Sacral decubitus ulcer, stage III: Code(s): L89.153 - Pressure ulcer of sacral region, stage 3 Plan: As per HPI patient admitted to [facility] for decubitus stage III ulcer. Did have similar presentation in January of 2023 which incision and drainage was performed. August of 2023 persistent bleeding from the site noted though no abscess formation. Patient was treated with p.o. antibiotics. Will be having home nurses come do wound management with patient this week. Patient continues to sleep in recliner as this is the only piece of furniture in his home that fits him. He does try to get up from time to time to walk. He is in desperate need electric hospital bed to help reduce pressure and has coccyx region to help reduce recurrent ulcer. Again strongly advised him to get up often or shift his weight in the recliner to help offload pressure on his ulcer. Again has been hospitalized twice for the same. (2) Morbid obesity: Code(s): E66.01 - Morbid (severe) obesity due to excess calories Plan: Patient does report being over 400 lb which has caused a decrease in his quality of life, has difficulties with his activities of daily living. He is limited to no mobility at home and spends most of his time in his recliner. (3) CHF (congestive heart failure): Code(s): I50.9 - Heart failure, unspecified Qualifiers: Heart failure chronicity: unspecified Heart failure type: diastolic Qualified Code(s): I50.30 - Unspecified diastolic (congestive) heart failure Plan: Seems to be well compensated without medication. (4) Osteoarthritis of knees, bilateral: Code(s): M17.0 - Bilateral primary osteoarthritis of knee Qualifiers: Osteoarthritis type: primary Qualified Code(s): M17.0 - Bilateral primary osteoarthritis of knee Plan: Needs walker for ambulation assistance and reduce falls. Medications: New walker As directed 1 ea 0RF E66.01 - Morbid (severe) obesity due to excess calories, M17.0 - Bilateral primary osteoarthritis of knee Shower Chair As directed 1 ea 0RF E66.01 - Morbid (severe) obesity due to excess calories, I50.9 - Heart failure, unspecified, M17.0 - Bilateral primary osteoarthritis of knee Refilled hospital bed As directed 1 ea 0RF E66.01 - Morbid (severe) obesity due to excess calories, I50.9 - Heart failure, unspecified, L89.153 - Pressure ulcer of sacral region, stage 3 hospital bed As directed 1 ea 0RF E66.01 - Morbid (severe) obesity due to excess calories, I50.9 - Heart failure, unspecified, L89.153 - Pressure ulcer of sacral region, stage 3 Coding Level of Care Code Tele Est Pt Level 4 (07653) Diagnoses Sacral decubitus ulcer, stage III L89.153 Morbid obesity E66.01 Diastolic congestive heart failure, unspecified HF chronicity I50.30 Heart failure chronicity: unspecified Heart failure type: diastolic Primary osteoarthritis of both knees M17.0 Osteoarthritis type: primary Additional Codes REAL-7 Assessment Billing - REAL-7 Assessment Tool: REAL-7 Assessment [id number] ([id number])
== END 2023-09-01 14:58 | disposition home or self-care (01) ==
LOC: HO.HMGH 13:34
PROVIDERS: PCP Physician Assistant; Visit Provider Physician Assistant
DX: L89.153 Pressure ulcer of sacral region, stage 3 (principal); I50.30 Unspecified diastolic (congestive) heart failure; M17.0 Bilateral primary osteoarthritis of knee
CPT/HCPCS: 99214

== ENCOUNTER 2023-12-31 04:41 | Emergency (ER) | payer OTHER, SELFPAY ==
[2023-12-31] VITALS (8 sets, daily range): BP systolic 138–162; BP diastolic 68–84; PULSE 74–90; RESP 19–24; TEMP 36.9–37.1; O2SAT 94–98; BMI 83.4
--- NOTE | 2023-12-31 | ECG_ITS ---
Test Reason : CHEST PAIN Blood Pressure : / mmHG Vent. Rate : 092 BPM Atrial Rate : 092 BPM P-R Int : 130 ms QRS Dur : 088 ms QT Int : 392 ms P-R-T Axes : 033 -06 075 degrees QTc Int : 484 ms Normal sinus rhythm Low voltage QRS Prolonged QT Abnormal ECG When compared with ECG of 17-JAN-2023 01:24, QRS axis Shifted right Nonspecific T wave abnormality, improved in Lateral leads Referred By: Generic ED Physician Electronically Signed By:JASMYN POND MD
--- NOTE | ~2023-12-31 | XR_ITS ---
EXAMINATION: XR CHEST CLINICAL INFORMATION: Shortness of breath. COMPARISON: 01/17/2023 TECHNIQUE: Frontal view of the chest was obtained. FINDINGS: The cardiomediastinal silhouette is normal limits and stable. There is no focal lung consolidation or pleural effusion. The bony structures and soft tissues are unremarkable. XR/XR chest 1V IMPRESSION: No acute cardiopulmonary process.
[2023-12-31 05:18] LABS: MANUAL DIFF FLAG NO
[2023-12-31 05:20] LABS: Basophils Percent Auto 0.1 % (0-2); Eosinophils Absolute Auto 0.3 X10*3/uL (0.0-0.4); Eosinophils Percent Auto 2.4 % (0-4); Hematocrit 36.9 % (42.0-52.0); Hemoglobin 11.4 g/dl (14.0-18.0); Imm Gran Abs Auto 0.06 X10*3/uL (0.00-0.03); Imm Gran Pct Auto 0.4 % (0.0-0.4); Lymphocytes Absolute Auto 1.3 X10*3/uL (1.2-4.9); Lymphocytes Percent Auto 9.3 % (20-40); Mean Corpuscular HGB Conc 30.9 g/dl (31.0-36.0); Mean Corpuscular Hemoglobin 25.1 pg (27.0-33.0); Mean Corpuscular Volume 81.1 fL (80.0-98.0); Mean Platelet Volume 11.2 fL (9.4-12.4); Monocytes Absolute Auto 0.7 X10*3/uL (0.1-1.2); Monocytes Percent Auto 4.8 % (2-11); Neutrophils Absolute Auto 11.4 x10*3/uL (2.0-8.3); Platelet Count 217 X10*3/uL (160-400); Red Blood Count 4.55 X10*6/uL (4.60-5.80); Red Cell Distribution Width 14.8 % (11.0-16.0); White Blood Count 13.8 X10*3/uL (4.8-10.8)
[2023-12-31 05:21] LABS: Venous Blood Gas Refer to POC result
[2023-12-31 05:22] LABS: VBG Base Excess 4.8 mmol/L; VBG HCO3 28 mmol/L (22-26); VBG pCO2 39 mmHg; VBG pH 7.47 (7.32-7.43); VBG pO2 80 mmHg
--- NOTE | 2023-12-31 05:26 | MHC.EDTECH ---
PATIENT BIBA ,EKG TAKEN ,AND WAS READ BY PROVIDER ,VITALS DONE ,PATIENT WAS HOOKED UP TO DATA OPERATIONS DIRECTOR ,BLOOD DRAWN AND SENT TO LAB ,PATIENT WAS CHANGE INTO HOSPITAL ATTIRE ,CALL [facility] WITHIN PATIENT REACH .
[2023-12-31 05:37] LABS: INTERNATIONAL NORM RATIO 1.1 (0.9-1.1); Prothrombin Time 13.7 SEC (11.1-13.3)
[2023-12-31 05:42] LABS: Alanine Aminotransferase 5 U/L (0-40); Albumin Level 3.6 g/dL (3.5-5.0); Alkaline Phosphatase 75 U/L (39-117); Anion Gap 14 (12-20); Aspartate Amino Transferase 6 U/L (5-37); Bilirubin Total 0.3 mg/dL (0.0-1.0); Blood Urea Nitrogen 9 mg/dL (9-16); Calcium 8.8 mg/dL (8.4-10.2); Carbon Dioxide 25 mmol/L (22-29); Chloride 104 mmol/L (96-108); Creatinine Clr Calc Pharmacy 250.2; Estimated Glomerular Filt Rate > 60; Glucose Random 127 mg/dL (60-115); Potassium 3.4 mmol/L (3.3-5.1); Sodium 140 mmol/L (135-145); Total Protein 7.3 g/dL (6.5-8.0)
[2023-12-31 05:43] LABS: Troponin-I High Sensitivity < 2.7 ng/L (<3.5-35.0)
[2023-12-31 05:59] LABS: Influenza A PCR NEGATIVE (Negative); Influenza B PCR NEGATIVE (Negative); Resp Syncy Virus RNA Qual PCR NEGATIVE (Negative); SARS COV2 PCR INHOUSE NEGATIVE (Negative)
--- NOTE | 2023-12-31 07:14 | ED_ITS ---
HPI - SOB/Dyspnea General Chief Complaint: Dyspnea Stated Complaint: SOB N/D Time Seen by Provider: 12/31/23 07:04 Source: patient and EMS Mode of arrival: EMS Limitations: no limitations History of Present Illness ED Provider: Dr. Stephens HPI Narrative: Patient's brother who cares for him has a cold. Now over the past 2 days the patient has had increased nasal congestion, cough and difficulty breathing. Last night he had chest pain with cough. MD elicited complaint: shortness of breath, cough and chest pain Onset (ago): day(s) Context: recent illness Timing: constant Severity: mild Related Data Home Medications ?Medication ?Instructions ?Recorded ?Confirmed ibuprofen 800 mg tablet 800 mg PO Q8H PRN Pain 01/17/23 12/24/23 albuterol sulfate 2.5 mg/3 mL 2.5 mg inhalation Q4H PRN Wheezing 01/31/23 12/24/23 (0.083 %) solution for nebulization cyclobenzaprine 10 mg tablet 10 mg PO BEDTIME PRN muscle spasm 08/18/23 12/24/23 tramadol 50 mg tablet 50 mg PO DAILY PRN Pain 08/18/23 12/24/23 Previous Rx's ?Medication ?Instructions ?Recorded albuterol sulfate 90 mcg/actuation 1 inh inhalation QID PRN shortness 05/20/23 aerosol inhaler of breath or wheezing 30 days #8.5 grams Shower Chair #1 ea 09/01/23 walker #1 ea 09/01/23 benzonatate 200 mg capsule 200 mg PO ONCE 30 days #30 caps 12/24/23 hospital bed #1 ea 12/24/23 non-adherent bandage 8 X 10 #216 ea 12/24/23 (Curity Abdominal Pad) silver sulfadiazine 1 % topical 1 appl topical DAILY 30 days #400 12/24/23 cream (Silvadene) grams albuterol sulfate 90 mcg/actuation 2 puff inhalation Q4-6H PRN 12/31/23 aerosol inhaler shortness of breath or wheezing #8.5 grams mometasone 50 mcg/actuation nasal 2 spray intranasal DAILY #17 grams 12/31/23 spray (Nasonex 24hr Allergy) prednisone 20 mg tablet 60 mg (3 x 20 mg) PO DAILY #12 tabs 12/31/23 Allergies Allergy/AdvReac Type Severity Reaction Status Date / Time prednisolone AdvReac Mild decrease Verified 12/31/23 05:13 blood pressure. Review of Systems 2 Review of Systems: Yes all other systems are reviewed and are negative Neurologic: Denies Sensory deficit (Neuro) [facility] Past Medical History Medical History Respiratory failure Asthma Pericardial effusion Obesity Chronic back pain Obstructive sleep apnea Surgical History History of tonsillectomy Family History Family History Father Medical history unknown Mother Medical history unknown Family/Other Asthma Brother No problems noted. Brother No problems noted. Sister No problems noted. 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) Alcohol intake: never Comment: pt refuses alarms Patient Tobacco Use Status: Never used Tobacco Smoked in Last 30 Days: No e-Cigarette/Vaping Use: Never Used Second Hand Smoke Exposure: No Use of substances other than those prescribed or required for medical reasons: No Advance Directives: Yes Advance Directives on File: Yes Advance Directives Date on File: 09/16/21 Do you have a plan to hurt others: No Plan service: No Current occupational status: disabled Cognitive needs: No Hearing needs: No Vision needs: No Physical Exam 2 Vital Signs: Vital Signs: Last Vital Signs Temp 98.5 F 12/31/23 06:08 Pulse 81 12/31/23 08:01 Resp 22 H 12/31/23 08:01 BP 155/73 H 12/31/23 06:08 Pulse Ox 95 12/31/23 06:08 O2 Del Method Room Air 12/31/23 06:08 BMI result Body Mass Index 83.4 Const: Other: Morbidly obese with cough and nasal congestion Orientation/consciousness: oriented to person and patient oriented x3 L imitations: no limitations HEENT: Other: rhinorrhea, nasal congestion Head: Yes normal to inspection Ears: external ears normal General nose exam: Normal external nose present Mouth: Normal oral and palatal mucosa present and oropharynx normal Throat: Yes posterior oropharynx normal Eyes: General: appearance normal, both eyes and all related structures Neck: Other: supple Neck: Yes normal visual inspection Chest: Chest palpation & inspection: normal inspection of the chest Resp: Other: diffuse wheezing, mild Cardio: Jugular venous distension: no JVD Rate: regular rate Rhythm: r egular rhythm Heart sounds: S1 normal heart sound present and S2 normal heart sound present GI: Inspection: Yes normal to inspection Palpation (GI): Soft to palpation, nontender and No hepatosplenomegaly present Auscultation: normal bowel sounds : General: Yes no CVA tenderness Back/Spine/Pelvis: Back: no CVA tenderness Skin: General skin exam: no rashes or lesions noted Neuro: General: oriented to person and patient oriented x3 Cranial nerves: Yes CN's II-XII intact bilaterally Motor exam (neuro): 5/5 motor strength present throughout Sensory Exam: No Sensory deficit (Neuro) Extrem: Other: 3+ edema with chronic changes Psych: Appearance: grossly normal Course Reevaluation(s) Reevaluation #1: patient with viral bronchitis with wheezing will dc home on nasonex, prednisone and albuterol Time: 08:34 Medications Administered Discontinued Medications Generic Name Dose Route Start Last Admin Trade Name Freq PRN Reason Stop Dose Admin Albuterol/Ipratropium 3 ml 12/31/23 07:39 12/31/23 07:56 Albuterol/Iprat 2.5/0.5mg 3 Ml Ampul.Neb INHALE 12/31/23 07:40 3 ml ONCE ONE Administration Methylprednisolone Sodium Succinate 125 mg 12/31/23 08:21 12/31/23 08:52 Methylprednisolone Sod Succ 125 Mg/2 Ml Vial IVPUSH 12/31/23 08:22 125 mg ONCE ONE Administration Prednisone 60 mg 12/31/23 07:39 12/31/23 08:14 Prednisone 20 Mg Tablet PO 12/31/23 07:40 Not Given ONCE ONE Medical Decision Making Differential Diagnosis Differential Diagnoses: The differential diagnosis associated with the presentation includes (pneumonia, covid, flu, influenza, copd, cardiac ischemia were all considered) Admission/Observation Consideration of admission/observation: Escalation of care including admission/observation considered (upon arrival patient was considered for admission) Lab Data 12/31/23 05:13 12/31/23 05:13 Labs: Lab Results 12/31/23 12/31/23 12/31/23 Range/Units 05:13 05:14 05:23 WBC 13.8 H (4.8-10.8) X10*3/uL RBC 4.55 L (4.60-5.80) X10*6/uL Hgb 11.4 L (14.0-18.0) g/dl Hct 36.9 L (42.0-52.0) % MCV 81.1 (80.0-98.0) fL MCH 25.1 L (27.0-33.0) pg MCHC 30.9 L (31.0-36.0) g/dl RDW 14.8 (11.0-16.0) % Plt Count 217 (160-400) X10*3/uL MPV 11.2 (9.4-12.4) fL Immature Gran % (Auto) 0.4 (0.0-0.4) % Neut % (Auto) 83.0 H (45-73) % Lymph % (Auto) 9.3 L (20-40) % [place] % (Auto) 4.8 (2-11) % Eos % (Auto) 2.4 (0-4) % Baso % (Auto) 0.1 (0-2) % Lymph # (Auto) 1.3 (1.2-4.9) X10*3/uL [place] # (Auto) 0.7 (0.1-1.2) X10*3/uL Eos # (Auto) 0.3 (0.0-0.4) X10*3/uL Baso # (Auto) 0.0 (0.0-0.2) X10*3/uL Abs Immat Gran (auto) 0.06 H (0.00-0.03) X10*3/uL Absolute Neuts (auto) 11.4 H (2.0-8.3) x10*3/uL Absolute Nucleated RBC 0.000 (0.0-0.012) X10*3/uL Nucleated RBC % (auto) 0.0 (0.0-0.2) /100WBC PT 13.7 H (11.1-13.3) SEC INR 1.1 (0.9-1.1) VBG pH 7.47 H (7.32-7.43) VBG pCO2 39 mmHg VBG pO2 80 mmHg VBG HCO3 28 H (22-26) mmol/L VBG O2 Saturation 98.0 % VBG Base Excess 4.8 mmol/L Sodium 140 (135-145) mmol/L Potassium 3.4 (3.3-5.1) mmol/L Chloride 104 (96-108) mmol/L Carbon Dioxide 25 (22-29) mmol/L Anion Gap 14 (12-20) BUN 9 (9-16) mg/dL Creatinine 0.74 (0.5-1.4) mg/dL Estim Creat Clear Calc 250.2 Estimated GFR > 60 Random Glucose 127 H (60-115) mg/dL Calcium 8.8 D (8.4-10.2) mg/dL Magnesium 2.0 (1.6-2.6) mg/dL Total Bilirubin 0.3 (0.0-1.0) mg/dL AST 6 (5-37) U/L ALT 5 (0-40) U/L Alkaline Phosphatase 75 (39-117) U/L Troponin I High Sens < 2.7 (<3.5-35.0) ng/L Total Protein 7.3 (6.5-8.0) g/dL Albumin 3.6 (3.5-5.0) g/dL Influenza Type A (PCR) NEGATIVE (Negative) Influenza Type B (PCR) NEGATIVE (Negative) RSV RNA Qual (PCR) NEGATIVE (Negative) SARS-CoV-2 RNA (RT-PCR) NEGATIVE (Negative) 12/31/23 Range/Units 08:34 WBC (4.8-10.8) X10*3/uL RBC (4.60-5.80) X10*6/uL Hgb (14.0-18.0) g/dl Hct (42.0-52.0) % MCV (80.0-98.0) fL MCH (27.0-33.0) pg MCHC (31.0-36.0) g/dl RDW (11.0-16.0) % Plt Count (160-400) X10*3/uL MPV (9.4-12.4) fL Immature Gran % (Auto) (0.0-0.4) % Neut % (Auto) (45-73) % Lymph % (Auto) (20-40) % [place] % (Auto) (2-11) % Eos % (Auto) (0-4) % Baso % (Auto) (0-2) % Lymph # (Auto) (1.2-4.9) X10*3/uL [place] # (Auto) (0.1-1.2) X10*3/uL Eos # (Auto) (0.0-0.4) X10*3/uL Baso # (Auto) (0.0-0.2) X10*3/uL Abs Immat Gran (auto) (0.00-0.03) X10*3/uL Absolute Neuts (auto) (2.0-8.3) x10*3/uL Absolute Nucleated RBC (0.0-0.012) X10*3/uL Nucleated RBC % (auto) (0.0-0.2) /100WBC PT (11.1-13.3) SEC INR (0.9-1.1) VBG pH (7.32-7.43) VBG pCO2 mmHg VBG pO2 mmHg VBG HCO3 (22-26) mmol/L VBG O2 Saturation % VBG Base Excess mmol/L Sodium (135-145) mmol/L Potassium (3.3-5.1) mmol/L Chloride (96-108) mmol/L Carbon Dioxide (22-29) mmol/L Anion Gap (12-20) BUN (9-16) mg/dL Creatinine (0.5-1.4) mg/dL Estim Creat Clear Calc Estimated GFR Random Glucose (60-115) mg/dL Calcium (8.4-10.2) mg/dL Magnesium (1.6-2.6) mg/dL Total Bilirubin (0.0-1.0) mg/dL AST (5-37) U/L ALT (0-40) U/L Alkaline Phosphatase (39-117) U/L Troponin I High Sens < 2.7 (<3.5-35.0) ng/L Total Protein (6.5-8.0) g/dL Albumin (3.5-5.0) g/dL Influenza Type A (PCR) (Negative) Influenza Type B (PCR) (Negative) RSV RNA Qual (PCR) (Negative) SARS-CoV-2 RNA (RT-PCR) (Negative) Independent Interpretation I performed an independent interpretation of an: EKG (sinus 90, no st or twave changes) and Plain X-Ray (no infiltrate) Independent Historian Clinical information obtained from an independent historian. History obtained from or confirmed by: EMS Prescription Management I considered prescription management with: Antibiotic (no pneumonia so no abx given) Social Determinants Patient?s care significantly limited by Social Determinants of Health including: Low income Discharge Plan Discharge Clinical Impression: Acute viral bronchitis Patient Disposition: Home, Self-Care Instructions: Acute Bronchitis (ED), Wheezing (ED) Prescriptions: New albuterol sulfate 90 mcg/actuation HFA aerosol inhaler 2 puff inhalation Q4-6H PRN (Reason: shortness of breath or wheezing) Qty: 8.5 0RF prednisone 20 mg tablet 60 mg PO DAILY Qty: 12 0RF mometasone [Nasonex 24hr Allergy] 50 mcg/actuation spray,non-aerosol 2 spray intranasal DAILY Qty: 17 0RF Rx Instructions: administer into each nostril No Action cyclobenzaprine 10 mg tablet 10 mg PO BEDTIME PRN (Reason: muscle spasm) tramadol 50 mg tablet 50 mg PO DAILY PRN (Reason: Pain) ibuprofen 800 mg tablet 800 mg PO Q8H PRN (Reason: Pain) albuterol sulfate 2.5 mg /3 mL (0.083 %) solution for nebulization 2.5 mg inhalation Q4H PRN (Reason: Wheezing) albuterol sulfate 90 mcg/actuation HFA aerosol inhaler 1 inh inhalation QID PRN (Reason: shortness of breath or wheezing) 30 Days Qty: 8.5 3RF (DME) walker Misc See Rx Instructions .Route Qty: 1 0RF Rx Instructions: As directed (DME) Shower Chair Misc See Rx Instructions .Route Qty: 1 0RF Rx Instructions: As directed (DME) hospital bed Kit See Rx Instructions .Route Qty: 1 0RF Rx Instructions: As directed benzonatate 200 mg capsule 200 mg PO ONCE 30 Days Qty: 30 3RF (DME) Curity Abdominal Pad 8 X 10 bandage See Rx Instructions .Route Qty: 216 0RF Rx Instructions: As directed silver sulfadiazine [Silvadene] 1 % cream 1 appl topical DAILY 30 Days Qty: 400 1RF Rx Instructions: apply a 1.5 mm thickness Referrals: Diony Lino PA-C [Primary Care Provider] - 5 days Print Language: Wolof
[2023-12-31] MEDS: Albuterol/Iprat 2.5/0.5MG 3 ML AMPUL.NEB INHALE (07:56)
[2023-12-31] MEDS: methylPREDNISolone Sod Succ 125 MG/2 ML VIAL IVPUSH (08:52)
--- NOTE | 2023-12-31 08:57 | PC.NURSE ---
Pt reports cough, CP and increased WOB since yesterday. Reports pain is substernal with coughing, sharp and squeezing, 02/17. Alert and oriented, breathing even and unlabored, skin warm and dry. Pt on bedside ekg monitor tech, NSR.
[2023-12-31 09:08] LABS: Troponin-I High Sensitivity < 2.7 ng/L (<3.5-35.0)
--- NOTE | 2023-12-31 10:26 | PC.NURSE ---
Pt reports he still doesn't feel well with CP and SOB, does not feel well enough for d/c. Provider notified and new orders placed.
[2023-12-31] MEDS: Albuterol Sulfate 2.5 MG, Albuterol Sulfate (0.083%) 2.5 MG 5 MG INHALE (10:33)
[2023-12-31] MEDS: Oxymetazoline HCl 0.05 % Nasal 15 ML SPRAY 2 SPRAY NOSTRIL-B (10:57)
[2023-12-31] MEDS: dexAMETHasone sod phosphate 10 MG/ML VIAL IM (11:50)
== END 2023-12-31 13:25 | disposition home or self-care (01) ==
PROVIDERS: Emergency Provider Emergency Medicine; PCP Physician Assistant
DX: J20.8 Acute bronchitis due to other specified organisms (principal); R07.9 Chest pain, unspecified; R09.81 Nasal congestion; R05.9 Cough, unspecified; R06.02 Shortness of breath
CPT/HCPCS: 0241U; 36415; 71045; 80053; 82803; 83735; 84484; 85025; 85610; 93005; 94640; 96372; 96374; 99284; 99285; J1100; J2919

== ENCOUNTER → 2023-12-31 04:50 | Outpatient (BNV) | payer OTHER, SELFPAY | PROVIDERS: Emergency Provider Emergency Medicine; PCP Physician Assistant; Visit Provider Internal Medicine Cardiovascular Disease | DX: R94.31 Abnormal electrocardiogram [ECG] [EKG] (principal) | CPT/HCPCS: 93010 ==

== ENCOUNTER 2024-01-01 09:17 | Outpatient (AMB) | payer OTHER, SELFPAY ==
--- NOTE | 2024-01-01 09:18 | A.OFFPC_ITS ---
Intake Visit Reasons: C F/U Intake Note: Telehealth visit with pt for [facility] ED F/U bronchitis. Shipping And Receiving Coordinator Required: Yes Shipping And Receiving Coordinator Language: [place] Accompanied by: Self / Same As Patient Allergies prednisolone Adverse Reaction (Mild, Verified 01/01/24 09:24) decrease blood pressure. Medication List - Last Reconciled 01/01/24 by Diony Lino PA-C albuterol sulfate 2.5 mg inhalation Q4H PRN albuterol sulfate 90 mcg/actuation 2 puffs inhalation Q4-6H PRN albuterol sulfate 90 mcg/actuation 1 inh inhalation QID PRN 30 days benzonatate 200 mg PO ONCE 30 days cyclobenzaprine 10 mg PO BEDTIME PRN hospital bed As directed ibuprofen 800 mg PO Q8H PRN mometasone 50 mcg/actuation (Nasonex 24hr Allergy) 2 sprays intranasal DAILY non-adherent bandage (Curity Abdominal Pad) As directed Shower Chair As directed silver sulfadiazine 1% (Silvadene) 1 appl topical DAILY 30 days tramadol 50 mg PO DAILY PRN walker As directed Tobacco use date assessed: 09/01/23 Dental Screening Dental Screen Date: 12/24/[address] [facility] F/U HPI Details Patient is a 48-year-old male being evaluated today via VIDEO teleconference. Patient has a past medical history significant for morbid obesity, Congestive heart failure, obstructive sleep apnea and history of decubitus ulcers. Recently seen at the ER for acute cough, chest pain and respiratory distress. Was given updraft treatments. X-ray was negative for any pulmonary infiltrates, blood work normal, viral testing negative. Patient was discharged with albuterol and prednisone. He is concerned about using prednisone as he feels he has a sensitivity. He does have a nebulizer with albuterol solution. He has interested in a stronger medication for his nebulizer Concerns--> Also reports his lower extremities have continue to be swollen and often bleed due to open sores. Did have [facility] come to his house last year though only had a few visits. Will try to get [facility] to go to home to do home wound care as patient is homebound due to his severe morbid obesity. . As gotten a hospital bed from a family member though is much too small for him and reports it is broken.. WILL TRY AGAIN TO SENT A SCRIPT TO PATIENT'S INSURANCE TO HELP HIM WITH A HOSPITAL BED WITH THE ABILITY TO ELEVATE THE HEAD OF THE BED TO ASSIST HIM WITH BREATHING AND POSITIONING IN BED DUE TO HIS OBSTRUCTIVE SLEEP APNEA AND HISTORY OF CONGESTIVE HEART FAILURE. ALSO ASKING FOR A ELECTRIC RECLINER TO THAT HE CAN BE UP DURING THE DAYTIME TO REDUCE LOT OF HIS PULMONARY SYMPTOMS. Unfortunately now continues to spend most of his days in a recliner and sleeps in the recliner. He does try to get up often. He denies a pain to the area though does have itchiness due to which he attributes to dry skin [facility] Medical History Asthma Respiratory failure Pericardial effusion Obesity Chronic back pain Obstructive sleep apnea Surgical History History of tonsillectomy Family History Father Medical history unknown Mother Medical history unknown Family/Other Asthma Brother No problems noted. Brother No problems noted. Sister No problems noted. 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 Caden Gillespie, Danielle Wadsworth, Saqib Ching and colleagues, with an educational amol from [employer] Physical exam (Primary Care) Tobacco/Smoking Status: Tobacco use Status Tobacco use date assessed 09/01/23 01/01/24 09:19 Patient Tobacco Use Status Never used Tobacco 01/01/24 09:19 e-Cigarette/Vaping Use Never Used 01/01/24 09:19 Thrive Assessment: Date of Thrive Assessment Date Thrive assessed 09/01/23 01/01/24 09:19 Telehealth Telehealth Telehealth Platform: Telephone Location of provider rendering services: practice address Location of patient: address on file Patient Identification confirmed using: Name, : Yes Telehealth method: video Patient verbally consented to treatment: Yes Patient verbally consented to billing insurance company: Yes Patient informed of any privacy concerns related to visit: Yes Minutes spent on Phone/Video with Pt.: 15 Assessment and Plan Assessment & Plan (1) Asthma: Code(s): J45.909 - Unspecified asthma, uncomplicated Qualifiers: Asthma complication type: with acute exacerbation Asthma persistence: persistent Asthma severity: mild Qualified Code(s): J45.31 - Mild persistent asthma with (acute) exacerbation Plan: Having issues with cough and mucus production. Chest x-ray without any evidence of pneumonia. Will supply patient with a DuoNeb as he feels that albuterol low and is not helpful. He reports he is somewhat allergic to prednisone and is afraid to take this medication. Could have an element of Pickwickian syndrome due to his severe morbid obesity. Will consider pulmonology evaluation if symptoms continue and worsened. (2) Morbid obesity: Code(s): E66.01 - Morbid (severe) obesity due to excess calories Plan: Patient does report being over 400 lb which has caused a decrease in his quality of life, has difficulties with his activities of daily living. He is limited to no mobility at home and spends most of his time in his recliner. (3) CHF (congestive heart failure): Code(s): I50.9 - Heart failure, unspecified Qualifiers: Heart failure chronicity: unspecified Heart failure type: diastolic Qualified Code(s): I50.30 - Unspecified diastolic (congestive) heart failure Plan: Seems to be well compensated without medication. Most recent x-ray without any venous congestion STILL PATIENT IS IN NEED OF A ELECTRIC HOSPITAL BED AND RECLINER WITH ABILITY TO ELEVATE HEAD OF BED TO HELP WITH HIS BREATHING. HE DOES HAVE OBSTRUCTIVE SLEEP APNEA AND HISTORY OF CONGESTIVE HEART FAILURE. (4) Sacral decubitus ulcer, stage III: Code(s): L89.153 - Pressure ulcer of sacral region, stage 3 Plan: As per HPI patient admitted to [facility] for decubitus stage III ulcer. Did have similar presentation in January of 2023 which incision and drainage was performed. August of 2023 persistent bleeding from the site noted though no abscess formation. Patient was treated with p.o. antibiotics. Will try to set him up with home nurses to do wound management for He is in desperate need electric hospital bed to help reduce pressure and has coccyx region to help reduce recurrent ulcer. Again strongly advised him to get up often or shift his weight in the recliner to help offload pressure on his ulcer. Again has been hospitalized twice for the same. Medications: New ipratropium-albuterol 0.5 mg-3 mg(2.5 mg base)/3 mL 3 mL inhalation Q6-8H PRN 180 mL 1RF wheezing 15 days J45.31 - Mild persistent asthma with (acute) exacerbation miscellaneous medical supply 1 ea miscellaneous DAILY 1 ea 0RF 99 days NS E66.01 - Morbid (severe) obesity due to excess calories, I50.30 - Unspecified diastolic (congestive) heart failure, L89.153 - Pressure ulcer of sacral region, stage 3 Discontinued benzonatate Discontinued Reason: Doctor's Order 200 mg PO ONCE 30 days 30 caps 3RF I50.30 - Unspecified diastolic (congestive) heart failure, R05.9 - Cough, unspecified Coding Level of Care Code Tele Est Pt Level 4 (28975) Diagnoses Mild persistent asthma with acute exacerbation J45.31 Asthma complication type: with acute exacerbation Asthma persistence: persistent Asthma severity: mild Morbid obesity E66.01 Diastolic congestive heart failure, unspecified HF chronicity I50.30 Heart failure chronicity: unspecified Heart failure type: diastolic Sacral decubitus ulcer, stage III L89.153
== END 2024-01-01 10:19 | disposition home or self-care (01) ==
LOC: HO.HMGH 09:17
PROVIDERS: PCP Physician Assistant; Visit Provider Physician Assistant
DX: L89.153 Pressure ulcer of sacral region, stage 3 (principal); J45.31 Mild persistent asthma with (acute) exacerbation; I50.30 Unspecified diastolic (congestive) heart failure
CPT/HCPCS: 99214

== ENCOUNTER 2024-09-25 20:14 | Emergency (ER) | payer OTHER, SELFPAY ==
--- NOTE | 2024-09-25 | ECG_ITS ---
Test Reason : CP Blood Pressure : */* mmHG Vent. Rate : 101 BPM Atrial Rate : 101 BPM P-R Int : 166 ms QRS Dur : 90 ms QT Int : 362 ms P-R-T Axes : 54 -13 85 degrees QTcB Int : 469 ms Sinus tachycardia Low voltage QRS Borderline ECG When compared with ECG of 31-Dec-2023 04:50, No significant change was found Referred By: Generic ED Physician Electronically Signed By: JASMYN POND MD
--- NOTE | ~2024-09-25 | XR_ITS ---
CLINICAL HISTORY: sob 1 view chest x-ray Comparison: CR/SR - XR CHEST 1V - 12/31/23 05:23 EDT Findings: No consolidation or effusion. Normal size heart. No acute fracture. IMPRESSION: 1. No acute findings. This document has been electronically signed by: Kaushal Jaquez MD on 09/25/2024 21:13:06
[2024-09-25 20:24] VITALS: BP 157/99; BP 168/78; PULSE 70; PULSE 86; RESP 28; TEMP 37.8; O2SAT 94; O2SAT 95; BMI 85.5
[2024-09-25 20:41] LABS: MANUAL DIFF FLAG NO
[2024-09-25 20:42] LABS: Basophils Percent Auto 0.2 % (0-2); Eosinophils Absolute Auto 0.2 X10*3/uL (0.0-0.4); Eosinophils Percent Auto 2.6 % (0-4); Hematocrit 40.3 % (42.0-52.0); Imm Gran Abs Auto 0.07 X10*3/uL (0.00-0.03); Imm Gran Pct Auto 0.8 % (0.0-0.4); Lymphocytes Absolute Auto 0.3 X10*3/uL (1.2-4.9); Lymphocytes Percent Auto 3.4 % (20-40); Mean Corpuscular HGB Conc 29.8 g/dl (31.0-36.0); Mean Corpuscular Hemoglobin 24.3 pg (27.0-33.0); Mean Corpuscular Volume 81.7 fL (80.0-98.0); Mean Platelet Volume 10.3 fL (9.4-12.4); Monocytes Absolute Auto 0.5 X10*3/uL (0.1-1.2); Monocytes Percent Auto 5.3 % (2-11); Neutrophils Percent Auto 87.7 % (45-73); Platelet Count 198 X10*3/uL (160-400); Red Blood Count 4.93 X10*6/uL (4.60-5.80); Red Cell Distribution Width 15.8 % (11.0-16.0); White Blood Count 9.1 X10*3/uL (4.8-10.8)
[2024-09-25 21:18] LABS: Influenza A PCR POSITIVE (Negative); Influenza B PCR NEGATIVE (Negative); Resp Syncy Virus RNA Qual PCR NEGATIVE (Negative); SARS COV2 PCR INHOUSE NEGATIVE (Negative)
--- NOTE | 2024-09-25 21:50 | ED.CHESTPAIN ---
HPI - Chest Pain General Chief Complaint: Chest Pain Stated Complaint: CP diff breathing Time Seen by Provider: 09/25/24 21:48 Source: patient Mode of arrival: EMS Limitations: no limitations History of Present Illness ED Provider: HPI narrative: Patient is morbidly obese with history of asthma comes here for 2 days of body aches cough low-grade fever and chills headache labs done prior to my evaluation showed patient is positive for influenza A Related Data Home Medications ?Medication ?Instructions ?Recorded ?Confirmed ibuprofen 800 mg tablet 800 mg PO Q8H PRN Pain 01/17/23 01/01/24 albuterol sulfate 2.5 mg/3 mL 2.5 mg inhalation Q4H PRN Wheezing 01/31/23 01/01/24 (0.083 %) solution for nebulization cyclobenzaprine 10 mg tablet 10 mg PO BEDTIME PRN muscle spasm 08/18/23 01/01/24 tramadol 50 mg tablet 50 mg PO DAILY PRN Pain 08/18/23 01/01/24 Previous Rx's ?Medication ?Instructions ?Recorded albuterol sulfate 90 mcg/actuation 1 inh inhalation QID PRN shortness 05/20/23 aerosol inhaler of breath or wheezing 30 days #8.5 grams Shower Chair #1 ea 09/01/23 walker #1 ea 09/01/23 hospital bed #1 12/24/23 non-adherent bandage 8 X 10 #216 ea 12/24/23 (Curity Abdominal Pad) silver sulfadiazine 1 % topical 1 appl topical DAILY 30 days #400 12/24/23 cream (Silvadene) grams albuterol sulfate 90 mcg/actuation 2 puff inhalation Q4-6H PRN 12/31/23 aerosol inhaler shortness of breath or wheezing #8.5 grams mometasone 50 mcg/actuation nasal 2 spray intranasal DAILY #17 grams 12/31/23 spray (Nasonex 24hr Allergy) miscellaneous medical supply 1 ea miscellaneous DAILY 99 days 01/01/24 #1 ea doxycycline monohydrate 100 mg 100 mg PO BID 7 days #14 caps 01/08/24 capsule umeclidinium 62.5 mcg-vilanterol 1 inh inhalation DAILY 30 days #60 01/08/24 25 mcg/actuation powdr for ea inhalation (Anoro Ellipta) miscellaneous medical supply 1 ea miscellaneous DAILY 99 days 01/12/24 #1 ea walker #1 ea 01/12/24 furosemide 20 mg tablet 20 mg PO DAILY 30 days #30 tabs 03/09/24 ipratropium 0.5 mg-albuterol 3 mg 3 ml inhalation Q6-8H PRN wheezing 08/31/24 (2.5 mg base)/3 mL nebulization 15 days #180 mL soln benzonatate 200 mg capsule 200 mg PO TID PRN cough #30 caps 09/26/24 oseltamivir 75 mg capsule (Tamiflu) 75 mg PO BID 5 days #10 caps 09/26/24 prednisone 20 mg tablet 40 mg (2 x 20 mg) PO DAILY #10 tabs 09/26/24 Allergies Allergy/AdvReac Type Severity Reaction Status Date / Time prednisolone AdvReac Mild decrease Verified 09/25/24 20:25 blood pressure. Review of Systems Review of Systems: Yes all other systems are reviewed and are negative [facility] Past Medical History Medical History Asthma Respiratory failure Pericardial effusion Obesity Chronic back pain Obstructive sleep apnea Surgical History History of tonsillectomy Family History Family History Father Medical history unknown Mother Medical history unknown Family/Other Asthma Brother No problems noted. Brother No problems noted. Sister No problems noted. 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) Alcohol intake: never Comment: pt refuses alarms Patient Tobacco Use Status: Never used Tobacco Smoked in Last 30 Days: No e-Cigarette/Vaping Use: Never Used Second Hand Smoke Exposure: No Use of substances other than those prescribed or required for medical reasons: No Advance Directives: Yes Advance Directives on File: Yes Advance Directives Date on File: 09/16/21 Do you have a plan to hurt others: No Plan service: No Current occupational status: disabled Cognitive needs: No Hearing needs: No Vision needs: No Physical Exam Vital Signs: Vital Signs: Last Vital Signs Temp 99.1 F 09/26/24 02:28 Pulse 86 09/26/24 02:28 Resp 20 09/26/24 02:28 BP 145/98 H 09/26/24 02:28 Pulse Ox 95 09/26/24 02:28 O2 Del Method Room Air 09/26/24 02:28 BMI result Body Mass Index 85.5 Appearance: Alert. Oriented X3. No acute distress. Obese Eyes: PERRLA, No Nystagmus ENT: Pharynx normal. Oral Mucosa moist Neck: Normal inspection. Neck supple. CVS: Normal heart rate and rhythm. Pulses normal. Respiratory: No respiratory distress. Equal air entry bilateral, no wheezing/rales/rhonchi Abdomen: Soft and nontender. Bowel sounds are present, no mass palpable, no CVA tenderness Skin: Skin warm and dry. Normal skin color. Normal skin turgor. Extremities: No lower extremity edema. No calf tenderness Neuro: Oriented X 3. No motor deficit. Medications Administered Discontinued Medications Generic Name Dose Route Start Last Admin Trade Name Davidq PRN Reason Stop Dose Admin Albuterol Sulfate 5 mg 09/26/24 00:03 09/26/24 00:25 Albuterol Sulfate (0.083%) 2.5 Mg/3 Ml Vial.Neb INHALE 09/26/24 00:04 Not Given ONCE ONE Albuterol/Ipratropium 3 ml 09/25/24 23:16 09/25/24 23:34 Albuterol/Iprat 2.5/0.5mg 3 Ml Ampul.Neb INHALE 09/25/24 23:17 3 ml ONCE ONE Administration Dexamethasone Sodium Phosphate 10 mg 09/26/24 00:03 09/26/24 00:31 Dexamethasone Sod Phosphate 10 Mg/Ml Vial IVPUSH 09/26/24 00:04 10 mg ONCE ONE Administration Guaifenesin/Codeine Phosphate 10 ml 09/25/24 22:28 09/25/24 22:36 Guaifen/Codeine Sf 200/20/10ml 10 Ml Liquid PO 09/25/24 22:29 10 ml ONCE ONE Administration Ketorolac Tromethamine 30 mg 09/25/24 22:27 09/25/24 22:35 Ketorolac Tromethamine 30 Mg/Ml Vial IVPUSH 09/25/24 22:28 30 mg ONCE ONE Administration Oseltamivir Phosphate 75 mg 09/25/24 22:32 09/25/24 22:53 Oseltamivir Phosphate 75 Mg Capsule PO 09/25/24 22:33 75 mg ONCE ONE Administration Medical Decision Making Medical Decision Making [facility] Narrative: Patient with influenza will give supportive treatment chest x-ray negative for infiltrate will discharge patient home on supportive treatment Lab Data [facility] Lab Attestation statement: I reviewed the patient's lab results. 09/25/24 20:36 09/25/24 21:48 Labs: Lab Results 09/25/24 09/25/24 Range/Units 20:36 21:48 WBC 9.1 (4.8-10.8) X10*3/uL RBC 4.93 (4.60-5.80) X10*6/uL Hgb 12.0 L (14.0-18.0) g/dl Hct 40.3 L (42.0-52.0) % MCV 81.7 (80.0-98.0) fL MCH 24.3 L (27.0-33.0) pg MCHC 29.8 L (31.0-36.0) g/dl RDW 15.8 (11.0-16.0) % Plt Count 198 (160-400) X10*3/uL MPV 10.3 (9.4-12.4) fL Immature Gran % (Auto) 0.8 H (0.0-0.4) % Neut % (Auto) 87.7 H (45-73) % Lymph % (Auto) 3.4 L (20-40) % [place] % (Auto) 5.3 (2-11) % Eos % (Auto) 2.6 (0-4) % Baso % (Auto) 0.2 (0-2) % Lymph # (Auto) 0.3 L (1.2-4.9) X10*3/uL [place] # (Auto) 0.5 (0.1-1.2) X10*3/uL Eos # (Auto) 0.2 (0.0-0.4) X10*3/uL Baso # (Auto) 0.0 (0.0-0.2) X10*3/uL Abs Immat Gran (auto) 0.07 H (0.00-0.03) X10*3/uL Absolute Neuts (auto) 8.0 (2.0-8.3) x10*3/uL Absolute Nucleated RBC 0.000 (0.0-0.012) X10*3/uL Nucleated RBC % (auto) 0.0 (0.0-0.2) /100WBC Sodium 140 (135-145) mmol/L Potassium 4.2 D (3.3-5.1) mmol/L Chloride 104 (96-108) mmol/L Carbon Dioxide 26 (22-29) mmol/L Anion Gap 14 (12-20) BUN 9 (9-16) mg/dL Creatinine 0.66 (0.5-1.4) mg/dL Estim Creat Clear Calc 290.9 Estimated GFR > 60 Random Glucose 101 (60-115) mg/dL Calcium 8.5 (8.4-10.2) mg/dL Total Bilirubin 0.4 (0.0-1.0) mg/dL AST 11 (5-37) U/L ALT 7 (0-40) U/L Alkaline Phosphatase 66 (39-117) U/L Troponin I High Sens < 2.7 (<3.5-35.0) ng/L Total Protein 7.5 (6.5-8.0) g/dL Albumin 3.5 (3.5-5.0) g/dL Influenza Type A (PCR) POSITIVE A (Negative) Influenza Type B (PCR) NEGATIVE (Negative) RSV RNA Qual (PCR) NEGATIVE (Negative) SARS-CoV-2 RNA (RT-PCR) NEGATIVE (Negative) Radiology Impression Discussion of test interpretation with radiology: I have reviewed the radiologist's reading. Radiologist Impression: NAD Discharge Plan Discharge Clinical Impression: Influenza A Patient Disposition: Home, Self-Care Instructions: Influenza (ED) Additional Instructions: Drink plenty of fluids Continue to use your nebulizer treatment Tamiflu twice a day for 5 days Cough drops as prescribed Follow with your PCP as needed Prednisone as prescribed Prescriptions: New benzonatate 200 mg capsule 200 mg PO TID PRN (Reason: cough) Qty: 30 0RF oseltamivir [Tamiflu] 75 mg capsule 75 mg PO BID 5 Days Qty: 10 0RF prednisone 20 mg tablet 40 mg PO DAILY Qty: 10 0RF No Action Anoro Ellipta 62.5-25 mcg/actuation blister with device 1 inh inhalation DAILY 30 Days Qty: 60 1RF doxycycline monohydrate 100 mg capsule 100 mg PO BID 7 Days Qty: 14 0RF [place] [facility] [place] miscellaneous DAILY 99 Days Qty: 1 0RF Rx Instructions: NEED FOR BARIATRIC TUB CHAIR (DME) [place] [facility] [place] Instructions .Route Qty: 1 0RF Rx Instructions: Need for large bariatric 2 wheeled walker furosemide 20 mg tablet 20 mg PO DAILY 30 Days Qty: 30 1RF ipratropium-albuterol 0.5 mg-3 mg(2.5 mg base)/3 mL solution for nebulization 3 ml inhalation Q6-8H PRN (Reason: wheezing) 15 Days Qty: 180 1RF cyclobenzaprine 10 mg tablet 10 mg PO BEDTIME PRN (Reason: muscle spasm) tramadol 50 mg tablet 50 mg PO DAILY PRN (Reason: Pain) ibuprofen 800 mg tablet 800 mg PO Q8H PRN (Reason: Pain) albuterol sulfate 2.5 mg /3 mL (0.083 %) solution for nebulization 2.5 mg inhalation Q4H PRN (Reason: Wheezing) albuterol sulfate 90 mcg/actuation HFA aerosol inhaler 2 puff inhalation Q4-6H PRN (Reason: shortness of breath or wheezing) Qty: 8.5 0RF mometasone [Nasonex 24hr Allergy] 50 mcg/actuation spray,non-aerosol 2 spray intranasal DAILY Qty: 17 0RF Rx Instructions: administer into each nostril [place] [facility] [place] miscellaneous DAILY 99 Days Qty: 1 0RF albuterol sulfate 90 mcg/actuation HFA aerosol inhaler 1 inh inhalation QID PRN (Reason: shortness of breath or wheezing) 30 Days Qty: 8.5 3RF (DME) [place] [facility] [place] Rx Instructions .Route Qty: 1 0RF Rx Instructions: As directed (DME) Shower Chair Misc See Rx Instructions .Route Qty: 1 0RF Rx Instructions: As directed (DME) hospital bed Kit See Rx Instructions .Route Qty: 1 0RF Rx Instructions: As directed (DME) Curity Abdominal Pad 8 X 10 bandage See Rx Instructions .Route Qty: 216 0RF Rx Instructions: As directed silver sulfadiazine [Silvadene] 1 % cream 1 appl topical DAILY 30 Days Qty: 400 1RF Rx Instructions: apply a 1.5 mm thickness Interventions: ED Discharge Assessment Last Done: 09/26/24 02:28 Discharge Date/Time: 09/26/24 02:29 Print Language: [place]an
[2024-09-25 22:08] LABS: Alanine Aminotransferase 7 U/L (0-40); Albumin Level 3.5 g/dL (3.5-5.0); Alkaline Phosphatase 66 U/L (39-117); Anion Gap 14 (12-20); Aspartate Amino Transferase 11 U/L (5-37); Bilirubin Total 0.4 mg/dL (0.0-1.0); Blood Urea Nitrogen 9 mg/dL (9-16); Calcium 8.5 mg/dL (8.4-10.2); Carbon Dioxide 26 mmol/L (22-29); Chloride 104 mmol/L (96-108); Creatinine Clr Calc Pharmacy 290.9; Estimated Glomerular Filt Rate > 60; Glucose Random 101 mg/dL (60-115); Potassium 4.2 mmol/L (3.3-5.1); Sodium 140 mmol/L (135-145); Total Protein 7.5 g/dL (6.5-8.0)
[2024-09-25 22:16] LABS: Troponin-I High Sensitivity < 2.7 ng/L (<3.5-35.0)
[2024-09-25] MEDS: Ketorolac Tromethamine 30 MG/ML VIAL IVPUSH (22:35)
--- NOTE | 2024-09-25 22:35 | PC.NURSE ---
pt biba from home, a&ox4, respirations even but labored. reports x3 days of chest pain, shortness of breath, fevers and chills. pt reports his brother was recently sick but unsure with what. on arrival pt had low grade temp, and a junky cough. 22G placed in right hand, labs obtained. pt nsr on tele 80-83bpm.
[2024-09-25] MEDS: guaiFEN/Codeine SF 200/20/10ML 10 ML LIQUID PO (22:36)
[2024-09-25] MEDS: Oseltamivir Phosphate 75 MG CAPSULE PO (22:53)
[2024-09-25] MEDS: Albuterol/Iprat 2.5/0.5MG 3 ML AMPUL.NEB INHALE (23:34)
[2024-09-25 23:36] VITALS: PULSE 101; RESP 18; O2SAT 93
--- NOTE | 2024-09-26 00:12 | PC.NURSE ---
at time of discharge pt states he does not have keys to his house, reports his only way to get his keys his from his brother. brother contacted at this time, states he can not bring the keys due to the weather. provider and admission discharge rn aware. pt states he is unable to walk.
[2024-09-26 00:26] VITALS: PULSE 88
[2024-09-26] MEDS: dexAMETHasone sod phosphate 10 MG/ML VIAL IVPUSH (00:31)
[2024-09-26 00:36] VITALS: BP 152/73; PULSE 100; RESP 22; TEMP 37.6; O2SAT 94
--- NOTE | 2024-09-26 00:51 | PC.NURSE ---
at this time, pt states his brother is able to bring keys to apartment. EMS transport booked at this time.
[2024-09-26 02:24] VITALS: BP 145/98; PULSE 86; RESP 20; TEMP 37.3; O2SAT 95
[2024-09-26 02:28] VITALS: BP 145/98; PULSE 86; RESP 20; TEMP 37.3; O2SAT 95
--- NOTE | 2024-09-26 02:28 | PC.NURSE ---
ems at bedside to transport pt to home.
== END 2024-09-26 02:29 | disposition home or self-care (01) ==
PROVIDERS: Emergency Provider Internal Medicine
DX: J10.1 Influenza due to other identified influenza virus with other respiratory manifestations (principal); R07.9 Chest pain, unspecified; M79.10 Myalgia, unspecified site; R05.9 Cough, unspecified; R07.89 Other chest pain; Z03.818 Encounter for observation for suspected exposure to other biological agents ruled out; Z79.899 Other long term (current) drug therapy
CPT/HCPCS: 0241U; 36415; 71045; 80053; 84484; 85025; 93005; 94640; 96374; 96375; 99284; 99285; J1100; J1885

== ENCOUNTER → 2024-09-25 20:34 | Outpatient (BNV) | payer OTHER, SELFPAY | PROVIDERS: Emergency Provider Internal Medicine; Visit Provider Internal Medicine Cardiovascular Disease | DX: R00.0 Tachycardia, unspecified (principal) | CPT/HCPCS: 93010 ==

== ENCOUNTER → 2024-09-25 20:40 | Outpatient (BNV) | payer OTHER, SELFPAY | PROVIDERS: Emergency Provider Internal Medicine; Visit Provider Radiology Diagnostic Radiology | DX: R06.02 Shortness of breath (principal) | CPT/HCPCS: 71045 ==

== ENCOUNTER 2024-10-25 13:57 | Emergency (ER) | payer OTHER, SELFPAY ==
--- NOTE | 2024-10-25 14:09 | ED_ITS ---
HPI - General Adult General Chief complaint: Extremity Injury, Lower Stated complaint: LACERATION Time Seen by Provider: 10/25/24 14:09 Source: patient and EMS Mode of arrival: EMS Limitations: no limitations History of Present Illness ED Provider: Krissy Lemos PA-C HPI narrative: Patient is a 49 year old assigned male at with a history of DM, CHF, and asthma presenting to the emergency department today with a right lower extremity laceration. Patient states that he has decreased sensation in his lower extremities at baseline. Patient states that he must have caught his right lower leg on his wheelchair and noticed it was bleeding. Patient denies any dizziness, lightheadedness, abdominal pain, nausea, vomiting, fever, chills, blurry vision, double vision, loss of vision, chest pain, difficulty breathing, shortness of breath, back pain, night sweats, pain with urination, increased urinary frequency, increased urinary urgency, blood in his urine or stool, syncope or a near syncopal episode, bowel incontinence, bladder incontinence, or any other complaints at this time. Location: right and lower extremity Relieving factors: none Exacerbating factors: none Associated symptoms: denies other symptoms Treatments prior to arrival: none Related Data Home Medications ?Medication ?Instructions ?Recorded ?Confirmed ibuprofen 800 mg tablet 800 mg PO Q8H PRN Pain 01/17/23 01/01/24 cyclobenzaprine 10 mg tablet 10 mg PO BEDTIME PRN muscle spasm 08/18/23 01/01/24 tramadol 50 mg tablet 50 mg PO DAILY PRN Pain 08/18/23 01/01/24 Previous Rx's ?Medication ?Instructions ?Recorded Shower Chair #1 09/01/23 walker #1 09/01/23 hospital bed #1 12/24/23 non-adherent bandage 8 X 10 #216 12/24/23 (Curity Abdominal Pad) silver sulfadiazine 1 % topical 1 appl topical DAILY 30 days #400 12/24/23 cream (Silvadene) grams mometasone 50 mcg/actuation nasal 2 spray intranasal DAILY #17 grams 12/31/23 spray (Nasonex 24hr Allergy) miscellaneous medical supply 1 ea miscellaneous DAILY 99 days 01/01/24 #1 ea doxycycline monohydrate 100 mg 100 mg PO BID 7 days #14 caps 01/08/24 capsule umeclidinium 62.5 mcg-vilanterol 1 inh inhalation DAILY 30 days #60 01/08/24 25 mcg/actuation powdr for ea inhalation (Anoro Ellipta) miscellaneous medical supply 1 ea miscellaneous DAILY 99 days 01/12/24 #1 ea walker #1 ea 01/12/24 furosemide 20 mg tablet 20 mg PO DAILY 30 days #30 tabs 03/09/24 benzonatate 200 mg capsule 200 mg PO TID PRN cough #30 caps 09/26/24 oseltamivir 75 mg capsule (Tamiflu) 75 mg PO BID 5 days #10 caps 09/26/24 prednisone 20 mg tablet 40 mg (2 x 20 mg) PO DAILY #10 tabs 09/26/24 dexamethasone 4 mg tablet 16 mg (4 x 4 mg) PO DAILY 1 day #4 09/29/24 tabs albuterol sulfate 2.5 mg/3 mL 2.5 mg (3 mL) inhalation Q4H PRN 10/21/24 (0.083 %) solution for nebulization Wheezing 30 days #180 mL albuterol sulfate 90 mcg/actuation 2 puff inhalation Q4-6H PRN 10/21/24 aerosol inhaler shortness of breath or wheezing #8.5 grams ipratropium 0.5 mg-albuterol 3 mg 3 ml inhalation Q6-8H PRN wheezing 10/21/24 (2.5 mg base)/3 mL nebulization 15 days #180 mL soln cephalexin 500 mg capsule 500 mg PO Q6H 7 days #28 caps 10/25/24 doxycycline hyclate 100 mg tablet 100 mg PO BID 7 days #14 tabs 10/25/24 Allergies Allergy/AdvReac Type Severity Reaction Status Date / Time prednisolone AdvReac Mild decrease Verified 10/25/24 14:13 blood pressure. Review of Systems 2 Constitutional: Constitutional: Reports no additional constitutional complaints, Denies chills, Denies fever(s) and Denies night sweats Eyes: Eyes: Reports no additional eye complaints, Denies blurry vision, Denies change in vision, Denies diplopia, Denies eye discharge, Denies loss of vision and Denies eye pain ENT: Denies dizziness Cardiovascular: Cardiovascular: Reports no additional cardiovascular complaints, Denies chest pain, Denies lightheadedness, Denies Loss of Consciousness and Denies dyspnea Respiratory: Respiratory: Reports no additional respiratory complaints and Denies dyspnea Gastrointestinal: Gastrointestinal: Reports no additional gastrointestinal complaints, Denies abdominal pain, Denies melena, Denies hematochezia, Denies change in bowel habits and Denies change in stool character Genitourinary: Genitourinary: Reports no additional male genitourinary complaints, Denies hematuria, Denies oliguria, Denies difficulty urinating, Denies dysuria, Denies urinary frequency, Denies urinary hesitancy, Denies urinary incontinence and Denies urinary urgency Musculoskeletal: Musculoskeletal: Reports no additional musculoskeletal complaints, Denies numbness and Denies tingling Comments: right lower leg laceration Neurologic: Denies dizziness, Denies loss of vision, Denies numbness and Denies tingling Psychiatric: Psychiatric: Reports no additional psychiatric complaints Endocrine: Endocrine: Reports no additional endocrine complaints Hematologic/Lymphatic: Hematologic/Lymphatic: Reports no additional hematologic/lymphatic complaints Allergic/Immunologic: Allergic/Immunologic: Reports no additional allergic/immunologic complaints [facility] Past Medical History Attestation statement: The following information was validated with the patient. Source: old records reviewed and nursing notes reviewed Medical History Asthma Respiratory failure Pericardial effusion Obesity Chronic back pain Obstructive sleep apnea Surgical History History of tonsillectomy Family History Family History Father Medical history unknown Mother Medical history unknown Family/Other Asthma Brother No problems noted. Brother No problems noted. Sister No problems noted. 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) Alcohol intake: never Comment: pt refuses alarms Patient Tobacco Use Status: Never used Tobacco e-Cigarette/Vaping Use: Never Used Second Hand Smoke Exposure: No Advance Directives: Yes Advance Directives on File: Yes Advance Directives Date on File: 09/16/21 Do you have a plan to hurt others: No Plan service: No Current occupational status: disabled Cognitive needs: No Hearing needs: No Vision needs: No Physical Exam ED Vital Signs: Vital Signs - 24 hr 10/25/24 14:14 Temperature 98.5 F Pulse Rate 87 Respiratory Rate 16 Blood Pressure 177/69 H Pulse Oximetry 92 Oxygen Delivery Method Room Air BMI result Body Mass Index 83.0 Const General: cooperative, no acute distress, alert and awake Nutritional Appearance: well nourished and obese morbidly obese Orientation/consciousness: patient oriented x3 Limitations: no limitations HENMT Head: Yes normal to inspection and Yes atraumatic Ears: hearing grossly normal bilaterally and external ears normal General nose exam: Normal external nose present, no nasal discharge noted and no epistaxis Face and sinus: Yes normal facial exam, No abrasion and No laceration Mouth: Normal oral and palatal mucosa present, no drooling and no muffled voice Eyes General: appearance normal, both eyes and all related structures Periorbital: periorbital findings normal Eyelids: Yes eyelids normal Conjunctivae: conjunctivae normal Pupils: Equal, round and reactive pupils present EOM: EOMs intact bilaterally Neck Neck: Yes normal visual inspection, Yes full ROM and Yes no lymphadenopathy Chest Chest palpation & inspection: normal inspection of the chest Resp Effort & Inspection: normal respiratory effort and able to speak in complete sentences GI Inspection: Yes normal to inspection Neuro General: patient oriented x3, moves all extremities and CN's II-XI intact bilaterally Cranial nerves: Yes Equal, round and reactive pupils present Cognition (Neuro): normal cognition Extrem Other: 3+ pitting edema to bilateral lower extremities - chronic for the patient. General: Yes full ROM and Yes capillary refill normal Ankle/foot/toe images: 2 1. 1 cm crescent shaped laceration - no active bleeding Psych Appearance: grossly normal Mental Status: mental status grossly normal Affect: normal affect Attitude: cooperative Thought process: Normal thought process present Thought content: Normal thought content present Insight: Good insight present (Psych) Medications Administered Discontinued Medications Generic Name Dose Route Start Last Admin Trade Name Freq PRN Reason Stop Dose Admin Cephalexin HCl 500 mg 10/25/24 15:05 10/25/24 15:11 Cephalexin 500 Mg Capsule PO 10/25/24 15:06 500 mg ONCE ONE Administration Diphtheria/Tetanus/Acell Pertussis 0.5 ml 10/25/24 15:05 10/25/24 15:11 Diphth,Pertus(Acell),Tet Adult 0.5 Ml Syringe IM 10/25/24 15:06 0.5 ml .ONCE ONE Administration Doxycycline Monohydrate 100 mg 10/25/24 15:05 10/25/24 15:11 Doxycycline Monohydrate 100 Mg Capsule PO 10/25/24 15:06 100 mg ONCE ONE Administration Lidocaine HCl 10 ml 10/25/24 14:15 10/25/24 14:30 Lidocaine Hcl 1 % Mpf 5 Ml Vial SUBCUT 10/25/24 14:16 10 ml ONCE ONE Administration Procedures Laceration Laceration 1: Site: lower extremity Side (If applicable): right Size (cm): 1 Description: other (crescent shaped) Depth: simple, single layer Local Anesthetic: lidocaine 1% Amount of anesthesia used (mL): 10 Pre-repair: wound explored, irrigated extensively and deep structures intact Skin layer closed with: nylon Size (cm): 3-0 Number of sutures: 3 Technique: simple, interrupted Medical Decision Making Medical Decision Making MDM Narrative: Patient is a 49 year old assigned male at with a history of DM, CHF, and asthma presenting to the emergency department today with a right lower extremity laceration. Patient's physical exam was as noted in the physical exam portion of this note. I explained my physical exam findings to the patient. I answered all questions asked by the patient. Patient's laceration was repaired, per procedure note, without incident. I stressed the importance of the patient taking his medication as directed (either prescribed or as the over the counter packaging recommends). I stressed the importance of the patient following up with his primary care provider. I stressed the importance of the patient returning to the emergency department immediately if his symptoms were to worsen or if he were to develop any dizziness, shortness of breath, difficulty breathing, chest pain, blurry vision, loss of vision, nausea, vomiting, abdominal pain, fever, chills, back pain, or any other complaints. Patient verbalized agreement and understanding with this treatment plan and discharge. Differential Diagnosis Differential Diagnoses: The differential diagnosis associated with the presentation includes Right lower leg laceration Independent Historian Clinical information obtained from an independent historian. History obtained from or confirmed by: EMS (EMS provided additional history and confirmed the history provided by the patient.) Prescription Management I considered prescription management with: Antibiotic (given patient is DM and the G[place], patient covered with prophylactic antibiotics. ) Chronic Conditions Patient?s care impacted by: Diabetes Discharge Plan Discharge Clinical Impression: Laceration of leg Patient Disposition: Home, Self-Care Instructions: Care For Your Stitches (DC), Laceration (DC) Additional Instructions: You should have your sutures (3) removed in 7-10 days. Do NOT soak the affected area. Take your antibiotic as prescribed. Perform daily wound checks and dressing changes. Le retirar?n los puntos (3) en 7-10 d?as. NO empape la wilfredo afectada. Jesús el antibi?viktor seg?n prescripci?n m?dica. Realice revisiones diarias de la herida y cambios de ap?sito. Follow up with your primary care provider. Return to the emergency department immediately if your symptoms worsen or if you develop any dizziness, shortness of breath, difficulty breathing, chest pain, blurry vision, loss of vision, nausea, vomiting, abdominal pain, fever, chills, back pain, or any other complaints. Boyd?seguimiento?con chavarria m?dico de atenci?n primaria. Acuda inmediatamente al servicio de urgencias si raul s?ntomas empeoran o si presenta falta de aliento, dificultad para respirar, dolor tor?cico, mareos, aturdimiento, dolor de espalda, dolor abdominal, fiebre, escalofr?os o cualquier otro s?ntoma. Please see the information below about our Patient Portal. If you are not yet enrolled in the [facility] Patient Portal, you will receive an enrollment email invitation following your visit to any [facility] setting. You may also self-enroll in the Patient Portal by visiting our website: [email or web address] The following information is required to access the Patient Portal: - Your [facility] Medical Record Number - Your personal home email address (must match what is in your electronic medical record, Registration staff can assist with this) - Name - Date of Capabilities of the Patient Portal: - Message some providers - View upcoming appointments - Access your health summary, medical history, and visit history - View current conditions and allergies - View procedure and lab results - View your medications, including guidelines, side effects, and precautions - Complete pre-appointment questionnaires requested by your provider - Ready summary reports of your office visits and procedures To access the Patient Portal Mobile Frederic, follow these directions: - Search Tutee in the Frederic Store or [employer] Store - Download the Frederic - Search for [facility] - Enter your login/password Portal del paciente Si usted no esta inscrito en el portal de pacientes de [facility], recibira sukhdev invitacion de inscripcion despues de chavarria visita al [facility] o al [facility] via correo electronico. Tambien puede inscribirse voluntariamente en el portal de pacientes visitando nuestra pagina web: [email or web address] La siguiente informacion sera requerida para acceder al portal: - Chavarria do de historia medica de [facility] - Chavarria direccion de correo electronico personal - Nombre - Fecha de nacimiento Capacidades: Las siguientes capacidades estan disponibles en el portal de pacientes: - Enviar mensajes a algunos doctores - Verificar proximas citas - Acceso a chavarria historial de kathya, registro medico e historial de visitas - Pasha las condiciones actuales y alergias pasha procedimientos y resultados del laboratorio - Pasha raul medicamentos, incluyendo las pautas - Efectos secundarios y precauciones - Completar o llenar formularios / cuestionarios de - Citas solicitadas por chavarria doctor - Leer los resumenes de reportes medicos de raul visitas y procedimientos [employer] acceder a la aplicacion movil: - Busque [employer]ute[employer] en la Frederic Store o [employer] Store - Descargue la aplicacion - Busque [facility] - Ingrese chavarria nombre de usuario / Contrasena Prescriptions: New cephalexin 500 mg capsule 500 mg PO Q6H 7 Days Qty: 28 0RF doxycycline hyclate 100 mg tablet 100 mg PO BID 7 Days Qty: 14 0RF No Action Anoro Ellipta 62.5-25 mcg/actuation blister with device 1 inh inhalation DAILY 30 Days Qty: 60 1RF doxycycline monohydrate 100 mg capsule 100 mg PO BID 7 Days Qty: 14 0RF miscellaneous medical supply Misc 1 ea miscellaneous DAILY 99 Days Qty: 1 0RF Rx Instructions: NEED FOR BARIATRIC TUB CHAIR (DME) walker Misc See Rx Instructions .Route Qty: 1 0RF Rx Instructions: Need for large bariatric 2 wheeled walker furosemide 20 mg tablet 20 mg PO DAILY 30 Days Qty: 30 1RF albuterol sulfate 2.5 mg /3 mL (0.083 %) solution for nebulization 2.5 mg inhalation Q4H PRN (Reason: Wheezing) 30 Days Qty: 180 1RF albuterol sulfate 90 mcg/actuation HFA aerosol inhaler 2 puff inhalation Q4-6H PRN (Reason: shortness of breath or wheezing) Qty: 8.5 0RF ipratropium-albuterol 0.5 mg-3 mg(2.5 mg base)/3 mL solution for nebulization 3 ml inhalation Q6-8H PRN (Reason: wheezing) 15 Days Qty: 180 1RF cyclobenzaprine 10 mg tablet 10 mg PO BEDTIME PRN (Reason: muscle spasm) tramadol 50 mg tablet 50 mg PO DAILY PRN (Reason: Pain) benzonatate 200 mg capsule 200 mg PO TID PRN (Reason: cough) Qty: 30 0RF oseltamivir [Tamiflu] 75 mg capsule 75 mg PO BID 5 Days Qty: 10 0RF prednisone 20 mg tablet 40 mg PO DAILY Qty: 10 0RF dexamethasone 4 mg tablet 16 mg PO DAILY 1 Days Qty: 4 0RF ibuprofen 800 mg tablet 800 mg PO Q8H PRN (Reason: Pain) mometasone [Nasonex 24hr Allergy] 50 mcg/actuation spray,non-aerosol 2 spray intranasal DAILY Qty: 17 0RF Rx Instructions: administer into each nostril miscellaneous medical supply [facility] 1 ea miscellaneous DAILY 99 Days Qty: 1 0RF (DME) walker Misc See Rx Instructions .Route Qty: 1 0RF Rx Instructions: As directed (DME) Shower Chair Misc See Rx Instructions .Route Qty: 1 0RF Rx Instructions: As directed (DME) hospital bed Kit See Rx Instructions .Route Qty: 1 0RF Rx Instructions: As directed (DME) Curity Abdominal Pad 8 X 10 bandage See Rx Instructions .Route Qty: 216 0RF Rx Instructions: As directed silver sulfadiazine [Silvadene] 1 % cream 1 appl topical DAILY 30 Days Qty: 400 1RF Rx Instructions: apply a 1.5 mm thickness Referrals: Diony Lino PA-C [Primary Care Provider] - Print Language: Slovenian
[2024-10-25 14:12] VITALS: BP 158/88; PULSE 87; O2SAT 99; BMI 83.0
[2024-10-25 14:14] VITALS: BP 177/69; PULSE 87; RESP 16; TEMP 36.9; O2SAT 92
[2024-10-25] MEDS: Lidocaine HCl 1 % MPF 5 ML VIAL 10 ML SUBCUT (14:30)
[2024-10-25] MEDS: cephALEXin 500 MG CAPSULE PO (15:11)
[2024-10-25] MEDS: Diphth,Pertus(ACell),Tet Adult 0.5 ML SYRINGE IM (15:11)
[2024-10-25] MEDS: Doxycycline Monohydrate 100 MG CAPSULE PO (15:11)
--- NOTE | 2024-10-25 18:26 | PC.NURSE ---
report given to WILDA Muñoz. pt leaving [facility] at this time.
[2024-10-25 18:28] VITALS: BP 177/69; PULSE 87; RESP 16; TEMP 36.9; O2SAT 92
== END 2024-10-25 18:29 | disposition home or self-care (01) ==
PROVIDERS: Emergency Provider Emergency Medicine Emergency Medical Services; PCP Physician Assistant
DX: S81.811A Laceration without foreign body, right lower leg, initial encounter (principal); M79.604 Pain in right leg; X58.XXXA Exposure to other specified factors, initial encounter; Y93.9 Activity, unspecified; Y92.9 Unspecified place or not applicable; Y99.9 Unspecified external cause status; Z79.899 Other long term (current) drug therapy; Z23 Encounter for immunization
CPT/HCPCS: 12001; 90471; 90715; 99284; J2003